=== PATIENT | male | born 1955 | race Caucasian/White ===

== ENCOUNTER 2016-02-20 16:14 | Emergency (ER) | payer MEDICAID, OTHER ==
[~2016-02-20] VITALS: Ht 175.3 cm; Wt 82.0 kg
[~2016-02-20 16:14] MED LIST: LEVE500 PO; LISI-363 PO; METO25 PO
[2016-02-20 16:22] VITALS: BP 109/65; PULSE 111; RESP 18; TEMP 98.3; O2SAT 96
--- NOTE | 2016-02-20 16:26 | PD ---
HPI . Alcohol intoxication Chief Complaint: Intoxication Time Seen by Provider: 16:20 Travel History International Travel<30 days: No Contact w/Intl Traveler<30days: No History of Present Illness HPI History is obtained from it coordinator. She obtained her history from the patient' s neighbors. She states that his home is very messy and there are empty beer cans scattered about. Neighbors report that the patient drinks a lot. Neighbors called EMS today because the patient fell into a cactus tree. The patient has no complaints. PFSH Past Medical History Anxiety: Yes Depression: Yes Cancer: No Cardiovascular Problems: Yes COPD: Yes Diminished Hearing: No Endocrine: No Headaches: Yes Hypertension: Yes (no meds) Immune Disorder: No Inguinal Hernia: Yes (left side repaired) Musculoskeletal: Yes Psychiatric: Yes Past Surgical History Abdominal Surgery: Yes (left groin-hernia repair) Other Surgery: Yes Social History Alcohol Use: Yes (OCC) Tobacco Use: No Substance Use: Yes (States "has used all of it." (Hx Psychedelics/Mushrooms)) Allergies-Medications (Allergen,Severity, Reaction): Coded Allergies: No Known Allergies (Unverified , 02/20/16) Reported Meds & Prescriptions Reported Meds & Active Scripts Active Reported Lisinopril 20 mg (Lisinopril) 20 Mg Tab 1 Tab PO DAILY Metoprolol Tartrate 25 mg (Metoprolol Tartrate) 25 Mg Tab 25 Mg PO BID Keppra (Levetriacetam) 500 Mg Tab 500 Mg PO BID Review of Systems Except as stated in HPI: all other systems reviewed are Neg Physical Exam Narrative GENERAL: This is a pleasantly intoxicated gentleman who is covered in abrasions. SKIN: Warm and dry. Multiple abrasions. HEAD: Atraumatic. Normocephalic. EYES: Pupils equal and round. ENT: No nasal bleeding or discharge. Mucous membranes pink and moist. NECK: Trachea midline. Neck supple. CARDIOVASCULAR: Regular rate and rhythm. RESPIRATORY: No accessory muscle use. GASTROINTESTINAL: Abdomen soft, non-tender, nondistended. MUSCULOSKELETAL: No obvious deformities. No edema. NEUROLOGICAL: Awake and alert. No obvious cranial nerve deficits. Motor grossly within normal limits. Normal speech. PSYCHIATRIC: Appropriate mood and affect; insight and judgment poor. Data Data Last Documented VS Vital Signs Date Time Temp Pulse Resp B/P Pulse Ox O2 Delivery O2 Flow Rate FiO2 02/20/16 16:30 110 18 96 Nasal Cannula 2 02/20/16 16:22 98.3 109/65 Orders Complete Blood Count With Diff (02/20/16 16:21) Comprehensive Metabolic Panel (02/20/16 16:21) Iv Access Insert/Monitor (02/20/16 16:21) Alcohol (Ethanol) (02/20/16 16:21) Sodium Chlor 0.9% 1000 Ml Inj (Ns 1000 M (02/20/16 16:30) Tetanus/Diphtheria Tox Adult (Tetanus/Di (02/20/16 16:30) Thiamine Inj (Thiamine Inj) (02/20/16 16:30) Multivitamin (Theragran) (02/20/16 16:30) Urinalysis - C+S If Indicated (02/20/16 17:58) Labs Laboratory Tests Test 02/20/16 02/20/16 16:52 18:05 White Blood Count 26.1 TH/MM3 Red Blood Count 4.39 MIL/MM3 Hemoglobin 13.9 GM/DL Hematocrit 41.2 % Mean Corpuscular Volume 93.8 FL Mean Corpuscular Hemoglobin 31.6 PG Mean Corpuscular Hemoglobin 33.6 % Concent Red Cell Distribution Width 15.5 % Platelet Count 146 TH/MM3 Mean Platelet Volume 9.2 FL Neutrophils (%) (Auto) 12.4 % Lymphocytes (%) (Auto) 81.9 % Monocytes (%) (Auto) 5.0 % Eosinophils (%) (Auto) 0.3 % Basophils (%) (Auto) 0.4 % Neutrophils # (Auto) 3.2 TH/MM3 Lymphocytes # (Auto) 21.4 TH/MM3 Monocytes # (Auto) 1.3 TH/MM3 Eosinophils # (Auto) 0.1 TH/MM3 Basophils # (Auto) 0.1 TH/MM3 CBC Comment AUTO DIFF Differential Total Cells 100 Counted Neutrophils % (Manual) 16 % Lymphocytes % 78 % Monocytes % 6 % Neutrophils # (Manual) 4.2 TH/MM3 Differential Comment FINAL DIFF MANUAL Smudge Cells PRESENT Platelet Estimate LOW Platelet Morphology Comment NORMAL Red Cell Morphology Comment NORMAL Sodium Level 140 MEQ/L Potassium Level 3.9 MEQ/L Chloride Level 104 MEQ/L Carbon Dioxide Level 23.2 MEQ/L Anion Gap 13 MEQ/L Blood Urea Nitrogen 7 MG/DL Creatinine 0.89 MG/DL Estimat Glomerular Filtration 87 ML/MIN Rate Random Glucose 116 MG/DL Calcium Level 7.9 MG/DL Total Bilirubin 0.3 MG/DL Aspartate Amino Transf 173 U/L (AST/SGOT) Alanine Aminotransferase 110 U/L (ALT/SGPT) Alkaline Phosphatase 56 U/L Total Protein 7.7 GM/DL Albumin 3.5 GM/DL Ethyl Alcohol Level 438 MG/DL Urine Color LIGHT-YELLOW Urine Turbidity CLEAR Urine pH 5.0 Urine Specific [place] 1.003 Urine Protein NEG mg/dL Urine Glucose (UA) NEG mg/dL Urine Ketones NEG mg/dL Urine Occult Blood NEG Urine Nitrite NEG Urine Bilirubin NEG Urine Urobilinogen LESS THAN 2.0 MG/DL Urine Leukocyte Esterase NEG Urine RBC LESS THAN 1 /hpf Urine WBC 1 /hpf Urine Mucus FEW /lpf Microscopic Urinalysis Comment CULT NOT INDICATED MDM Medical Decision Making Medical Screen Exam Complete: Yes Emergency Medical Condition: Yes Differential Diagnosis Differential diagnosis includes but is not limited to alcohol intoxication, polysubstance abuse, abrasions, lacerations Narrative Course Patient comes in to us by EMS basically for acute alcohol intoxication. He is reportedly chronically unsteady on his feet because of previous brain tumor. And he drinks daily. Today he fell into a cactus tree. 6 PM Labs reviewed. White blood count is elevated. I have added a UA. 6:30 PM UA is negative. This patient does not give me any signs or symptoms worrisome for infection. He has no fever. He has no cough or difficulty breathing. He states that he feels fine. I will discharge him to home. Diagnosis Primary Impression: Alcohol abuse Additional Impressions: Fall Qualified Code: W19.XXXA - Fall, initial encounter Multiple abrasions Disposition: 01 DISCHARGE HOME Condition: Stable Doris Finley MD Feb 20, 2016 16:26
[2016-02-20] MEDS ORDERED: TETANUS/DIPHTHERIA TOXOID ADULT 0.5 ML VIAL IM ONE (16:30)
[2016-02-20] MEDS ORDERED: SODIUM CHLOR 0.9% 1000 ML INJ 1,000 ML IV ONE (16:30)
[2016-02-20] MEDS ORDERED: THIAMINE INJ 100 MG in SODIUM CHLORIDE 0.9% INJ 100 ML IV ONE (16:30)
[2016-02-20] MEDS ORDERED: MULTIVITAMIN TAB PO ONE (16:30)
[2016-02-20 17:27] LABS: AUTOMATED NEUTROPHIL # 3.2 TH/MM3 (1.8-7.7); BASOPHIL # 0.1 TH/MM3 (0-0.2); BASOPHIL % 0.4 % (0.0-2.0); EOSINOPHIL # 0.1 TH/MM3 (0-0.4); EOSINOPHIL % 0.3 % (0.0-4.0); HEMATOCRIT 41.2 % (39.0-51.0); LYMPH % 81.9 % (9.0-44.0); LYMPHOCYTE # 21.4 TH/MM3 (1.0-4.8); MEAN CELL VOLUME 93.8 FL (80.0-100.0); MEAN CORPUSCULAR HEMOGLOBIN 31.6 PG (27.0-34.0); MEAN CORPUSCULAR HGB CONC 33.6 % (32.0-36.0); NEUT % 12.4 % (16.0-70.0); PLATELET COUNT 146 TH/MM3 (150-450); RED BLOOD COUNT 4.39 MIL/MM3 (4.50-5.90); RED CELL DISTRIBUTION WIDTH 15.5 % (11.6-17.2); WHITE BLOOD COUNT 26.1 TH/MM3 (4.0-11.0)
[2016-02-20 17:30] LABS: HEMO FLAGS AUTO DIFF
[2016-02-20 17:45] LABS: ALKALINE PHOSPHATASE 56 U/L (45-117); ALT (GPT) 110 U/L (12-78); ANION GAP 13 MEQ/L (5-15); AST (GOT) 173 U/L (15-37); BICARBONATE 23.2 MEQ/L (21.0-32.0); BLOOD UREA NITROGEN 7 MG/DL (7-18); CHLORIDE 104 MEQ/L (98-107); GLOMERULAR FILTRATION RATE 87 ML/MIN (>89); POTASSIUM 3.9 MEQ/L (3.5-5.1); SODIUM (NA) 140 MEQ/L (136-145); TOTAL BILIRUBIN ADULT 0.3 MG/DL (0.2-1.0)
[2016-02-20 17:59] LABS: NEUTROPHIL # MANUAL DIFF 4.2 TH/MM3 (1.8-7.7); POLYS (SEG NEUTROPHILS) 16 % (16-70); WBC DIFF SAMPLE 100
[2016-02-20 18:00] LABS: PLATELET ESTIMATE SMEAR LOW (NORMAL); PLATELET MORPHOLOGY NORMAL (NORMAL); SCAN/DIFF FINAL DIFF MANUAL; SMUDGE CELLS PRESENT PRESENT
[2016-02-20 18:24] LABS: BLOOD, URINE NEG (NEG); COMMENT (UR) CULT NOT INDICATED; CULTURE IF INDICATED CULT NOT INDICATED; GLUCOSE,URINE NEG (NEG); KETONE, URINE NEG (NEG); MUCUS URINE FEW /lpf (OCC); NITRITE,URINE NEG (NEG); URINE COLOR LIGHT-YELLOW (YELLW/STRAW)
== END 2016-02-20 19:28 | disposition home or self-care (01) ==
LOC: NEPE 16:14
DX: F10.129 Alcohol abuse with intoxication, unspecified (principal); T14.8 Other injury of unspecified body region; W19.XXXA Unspecified fall, initial encounter; Y90.8 Blood alcohol level of 240 mg/100 ml or more; Z23 Encounter for immunization
CPT/HCPCS: 80053; 80320; 81001; 85007; 85027; 90471; 90714; 96374; 99284; J3411; J7030

== ENCOUNTER 2016-03-04 17:16 | Emergency (ER) | payer MEDICAID, OTHER ==
[~2016-03-04] VITALS: Ht 180.3 cm; Wt 95.5 kg
[2016-03-04] MEDS ORDERED: LEVE500 PO ×2 (17:21→18:09)
[2016-03-04 17:22] VITALS: BP 117/77; PULSE 115; RESP 18; TEMP 98.3; O2SAT 93
[2016-03-04] MEDS ORDERED: SODIUM CHLOR 0.9% 1000 ML INJ 1,000 ML IV SCH (17:30)
[2016-03-04] MEDS ORDERED: levETIRAcetam 1000 MG INJ 100 ML IV ONE (17:30)
[2016-03-04] MEDS ORDERED: SODIUM CHLORIDE 0.9% FLUSH 5 ML FLUSH IVF PRN (17:30)
[2016-03-04] MEDS ORDERED: DIPHTH/TETANUS/ACEL PERTUSSIS (BOOSTER) 0.5 ML VIAL/PFS IM ONE (17:30)
--- NOTE | 2016-03-04 17:42 | PD ---
HPI Chief Complaint: Fall Time Seen by Provider: 17:23 Travel History International Travel<30 days: No Contact w/Intl Traveler<30days: No Traveled to known affect area: No History of Present Illness HPI Patient is a 61-year-old male with history of seizures as well as alcohol abuse , presents to emergency room intoxicated. Patient was brought to ER by [facility] as bystanders saw patient fall onto his face and land on the concrete road. Reports no loc at scene. Patient has no complaints at this time. Patient reports that he has not taken any of his seizure medications which includes Keppra 500 mg by mouth twice a day for the past week. Patient reports that he is an alcoholic, reports that he drank 2 cans of beer today. Patient with no complaints. Tetanus is up-to-date - he received this on his last ER visit 1 week ago. PFSH Past Medical History Anxiety: Yes Depression: Yes Cancer: No Cardiovascular Problems: Yes COPD: Yes Diminished Hearing: No Endocrine: No Headaches: Yes Hypertension: Yes (no meds) Immune Disorder: No Inguinal Hernia: Yes (left side repaired) Musculoskeletal: Yes Psychiatric: Yes Seizures: Yes Past Surgical History Abdominal Surgery: Yes (left groin-hernia repair) Other Surgery: Yes Social History Alcohol Use: Yes (DAILY ) Tobacco Use: No Substance Use: No (States "has used all of it." (Hx Psychedelics/Mushrooms)) Allergies-Medications (Allergen,Severity, Reaction): Coded Allergies: No Known Allergies (Unverified , 03/04/16) Reported Meds & Prescriptions Reported Meds & Active Scripts Active Keppra (Levetiracetam) 500 Mg Tab 500 Mg PO BID Reported Keppra (Levetiracetam) 500 Mg Tab 500 Mg PO BID Review of Systems ROS Limitations: Intoxication General / Constitutional: No: Fever Eyes: No: Visual changes HENT: No: Headaches Cardiovascular: No: Chest Pain or Discomfort Respiratory: No: Shortness of Breath Gastrointestinal: No: Abdominal Pain Genitourinary: No: Dysuria Musculoskeletal: No: Pain Skin: No Rash Neurologic: No: Weakness Psychiatric: No: Depression Endocrine: No: Polydipsia Hematologic/Lymphatic: No: Easy Bruising Physical Exam Narrative GENERAL: Patient intoxicated, alert and oriented 3 SKIN: Warm and dry. HEAD: Normocephalic. Patient with left-sided facial abrasion EYES: Pupils equal and round. No scleral icterus. No injection or drainage. ENT: No nasal bleeding or discharge. Mucous membranes pink and moist. NECK: Trachea midline. No JVD. CARDIOVASCULAR: Regular rate and rhythm. No murmur appreciated. Patient with left-sided chest contusion and contusion and bruising under the left axilla RESPIRATORY: No accessory muscle use. Clear to auscultation. Breath sounds equal bilaterally. GASTROINTESTINAL: Abdomen soft, non-tender, nondistended. Patient with left flank hematoma, contusion, bruising MUSCULOSKELETAL: No obvious deformities. No clubbing. No cyanosis. No edema. NEUROLOGICAL: Awake and alert. No obvious cranial nerve deficits. Motor grossly within normal limits. PSYCHIATRIC: Patient intoxicated Data Data Last Documented VS Vital Signs Date Time Temp Pulse Resp B/P Pulse Ox O2 Delivery O2 Flow Rate FiO2 03/04/16 19:18 100 20 119/83 95 Room Air 03/04/16 17:22 98.3 Orders Electrocardiogram (03/04/16 17:30) Complete Blood Count With Diff (03/04/16 17:30) Comprehensive Metabolic Panel (03/04/16 17:30) Prothrombin Time / Inr (Pt) (03/04/16 17:30) Act Partial Throm Time (Ptt) (03/04/16 17:30) Iv Access Insert/Monitor (03/04/16 17:30) Sodium Chloride 0.9% Flush (Ns Flush) (03/04/16 17:30) Urinalysis - C+S If Indicated (03/04/16 17:30) Drug Screen, Random Urine (03/04/16 17:30) Ct Brain W/O Iv Contrast(Rout) (03/04/16 17:30) Ct Cerv Spine W/O Contrast (03/04/16 17:30) Ct Abd/Pel W Iv Contrast(Rout) (03/04/16 17:30) Ct Thorax/ Chest W Iv Contrast (03/04/16 17:30) Ct Facial Bones W/O Iv Cont (03/04/16 17:30) Sodium Chlor 0.9% 1000 Ml Inj (Ns 1000 M (03/04/16 17:30) Levetiracetam 1000 Mg Inj (Keppra 1000 M (03/04/16 17:30) Alcohol (Ethanol) (03/04/16 17:30) Sodium Chlor 0.9% 1000 Ml Inj (Ns 1000 M (03/04/16 18:00) Sodium Chlor 0.9% 1000 Ml Inj (Ns 1000 M (03/04/16 18:15) Ecg Monitoring (03/04/16 18:12) Iohexol 350 Inj (Omnipaque 350 Inj) (03/04/16 19:21) Labs Laboratory Tests Test 03/04/16 03/04/16 17:45 17:50 Urine Collection Type CLEAN CATCH Urine Color YELLOW Urine Turbidity CLEAR Urine pH 5.5 Urine Specific [place] 1.006 Urine Protein NEG mg/dL Urine Glucose (UA) NEG mg/dL Urine Ketones NEG mg/dL Urine Occult Blood TRACE Urine Nitrite NEG Urine Bilirubin NEG Urine Leukocyte Esterase NEG Urine RBC 0-3 /hpf Urine Squamous Epithelial 0-5 /hpf Cells Urine Amorphous Sediment FEW Urine Hyaline Casts 0-2 /lpf Microscopic Urinalysis Comment CULT NOT INDICATED Urine Collection Time 1745 Urine Opiates Screen NEG Urine Barbiturates Screen NEG Urine Amphetamines Screen NEG Urine Benzodiazepines Screen NEG Urine Cocaine Screen NEG Urine Cannabinoids Screen NEG White Blood Count 35.0 TH/MM3 Red Blood Count 4.36 MIL/MM3 Hemoglobin 13.8 GM/DL Hematocrit 40.6 % Mean Corpuscular Volume 93.2 FL Mean Corpuscular Hemoglobin 31.6 PG Mean Corpuscular Hemoglobin 33.9 % Concent Red Cell Distribution Width 14.6 % Platelet Count 178 TH/MM3 Mean Platelet Volume 8.6 FL Neutrophils (%) (Auto) 11.1 % Lymphocytes (%) (Auto) 84.8 % Monocytes (%) (Auto) 2.9 % Eosinophils (%) (Auto) 0.4 % Basophils (%) (Auto) 0.8 % Neutrophils # (Auto) 3.9 TH/MM3 Lymphocytes # (Auto) 29.7 TH/MM3 Monocytes # (Auto) 1.0 TH/MM3 Eosinophils # (Auto) 0.1 TH/MM3 Basophils # (Auto) 0.3 TH/MM3 CBC Comment AUTO DIFF Differential Total Cells 100 Counted Neutrophils % (Manual) 8 % Lymphocytes % 8 % Monocytes % 4 % Eosinophils % 3 % Neutrophils # (Manual) 2.8 TH/MM3 Differential Comment FINAL DIFF MANUAL Atypical Lymphocytes 77 % Smudge Cells PRESENT Platelet Estimate NORMAL Platelet Morphology Comment NORMAL Red Cell Morphology Comment NORMAL Prothrombin Time 11.2 SEC Prothromb Time International 1.0 RATIO Ratio Activated Partial 24.1 SEC Thromboplast Time Sodium Level 143 MEQ/L Potassium Level 4.3 MEQ/L Chloride Level 109 MEQ/L Carbon Dioxide Level 21.7 MEQ/L Anion Gap 12 MEQ/L Blood Urea Nitrogen 5 MG/DL Creatinine 0.86 MG/DL Estimat Glomerular Filtration 91 ML/MIN Rate Random Glucose 106 MG/DL Calcium Level 8.3 MG/DL Total Bilirubin 0.4 MG/DL Aspartate Amino Transf 189 U/L (AST/SGOT) Alanine Aminotransferase 115 U/L (ALT/SGPT) Alkaline Phosphatase 64 U/L Total Protein 8.4 GM/DL Albumin 3.7 GM/DL Ethyl Alcohol Level 392 MG/DL [facility] Medical Decision Making Medical Screen Exam Complete: Yes Emergency Medical Condition: Yes Interpretation(s) EKG at 1757: Sinus tach at 106bpm, qt/qtc: 336/416, no acute st or t wave changes Vital Signs Date Time Temp Pulse Resp B/P Pulse Ox O2 Delivery O2 Flow Rate FiO2 03/04/16 17:22 98.3 115 18 117/77 93 Differential Diagnosis Intracranial hemorrhage, seizure, alcohol intoxication, electrolyte abnormality , pneumothorax, splenic rupture, lung contusion, C-spine fracture Narrative Course Patient is a 61-year-old male with history of seizures as well as alcohol abuse , presents to emergency room after he had a witnessed mechanical fall into the road today. Patient reports that he drank 2 beers, reports that he thinks that he fell into a cactus today, patient with no complaints at this time. Patient does admit to history of seizures, reports that he is supposed to be on Keppra for seizures but has not taken his medications and a week as he has run out of his medications. Patient is alert and oriented 3, patient with history of seizures as well as brain aneurysms, patient with multiple contusions and bruising all over body. Because patient is intoxicated, CT of the head neck chest abdomen and pelvis ordered for evaluation of possible traumatic injuries. Patiently placed on monitor and storage bin tender, will give patient IV fluids at this time. wbc: 35 hb.8 hct: 40.6 platelets: 178 neut # 3.9 Sodium 143 Chloride is 109 BUN 5 Creatinine 0.86 Glucose 106 Potassium is 4.[address] of the head: Evidence of previous significant surgery with apparent embolization. There is no evidence of significant medical hemorrhage, mass effect or acute infarction. CT of the facial bones: Left maxillary sinus disease, no evidence of acute fracture CT of the neck: Degenerative changes without fracture CT of chest: Negative for acute traumatic injury CT of abdomen and pelvis: Moderate fatty replacement to the liver, negative for acute traumatic injury Patient intoxicated at this time. Will discharge patient after he is sober. Patient does have a significant leukocytosis without a shift, I do not believe the patient has an infection at this time, patient will need to have a workup for his leukocytosis as outpatient. Patient alert and oriented x3, pt with no complaints. Patient walking in ER with normal gait. I reviewed all of his labs and studies. 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 as soon as possible Diagnosis Primary Impression: Alcohol abuse Additional Impressions: Seizure disorder Facial abrasion Qualified Code: S00.81XA - Facial abrasion, initial encounter Leukocytosis Qualified Code: D72.829 - Leukocytosis, unspecified type Patient Instructions: General Instructions Additional Instructions: Please provide patient with a copy of his lab work as well as CAT scan results at discharge Please follow-up with your primary care doctor as soon as possible Please follow-up with ironing machine operator as soon as possible Please stop drinking alcohol Please take your medications for seizure as prescribed Med/Other Pt SpecificInfo: Prescription(s) given Scripts Levetiracetam (Keppra)500 Mg [id number] Mg PO BID #60 TAB Ref 0 Prov:Claritza Fountain DO 03/04/16 Disposition: 01 DISCHARGE HOME Condition: Stable Claritza Fountain DO Mar 04, 2016 17:42
[2016-03-04 17:51] LABS: BLOOD, URINE TRACE (NEG); GLUCOSE,URINE NEG (NEG); KETONE, URINE NEG (NEG); NITRITE,URINE NEG (NEG); PH, URINE 5.5 (5.0-8.5)
[2016-03-04 17:54] LABS: METHOD OF COLLECTION CLEAN CATCH; URINE COLOR YELLOW (YELLW/STRAW)
[2016-03-04 17:56] LABS: COMMENT (UR) CULT NOT INDICATED; COMMENT2 (UR) MUCOUS PRESENT; CULTURE IF INDICATED CULT NOT INDICATED; HYALINE CAST, URINE 0-2 /lpf (RARE); RBC, URINE 0-3 /hpf (0-3); SQUAMOUS EPITHELIAL CELL URINE 0-5 /hpf (0-5)
[2016-03-04] MEDS ORDERED: SODIUM CHLOR 0.9% 1000 ML INJ 1,000 ML IV ONE ×2 (18:00→18:15)
[2016-03-04 18:01] LABS: AUTOMATED NEUTROPHIL # 3.9 TH/MM3 (1.8-7.7); BASOPHIL # 0.3 TH/MM3 (0-0.2); BASOPHIL % 0.8 % (0.0-2.0); EOSINOPHIL # 0.1 TH/MM3 (0-0.4); EOSINOPHIL % 0.4 % (0.0-4.0); HEMATOCRIT 40.6 % (39.0-51.0); LYMPH % 84.8 % (9.0-44.0); LYMPHOCYTE # 29.7 TH/MM3 (1.0-4.8); MEAN CELL VOLUME 93.2 FL (80.0-100.0); MEAN CORPUSCULAR HEMOGLOBIN 31.6 PG (27.0-34.0); MEAN CORPUSCULAR HGB CONC 33.9 % (32.0-36.0); MONO % 2.9 % (0.0-8.0); NEUT % 11.1 % (16.0-70.0); PLATELET COUNT 178 TH/MM3 (150-450); RED BLOOD COUNT 4.36 MIL/MM3 (4.50-5.90); RED CELL DISTRIBUTION WIDTH 14.6 % (11.6-17.2)
[2016-03-04 18:03] LABS: HEMO FLAGS AUTO DIFF
[2016-03-04 18:06] LABS: AMPHETAMINE, URINE NEG (NEG)
[2016-03-04 18:07] LABS: BARBITURATES, URINE NEG (NEG)
[2016-03-04 18:08] LABS: CHLORIDE 109 MEQ/L (98-107); POTASSIUM 4.3 MEQ/L (3.5-5.1); SODIUM (NA) 143 MEQ/L (136-145)
[2016-03-04 18:12] LABS: ANION GAP 12 MEQ/L (5-15); BICARBONATE 21.7 MEQ/L (21.0-32.0); BLOOD UREA NITROGEN 5 MG/DL (7-18)
[2016-03-04 18:12] LABS: COCAINE, URINE NEG (NEG)
[2016-03-04 18:14] LABS: APTT (PATIENT) 24.1 SEC (24.3-30.1); PROTHROMBIN TIME - PATIENT 11.2 SEC (9.8-11.6)
[2016-03-04 18:15] LABS: ALT (GPT) 115 U/L (12-78); AST (GOT) 189 U/L (15-37); GLOMERULAR FILTRATION RATE 91 ML/MIN (>89)
[2016-03-04 18:17] LABS: TOTAL BILIRUBIN ADULT 0.4 MG/DL (0.2-1.0)
[2016-03-04 18:18] LABS: ALKALINE PHOSPHATASE 64 U/L (45-117)
--- NOTE | 2016-03-04 19:15 | RADHPO ---
EXAM DATE/TIME: 03/04/2016 18:45 [facility] COMPARISON: CT BRAIN W/O CONTRAST, December 15, 2015, 11:13. INDICATIONS : Trauma; fall on concrete. RADIATION DOSE: 64.93 CTDIvol (mGy) MEDICAL HISTORY : Seizures. Cardiovascular disease. Hypertension. COPD, Left inguinal hernia. SURGICAL HISTORY : Inguinal hernia repair. ENCOUNTER: Initial ACUITY: 1 day PAIN SCALE: 5/10 LOCATION: Bilateral head TECHNIQUE: Multiple contiguous axial images were obtained of the head. Using automated exposure control and adjustment of the mA and/or kV according to patient size, radiation dose was kept as low as reasonably achievable to obtain optimal diagnostic quality images. FINDINGS: Patient is status post apparent embolization AVM. There are extensive embolization coils causing sig nificant artifact. I do not see any evidence for significant parenchymal hemorrhage, mass effect or acute infarction. Subtle subarachnoid hemorrhages cannot be excluded. CONCLUSION: Evidence for previous significant surgery with apparent embolization. coils. I have no prior studies for a comparison. Negative for an acute process. Ernie Hubbard MD FACR on March 04, 2016 at 19:05 Board Certified Radiologist. This report was verified electronically.
[2016-03-04 19:18] VITALS: BP 119/83; PULSE 100; RESP 20; O2SAT 95
[2016-03-04] MEDS ORDERED: IOHEXOL 350 MG/ML 10 ML VIAL (for RAD DIAG) IV ONE (19:21)
--- NOTE | 2016-03-04 19:24 | RADHPO ---
EXAM DATE/TIME: 03/04/2016 18:45 [facility] COMPARISON: No previous studies available for comparison. INDICATIONS : Trauma; fall on concrete. RADIATION DOSE: 26.70 CTDIvol (mGy) MEDICAL HISTORY : Seizures. Hypertension. Cardiovascular disease SURGICAL HISTORY : Inguinal hernia repair. ENCOUNTER: Initial ACUITY: 1 day PAIN SCALE: 1/10 LOCATION: Neck TECHNIQUE: Volumetric scanning of the cervical spine was performed. Multiplanar reconstructions in the sagittal, coronal and oblique axial planes were performed. Using automated exposure control and adjustment o f the mA and/or kV according to patient size, radiation dose was kept as low as reasonably achievable to obtain optimal diagnostic quality images. FINDINGS: Alignment is anatomic. There are degenerative changes at C1 and C2. C2-C3: The bony spinal canal is normal in size. No evidence of disc bulge or herniation. The neural forami na are bilaterally patent. C3-C4: Moderate facet disease is present with minimal bilateral neural foraminal encroachment. C4-C5: Moderate facet disease is evident with bilateral neural foraminal encroachment. C5-C6: Moderate uncinate ridging and facet disease is present causing a mild degree of spinal stenosis and m oderate bilateral neural foraminal encroachment. C6-C7: The bony spinal canal is normal in size. No evidence of disc bulge or herniation. The neural forami na are bilaterally patent. C7-T1: The bony spinal canal is normal in size. No evidence of disc bulge or herniation. The neural forami na are bilaterally patent. CONCLUSION: Degenerative changes as described above without fracture. Ernie Hubbard MD FACR on March 04, 2016 at 19:17 Board Certified Radiologist. This report was verified electronically.
--- NOTE | 2016-03-04 19:26 | RADHPO ---
EXAM DATE/TIME: 03/04/2016 18:45 [facility] COMPARISON: No previous studies available for comparison. INDICATIONS : Trauma; fall on concrete. RADIATION DOSE: 25.60 CTDIvol (mGy) MEDICAL HISTORY : Seizures. Cardiovascular disease Hypertension. SURGICAL HISTORY : Inguinal hernia repair. ENCOUNTER: Initial ACUITY: 1 day PAIN SCORE: 5/10 LOCATION: Bilateral face TECHNIQUE: Volumetric scanning of the facial bones was performed. Using automated exposure contr ol and adjustment of the mA and/or kV according to patient size, radiation dose was kept as low as re asonably achievable to obtain optimal diagnostic quality images. FINDINGS: Patient has apparently had a significant history of aneurysm coiling and AV malformation embolization . Superior and inferior nasal spines are intact. There is opacification of the left maxillary sinus. A fracture is not appreciated. Mandible and maxilla are intact. CONCLUSION: 1. Left maxillary sinus disease apparently nontraumatic. 2. I do not see evidence for a fracture. Ernie Hubbard MD FACR on March 04, 2016 at 19:22 Board Certified Radiologist. This report was verified electronically.
--- NOTE | 2016-03-04 19:28 | RADHPO ---
EXAM DATE/TIME: 03/04/2016 18:58 [facility] COMPARISON: No previous studies available for comparison. INDICATIONS : Trauma; fall on concrete. IV CONTRAST: 85 cc Omnipaque 350 (iohexol) IV ; Cumulative dose for multiple exams. RADIATION DOSE: 17.02 CTDIvol (mGy) ; Combined studies - Thorax/Abdomen/Pelvis MEDICAL HISTORY : Hypertension. Cardiovascular disease. Chronic obstructive pulmonary disease. SURGICAL HISTORY : Inguinal hernia repair. ENCOUNTER: Initial ACUITY: 1 day PAIN SCALE: 3/10 LOCATION: Chest TECHNIQUE: Volumetric scanning of the chest was performed. Using automated exposure control and adjustment of t he mA and/or kV according to patient size, radiation dose was kept as low as reasonably achievable to obtain optimal diagnostic quality images. FINDINGS: There is no pneumothorax. There is minimal nonspecific mediastinal axillary adenopathy. There is no mediastinal adenopathy. Minimal coronary artery calcifications are noted. There is no pericardial effusion. There is moderate fatty replacement to the liver. Review of bone windows reveals degenerative changes about both shoulders. I don't see a fracture. CONCLUSION: Negative for acute traumatic injury. Ernie Hubbard MD FACR on March 04, 2016 at 19:23 Board Certified Radiologist. This report was verified electronically.
--- NOTE | 2016-03-04 19:33 | RADHPO ---
EXAM DATE/TIME: 03/04/2016 18:58 [facility] COMPARISON: No previous studies available for comparison. INDICATIONS : Trauma; fall on concrete. IV CONTRAST: 85 cc Omnipaque 350 (iohexol) IV ; Cumulative dose for multiple exams. ORAL CONTRAST: No oral contrast ingested. RADIATION DOSE: 17.02 CTDIvol (mGy) ; Combined studies - Thorax/Abdomen/Pelvis MEDICAL HISTORY : Cardiovascular disease. Hypertension. Chronic obstructive pulmonary disease. SURGICAL HISTORY : Inguinal hernia repair. ENCOUNTER: Initial ACUITY: 1 day PAIN SCALE: 5/10 LOCATION: Bilateral abdomen TECHNIQUE: Volumetric scanning of the abdomen and pelvis was performed. Using automated exposure control and ad justment of the mA and/or kV according to patient size, radiation dose was kept as low as reasonably achievable to obtain optimal diagnostic quality images. FINDINGS: Lung bases are clear. Moderate fatty replacement to the liver is identified. Spleen is unremarkable . Pancreas and adrenal glands appear normal. Prostatic calcifications are evident. Review of bone windows reveals degenerative changes in the thoracolumbar spine. Mild degenerative changes are seen about the SI joints. A fracture is not appreciated. CONCLUSION: 1. Moderate fatty replacement to the liver. 2. Negative for acute traumatic injury. Ernie Hubbard MD FACR on March 04, 2016 at 19:25 Board Certified Radiologist. This report was verified electronically.
[2016-03-04 19:38] LABS: ATYPICAL LYMPHOCYTES 77 % (0-0); EOSINOPHILS 3 % (0-4); NEUTROPHIL # MANUAL DIFF 2.8 TH/MM3 (1.8-7.7); PLATELET ESTIMATE SMEAR NORMAL (NORMAL); PLATELET MORPHOLOGY NORMAL (NORMAL); SCAN/DIFF FINAL DIFF MANUAL; WBC DIFF SAMPLE 100
[2016-03-04 19:39] LABS: POLYS (SEG NEUTROPHILS) 8 % (16-70)
[2016-03-04 19:41] LABS: SMUDGE CELLS PRESENT PRESENT
--- NOTE | 2016-03-05 13:38 | EKG ---
Date Performed: 03/04/2016 Time Performed: 17:57:38 PTAGE: 61 years EKG: Sinus tachycardia Normal ECG except for rate Compared to prior tracing no significant chadwick e PREVIOUS TRACING : 12/15/2015 10.14 DOCTOR: Carlos Llamas Interpretating Date/Time 03/05/2016 13:36:28
== END 2016-03-04 20:21 | disposition home or self-care (01) ==
LOC: PHEFT 17:16
DX: F10.220 Alcohol dependence with intoxication, uncomplicated (principal); S00.91XA Abrasion of unspecified part of head, initial encounter; D72.829 Elevated white blood cell count, unspecified; F41.9 Anxiety disorder, unspecified; F32.9 Major depressive disorder, single episode, unspecified; J44.9 Chronic obstructive pulmonary disease, unspecified; I10 Essential (primary) hypertension; Y90.8 Blood alcohol level of 240 mg/100 ml or more; W01.198A Fall on same level from slipping, tripping and stumbling with subsequent striking against other object, initial encounter; Y93.9 Activity, unspecified; Y92.9 Unspecified place or not applicable; Y99.9 Unspecified external cause status
CPT/HCPCS: 70450; 70486; 71260; 72125; 74177; 80053; 80307; 80320; 81001; 85007; 85027; 85610; 85730; 93005; 96361; 96365; 99284; J1953; J7030; Q9967

== ENCOUNTER 2016-04-04 08:40 | Inpatient (IN) | payer MEDICAID, OTHER ==
[~2016-04-04] VITALS: Ht 182.9 cm; Wt 91.1 kg
[2016-04-04] VITALS (26 sets, daily range): BP systolic 108–168; BP diastolic 68–99; PULSE 74–118; RESP 16–39; TEMP 98.3–99.1; O2SAT 88–96
[~2016-04-04 08:40] MED LIST changes: -LISI-363 PO; -METO25 PO
[2016-04-04] MEDS ORDERED: levETIRAcetam INJ 1,000 MG in SODIUM CHLORIDE 0.9% INJ 100 ML IV ONE (08:45)
[2016-04-04] MEDS ORDERED: SODIUM CHLOR 0.9% 1000 ML INJ 1,000 ML IV ONE (08:45)
[2016-04-04] MEDS ORDERED: LORazepam 2 MG/ML VIAL IV PUSH ONE ×4 (08:45→10:45)
--- NOTE | 2016-04-04 08:59 | PD ---
HPI Chief Complaint: Seizure Time Seen by Provider: 08:42 Travel History International Travel<30 days: No Contact w/Intl Traveler<30days: No Traveled to known affect area: No History of Present Illness HPI Patient is a 61-year-old male brought in by EMS after a seizure this morning at the [facility]. The patient is a chronic alcoholic and normally drinks daily. He says his last drink was 4 days ago. He is currently feeling very tremulous. He has a history of seizures, and says that he normally takes Keppra for the seizures, however he has not had in 4 days. He says he also feels like the Keppra does not help. He has history of an aneurysm that was surgically repaired about a year ago. He denies any headache today. He says he feels nauseous. He denies any blurred vision. He denies any chest pain or shortness of breath. He denies any fever or chills. PFSH Past Medical History Anxiety: Yes Depression: Yes Cancer: No Cardiovascular Problems: Yes COPD: Yes Diminished Hearing: No Endocrine: No Headaches: Yes Hypertension: Yes (no meds) Immune Disorder: No Inguinal Hernia: Yes (left side repaired) Musculoskeletal: Yes Psychiatric: Yes Seizures: Yes Past Surgical History Abdominal Surgery: Yes (left groin-hernia repair) Other Surgery: Yes Social History Alcohol Use: Yes (DAILY, states he drinks several "strong beers") Tobacco Use: No Substance Use: No (States "has used all of it." (Hx Psychedelics/Mushrooms)) Allergies-Medications (Allergen,Severity, Reaction): Coded Allergies: No Known Allergies (Unverified , 03/04/16) Reported Meds & Prescriptions Reported Meds & Active Scripts Active Keppra (Levetiracetam) 500 Mg Tab 500 Mg PO BID Reported Keppra (Levetiracetam) 500 Mg Tab 500 Mg PO BID Review of Systems Except as stated in HPI: all other systems reviewed are Neg General / Constitutional: No: Fever, Chills Eyes: No: Blurred Vision HENT: No: Headaches Cardiovascular: No: Chest Pain or Discomfort Respiratory: No: Shortness of Breath Gastrointestinal: Positive: Nausea, Vomiting, No: Abdominal Pain Musculoskeletal: No: Myalgias, Pain Skin: No Rash, No Change in Pigmentation Neurologic: Positive: Tremor, Seizures Physical Exam Narrative GENERAL: Awake and alert, in no acute distress. SKIN: Warm and dry. HEAD: Atraumatic. Normocephalic. EYES: Pupils equal and round. No scleral icterus. Extraocular movements intact. ENT: Mucous membranes pink and moist. Tongue fasciculations seen. NECK: Trachea midline. No JVD. CARDIOVASCULAR: Tachycardia. No murmur appreciated. RESPIRATORY: No accessory muscle use. Clear to auscultation. Breath sounds equal bilaterally. GASTROINTESTINAL: Abdomen soft, non-tender, nondistended. MUSCULOSKELETAL: No obvious deformities. No clubbing. No cyanosis. No edema. NEUROLOGICAL: Awake and alert. No obvious cranial nerve deficits. Motor grossly within normal limits. Normal speech. Tremulous. PSYCHIATRIC: Appropriate mood and affect; insight and judgment normal. Data Data Last Documented VS Vital Signs Date Time Temp Pulse Resp B/P Pulse Ox O2 Delivery O2 Flow Rate FiO2 04/04/16 10:59 76 18 144/81 92 Room Air 04/04/16 09:41 2 04/04/16 08:43 98.4 Orders Complete Blood Count With Diff (04/04/16 08:43) Comprehensive Metabolic Panel (04/04/16 08:43) Act Partial Throm Time (Ptt) (04/04/16 08:43) Prothrombin Time / Inr (Pt) (04/04/16 08:43) Sodium Chlor 0.9% 1000 Ml Inj (Ns 1000 M (04/04/16 08:45) Lorazepam Inj (Ativan Inj) (04/04/16 08:45) Levetiracetam Inj (Keppra Inj) (04/04/16 08:45) Documentation Manager / Telemetry [email or web address] (04/04/16 08:43) Iv Access Insert/Monitor (04/04/16 08:43) Electrocardiogram (04/04/16 ) Alcohol (Ethanol) (04/04/16 08:43) Lorazepam Inj (Ativan Inj) (04/04/16 09:45) Lorazepam Inj (Ativan Inj) (04/04/16 10:00) Ct Brain W/O Iv Contrast(Rout) (04/04/16 ) Chest, Single Ap (04/04/16 ) Lorazepam Inj (Ativan Inj) (04/04/16 10:45) Labs Laboratory Tests Test 04/04/16 04/04/16 09:08 10:10 White Blood Count 12.6 TH/MM3 Red Blood Count 4.29 MIL/MM3 Hemoglobin 13.3 GM/DL Hematocrit 40.0 % Mean Corpuscular Volume 93.2 FL Mean Corpuscular Hemoglobin 30.9 PG Mean Corpuscular Hemoglobin 33.2 % Concent Red Cell Distribution Width 14.5 % Platelet Count 133 TH/MM3 Mean Platelet Volume 8.8 FL Neutrophils (%) (Auto) 53.3 % Lymphocytes (%) (Auto) 42.1 % Monocytes (%) (Auto) 2.9 % Eosinophils (%) (Auto) 0.0 % Basophils (%) (Auto) 1.7 % Neutrophils # (Auto) 6.7 TH/MM3 Lymphocytes # (Auto) 5.3 TH/MM3 Monocytes # (Auto) 0.4 TH/MM3 Eosinophils # (Auto) 0.0 TH/MM3 Basophils # (Auto) 0.2 TH/MM3 CBC Comment AUTO DIFF Differential Total Cells 100 Counted Neutrophils % (Manual) 45 % Band Neutrophils % 12 % Lymphocytes % 40 % Monocytes % 3 % Neutrophils # (Manual) 7.2 TH/MM3 Differential Comment FINAL DIFF MANUAL Platelet Estimate LOW Platelet Morphology Comment NORMAL Red Cell Morphology Comment NORMAL Prothrombin Time 12.1 SEC Prothromb Time International 1.1 RATIO Ratio Activated Partial 24.5 SEC Thromboplast Time Sodium Level 139 MEQ/L Potassium Level 3.8 MEQ/L Chloride Level 103 MEQ/L Carbon Dioxide Level 26.6 MEQ/L Anion Gap 9 MEQ/L Blood Urea Nitrogen 8 MG/DL Creatinine 0.83 MG/DL Estimat Glomerular Filtration 95 ML/MIN Rate Random Glucose 126 MG/DL Calcium Level 8.5 MG/DL Total Bilirubin 1.5 MG/DL Aspartate Amino Transf 223 U/L (AST/SGOT) Alanine Aminotransferase 84 U/L (ALT/SGPT) Alkaline Phosphatase 67 U/L Total Protein 8.0 GM/DL Albumin 3.4 GM/DL Ethyl Alcohol Level LESS THAN 3 MG/DL MDM Medical Decision Making Medical Screen Exam Complete: Yes Emergency Medical Condition: Yes Medical Record Reviewed: Yes Interpretation(s) ECG shows sinus tachycardia at 101, no ST elevation or depression, normal intervals. Differential Diagnosis Alcohol withdrawal versus breakthrough seizure versus electrolyte abnormality versus infection Narrative Course Patient is a 61-year-old male who comes in tremulous, withdrawing from alcohol. He did have a seizure this morning at the [facility]. IV established, patient connected to a vehicle monitor technician. He seemed to be tachycardic. Patient given 2 mg of Ativan IV, IV fluids. Labs sent show an elevation in AST as well as his total bili. This is likely due to his chronic alcoholism. Patient is not having any abdominal pain at this time. Patient continued to have symptoms of tremulousness. Given a second dose of [address] of the head performed shows no acute abnormalities. Patient required a total of 8 mg of IV Ativan. He occasionally hallucinates, thinking that someone is in the room that is not. He was seen talking to issues. However the tremulousness has decreased. His tachycardia has decreased. His blood pressure has improved. Overall he says that his symptoms are better. He is awake, alert, oriented to person, place, time. Patient admitted to the ICU for further management. Diagnosis Primary Impression: Alcohol withdrawal Qualified Code: F10.231 - Alcohol withdrawal, with delirium Rosemarie Hairston MD Apr 04, 2016 08:59
[2016-04-04 09:14] LABS: AUTOMATED NEUTROPHIL # 6.7 TH/MM3 (1.8-7.7); BASOPHIL # 0.2 TH/MM3 (0-0.2); BASOPHIL % 1.7 % (0.0-2.0); LYMPH % 42.1 % (9.0-44.0); LYMPHOCYTE # 5.3 TH/MM3 (1.0-4.8); MEAN CELL VOLUME 93.2 FL (80.0-100.0); MEAN CORPUSCULAR HEMOGLOBIN 30.9 PG (27.0-34.0); MEAN CORPUSCULAR HGB CONC 33.2 % (32.0-36.0); MONO % 2.9 % (0.0-8.0); NEUT % 53.3 % (16.0-70.0); PLATELET COUNT 133 TH/MM3 (150-450); RED BLOOD COUNT 4.29 MIL/MM3 (4.50-5.90); RED CELL DISTRIBUTION WIDTH 14.5 % (11.6-17.2); WHITE BLOOD COUNT 12.6 TH/MM3 (4.0-11.0)
[2016-04-04 09:15] LABS: HEMO FLAGS AUTO DIFF
[2016-04-04 09:29] LABS: APTT (PATIENT) 24.5 SEC (24.3-30.1); INTERNATIONAL NORMALIZED RATIO 1.1 RATIO; PROTHROMBIN TIME - PATIENT 12.1 SEC (9.8-11.6)
[2016-04-04 09:46] LABS: BANDS 12 % (0-6); NEUTROPHIL # MANUAL DIFF 7.2 TH/MM3 (1.8-7.7); POLYS (SEG NEUTROPHILS) 45 % (16-70); WBC DIFF SAMPLE 100
[2016-04-04 09:48] LABS: PLATELET ESTIMATE SMEAR LOW (NORMAL); PLATELET MORPHOLOGY NORMAL (NORMAL); SCAN/DIFF FINAL DIFF MANUAL
[2016-04-04 09:59] LABS: GLOMERULAR FILTRATION RATE 95 ML/MIN (>89)
[2016-04-04 10:00] LABS: TOTAL BILIRUBIN ADULT 1.5 MG/DL (0.2-1.0)
[2016-04-04 10:02] LABS: ALKALINE PHOSPHATASE 67 U/L (45-117)
[2016-04-04 10:03] LABS: AST (GOT) 223 U/L (15-37)
--- NOTE | 2016-04-04 10:07 | RADHPO ---
EXAM DATE/TIME: 04/04/2016 09:54 [facility] COMPARISON: CHEST PA & LAT, December 15, 2015, 12:24. INDICATIONS : Seizures. Tremors. MEDICAL HISTORY : Hypertension. Cardiovascular disease. Chronic obstructive pulmonary disease. SURGICAL HISTORY : Inguinal hernia repair. ENCOUNTER: Initial ACUITY: 1 day PAIN SCORE: 0/10 LOCATION: chest FINDINGS: A single view of the chest demonstrates the lungs to be symmetrically aerated without evidence of mas s, infiltrate or effusion. The cardiomediastinal contours are unremarkable. Osseous structures are intact. There are multiple overlying electrocardiogram leads. CONCLUSION: No acute disease. Conrad Kellogg MD on April 04, 2016 at 10:05 Board Certified Radiologist. This report was verified electronically.
[2016-04-04 10:24] LABS: CHLORIDE 103 MEQ/L (98-107); SODIUM (NA) 139 MEQ/L (136-145)
[2016-04-04 10:26] LABS: POTASSIUM 3.8 MEQ/L (3.5-5.1)
[2016-04-04 10:28] LABS: ANION GAP 9 MEQ/L (5-15); BICARBONATE 26.6 MEQ/L (21.0-32.0); BLOOD UREA NITROGEN 8 MG/DL (7-18)
[2016-04-04 10:31] LABS: ALT (GPT) 84 U/L (12-78)
--- NOTE | 2016-04-04 11:03 | RADHPO ---
EXAM DATE/TIME: 04/04/2016 10:38 [facility] COMPARISON: CT BRAIN W/O CONTRAST, December 15, 2015, 11:13. CT BRAIN W/O CONTRAST, March 04, 2016, 18:45. INDICATIONS : Seizure. Altered mental status. RADIATION DOSE: 58.41 CTDIvol (mGy) MEDICAL HISTORY : Seizures. Cardiovascular disease Chronic obstructive pulmonary disease.Hypertension. SURGICAL HISTORY : Brain embolization coil. ENCOUNTER: Initial ACUITY: 1 day PAIN SCALE: Non-responsive LOCATION: cranial TECHNIQUE: Multiple contiguous axial images were obtained of the head. Using automated exposure control and adj ustment of the mA and/or kV according to patient size, radiation dose was kept as low as reasonably a chievable to obtain optimal diagnostic quality images. FINDINGS: The patient is again noted to be status post remote right frontal craniotomy with extensive embo lization coils again noted with significant streak artifact. Vascular clips are again noted in the fr ontal interhemispheric fissure region. There is no acute hemorrhage or mass effect. There is mild atr ophic change. The posterior fossa and brainstem appear unremarkable. The left maxillary sinus is opac ified with high density material. There is mucosal thickening in the left ethmoidal air cells. CONCLUSION: 1. Postsurgical changes and endovascular treatment but extensive streak artifact again noted limiting the sensitivity the exam. 2. No definite acute hemorrhage or mass effect. 3. Opacification of the left maxillary sinus consistent with chronic sinusitis. Conrad Kellogg MD on April 04, 2016 at 10:59 Board Certified Radiologist. This report was verified electronically.
[2016-04-04] MEDS: SODIUM CHLOR 0.9% 1000 ML INJ 1,000 ML IV SCH ×2 (11:13→22:17)
[2016-04-04] MEDS ORDERED: SODIUM CHLORIDE 0.9% FLUSH 5 ML FLUSH FLUSH PRN (11:15)
[2016-04-04] MEDS ORDERED: FLUMAZENIL 0.5 MG/5 ML VIAL IV PUSH PRN (11:15)
[2016-04-04] MEDS ORDERED: ONDANSETRON HCL 4 MG/2 ML VIAL IVP PRN (11:15)
[2016-04-04] MEDS ORDERED: LORazepam 2 MG/ML VIAL IV PUSH PRN ×5 (11:15)
[2016-04-04] MEDS ORDERED: ACETAMINOPHEN 325 MG TAB PO PRN (11:15)
[2016-04-04] MEDS ORDERED: NALOXONE HCL 0.4 MG/ML AMP IV PRN (11:15)
[2016-04-04] MEDS ORDERED: LORazepam 2 MG TAB PO PRN (11:15)
[2016-04-04] MEDS ORDERED: MAGNESIUM HYDROXIDE SUSP 30 ML CUP PO PRN (11:15)
[2016-04-04] MEDS ORDERED: LORazepam 1 MG TAB PO PRN (11:15)
--- NOTE | 2016-04-04 15:58 | HHI.HP ---
[facility] Primary [facility] Physician No Primary Care Physician Admission Diagnosis Alcohol withdrawal Diagnoses: (1) Alcohol withdrawal Diagnosis: Principal (2) Seizure disorder Diagnosis: Principal Chief Complaint: Seizure Travel History International Travel<30 Days: No Contact w/Intl Traveler <30 Da: No Traveled to Known Affected Are: No History of Present Illness 61 year-old male known history of alcohol tendency, history of seizures, history of endovascular intracerebral aneurysm coiling and frontal craniectomy for intracerebral aneurysms this past year who was brought to the hospital by EMS after having a seizure this morning at the [facility]. The patient himself does not know why he is in fdc, why he is at the hospital. He states that he requested he come to [facility] because he lives here in [place]. It is very difficult trying to ascertain any information from the patient. The patient tells me that he was first brought to the hospital who then put him in a Marchman act and then took him to the fdc. However patient was brought from fdc after not using alcohol for 4 days. Supposedly having seizure at the fdc. Patient does appear to be confused. ER documentation indicates patient was severely tremulous, confused. Given total of 8 mg of Ativan. Requested patient be admitted to hospital. Patient was admitted to ICU for closer management. The patient does endorse that he has not been taking his seizure medication for the past 2 weeks and has been drinking heavily. Review of Systems ROS Limitations: Clinical Condition, Poor Historian Past Family Social History Past Medical History Dependency History of seizures Intracerebral aneurysm coiling Past Surgical History Left inguinal hernia repair Craniectomy for intracerebral aneurysm repair, patient denies history of intracerebral hemorrhage Reported Medications Reported Meds & Active Scripts Active Keppra (Levetiracetam) 500 Mg Tab 500 Mg PO BID Reported Keppra (Levetiracetam) 500 Mg Tab 500 Mg PO BID Allergies: Coded Allergies: No Known Allergies (Unverified , 03/04/16) Family History Reviewed and significant for father from alcoholism and cirrhosis Social History As per history of present illness Physical Exam Vital Signs Vital Signs Date Time Temp Pulse Resp B/P Pulse Ox O2 Delivery O2 Flow Rate FiO2 04/04/16 14:50 74 25 136/82 92 04/04/16 13:50 80 16 130/74 95 Room Air 04/04/16 10:59 76 18 144/81 92 Room Air 04/04/16 09:41 106 18 152/99 94 Nasal Cannula 2 04/04/16 08:43 98.4 118 18 168/88 93 Physical Exam GENERAL: Well-developed, well-nourished, in no acute distress. alert and orientated to person, city, state HEENT: Head is normocephalic without any lesions or masses noted. Facial features are symmetric. Eyes: Pupils equal round reactive to light. Extraocular muscles are intact. Conjunctivae were clear. Oropharyngeal: Pharynx without any erythema edema. Tongue is midline without deviation. Buccal mucosa is moist without any masses or lesions NECK: Supple without any masses. Trachea midline no deviation. No JVD, no bruits are appreciated CARDIAC: Regular rhythm, regular rate. S1/S2 are heard. No murmurs gallops or rubs. LUNGS: Clear to auscultation bilaterally. No wheeze, rhonchi or rales. No use of accessory muscles on inspiration or expiration. ABDOMEN: Soft, nontender. Nondistended. Bowel sounds heard in all 4 quadrants. No organomegaly or masses. Negative rebound, negative guarding EXTREMITIES: No edema, pulses are equal bilaterally. No cyanosis or clubbing NEUROLOGY: Mood and affect appear appropriate. Somewhat confused and tremulous. Cranial nerves II through XII grossly intact. Muscle strength 5/5 in upper and lower extremities bilaterally. Deep tendon reflexes are 2+ in upper and lower extremities bilaterally. Laboratory Laboratory Tests Test 04/04/16 04/04/16 09:08 10:10 White Blood Count 12.6 Red Blood Count 4.29 Hemoglobin 13.3 Hematocrit 40.0 Mean Corpuscular Volume 93.2 Mean Corpuscular Hemoglobin 30.9 Mean Corpuscular Hemoglobin 33.2 Concent Red Cell Distribution Width 14.5 Platelet Count 133 Mean Platelet Volume 8.8 Neutrophils (%) (Auto) 53.3 Lymphocytes (%) (Auto) 42.1 Monocytes (%) (Auto) 2.9 Eosinophils (%) (Auto) 0.0 Basophils (%) (Auto) 1.7 Neutrophils # (Auto) 6.7 Lymphocytes # (Auto) 5.3 Monocytes # (Auto) 0.4 Eosinophils # (Auto) 0.0 Basophils # (Auto) 0.2 CBC Comment AUTO DIFF Differential Total Cells 100 Counted Neutrophils % (Manual) 45 Band Neutrophils % 12 Lymphocytes % 40 Monocytes % 3 Neutrophils # (Manual) 7.2 Differential Comment FINAL DIFF MANUAL Platelet Estimate LOW Platelet Morphology Comment NORMAL Red Cell Morphology Comment NORMAL Prothrombin Time 12.1 Prothromb Time International 1.1 Ratio Activated Partial 24.5 Thromboplast Time Sodium Level 139 Potassium Level 3.8 Chloride Level 103 Carbon Dioxide Level 26.6 Anion Gap 9 Blood Urea Nitrogen 8 Creatinine 0.83 Estimat Glomerular Filtration 95 Rate Random Glucose 126 Calcium Level 8.5 Total Bilirubin 1.5 Aspartate Amino Transf 223 (AST/SGOT) Alanine Aminotransferase 84 (ALT/SGPT) Alkaline Phosphatase 67 Total Protein 8.0 Albumin 3.4 Ethyl Alcohol Level LESS THAN 3 Result Diagram: 04/04/16 0908 04/04/16 1010 Imaging Last Impressions Head CT 04/04/16 0000 Signed Impressions: Service Date/Time: Monday, April 04, 2016 10:38 - CONCLUSION: 1. Postsurgical changes and endovascular treatment but extensive streak artifact again noted limiting the sensitivity the exam. 2. No definite acute hemorrhage or mass effect. 3. Opacification of the left maxillary sinus consistent with chronic sinusitis. Conrad Kellogg MD Chest X-Ray 04/04/16 0000 Signed Impressions: Service Date/Time: Monday, April 04, 2016 09:54 - CONCLUSION: No acute disease. Conrad Kellogg MD Assessment and Plan Assessment and Plan Seizure disorder with breakthrough seizure possibly from alcohol withdrawal versus noncompliance with his seizure medication Start Keppra 1000 mg every 12 hours -Consider neurology consultation if he gets another seizure Alcohol withdrawal CIWA protocol Start thiamine and folic acid Monitor for withdrawals Previous frontal craniectomy for endovascular coiling of interest or aneurysms, status post coiling of multiple intracerebral aneurysms in the past year -Continue Keppra Elevated liver enzymes, chronic Reviewed with previous are stable Monitor liver enzymes DVT prevention Sequential compression devices Written by Rogelio Tran PA-C, acting as scribe for Dr. Nguyen on 04/04/16 at 1635. The documentation accurately reflects the work and decisions performed face-to- face by Dr. Nguyen on 04/04/16 at 1635. Physician Certification 2 Midnight Certification Type: Admission for Inpatient Services Order for Inpatient Services The services are ordered in accordance with Medicare regulations or non- Medicare payer requirements, as applicable. In the case of services not specified as inpatient-only, they are appropriately provided as inpatient services in accordance with the 2-midnight benchmark. Estimated LOS (days): 3 days is the estimated time the patient will need to remain in the hospital, assuming treatment plan goals are met and no additional complications. Post-Hospital Plan: Not yet determined Problem Qualifiers (1) Alcohol withdrawal: Qualified Code: F10.231 - Alcohol withdrawal, with delirium Rogelio Tran Apr 04, 2016 15:58 Lizbeth Nguyen MD Apr 04, 2016 16:52
[2016-04-04] MEDS: SODIUM CHLORIDE 0.9% FLUSH 5 ML FLUSH FLUSH SCH (22:14)
[2016-04-04] MEDS: levETIRAcetam 500 MG TAB PO SCH (22:14)
[2016-04-05] VITALS (21 sets, daily range): BP systolic 123–147; BP diastolic 76–89; PULSE 60–106; RESP 16–39; TEMP 97.2–100.1; O2SAT 90–98
[2016-04-05] MEDS: SODIUM CHLOR 0.9% 1000 ML INJ 1,000 ML IV SCH (03:30)
[2016-04-05 06:34] LABS: POTASSIUM 3.3 MEQ/L (3.5-5.1)
[2016-04-05 06:39] LABS: BICARBONATE 27.5 MEQ/L (21.0-32.0)
[2016-04-05] MEDS: FOLIC ACID 1 MG TAB PO SCH (08:58)
[2016-04-05] MEDS: levETIRAcetam 500 MG TAB PO SCH ×2 (08:58→20:45)
[2016-04-05] MEDS: SODIUM CHLORIDE 0.9% FLUSH 5 ML FLUSH FLUSH SCH ×2 (08:58→20:45)
[2016-04-05] MEDS: MULTIVITAMINS/MINERALS THERAPEUTIC TAB PO SCH (08:58)
[2016-04-05] MEDS: THIAMINE HCL 100 MG TAB PO SCH (08:58)
--- NOTE | 2016-04-05 09:25 | HHI.PR ---
Subjective Remarks Patient seen and examined today with Dr. Nguyen. Patient does have significantly improved mentation. He is alert and orientated. Nursing staff does not indicate any recurrent seizures. Objective Vitals Vital Signs Date Time Temp Pulse Resp B/P Pulse Ox O2 Delivery O2 Flow Rate FiO2 04/05/16 06:01 84 39 137/89 98 04/05/16 06:00 82 04/05/16 05:52 98.9 78 31 140/80 98 04/05/16 05:00 72 21 98 04/05/16 05:00 72 21 98 04/05/16 04:00 60 17 95 04/05/16 04:00 60 04/05/16 03:00 78 19 04/05/16 02:03 106 29 129/83 92 04/05/16 02:00 92 04/05/16 01:02 84 22 132/78 95 04/05/16 00:36 90 18 123/84 95 04/05/16 00:00 84 04/05/16 00:00 99.3 92 35 142/79 94 04/04/16 23:31 84 28 128/68 93 04/04/16 23:01 88 18 121/82 95 04/04/16 22:31 84 19 139/83 96 04/04/16 22:01 102 21 122/76 92 04/04/16 22:00 102 04/04/16 21:45 Nasal Cannula 2.00 04/04/16 21:45 90 Nasal Cannula 2.00 04/04/16 21:31 96 21 118/79 88 04/04/16 21:01 100 31 123/72 04/04/16 20:31 100 21 133/78 93 04/04/16 20:14 99.1 110 22 122/78 91 04/04/16 20:00 106 04/04/16 18:31 84 04/04/16 18:31 84 21 125/86 04/04/16 18:01 108 04/04/16 18:01 98.3 108 21 128/82 04/04/16 17:31 106 39 145/99 04/04/16 17:31 106 04/04/16 17:01 104 04/04/16 17:01 104 22 126/82 04/04/16 16:45 94 04/04/16 16:31 94 04/04/16 16:31 94 29 120/83 93 04/04/16 16:01 80 22 108/88 92 04/04/16 16:01 80 04/04/16 15:45 86 04/04/16 15:31 76 23 134/86 92 04/04/16 15:15 88 25 138/83 96 04/04/16 15:00 82 04/04/16 14:50 74 25 136/82 92 04/04/16 13:50 80 16 130/74 95 Room Air 04/04/16 10:59 76 18 144/81 92 Room Air 04/04/16 09:41 106 18 152/99 94 Nasal Cannula 2 I/O 04/04/16 04/04/16 04/04/16 04/05/16 04/05/16 04/05/16 07:00 15:00 23:00 07:00 15:00 23:00 Intake Total 1438 ml 1249 ml Output Total 500 ml 700 ml Balance 938 ml 549 ml Intake Oral 600 ml 480 ml IV Total 838 ml 769 ml Output Urine Total 500 ml 700 ml # Voids 1 Result Diagram: 04/04/16 0908 04/05/16 0520 Objective Remarks GENERAL: Well-developed, well-nourished, in no acute distress. alert and orientated HEENT: Head is normocephalic without any lesions or masses noted. Facial features are symmetric. Eyes: Extraocular muscles are intact. Conjunctivae were clear. NECK: Supple without any masses. Trachea midline no deviation. No JVD, CARDIAC: Regular rhythm, regular rate. S1/S2 are heard. No murmurs gallops or rubs. LUNGS: Clear to auscultation bilaterally. No wheeze, rhonchi or rales. No use of accessory muscles on inspiration or expiration. ABDOMEN: Soft, nontender. Nondistended. Bowel sounds heard in all 4 quadrants. No organomegaly or masses. Negative rebound, negative guarding EXTREMITIES: No edema, pulses are equal bilaterally. No cyanosis or clubbing NEUROLOGY: Mood and affect appear appropriate. Cranial nerves II through XII grossly intact. Moving all extremities, speech is clear Urinary Catheter: No Vascular Central Line Catheter: No A/P Assessment and Plan Seizure disorder with breakthrough seizure possibly from alcohol withdrawal versus noncompliance with his seizure medication Continue Keppra 1000 mg every 12 hours -Consider neurology consultation if he gets another seizure Alcohol withdrawal Modify CIWA protocol Start Librium Continue thiamine and folic acid Monitor for withdrawals -ED admissions nurse noted that the patient was under a Marchman act, however this was not reported by the ER physician and there is no Aprilman act and placed on the chart. Patient himself cannot accurately remember the events leading to him being arrested but is alert and oriented now. -Alcohol cessation counseling was provided to the patient in detail especially in regards to seizure control. Hypokalemia Replete and continue to monitor Previous frontal craniectomy for endovascular coiling of interest or aneurysms, status post coiling of multiple intracerebral aneurysms in the past year at [facility]. -Continue Keppra Elevated liver enzymes, chronic Reviewed with previous are stable Monitor liver enzymes DVT prevention Sequential compression devices Written by Rogelio Tran PA-C, acting as scribe for Dr. Nguyen on 04/05/16 at 16:30. The documentation accurately reflects the work and decisions performed face-to- face by Dr. Nguyen on 04/05/16 at 16:30. Rogelio Tran Apr 05, 2016 09:25 Lizbeth Nguyen MD Apr 05, 2016 18:54
[2016-04-05] MEDS ORDERED: POTASSIUM CHLORIDE 20 MEQ CONTROLLED RELEASE TAB PO ONE (09:30)
[2016-04-05] MEDS ORDERED: INFLUENZA VIRUS VACCINE (QUADRIVALENT) 0.5 ML SYR IM ONE (10:00)
[2016-04-05] MEDS ORDERED: PNEUMOCOCCAL POLYVALENT INJ 25 MCG/0.5 ML SYR IM ONE (10:00)
--- NOTE | 2016-04-05 23:14 | EKG ---
Date Performed: 04/04/2016 Time Performed: 09:11:18 PTAGE: 61 years EKG: Sinus tachycardia Normal ECG except for rate PREVIOUS TRACING : 03/04/2016 17.57 DOCTOR: Wang Mccarthy Interpretating Date/Time 04/05/2016 23:10:46
[2016-04-06] VITALS (7 sets, daily range): BP systolic 107–148; BP diastolic 55–95; PULSE 60–120; RESP 16–20; TEMP 96.7–99.7; O2SAT 95–100
[2016-04-06 06:27] LABS: AUTOMATED NEUTROPHIL # 4.4 TH/MM3 (1.8-7.7); BASOPHIL # 0.2 TH/MM3 (0-0.2); BASOPHIL % 1.8 % (0.0-2.0); EOSINOPHIL % 0.2 % (0.0-4.0); LYMPH % 61.2 % (9.0-44.0); LYMPHOCYTE # 8.6 TH/MM3 (1.0-4.8); MEAN CELL VOLUME 93.4 FL (80.0-100.0); MEAN CORPUSCULAR HEMOGLOBIN 31.9 PG (27.0-34.0); MEAN CORPUSCULAR HGB CONC 34.1 % (32.0-36.0); MONO % 4.7 % (0.0-8.0); NEUT % 32.1 % (16.0-70.0); PLATELET COUNT 88 TH/MM3 (150-450); RED BLOOD COUNT 4.07 MIL/MM3 (4.50-5.90); RED CELL DISTRIBUTION WIDTH 13.7 % (11.6-17.2); WHITE BLOOD COUNT 13.8 TH/MM3 (4.0-11.0)
[2016-04-06 06:30] LABS: HEMO FLAGS AUTO DIFF
[2016-04-06 06:34] LABS: POTASSIUM 3.4 MEQ/L (3.5-5.1)
[2016-04-06 06:38] LABS: BICARBONATE 24.7 MEQ/L (21.0-32.0); MAGNESIUM 1.8 MG/DL (1.5-2.5)
[2016-04-06 07:17] LABS: NEUTROPHIL # MANUAL DIFF 3.9 TH/MM3 (1.8-7.7); PLATELET ESTIMATE SMEAR LOW (NORMAL); PLATELET MORPHOLOGY NORMAL (NORMAL); POLYS (SEG NEUTROPHILS) 28 % (16-70); SCAN/DIFF FINAL DIFF MANUAL; WBC DIFF SAMPLE 100
[2016-04-06] MEDS: THIAMINE HCL 100 MG TAB PO SCH (08:11)
[2016-04-06] MEDS: levETIRAcetam 500 MG TAB PO SCH ×2 (08:11→21:33)
[2016-04-06] MEDS: MULTIVITAMINS/MINERALS THERAPEUTIC TAB PO SCH (08:11)
[2016-04-06] MEDS: FOLIC ACID 1 MG TAB PO SCH (08:12)
[2016-04-06] MEDS: SODIUM CHLORIDE 0.9% FLUSH 5 ML FLUSH FLUSH SCH ×2 (08:12→21:35)
--- NOTE | 2016-04-06 11:52 | HHI.PR ---
Subjective Remarks Patient today states that his symptoms are much improved. He is less tremulous. The patient would like to go home. He thinks that he will be able to not drink again when he goes home. The high risk case manager did call the [facility] halfway to find out the story of what happened. Apparently the patient was Isidro acted by the [facility] police however stool Isidro was full so he was brought to the halfway for holding where he had a seizure. Unfortunately the act was lost from his chart. Objective Vitals Vital Signs Date Time Temp Pulse Resp B/P Pulse Ox O2 Delivery O2 Flow Rate FiO2 04/06/16 09:00 Room Air 04/06/16 08:00 99.7 61 18 148/95 97 04/06/16 04:00 99.6 120 20 129/90 95 04/06/16 00:00 96.7 62 20 108/55 97 04/05/16 20:00 97.6 104 21 139/86 95 04/05/16 19:35 95 21 04/05/16 19:00 Room Air 95 04/05/16 16:21 100.1 106 16 142/87 96 04/05/16 12:40 98.1 94 20 128/76 95 04/05/16 12:00 96 I/O 04/05/16 04/05/16 04/05/16 04/06/16 04/06/16 04/06/16 07:00 15:00 23:00 07:00 15:00 23:00 Intake Total 1249 ml 1120 ml 440 ml 240 ml Output Total 700 ml 800 ml 1050 ml 850 ml Balance 549 ml 320 ml -610 ml -610 ml Intake Oral 480 ml 600 ml 440 ml 240 ml IV Total 769 ml 520 ml Output Urine Total 700 ml 800 ml 1050 ml 850 ml # Voids 2 # Bowel Movements 0 0 3 Result Diagram: 04/06/16 0535 04/06/1635 Objective Remarks GENERAL: Well-nourished, well-developed patient. SKIN: Warm and dry. HEAD: Normocephalic. EYES: No scleral icterus. No injection or drainage. NECK: Supple, trachea midline. No JVD or lymphadenopathy. CARDIOVASCULAR: Regular rate and rhythm without murmurs, gallops, or rubs. RESPIRATORY: Breath sounds equal bilaterally. No accessory muscle use. GASTROINTESTINAL: Abdomen soft, non-tender, nondistended. EXTREMITIES: No cyanosis, or edema. NEUROLOGICAL: Awake, alert, and oriented x 3. Non-focal. Very fine tremors of the hands. A/P Problem List: (1) Alcohol withdrawal ICD Code: F10.239 Status: Acute (2) Seizure disorder ICD Code: G40.909 Status: Chronic (3) Alcohol dependence ICD Code: F10.20 Status: Acute (4) Hypokalemia ICD Code: E87.6 Status: Acute (5) Alcohol abuse ICD Code: F10.10 Status: Acute (6) Seizure ICD Code: R56.9 Status: Acute (7) Leukocytosis ICD Code: D72.829 Status: Acute Assessment and Plan Seizure disorder with breakthrough seizure possibly from alcohol withdrawal versus noncompliance with his seizure medication - no further seizures since admission. Continue Keppra 1000 mg every 12 hours -Consider neurology consultation if he gets another seizure Alcohol withdrawal - improved. Continue Librium taper. Continue thiamine and folic acid -Apparently the patient was placed under a Marchman act by the police, however this was not reported by the ER physician and there is no Marchman act and placed on the chart. I called the legal executive assistant who recommended psychiatric evaluation. Patient himself cannot accurately remember the events leading to him being arrested but is alert and oriented now. He states that he will not go back to drinking. He does show poor insight into the relation between his alcoholism and seizure, stating that alcohol is better for him to control his seizures on the Keppra. -Alcohol cessation counseling was provided to the patient in detail especially in regards to seizure control. Hypokalemia Replete and continue to monitor Previous frontal craniectomy for endovascular coiling of interest or aneurysms, status post coiling of multiple intracerebral aneurysms in the past year at [facility], [place]. -Continue Keppra. Educated patient that the history craniectomy also puts him at increased risk for seizures. Elevated liver enzymes, chronic Reviewed with previous are stable Monitor liver enzymes -Chronic thrombocytopenia. Likely related to his drinking. We will get PT evaluation today. DVT prevention Sequential compression devices Discharge Planning Pending evaluation by psychiatry. I have asked case management to look into getting him a blue card so he can be seen at the [facility] as he currently does not have insurance and had run out of his Keppra prior to admission. Problem Qualifiers (1) Alcohol withdrawal: Qualified Code: F10.231 - Alcohol withdrawal, with delirium Lizbeth Nguyen MD Apr 06, 2016 11:52
[2016-04-06] MEDS ORDERED: LOPERAMIDE HCL 2 MG CAP PO PRN (13:45)
[2016-04-06 14:57] LABS: AUTOMATED NEUTROPHIL # 4.8 TH/MM3 (1.8-7.7); BASOPHIL # 0.1 TH/MM3 (0-0.2); BASOPHIL % 0.4 % (0.0-2.0); EOSINOPHIL # 0.1 TH/MM3 (0-0.4); EOSINOPHIL % 0.5 % (0.0-4.0); HEMATOCRIT 37.7 % (39.0-51.0); LYMPH % 59.6 % (9.0-44.0); LYMPHOCYTE # 8.4 TH/MM3 (1.0-4.8); MEAN CELL VOLUME 94.6 FL (80.0-100.0); MEAN CORPUSCULAR HEMOGLOBIN 31.9 PG (27.0-34.0); MEAN CORPUSCULAR HGB CONC 33.7 % (32.0-36.0); MONO % 5.7 % (0.0-8.0); NEUT % 33.8 % (16.0-70.0); PLATELET COUNT 90 TH/MM3 (150-450); RED BLOOD COUNT 3.99 MIL/MM3 (4.50-5.90); RED CELL DISTRIBUTION WIDTH 14.4 % (11.6-17.2); WHITE BLOOD COUNT 14.2 TH/MM3 (4.0-11.0)
[2016-04-06 14:58] LABS: HEMO FLAGS AUTO DIFF
[2016-04-06 15:16] LABS: INDIRECT BILIRUBIN 0.6 MG/DL (0.0-0.8); TOTAL BILIRUBIN ADULT 1.1 MG/DL (0.2-1.0)
[2016-04-06 16:08] LABS: PLATELET ESTIMATE SMEAR LOW (NORMAL); PLATELET MORPHOLOGY NORMAL (NORMAL); SCAN/DIFF AUTO DIFF CONFIRMED
--- NOTE | 2016-04-06 18:00 | PD.CONS ---
Provisional Diagnosis Admission Date Apr 04, 2016 at 11:14 [place]. Alcohol use disorder, History of Present Illness Service Psychiatry Consult Requested By Primary Care Physician Ernie Newman, HPI The patient is a 61 year-old man, domiciled alone in [place], , unemployed, psychiatric history of alcohol use disorder, seen by psychiatric in the ER under lackey act due to alcohol related problems, no previous SAs, medical history of seizures, endovascular intracerebral aneurysm coiling and frontal craniectomy for intracerebral aneurysms this past year who was brought to the hospital by EMS after having a seizure this morning at the [facility]. The patient himself does not know why he is in halfway, why he is at the hospital. He states that he requested he come to [facility] because he lives here in [place]. It is very difficult trying to ascertain any information from the patient. The patient tells me that he was first brought to the hospital who then put him in a Marchman act and then took him to the halfway. However patient was brought from halfway after not using alcohol for 4 days. Supposedly having seizure at the halfway.The Marchman Act got lost and is not in chart. On psychiatric evaluation patient was calm and cooperative, he says he has been doing better, he does not remember the circumstances the brought him to the hospital, he states his mood is fine,does not present any visible depressive symptoms, anxiety, roly or psychosis. He denies SI/HI/VH/ AH. No paranoia, delusions, agitation, disorganized behavior observed. Patient seems to be on denial of his alcoholism,minimizing its use and negative effects , he denies the use of illicit drugs. Today he is orietnedX3. no withdrawal symptoms observed. Review of Systems Constitutional: DENIES: Diaphoretic episodes, Fatigue, Fever, Weight gain, Weight loss, Chills, Dizziness, Change in appetite, Night Sweats Endocrine: DENIES: Heat/cold intolerance, Polydipsia, Polyuria, Polyphagia Eyes: DENIES: Blurred vision, Diplopia, Eye inflammation, Eye pain, Vision loss , Photosensitivity, Double Vision Ears, nose, mouth, throat: DENIES: Tinnitus, Hearing loss, Vertigo, Nasal discharge, Oral lesions, Throat pain, Hoarseness, Ear Pain, Running Nose, Epistaxis, Sinus Pain, Toothache, Odynophagia Respiratory: DENIES: Apneas, Cough, Snoring, Wheezing, Hemoptysis, Sputum production, Shortness of breath Cardiovascular: DENIES: Chest pain, Palpitations, Syncope, Dyspnea on Exertion , PND, Lower Extremity Edema, Orthopnea, Claudication Gastrointestinal: DENIES: Abdominal pain, Black stools, Bloody stools, Constipation, Diarrhea, Nausea, Vomiting, Difficulty Swallowing, Anorexia Genitourinary: DENIES: Sexual dysfunction, Urinary frequency, Urinary incontinence, Urgency, Hematuria, Dysuria, Nocturia, Penile Discharge, Testicular Pain, Testicular Swelling Musculoskeletal: DENIES: Joint pain, Muscle aches, Stiffness, Joint Swelling, Back pain, Neck pain Integumentary: DENIES: Abnormal pigmentation, Nail changes, Pruritus, Rash Hematologic/lymphatic: DENIES: Bruising, Lymphadenopathy Immunologic/allergic: DENIES: Eczema, Urticaria Neurologic: DENIES: Abnormal gait, Headache, Localized weakness, Paresthesias, Seizures, Speech Problems, Tremor, Poor Balance Psychiatric: DENIES: Anxiety, Confusion, Mood changes, Depression, Hallucinations, Agitation, Suicidal Ideation, Homicidal Ideation, Delusions Past Family Social History Coded Allergies: No Known Allergies (Unverified , 03/04/16) Active Scripts Levetiracetam (Keppra)500 Mg [id number] Mg PO BID #60 TAB Ref 0 Prov:Claritza Fountain DO 03/04/16 Reported Medications Levetiracetam (Keppra)500 Mg [id number] Mg PO BID #60 TAB Ref 0 03/04/16 Current Medications Medications (Trade) Dose Ordered Sig/Yao Route Start Time Stop Time Status Last Admin (NS Flush) 2 ml UNSCH PRN FLUSH 04/04/16 11:15 (NS Flush) 2 ml BID FLUSH 04/04/16 21:00 04/06/16 08:12 (Tylenol) 650 mg Q4H PRN PO 04/04/16 11:15 (Zofran Inj) 4 mg Q6H PRN IVP 04/04/16 11:15 (Milk Of Magnesia Liq) 30 ml Q12H PRN PO 04/04/16 11:15 (Narcan Inj) 0.4 mg UNSCH PRN IV 04/04/16 11:15 (Keppra) 1,000 mg Q12HR PO 04/04/16 21:00 04/06/16 08:11 (Ativan Inj) 2 mg Q15M PRN IV PUSH 04/04/16 11:15 (Folate) 1 mg DAILY PO 04/05/16 09:00 04/10/16 08:59 04/06/16 08:12 (Vitamin B1) 100 mg DAILY PO 04/05/16 09:00 04/06/16 08:11 (Theragran M Tab) 1 tab DAILY PO 04/05/16 09:00 04/10/16 08:59 04/06/16 08:11 (Librium) 20 mg TID PO 04/05/16 13:00 04/06/16 17:18 (Imodium) 2 mg Q6H PRN PO 04/06/16 13:45 04/06/16 15:16 Family History He denies Social History He was born and raised in [place], he has been living in [place] for 12 years, he lives alone in [place], he is , unemployed, medically disable, his highest level of education is a college degree. Physical Exam Vital Signs Vital Signs Date Time Temp Pulse Resp B/P Pulse Ox O2 Delivery O2 Flow Rate FiO2 04/06/16 16:00 99.5 100 18 140/89 100 04/06/16 10:00 21 04/06/16 09:00 Room Air 04/05/16 08:00 2.00 I/O 04/05/16 04/05/16 04/06/16 08:00 16:00 00:00 Intake Total 1249 ml 1120 ml 440 ml Output Total 700 ml 800 ml 1050 ml Balance 549 ml 320 ml -610 ml Mental Status Examination Appearance man, age appearing, malodorous, poor hygiene, calm and cooperative. Speech: Unremarkable Orientation: x3 Memory: Unremarkable Thought Process: Logical Thought Content: Unremarkable Hallucination Type: None Suicidal Ideation: No Previous Suicide Attempts: No Homicidal Ideation: No Previous Homicide Attempts: No Insight: Good Affect: Good Mood: Appropriate Motor Activity: Normal gait Assessment & Plan Problem List: (1) Alcohol dependence Assessment & Plan: The patient is a 61 year-old man, domiciled alone in [place], , unemployed, psychiatric history of alcohol use disorder, seen by psychiatric in the ER under lackey act due to alcohol related problems, no previous SAs, medical history of seizures, endovascular intracerebral aneurysm coiling and frontal craniectomy for intracerebral aneurysms this past year who was brought to the hospital by EMS [facility]. On psychiatric evaluation patient does not present any depressive symptoms, anxiety, roly or psychosis. He denies SI/ HI/VH/AH. No paranoia, delusions, agitation, disorganized behavior observed. Patient seems to be on denial of his alcoholism,minimizing its use and negative effects. He does not meet criteria for psychiatric admission at this time. No immediate psychiatric intervention is needed. Psychoeducation, support and motivation provided. He does not meet criteria at this time to be Re-Marchman Acted. I would recommend the to call and notified Jovani Marchman Act once patient is medically clear and ready to be DC. ICD Code: F10.20 Assessment & Plan Estimated LOS: days Problem Qualifiers (1) Alcohol dependence: Olman Mallory MD Apr 06, 2016 18:00
[2016-04-07] VITALS: BP 139/97; PULSE 97; RESP 20; TEMP 99.1; O2SAT 96
[2016-04-07 08:00] VITALS: BP 115/80; PULSE 104; RESP 22; TEMP 98.9; O2SAT 94
[2016-04-07] MEDS: MULTIVITAMINS/MINERALS THERAPEUTIC TAB PO SCH (08:00)
[2016-04-07] MEDS: levETIRAcetam 500 MG TAB PO SCH (08:00)
[2016-04-07] MEDS: THIAMINE HCL 100 MG TAB PO SCH (08:00)
[2016-04-07] MEDS: SODIUM CHLORIDE 0.9% FLUSH 5 ML FLUSH FLUSH SCH (08:01)
[2016-04-07] MEDS: FOLIC ACID 1 MG TAB PO SCH (08:01)
[2016-04-07] MEDS ORDERED: LEVE500 PO (09:10)
[2016-04-07] MEDS ORDERED: CHLO10CA2 PO (09:10)
--- NOTE | 2016-04-07 09:15 | HHI.DS ---
Discharge Summary Admission Date Apr 04, 2016 at 11:14 Discharge Date: Apr 07, 2016 Admitting Diagnosis Alcohol withdrawal (1) Alcohol withdrawal ICD Code: F10.239 (2) Seizure disorder ICD Code: G40.909 (3) Alcohol dependence ICD Code: F10.20 (4) Hypokalemia ICD Code: E87.6 (5) Alcohol abuse ICD Code: F10.10 (6) Seizure ICD Code: R56.9 (7) Leukocytosis ICD Code: D72.829 Procedures none Brief History - From Admission 61 year-old male known history of alcohol tendency, history of seizures, history of endovascular intracerebral aneurysm coiling and frontal craniectomy for intracerebral aneurysms this past year who was brought to the hospital by EMS after having a seizure this morning at the [facility]. The patient himself does not know why he is in prison, why he is at the hospital. He states that he requested he come to [facility] because he lives here in [place]. It is very difficult trying to ascertain any information from the patient. The patient tells me that he was first brought to the hospital who then put him in a Marchman act and then took him to the prison. However patient was brought from prison after not using alcohol for 4 days. Supposedly having seizure at the prison. Patient does appear to be confused. ER documentation indicates patient was severely tremulous, confused. Given total of 8 mg of Ativan. Requested patient be admitted to hospital. Patient was admitted to ICU for closer management. The patient does endorse that he has not been taking his seizure medication for the past 2 weeks and has been drinking heavily. CBC/BMP: 04/06/16 1447 04/06/16 0535 Significant Findings Laboratory Tests Test 04/04/16 04/05/16 04/06/16 04/06/16 10:10 05:20 05:35 14:47 Random Glucose 126 MG/DL 108 MG/DL (74-106) (74-106) Total Bilirubin 1.5 MG/DL 1.1 MG/DL (0.2-1.0) (0.2-1.0) Aspartate Amino Transf 223 U/L (15-37) 159 U/L (15-37) (AST/SGOT) Alanine Aminotransferase 84 U/L (12-78) 81 U/L (12-78) (ALT/SGPT) Potassium Level 3.3 MEQ/L 3.4 MEQ/L (3.5-5.1) (3.5-5.1) Blood Urea Nitrogen 5 MG/DL (7-18) 4 MG/DL (7-18) Calcium Level 8.4 MG/DL (8.5-10.1) White Blood Count 13.8 TH/MM3 14.2 TH/MM3 (4.0-11.0) (4.0-11.0) Red Blood Count 4.07 MIL/MM3 3.99 MIL/MM3 (4.50-5.90) (4.50-5.90) Hematocrit 38.0 % 37.7 % (39.0-51.0) (39.0-51.0) Platelet Count 88 TH/MM3 90 TH/MM3 (150-450) (150-450) Lymphocytes (%) (Auto) 61.2 % 59.6 % (9.0-44.0) (9.0-44.0) Lymphocytes # (Auto) 8.6 TH/MM3 8.4 TH/MM3 (1.0-4.8) (1.0-4.8) Lymphocytes % 68 % (9-44) Platelet Estimate LOW (NORMAL) LOW (NORMAL) Hemoglobin 12.7 GM/DL (13.0-17.0) Direct Bilirubin 0.5 MG/DL (0.0-0.2) Albumin 3.0 GM/DL (3.4-5.0) Imaging Last Impressions Head CT 04/04/16 0000 Signed Impressions: Service Date/Time: Monday, April 04, 2016 10:38 - CONCLUSION: 1. Postsurgical changes and endovascular treatment but extensive streak artifact again noted limiting the sensitivity the exam. 2. No definite acute hemorrhage or mass effect. 3. Opacification of the left maxillary sinus consistent with chronic sinusitis. Conrad Kellogg MD Chest X-Ray 04/04/16 0000 Signed Impressions: Service Date/Time: Monday, April 04, 2016 09:54 - CONCLUSION: No acute disease. Conrad Kellogg MD PE at Discharge GENERAL: Well-nourished, well-developed patient. SKIN: Warm and dry. HEAD: Normocephalic. EYES: No scleral icterus. No injection or drainage. NECK: Supple, trachea midline. No JVD or lymphadenopathy. CARDIOVASCULAR: Regular rate and rhythm without murmurs, gallops, or rubs. RESPIRATORY: Breath sounds equal bilaterally. No accessory muscle use. GASTROINTESTINAL: Abdomen soft, non-tender, nondistended. EXTREMITIES: No cyanosis, or edema. NEUROLOGICAL: Awake, alert, and oriented x 3. Non-focal. Very fine tremors of the hands. Hospital Course The patient was admitted to the ICU initially. He had no further seizures. He was treated for alcohol withdrawal. His Keppra was increased to 1 g by mouth twice a day. While hospitalized it was determined that the patient allegedly had been Marchman acted by the police however there was no Marchman act on the patient's chart. I spoke with the legal arbitrator in a psychiatric department who recommended psychiatric consultation. The patient currently does not meet Marchman act criteria as per psychiatry. The patient's alcohol withdrawal symptoms have resolved. He will be discharged home today with a Librium taper. He was counseled strongly to avoid alcohol and was cautioned that if he does return to drinking alcohol he should not take the Librium as this can lead to respiratory depression and . The patient voiced understanding. Pt Condition on Discharge: Stable Discharge Disposition: Discharge Home Discharge Time: > 30 minutes Discharge Instructions DIET: Follow Instructions for: As Tolerated, No Restrictions Additional Diet Instructions: Do not drink alcohol. Activities you can perform: Regular-No Restrictions, See Additionl Instruction Other Activity Instructions: No driving New Medications: Chlordiazepoxide (Chlordiazepoxide) 10 Mg Cap 10 MG PO DIRECTED Take THREE Times daily for 3 Days, then TWICE daily for 3 days, then ONCE a day for 3 Days. PRN alcohol withdrawal #18 Ref 0 CAP Levetiracetam (Keppra) 500 Mg Tab 1000 MG PO Q12HR seizures #60 TAB Discontinued Medications: Levetiracetam (Keppra) 500 Mg Tab 500 MG PO BID Control Seizures #60 Ref 0 TAB Levetiracetam (Keppra) 500 Mg Tab 500 MG PO BID Control Seizures #60 Ref 0 TAB Lizbeth Nguyen MD Apr 07, 2016 09:15
[2016-04-07 12:00] VITALS: BP 123/90; PULSE 96; RESP 21; TEMP 98.7; O2SAT 96
== END 2016-04-07 13:05 | disposition home or self-care (01) | DRG 897 ==
LOC: PHED 08:40 → PHEDA 11:14 → PHICU 14:42 → PH3B 04-05 23:07
PROVIDERS: ADMIT Family Medicine; ATTEND Family Medicine
DX: F10.239 Alcohol dependence with withdrawal, unspecified (principal); G40.89 Other seizures; Y90.0 Blood alcohol level of less than 20 mg/100 ml; E87.6 Hypokalemia; D72.829 Elevated white blood cell count, unspecified; R74.8 Abnormal levels of other serum enzymes
CPT/HCPCS: 70450; 71010; 80048; 80053; 80076; 80320; 83735; 85007; 85025; 85027; 85610; 85730; 90471; 90686; 90732; 93005; 96365; 96375; 96376; G0008; G0009; J1953; J2060; J7030; Q2038

== ENCOUNTER 2016-07-13 07:05 | Emergency (ER) | payer MEDICAID, OTHER ==
[~2016-07-13] VITALS: Ht 180.3 cm; Wt 86.0 kg
[~2016-07-13 07:05] MED LIST changes: +CHLO10CA2 PO
[2016-07-13] MEDS ORDERED: LEVE250 PO (07:14)
[2016-07-13 07:16] VITALS: BP 142/81; PULSE 92; RESP 16; TEMP 98.3; O2SAT 96
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
== END 2016-07-13 07:41 | disposition home or self-care (01) ==
LOC: PHED 07:05
DX: Z04.1 Encounter for examination and observation following transport accident (principal); F41.9 Anxiety disorder, unspecified; F32.9 Major depressive disorder, single episode, unspecified; J44.9 Chronic obstructive pulmonary disease, unspecified; I10 Essential (primary) hypertension; Z79.899 Other long term (current) drug therapy
CPT/HCPCS: 99283

== ENCOUNTER 2016-09-18 18:06 | Emergency (ER) | payer MEDICAID ==
[~2016-09-18] VITALS: Ht 175.3 cm; Wt 75.0 kg
[~2016-09-18 18:06] MED LIST changes: -CHLO10CA2 PO; +LEVE250 PO; -LEVE500 PO
[2016-09-18 18:19] VITALS: BP 115/70; PULSE 90; RESP 16; TEMP 98.1; O2SAT 93
[2016-09-18 19:30] VITALS: BP_SYST 104; BP_SYST 109; BP_SYST 119; BP_DIAS 67; BP_DIAS 68; BP_DIAS 71; RESP 16; RESP 18
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
[2016-09-18 20:15] VITALS: BP 118/81; PULSE 89; RESP 18; O2SAT 94
--- NOTE | 2016-09-18 20:32 | RADRPT ---
EXAM DATE/TIME: 09/18/2016 19:46 [facility] COMPARISON: CT BRAIN W/O CONTRAST, April 04, 2016, 10:38. INDICATIONS : Intoxicated patient, complains of dizziness. RADIATION DOSE: 57.47 CTDIvol (mGy) MEDICAL HISTORY : Cerebrovascular disease. Hypertension. Seizures. SURGICAL HISTORY : Craniotomy. aneurysm repair x7 ENCOUNTER: Initial ACUITY: 1 day PAIN SCALE: 0/10 LOCATION: cranial TECHNIQUE: Multiple contiguous axial images were obtained of the head. Using automated exposure control and adj ustment of the mA and/or kV according to patient size, radiation dose was kept as low as reasonably a chievable to obtain optimal diagnostic quality images. DICOM format image data is available electro nically for review and comparison. FINDINGS: Significant streak artifact related to embolization coils in the central mid convexity region and ane urysm clips in the right frontal region. No gross abnormalities seen. No evidence of midline shift. The ventricles are prominent, similar to prior. No extra-axial fluid collections seen. Wide windo ws for bony detail demonstrate the craniotomy flap to be in good approximation. Opacified left maxil fredrick sinus. Overall, the appearance of the brain is very similar to March 2016. CONCLUSION: No acute findings in the brain. Artifacts from embolization coils and vascular clips. Vasquez Chandler MD on September 18, 2016 at 20:27 Board Certified Radiologist. This report was verified electronically.
== END 2016-09-18 20:24 | disposition home or self-care (01) ==
LOC: PHED 18:06
DX: Z02.9 Encounter for administrative examinations, unspecified (principal); I10 Essential (primary) hypertension; Z86.59 Personal history of other mental and behavioral disorders; Z86.79 Personal history of other diseases of the circulatory system; Z87.09 Personal history of other diseases of the respiratory system; Z87.39 Personal history of other diseases of the musculoskeletal system and connective tissue; Z86.69 Personal history of other diseases of the nervous system and sense organs; W01.0XXA Fall on same level from slipping, tripping and stumbling without subsequent striking against object, initial encounter
CPT/HCPCS: 70450; 99284

== ENCOUNTER 2017-01-06 20:21 | Emergency (ER) | payer MEDICAID, OTHER ==
[2017-01-06 20:40] VITALS: BP 138/74; PULSE 74; RESP 16; TEMP 98; O2SAT 100
--- NOTE | 2017-01-06 21:05 | PD ---
HPI Chief Complaint: Alcohol/Drug Intoxication Time Seen by Provider: 20:40 Travel History International Travel<30 days: No Contact w/Intl Traveler<30days: No History of Present Illness HPI 61-year-old male presents to the emergency department as a Kamaljit's act. Patient was picked up in [place] [employer] and he was apparently passed out in the bushes just off to the side of the road. Patient apparently has chronic alcoholism. Patient states that he was in the bushes for about 3 hours before the police found him. Patient states he falls frequently and his last fall was 3 days ago however, he has no complaints at this time. Patient denies pain anywhere. Patient normally takes Keppra for seizures but he has not had his medication in 3 weeks. Patient denies any recent seizures. Patient wishes to go home soon. PFSH Past Medical History Anxiety: Yes Depression: Yes Cancer: No Cardiovascular Problems: Yes COPD: Yes Diminished Hearing: No Endocrine: No Headaches: Yes Hypertension: Yes (no meds) Immune Disorder: No Inguinal Hernia: Yes (left side repaired) Musculoskeletal: Yes Psychiatric: Yes Seizures: Yes Past Surgical History Abdominal Surgery: Yes (left groin-hernia repair) Other Surgery: Yes Social History Alcohol Use: Yes (DAILY, states he drinks several "strong beers") Tobacco Use: No Substance Use: No (States "has used all of it." (Hx Psychedelics/Mushrooms)) Allergies-Medications (Allergen,Severity, Reaction): Coded Allergies: No Known Allergies (Unverified Adverse Reaction, Unknown, 01/06/17) Reported Meds & Prescriptions Reported Meds & Active Scripts Active Reported Keppra (Levetiracetam) 250 Mg Tab 1,000 Mg PO BID Review of Systems Except as stated in HPI: all other systems reviewed are Neg Physical Exam Narrative GENERAL: Well-nourished, well-developed patient. SKIN: Focused skin assessment warm/dry. HEAD: Normocephalic. EYES: No scleral icterus. No injection or drainage. NECK: Supple, trachea midline. No JVD or lymphadenopathy. CARDIOVASCULAR: Regular rate and rhythm without murmurs, gallops, or rubs. RESPIRATORY: Breath sounds equal bilaterally. No accessory muscle use. GASTROINTESTINAL: Abdomen soft, non-tender, nondistended. MUSCULOSKELETAL: No cyanosis, or edema. BACK: Nontender without obvious deformity. No CVA tenderness. Data Data Last Documented VS Vital Signs Date Time Temp Pulse Resp B/P (MAP) Pulse Ox O2 Delivery O2 Flow Rate FiO2 01/06/17 20:54 100 Room Air 01/06/17 20:40 98.0 74 16 138/74 (95) Orders Orders Ed Discharge Order (01/06/17 21:55) MDM Medical Decision Making Medical Screen Exam Complete: Yes Emergency Medical Condition: Yes Differential Diagnosis Alcohol intoxication versus alcohol withdrawal versus alcoholism versus alcohol use as a seizure disorder Narrative Course 61-year-old male presents to the emergency department as a Kamaljit's act. Patient was picked up [place] [employer] and he was apparently passed out in the bushes just off to the side of the road. Patient apparently has chronic alcoholism. Patient states that he was in the bushes for about 3 hours before the police found him. Patient states he falls frequently and his last fall was 3 days ago however, he has no complaints at this time. Patient denies pain anywhere. Patient normally takes Keppra for seizures but he has not had his medication in 3 weeks. Patient denies any recent seizures. Patient wishes to go home soon. Vital signs stable Patient will be observed until he is clinically cleared. Pt understands why he is in the hospital. He was ambulatory in the ED. He appears to answer questions appropriately and has rational decision making processes. Pt rather pleasant during visit. Pt signed over to Dr. Skinner for final dispo and Discharge. Diagnosis Primary Impression: Alcohol abuse Referrals: [facility] Additional Instructions: Avoid public intoxication Follow-up with her primary care physician Recommend taking her medication as prescribed by your other physicians. Disposition: 01 DISCHARGE HOME Condition: Stable Kayla Thompson Jan 06, 2017 21:05
--- NOTE | 2017-01-06 21:55 | PD ---
Data Data Last Documented VS Vital Signs Date Time Temp Pulse Resp B/P (MAP) Pulse Ox O2 Delivery O2 Flow Rate FiO2 01/06/17 20:54 100 Room Air 01/06/17 20:40 98.0 74 16 138/74 (95) [facility] Supervised Visit with ION: Yes Narrative Course The history, exam, and medical decision-making in the associated midlevel provider note were completed with my assistance. I reviewed and agree with the findings presented. I attest that I had a [id number] encounter with the patient on the same day, and personally performed and documented my assessment and findings in the medical record. *My assessment and Findings: This is a 61-year-old male who presents to the emergency department brought in under Cullen's act for public intoxication. Currently he is awake, alert, ambulating independently and without difficulty, speaking clearly, and is able to understand my questions and articulate appropriate answers and articulate his reasoning. I think he has decision- making capacity. I don't think I can keep him against his will or withhold his civil liberties. The patient wants to leave the emergency department. He will be discharged. Diagnosis Primary Impression: Alcohol abuse Referrals: [facility] Additional Instruction: Avoid public intoxication Follow-up with her primary care physician Recommend taking her medication as prescribed by your other physicians. Disposition: 01 DISCHARGE HOME Condition: Stable Aleyda Skinner MD Jan 06, 2017 21:55
== END 2017-01-07 00:43 | disposition home or self-care (01) ==
LOC: NEPD 20:21
DX: F10.10 Alcohol abuse, uncomplicated (principal); I10 Essential (primary) hypertension; Z86.59 Personal history of other mental and behavioral disorders; Z86.79 Personal history of other diseases of the circulatory system; Z87.09 Personal history of other diseases of the respiratory system; Z87.39 Personal history of other diseases of the musculoskeletal system and connective tissue; Z86.69 Personal history of other diseases of the nervous system and sense organs
CPT/HCPCS: 99282

== ENCOUNTER 2017-03-12 16:05 | Emergency (ER) | payer MEDICAID, OTHER ==
[2017-03-12 16:09] VITALS: BP 128/75; PULSE 98; RESP 20; TEMP 98.1; O2SAT 94
--- NOTE | 2017-03-12 16:45 | PD ---
HPI Chief Complaint: Alcohol/Drug Intoxication Time Seen by Provider: 16:26 Travel History International Travel<30 days: No Contact w/Intl Traveler<30days: No Traveled to known affect area: No History of Present Illness HPI This patient is a heavy alcohol drinker. He was drinking today. He was stumbling around in public and a bystander saw him walking unsteadily and called 911. The patient has no injury or complaint. He feels well. He admits to drinking. No drug use or intentional overdose. He voices no complaint. Symptoms severity is mild. Duration one day. No alleviating factors. No exacerbating factors PFSH Past Medical History Anxiety: Yes Depression: Yes Cancer: No Cardiovascular Problems: Yes COPD: Yes Diminished Hearing: No Endocrine: No Headaches: Yes Hypertension: Yes (no meds) Immune Disorder: No Inguinal Hernia: Yes (left side repaired) Musculoskeletal: Yes Psychiatric: Yes Seizures: Yes Past Surgical History Abdominal Surgery: Yes (left groin-hernia repair) Neurologic Surgery: Yes (MULTIPLE BRAIN ANYEURISM SX) Other Surgery: Yes Social History Alcohol Use: Yes (DAILY) Tobacco Use: No Substance Use: No (States "has used all of it." (Hx Psychedelics/Mushrooms)) Allergies-Medications (Allergen,Severity, Reaction): Coded Allergies: No Known Allergies (Unverified Adverse Reaction, Unknown, 03/12/17) Reported Meds & Prescriptions Reported Meds & Active Scripts Active Reported Keppra (Levetiracetam) 250 Mg Tab 1,000 Mg PO BID Review of Systems General / Constitutional: No: Fever Eyes: No: Visual changes HENT: No: Headaches Cardiovascular: No: Chest Pain or Discomfort Respiratory: No: Shortness of Breath Gastrointestinal: No: Abdominal Pain Genitourinary: No: Dysuria Musculoskeletal: No: Pain Skin: No Rash Neurologic: No: Weakness Psychiatric: Positive: Substance Abuse, No: Depression Endocrine: No: Polydipsia Hematologic/Lymphatic: No: Easy Bruising Physical Exam Narrative GENERAL: Disheveled well-developed patient in no apparent distress. SKIN: Focused skin assessment reveals no rash and nodules. Skin is Warm and dry. HEAD: Atraumatic. Normocephalic. EYES: Pupils equal and round. No scleral icterus. No injection or drainage. ENT: No nasal bleeding or discharge. Mucous membranes pink and moist. NECK: Trachea midline. No JVD. CARDIOVASCULAR: Regular rate and rhythm. No murmur appreciated. RESPIRATORY: No accessory muscle use. Clear to auscultation. Breath sounds equal bilaterally. GASTROINTESTINAL: Abdomen soft, non-tender, nondistended. Hepatic and splenic margins not palpable. MUSCULOSKELETAL: No obvious deformities. No clubbing. No cyanosis. No edema. NEUROLOGICAL: Awake and alert. No obvious cranial nerve deficits. Motor grossly within normal limits. Normal speech. PSYCHIATRIC: Appropriate mood and affect; insight and judgment reduced. Data Data Last Documented VS Vital Signs Date Time Temp Pulse Resp B/P (MAP) Pulse Ox O2 Delivery O2 Flow Rate FiO2 03/12/17 18:35 100 18 122/72 (89) 97 Room Air 03/12/17 16:09 98.1 Orders Orders Iv Access Insert/Monitor (03/12/17 16:32) Complete Blood Count With Diff (03/12/17 16:32) Basic Metabolic Panel (Bmp) (03/12/17 16:32) Alcohol (Ethanol) (03/12/17 16:32) Chest, Single Ap (03/12/17 ) Urinalysis - C+S If Indicated (03/12/17 17:43) Labs Laboratory Tests Test 03/12/17 16:45 03/12/17 17:57 White Blood Count 24.9 TH/MM3 Red Blood Count 4.23 MIL/MM3 Hemoglobin 12.7 GM/DL Hematocrit 38.8 % Mean Corpuscular Volume 91.7 FL Mean Corpuscular Hemoglobin 30.0 PG Mean Corpuscular Hemoglobin Concent 32.7 % Red Cell Distribution Width 14.4 % Platelet Count 186 TH/MM3 Mean Platelet Volume 7.5 FL Neutrophils (%) (Auto) 18.1 % Lymphocytes (%) (Auto) 75.6 % Monocytes (%) (Auto) 4.0 % Eosinophils (%) (Auto) 0.3 % Basophils (%) (Auto) 2.0 % Neutrophils # (Auto) 4.5 TH/MM3 Lymphocytes # (Auto) 18.8 TH/MM3 Monocytes # (Auto) 1.0 TH/MM3 Eosinophils # (Auto) 0.1 TH/MM3 Basophils # (Auto) 0.5 TH/MM3 CBC Comment AUTO DIFF Differential Total Cells Counted 100 Neutrophils % (Manual) 18 % Band Neutrophils % 1 % Lymphocytes % 79 % Monocytes % 2 % Neutrophils # (Manual) 4.7 TH/MM3 Differential Comment FINAL DIFF MANUAL Platelet Estimate NORMAL Platelet Morphology Comment NORMAL Blood Urea Nitrogen 7 MG/DL Creatinine 0.81 MG/DL Random Glucose 108 MG/DL Calcium Level 8.3 MG/DL Sodium Level 139 MEQ/L Potassium Level 3.5 MEQ/L Chloride Level 103 MEQ/L Carbon Dioxide Level 26.0 MEQ/L Anion Gap 10 MEQ/L Estimat Glomerular Filtration Rate 97 ML/MIN Ethyl Alcohol Level 409 MG/DL Urine Color YELLOW Urine Turbidity CLEAR Urine pH 5.5 Urine Specific [place] 1.006 Urine Protein NEG mg/dL Urine Glucose (UA) NEG mg/dL Urine Ketones NEG mg/dL Urine Occult Blood NEG Urine Nitrite NEG Urine Bilirubin NEG Urine Leukocyte Esterase NEG Urine Squamous Epithelial Cells 0-5 /hpf Microscopic Urinalysis Comment CULT NOT INDICATED MDM Medical Decision Making Medical Screen Exam Complete: Yes Emergency Medical Condition: Yes Medical Record Reviewed: Yes Differential Diagnosis Alcohol intoxication, electrolyte abnormality, malingering Narrative Course I have reviewed the patient's electronic medical record. Lab review reveals that he always has leukocytosis and it has been as high as 35,000 recently. No infections have been found with these IV placed Alcohol level is 409 CBC shows leukocytosis of 25,000 Metabolic profile reasonably normal Patient doesn't look septic or toxic. He is afebrile without tachycardia or hypotension However given his prominent leukocytosis I have added a chest x-ray and urinalysis which otherwise I would not have done. He has no meningeal signs. He is an alert or without complaint I'm guessing he is used to having quite high alcohol levels Urinalysis is clean Chest x-ray is normal Shows leukocytosis is fairly chronic it seems, certainly not a new finding I don't see any sign of infection Stable for outpatient follow-up Were calling a cab to get him home Diagnosis Primary Impression: Alcohol intoxication Qualified Codes: F10.920 - Alcohol use, unspecified with intoxication, uncomplicated Additional Impression: Leukocytosis Qualified Codes: D72.829 - Elevated white blood cell count, unspecified Additional Instructions: The patient was advised to follow up with their physician and return if they worsen. Med/Other Pt SpecificInfo: Other Disposition: 01 DISCHARGE HOME Condition: Stable Rogelio Galdamez MD Mar 12, 2017 16:45
[2017-03-12 16:48] LABS: AUTOMATED NEUTROPHIL # 4.5 TH/MM3 (1.8-7.7); BASOPHIL # 0.5 TH/MM3 (0-0.2); EOSINOPHIL # 0.1 TH/MM3 (0-0.4); EOSINOPHIL % 0.3 % (0.0-4.0); HEMATOCRIT 38.8 % (39.0-51.0); HEMOGLOBIN 12.7 GM/DL (13.0-17.0); LYMPH % 75.6 % (9.0-44.0); LYMPHOCYTE # 18.8 TH/MM3 (1.0-4.8); MEAN CELL VOLUME 91.7 FL (80.0-100.0); MEAN CORPUSCULAR HGB CONC 32.7 % (32.0-36.0); MEAN PLATELET VOLUME 7.5 FL (7.0-11.0); NEUT % 18.1 % (16.0-70.0); PLATELET COUNT 186 TH/MM3 (150-450); RED BLOOD COUNT 4.23 MIL/MM3 (4.50-5.90); RED CELL DISTRIBUTION WIDTH 14.4 % (11.6-17.2); WHITE BLOOD COUNT 24.9 TH/MM3 (4.0-11.0)
[2017-03-12 17:00] LABS: CALCIUM 8.3 MG/DL (8.5-10.1)
[2017-03-12 17:04] LABS: CREATININE 0.81 MG/DL (0.60-1.30)
[2017-03-12 17:15] VITALS: BP 128/75; PULSE 92; RESP 16; O2SAT 99
[2017-03-12 17:28] LABS: BANDS 1 % (0-6); LYMPHOCYTES 79 % (9-44); MONOCYTES 2 % (0-8); NEUTROPHIL # MANUAL DIFF 4.7 TH/MM3 (1.8-7.7); POLYS (SEG NEUTROPHILS) 18 % (16-70)
--- NOTE | 2017-03-12 17:58 | RADRPT ---
EXAM DATE/TIME: 03/12/2017 17:44 [facility] COMPARISON: CHEST SINGLE AP, April 04, 2016, 9:54. INDICATIONS : Shortness of breath. MEDICAL HISTORY : Hypertension. Chronic obstructive pulmonary disease. SURGICAL HISTORY : None. ENCOUNTER: Initial ACUITY: 1 day PAIN SCORE: 0/10 LOCATION: Bilateral chest FINDINGS: A single view of the chest demonstrates the lungs to be symmetrically aerated without evidence of mas s, infiltrate or effusion. The cardiomediastinal contours are unremarkable. Osseous structures are intact. CONCLUSION: No acute disease. Ernie Hubbard MD FACR on March 12, 2017 at 17:56 Board Certified Radiologist. This report was verified electronically.
[2017-03-12 18:02] LABS: BILIRUBIN, URINE NEG (NEG); BLOOD, URINE NEG (NEG); GLUCOSE,URINE NEG (NEG); KETONE, URINE NEG (NEG); NITRITE,URINE NEG (NEG); PH, URINE 5.5 (5.0-8.5); URINE LEUKOCYTE ESTERASE NEG (NEG)
[2017-03-12 18:12] LABS: URINE COLOR YELLOW (YELLW/STRAW)
[2017-03-12 18:13] LABS: SQUAMOUS EPITHELIAL CELL URINE 0-5 /hpf (0-5)
[2017-03-12 18:35] VITALS: BP 122/72; PULSE 100; RESP 18; O2SAT 97
== END 2017-03-12 19:08 | disposition home or self-care (01) ==
LOC: PHED 16:05
DX: F10.129 Alcohol abuse with intoxication, unspecified (principal); D72.829 Elevated white blood cell count, unspecified; I10 Essential (primary) hypertension; J44.9 Chronic obstructive pulmonary disease, unspecified; F41.9 Anxiety disorder, unspecified; F32.9 Major depressive disorder, single episode, unspecified; Y90.8 Blood alcohol level of 240 mg/100 ml or more; Z79.899 Other long term (current) drug therapy
CPT/HCPCS: 71045; 80048; 80307; 81001; 85007; 85027; 99284

== ENCOUNTER 2017-06-07 17:36 | Emergency (ER) | payer MEDICAID ==
[~2017-06-07] VITALS: Ht 175.3 cm; Wt 80.0 kg
[2017-06-07 17:54] VITALS: BP 107/58; PULSE 103; RESP 16; TEMP 98.6; O2SAT 94
[2017-06-07 19:55] VITALS: BP 145/71; PULSE 94; RESP 20; TEMP 98.2; O2SAT 96
--- NOTE | 2017-06-07 20:14 | PD ---
HPI Chief Complaint: Alcohol/Drug Intoxication Time Seen by Provider: 20:00 Travel History International Travel<30 days: No Contact w/Intl Traveler<30days: No Traveled to known affect area: No History of Present Illness HPI 62-year-old white male presents emergency department requesting alcohol detox. Patient states that he has an alcohol problem. He drinks 8-10 large beers a day. He states that his last alcoholic beverage was last evening. Patient wants to get sober. He denies any suicidal or homicidal ideation. No toxic ingestions. He does feel shaky but denies any other complaints. Symptoms are moderate. Alleviated by alcohol. Exacerbated by alcohol PFSH Past Medical History Anxiety: Yes Depression: Yes Cancer: No Cardiovascular Problems: Yes COPD: Yes Diminished Hearing: No Endocrine: No Headaches: Yes Hypertension: Yes (no meds) Immune Disorder: No Inguinal Hernia: Yes (left side repaired) Musculoskeletal: Yes Psychiatric: Yes Immunizations Current: Yes Seizures: Yes Tetanus Vaccination: < 5 Years Influenza Vaccination: Yes Past Surgical History Abdominal Surgery: Yes (left groin-hernia repair) Neurologic Surgery: Yes (MULTIPLE BRAIN ANYEURISM SX) Other Surgery: Yes Social History Alcohol Use: Yes (DAILY) Tobacco Use: No Substance Use: No (States "has used all of it." (Hx Psychedelics/Mushrooms)) Allergies-Medications (Allergen,Severity, Reaction): Coded Allergies: No Known Allergies (Unverified Adverse Reaction, Unknown, 06/07/17) Reported Meds & Prescriptions Reported Meds & Active Scripts Active Reported Keppra (Levetiracetam) 250 Mg Tab 1,000 Mg PO BID Review of Systems General / Constitutional: No: Fever Eyes: No: Visual changes HENT: No: Headaches Cardiovascular: No: Chest Pain or Discomfort Respiratory: No: Shortness of Breath Gastrointestinal: No: Abdominal Pain Genitourinary: No: Dysuria Musculoskeletal: No: Pain Skin: No Rash Neurologic: Positive: Tremor, No: Weakness Psychiatric: Positive: Substance Abuse, No: Depression, Suicidal Ideations, Disorder of Thought, Mood Disorder, Homicidal Ideation Endocrine: No: Polydipsia Hematologic/Lymphatic: No: Easy Bruising Physical Exam Narrative GENERAL: Well-developed, well-nourished in no apparent distress. Nontoxic appearing. Appears somewhat tremulous. Vital signs are stable. He is not tachycardic nor is he hypertensive. HEAD: Normocephalic, atraumatic. EYES: Pupils equal round and reactive. Extraocular motions intact. No scleral icterus. No injection or drainage. ENT: Nose clear. Throat without erythema, tonsillar hypertrophy or exudate. Uvula midline. Airway patent. NECK: Trachea midline. Supple, nontender, moves head freely. No central bony tenderness or spasm. CARDIOVASCULAR: Regular rate and rhythm without murmurs, gallops, or rubs. RESPIRATORY: Clear to auscultation. Breath sounds equal bilaterally. No wheezes , rales, or rhonchi. GASTROINTESTINAL: Abdomen soft, non-tender, nondistended. No hepato-splenomegaly , or palpable masses. No guarding. EXTREMITIES: No clubbing, cyanosis, or edema. No joint tenderness. BACK: Nontender without deformity. No flank tenderness. NEUROLOGICAL: Awake, alert and oriented x 3 .Cranial nerves grossly intact. Motor and sensory grossly within normal limits. Normal speech. Data Data Last Documented VS Vital Signs Date Time Temp Pulse Resp B/P (MAP) Pulse Ox O2 Delivery O2 Flow Rate FiO2 06/07/17 19:55 98.2 94 20 145/71 (95) 96 Room Air Orders Orders Lorazepam Inj (Ativan Inj) (06/07/17 20:15) Ed Discharge Order (06/07/17 20:10) MDM Medical Decision Making Medical Screen Exam Complete: Yes Emergency Medical Condition: Yes Medical Record Reviewed: Yes Differential Diagnosis Differential diagnoses: Alcohol intoxication, substance abuse, electrolyte abnormality, malingering Narrative Course We have contacted [facility]. Unfortunately there are no male detox beds available. Patient will be given 1 mg of Ativan IV. He is encouraged to continue to drink alcohol to alleviate his shakes but not to become intoxicated. He should follow up with [facility] first thing in the morning to see if there is a bed available. Patient is given outpatient treatment information. This is alcohol dependence Diagnosis Primary Impression: Alcohol dependence Qualified Codes: F10.20 - Alcohol dependence, uncomplicated Referrals: [facility] Patient Instructions: General Instructions Additional Instructions: Rest. Increase fluids. Continue to drink alcohol but not to excess. Avoid illegal substances. Follow-up with [facility] for detox. Do not operate a car or any heavy machinery under the influence of alcohol or drugs. Follow-up with a medical doctor this week. Return to the ER for emergencies Med/Other Pt SpecificInfo: No Meds Exist/No RX given Disposition: 01 DISCHARGE HOME Condition: Stable Landry Hyde Jun 07, 2017 20:14
[2017-06-07] MEDS ORDERED: LORazepam 2 MG/ML VIAL IV PUSH ONE (20:15)
== END 2017-06-07 22:00 | disposition home or self-care (01) ==
LOC: NEPD 17:36 → NEDAMB 22:00
DX: F10.20 Alcohol dependence, uncomplicated (principal); J44.9 Chronic obstructive pulmonary disease, unspecified; I10 Essential (primary) hypertension; F19.10 Other psychoactive substance abuse, uncomplicated
CPT/HCPCS: 96374; 99284; J2060

== ENCOUNTER 2017-06-15 15:54 | Inpatient (IN) | payer MEDICAID, OTHER ==
[~2017-06-15] VITALS: Ht 180.3 cm; Wt 96.2 kg
[2017-06-15] MEDS ORDERED: SODIUM CHLOR 0.9% 1000 ML INJ 1,000 ML IV SCH (16:11)
[2017-06-15 16:14] VITALS: BP 96/51; PULSE 91; RESP 18; TEMP 99.6; O2SAT 92
--- NOTE | 2017-06-15 16:14 | PD ---
HPI Chief Complaint: Alcohol Intoxication/ Act Time Seen by Provider: 16:09 Travel History International Travel<30 days: No Contact w/Intl Traveler<30days: No History of Present Illness HPI 62-year-old male well-known to us for his chronic alcohol abuse, is brought in under the act for public intoxication. Patient has history of AVM with previous spontaneous bleeds. These required surgery in the past. Patient is supposed to be taking Keppra 1000 mg twice daily, but he states "he drinks beer which seems to work better." He denies any acute medical issues otherwise. He has no known drug allergies. PFSH Past Medical History Anxiety: Yes Depression: Yes Cancer: No Cardiovascular Problems: Yes COPD: Yes Diminished Hearing: No Endocrine: No Headaches: Yes Hypertension: Yes (no meds) Immune Disorder: No Inguinal Hernia: Yes (left side repaired) Musculoskeletal: Yes Psychiatric: Yes Immunizations Current: Yes Seizures: Yes Past Surgical History Abdominal Surgery: Yes (left groin-hernia repair) Neurologic Surgery: Yes (MULTIPLE BRAIN ANYEURISM SX) Other Surgery: Yes Social History Alcohol Use: Yes (DAILY) Tobacco Use: No Substance Use: No (States "has used all of it." (Hx Psychedelics/Mushrooms)) Allergies-Medications (Allergen,Severity, Reaction): Coded Allergies: No Known Allergies (Unverified Adverse Reaction, Unknown, 06/07/17) Reported Meds & Prescriptions Reported Meds & Active Scripts Active Reported Keppra (Levetiracetam) 250 Mg Tab 1,000 Mg PO BID Review of Systems Except as stated in HPI: all other systems reviewed are Neg General / Constitutional: No: Fever Eyes: No: Visual changes HENT: No: Headaches Cardiovascular: No: Chest Pain or Discomfort Respiratory: No: Shortness of Breath Gastrointestinal: No: Abdominal Pain Genitourinary: No: Dysuria Musculoskeletal: No: Pain Skin: No Rash Neurologic: No: Weakness Psychiatric: Positive: Substance Abuse, No: Depression, Suicidal Ideations, Homicidal Ideation Endocrine: No: Polydipsia Hematologic/Lymphatic: No: Easy Bruising Physical Exam Exam Limitations: Intoxication Narrative GENERAL: Patient is disheveled and dirty, but cooperative. SKIN: Warm and dry. Normal color. Normal turgor. No acute signs of trauma HEAD: Atraumatic. Normocephalic. EYES: Pupils equal and round. No scleral icterus. No injection or drainage. ENT: No nasal bleeding or discharge. Mucous membranes pink and moist. Pharynx is clear. Airways patent NECK: Trachea midline. Supple and nontender. CARDIOVASCULAR: Regular rate and rhythm. RESPIRATORY: No accessory muscle use. Clear to auscultation. Breath sounds equal bilaterally. GASTROINTESTINAL: Abdomen soft, non-tender, nondistended. Hepatic and splenic margins not palpable. MUSCULOSKELETAL: Extremities without clubbing, cyanosis, or edema. No obvious deformities. NEUROLOGICAL: Awake and alert. No obvious cranial nerve deficits. Motor grossly within normal limits. Five out of 5 muscle strength in the arms and legs. Normal speech. PSYCHIATRIC: Appropriate mood and affect; insight and judgment normal. Patient is intoxicated. Data Data Last Documented VS Vital Signs Date Time Temp Pulse Resp B/P (MAP) Pulse Ox O2 Delivery O2 Flow Rate FiO2 06/15/17 16:14 99.6 91 18 96/51 (66) 92 Orders Orders Complete Blood Count With Diff (06/15/17 16:11) Comprehensive Metabolic Panel (06/15/17 16:11) Thyroid Stimulating Hormone (06/15/17 16:11) Urinalysis - C+S If Indicated (06/15/17 16:11) Drug Screen, Random Urine (06/15/17 16:11) Alcohol (Ethanol) (06/15/17 16:11) Iv Access Insert/Monitor (06/15/17 16:11) Ecg Monitoring (06/15/17 16:11) Oximetry (06/15/17 16:11) Ondansetron Inj (Zofran Inj) (06/15/17 16:15) Sodium Chlor 0.9% 1000 Ml Inj (Ns 1000 M (06/15/17 16:11) Sodium Chloride 0.9% Flush (Ns Flush) (06/15/17 16:15) Famotidine Inj (Pepcid Inj) (06/15/17 16:15) Thiamine Inj (Thiamine Inj) (06/15/17 16:15) Alcohol Withdrawal Asmt-Ciwa Q4HX18 (06/15/17 16:25) Flumazenil Inj (Romazicon Inj) (06/15/17 16:30) Lorazepam (Ativan) (06/15/17 16:30) Lorazepam Inj (Ativan Inj) (06/15/17 16:30) Lorazepam (Ativan) (06/15/17 16:30) Lorazepam Inj (Ativan Inj) (06/15/17 16:30) Lorazepam Inj (Ativan Inj) (06/15/17 16:30) Lorazepam Inj (Ativan Inj) (06/15/17 16:30) Diet Regular Basic (06/15/17 Dinner) Sepsis Workup Initiated (06/15/17 ) Electrocardiogram (06/15/17 17:42) Prothrombin Time / Inr (Pt) (06/15/17 17:42) Act Partial Throm Time (Ptt) (06/15/17 17:42) Lactic Acid Sepsis Protocol (06/15/17 17:42) Ckmb (Isoenzyme) Profile (06/15/17 17:42) Troponin I (06/15/17 17:42) Blood Culture (06/15/17 17:42) Chest, Single Ap (06/15/17 17:42) Acetaminophen (Tylenol) (06/15/17 17:45) Piperacil-Tazo 4.5 Gm Premix (Zosyn 4.5 (06/15/17 17:42) Vancomycin Inj (Vancomycin Inj) (06/15/17 17:42) CKMB (06/15/17 17:53) CKMB% (06/15/17 17:53) Labs Laboratory Tests Test 06/15/17 16:28 06/15/17 17:53 White Blood Count 35.2 TH/MM3 Red Blood Count 3.30 MIL/MM3 Hemoglobin 10.7 GM/DL Hematocrit 31.7 % Mean Corpuscular Volume 96.0 FL Mean Corpuscular Hemoglobin 32.3 PG Mean Corpuscular Hemoglobin Concent 33.7 % Red Cell Distribution Width 18.2 % Platelet Count 128 TH/MM3 Mean Platelet Volume 8.4 FL Neutrophils (%) (Auto) 12.8 % Lymphocytes (%) (Auto) 83.1 % Monocytes (%) (Auto) 3.5 % Eosinophils (%) (Auto) 0.1 % Basophils (%) (Auto) 0.5 % Neutrophils # (Auto) 4.5 TH/MM3 Lymphocytes # (Auto) 29.3 TH/MM3 Monocytes # (Auto) 1.2 TH/MM3 Eosinophils # (Auto) 0.0 TH/MM3 Basophils # (Auto) 0.2 TH/MM3 CBC Comment AUTO DIFF Differential Total Cells Counted 100 Neutrophils % (Manual) 9 % Lymphocytes % 87 % Monocytes % 4 % Neutrophils # (Manual) 3.2 TH/MM3 Differential Comment FINAL DIFF MANUAL Smudge Cells PRESENT Platelet Estimate LOW Platelet Morphology Comment NORMAL Blood Urea Nitrogen 4 MG/DL Creatinine 0.84 MG/DL Random Glucose 86 MG/DL Total Protein 7.5 GM/DL Albumin 2.2 GM/DL Calcium Level 7.6 MG/DL Alkaline Phosphatase 77 U/L Aspartate Amino Transf (AST/SGOT) 216 U/L Alanine Aminotransferase (ALT/SGPT) 61 U/L Total Bilirubin 4.1 MG/DL Sodium Level 135 MEQ/L Potassium Level 4.2 MEQ/L Chloride Level 100 MEQ/L Carbon Dioxide Level 24.2 MEQ/L Anion Gap 11 MEQ/L Estimat Glomerular Filtration Rate 93 ML/MIN Thyroid Stimulating Hormone 3rd Gen 2.590 uIU/ML Ethyl Alcohol Level 294 MG/DL Prothrombin Time 14.8 SEC Prothromb Time International Ratio 1.5 RATIO Activated Partial Thromboplast Time 31.7 SEC Lactic Acid Level 3.3 mmol/L Total Creatine Kinase 147 U/L Creatine Kinase MB 0.9 NG/ML Troponin I LESS THAN 0.02 NG/ML MDM Medical Decision Making Medical Screen Exam Complete: Yes Emergency Medical Condition: Yes Medical Record Reviewed: Yes Differential Diagnosis [place] act. Intoxication. History of seizures. Alcohol dependence. Narrative Course Patient appears medically stable at time of exam. Labs ordered including CBC, CMP, urinalysis, serum alcohol level and urine drug screen. IV access is obtained and the patient is given 1000 mL of normal saline bolus as well as 100 mg thiamine IV. Patient is placed on the CIWA protocol. CBC shows significantly elevated white blood cell count of 35.2, hemoglobin is 10.7, hematocrit is 31.7. This is significantly elevated from previous labs. Platelet count is notably low at 128. Patient has predominantly high lymphocyte count in the differential. Coagulation studies show PT of 14.8, INR 1.5, APTT is 31.7 Chemistries significant for sodium 135, BUN 4, normal creatinine and GFR is 93. Lactic acid however is significantly elevated at 3.3. Calcium 7.6, total bili is 4.1, AST is 216. Troponin is normal at less than 0.02. Albumin is low at 2.2. TSH is normal. Toxicology shows a serum alcohol of 294. Chest x-ray shows no obvious pneumonia compared to previous in February. Sepsis protocol is initiated based on the patient's leukocytosis, and low-grade fever in triage. EKG shows normal sinus rhythm with a rate of 90 bpm. Patient is given 2 L normal saline bolus with improvement of his blood pressure. He is given Zosyn and vancomycin IV. Urinalysis is still pending, however call to the hospitalist is initiated for admission. Sepsis Criteria SIRS Criteria (2 or more): Heart rate over 90, WBC > 72861, < 4000 or > 10% bands Severe Sepsis (+one): Hypotension, Lactate >2 Criteria Outcome: Meets SIRS criteria, Meets sepsis criteria, Meets severe sepsis criteria Diagnosis Primary Impression: Leukocytosis Qualified Codes: D72.829 - Elevated white blood cell count, unspecified Additional Impressions: Elevated lactic acid level Sepsis Qualified Codes: A41.9 - Sepsis, unspecified organism Alcohol dependence Qualified Codes: F10.20 - Alcohol dependence, uncomplicated Seizure disorder Admitting Information Admitting Physician Requests: Admit Condition: Stable Fabricio Gonzalez Jun 15, 2017 16:14
[2017-06-15] MEDS ORDERED: THIAMINE INJ 100 MG in SODIUM CHLORIDE 0.9% INJ 100 ML IV ONE (16:15)
[2017-06-15] MEDS ORDERED: SODIUM CHLORIDE 0.9% FLUSH 10 ML FLUSH IV FLUSH PRN ×2 (16:15→21:00)
[2017-06-15] MEDS ORDERED: FAMOTIDINE 20 MG/2 ML VIAL IV PUSH ONE (16:15)
[2017-06-15] MEDS ORDERED: ONDANSETRON HCL 4 MG/2 ML VIAL IVP ONE (16:15)
[2017-06-15] MEDS ORDERED: LORazepam 2 MG TAB PO PRN (16:30)
[2017-06-15] MEDS ORDERED: LORazepam 2 MG/ML VIAL IV PUSH PRN ×2 (16:30)
[2017-06-15] MEDS ORDERED: LORazepam 1 MG TAB PO PRN (16:30)
[2017-06-15] MEDS ORDERED: FLUMAZENIL 0.5 MG/5 ML VIAL IV PUSH PRN (16:30)
[2017-06-15 16:46] LABS: AUTOMATED NEUTROPHIL # 4.5 TH/MM3 (1.8-7.7); BASOPHIL # 0.2 TH/MM3 (0-0.2); BASOPHIL % 0.5 % (0.0-2.0); EOSINOPHIL % 0.1 % (0.0-4.0); HEMATOCRIT 31.7 % (39.0-51.0); HEMOGLOBIN 10.7 GM/DL (13.0-17.0); LYMPH % 83.1 % (9.0-44.0); LYMPHOCYTE # 29.3 TH/MM3 (1.0-4.8); MEAN CORPUSCULAR HEMOGLOBIN 32.3 PG (27.0-34.0); MEAN CORPUSCULAR HGB CONC 33.7 % (32.0-36.0); MEAN PLATELET VOLUME 8.4 FL (7.0-11.0); MONO % 3.5 % (0.0-8.0); MONOCYTE # 1.2 TH/MM3 (0-0.9); NEUT % 12.8 % (16.0-70.0); PLATELET COUNT 128 TH/MM3 (150-450); RED CELL DISTRIBUTION WIDTH 18.2 % (11.6-17.2); WHITE BLOOD COUNT 35.2 TH/MM3 (4.0-11.0)
[2017-06-15 17:06] LABS: ALBUMIN 2.2 GM/DL (3.4-5.0); ALT (GPT) 61 U/L (12-78); AST (GOT) 216 U/L (15-37); BICARBONATE 24.2 MEQ/L (21.0-32.0); BLOOD UREA NITROGEN 4 MG/DL (7-18); CALCIUM 7.6 MG/DL (8.5-10.1); CHLORIDE 100 MEQ/L (98-107); CREATININE 0.84 MG/DL (0.60-1.30); GLOMERULAR FILTRATION RATE 93 ML/MIN (>89); GLUCOSE,RANDOM 86 MG/DL (74-106); SODIUM (NA) 135 MEQ/L (136-145)
[2017-06-15 17:16] LABS: ALKALINE PHOSPHATASE 77 U/L (45-117); TOTAL BILIRUBIN ADULT 4.1 MG/DL (0.2-1.0); TOTAL PROTEIN 7.5 GM/DL (6.4-8.2)
[2017-06-15] MEDS ORDERED: VANCOMYCIN INJ 1,000 MG in SODIUM CHLOR 0.9% 250 ML INJ 250 ML IV STA (17:42)
[2017-06-15] MEDS ORDERED: PIPERACIL-TAZO 4.5 GM PREMIX 100 ML IV STA (17:42)
[2017-06-15] MEDS ORDERED: ACETAMINOPHEN 325 MG TAB PO ONE (17:45)
[2017-06-15 17:48] LABS: LYMPHOCYTES 87 % (9-44); MONOCYTES 4 % (0-8); NEUTROPHIL # MANUAL DIFF 3.2 TH/MM3 (1.8-7.7); POLYS (SEG NEUTROPHILS) 9 % (16-70); SMUDGE CELLS PRESENT PRESENT
--- NOTE | 2017-06-15 18:24 | RADRPT ---
EXAM DATE/TIME: 06/15/2017 17:52 [facility] COMPARISON: CHEST SINGLE AP, March 12, 2017, 17:44. INDICATIONS : Fever starting today MEDICAL HISTORY : Hypertension. Chronic obstructive pulmonary disease. SURGICAL HISTORY : None. ENCOUNTER: Initial ACUITY: 1 day PAIN SCORE: 0/10 LOCATION: Bilateral chest FINDINGS: Mild scarring and/or atelectasis left lung base. Lungs otherwise appear clear. No pleural effusion se en. No pneumothorax. Heart size stable, within normal limits. CONCLUSION: Trace atelectasis/scarring of the left base. Similar findings were seen in February. Agapito Alvarez MD on June 15, 2017 at 18:21 Board Certified Radiologist. This report was verified electronically.
[2017-06-15 18:26] LABS: LACTIC ACID SEPSIS PROTOCOL 3.3 mmol/L (0.4-2.0)
[2017-06-15 18:28] LABS: INTERNATIONAL NORMALIZED RATIO 1.5 RATIO; PROTHROMBIN TIME - PATIENT 14.8 SEC (9.8-11.6)
[2017-06-15 18:29] LABS: TROPONIN I LESS THAN 0.02 NG/ML (0.02-0.05)
[2017-06-15 18:42] VITALS: BP 105/59; PULSE 93
--- NOTE | 2017-06-15 20:58 | HHI.HP ---
HPI Service [facility] Primary Care Physician No Primary Care Physician Admission Diagnosis SIRS, possible leukemia, possible pna. Diagnoses: (1) SIRS (systemic inflammatory response syndrome) Diagnosis: Principal (2) Alcohol abuse Diagnosis: Principal (3) CLL (chronic lymphocytic leukemia) Diagnosis: Principal (4) Coagulopathy Diagnosis: Principal Travel History International Travel<30 Days: No Contact w/Intl Traveler <30 Da: No Traveled to Known Affected Are: No History of Present Illness This is a 62-year-old male with a PMH of Anxiety, Depression, HTN, Alcohol Abuse , CLL and h/o AVM who was brought to the ER under [place] Act for intoxication. Per report, pt noted to be staggering in the street and bystander called EMS. On arrival, BP 96/51, HR 91, O2 sat 92% RA, Temp 99.6. WBC 35.2. Platelets 128, previously 90 on 03/27/2016. Chemistry essentially unremarkable. Lactic Acid 3.3. INR 1.5. UA pending. Alcohol 294. CXR with trace left base atelectasis. S/p Vanc/Zosyn, Blood Cultures in ER for SIRS. Review of Systems Except as stated in HPI: all other systems reviewed are Neg ROS: 14 point review of systems otherwise negative. Past Family Social History Past Medical History PMH: Anxiety, Depression, HTN, Alcohol Abuse, CLL and h/o AVM Past Surgical History PAST SURGICAL HISTORY: Hernia Repair, Brain Aneurysm Allergies: Coded Allergies: No Known Allergies (Unverified Adverse Reaction, Unknown, 06/07/17) Family History PAST FAMILY HISTORY: Reviewed. No h/o DM or CAD Social History PAST SOCIAL HISTORY: Drinks 8-10 beers per day. Negative for tobacco. Negative for drugs. Physical Exam Vital Signs Vital Signs Date Time Temp Pulse Resp B/P (MAP) Pulse Ox O2 Delivery O2 Flow Rate FiO2 06/15/17 18:42 93 105/59 (74) 06/15/17 16:14 99.6 91 18 96/51 (66) 92 Physical Exam PE: GENERAL: Middle-aged white male in no acute distress. Intoxicated. HEENT: PERRLA, EOMI. No scleral icterus or conjunctival pallor. No lid lag or facial droop. CARDIOVASCULAR: Regular rate and rhythm. No obvious murmurs to auscultation. No chest tenderness to palpation. RESPIRATORY: No obvious rhonchi or wheezing. Clear to auscultation. Breath sounds equal bilaterally. GASTROINTESTINAL: Abdomen soft, non-tender, nondistended. BS normal. MUSCULOSKELETAL: Extremities without clubbing, cyanosis, or edema. No obvious deformities. NEUROLOGICAL: Awake, alert and oriented x4. No focal neurologic deficits. Moving both upper and lower extremities spontaneously. Laboratory Laboratory Tests Test 06/15/17 16:28 06/15/17 17:53 06/15/17 20:30 White Blood Count 35.2 Red Blood Count 3.30 Hemoglobin 10.7 Hematocrit 31.7 Mean Corpuscular Volume 96.0 Mean Corpuscular Hemoglobin 32.3 Mean Corpuscular Hemoglobin Concent 33.7 Red Cell Distribution Width 18.2 Platelet Count 128 Mean Platelet Volume 8.4 Neutrophils (%) (Auto) 12.8 Lymphocytes (%) (Auto) 83.1 Monocytes (%) (Auto) 3.5 Eosinophils (%) (Auto) 0.1 Basophils (%) (Auto) 0.5 Neutrophils # (Auto) 4.5 Lymphocytes # (Auto) 29.3 Monocytes # (Auto) 1.2 Eosinophils # (Auto) 0.0 Basophils # (Auto) 0.2 CBC Comment AUTO DIFF Differential Total Cells Counted 100 Neutrophils % (Manual) 9 Lymphocytes % 87 Monocytes % 4 Neutrophils # (Manual) 3.2 Differential Comment FINAL DIFF MANUAL Smudge Cells PRESENT Platelet Estimate LOW Platelet Morphology Comment NORMAL Blood Urea Nitrogen 4 Creatinine 0.84 Random Glucose 86 Total Protein 7.5 Albumin 2.2 Calcium Level 7.6 Alkaline Phosphatase 77 Aspartate Amino Transf (AST/SGOT) 216 Alanine Aminotransferase (ALT/SGPT) 61 Total Bilirubin 4.1 Sodium Level 135 Potassium Level 4.2 Chloride Level 100 Carbon Dioxide Level 24.2 Anion Gap 11 Estimat Glomerular Filtration Rate 93 Thyroid Stimulating Hormone 3rd Gen 2.590 Ethyl Alcohol Level 294 Prothrombin Time 14.8 Prothromb Time International Ratio 1.5 Activated Partial Thromboplast Time 31.7 Lactic Acid Level 3.3 Total Creatine Kinase 147 Creatine Kinase MB 0.9 Troponin I LESS THAN 0.02 Date/Time Source Procedure Growth Status 06/15/17 17:50 Blood Peripheral Aerobic Blood Culture Pending Received 06/15/17 17:50 Blood Peripheral Anaerobic Blood Culture Pending Received Result Diagram: 06/15/17 1628 06/15/17 1628 Caprini VTE Risk Assessment Caprini VTE Risk Assessment: No/Low Risk (score <= 1) Caprini Risk Assessment Model Point Value = 1 Point Value = 2 Point Value = 3 Point Value = 5 Age 41-60 Minor surgery BMI > 25 kg/m2 Swollen legs Varicose veins or History of unexplained or recurrent spontaneous Oral contraceptives or hormone replacement Sepsis (< 1 month) Serious lung disease, including pneumonia (< 1 month) Abnormal pulmonary function Acute myocardial infarction Congestive heart failure (< 1 month) History of inflammatory bowel disease Medical patient at bed rest Age 61-74 Arthroscopic surgery Major open surgery (> 45 min) Laparoscopic surgery (> 45 min) Malignancy Confined to bed (> 72 hours) Immobilizing plaster cast Central venous access Age >= 75 History of VTE Family history of VTE Factor V Leiden Prothrombin [id number] Lupus anticoagulant Anticardiolipin antibodies Elevated serum homocysteine Heparin-induced thrombocytopenia Other congenital or acquired thrombophilia Stroke (< 1 month) Elective arthroplasty Hip, pelvis, or leg fracture Acute spinal cord injury (< 1 month) Prophylaxis Regimen Total Risk Factor Score Risk Level Prophylaxis Regimen 0-1 Low Early ambulation 2 Moderate Order ONE of the following: *Sequential Compression Device (SCD) *Heparin 5000 units SQ BID 3-4 Higher Order ONE of the following medications: *Heparin 5000 units SQ TID *Enoxaparin/Lovenox 40 mg SQ daily (WT < 150 kg, CrCl > 30 mL/min) *Enoxaparin/Lovenox 30 mg SQ daily (WT < 150 kg, CrCl > 10-29 mL/min) *Enoxaparin/Lovenox 30 mg SQ BID (WT < 150 kg, CrCl > 30 mL/min) AND/OR *Sequential Compression Device (SCD) 5 or more Highest Order ONE of the following medications: *Heparin 5000 units SQ TID (Preferred with Epidurals) *Enoxaparin/Lovenox 40 mg SQ daily (WT < 150 kg, CrCl > 30 mL/min) *Enoxaparin/Lovenox 30 mg SQ daily (WT < 150 kg, CrCl > 10-29 mL/min) *Enoxaparin/Lovenox 30 mg SQ BID (WT < 150 kg, CrCl > 30 mL/min) AND *Sequential Compression Device (SCD) Assessment and Plan Problem List: (1) SIRS (systemic inflammatory response syndrome) ICD Code: R65.10 - Systemic inflammatory response syndrome (SIRS) of non- infectious origin without acute organ dysfunction (2) Alcohol abuse ICD Code: F10.10 - Alcohol abuse, uncomplicated (3) CLL (chronic lymphocytic leukemia) ICD Code: C91.90 - Lymphoid leukemia, unspecified not having achieved remission (4) Coagulopathy ICD Code: D68.9 - Coagulation defect, unspecified Assessment and Plan A/P: 1. SIRS: Temp 99.6, HR 91, WBC 35.2, no obvious source, s/p Blood Cultures, Vanc/Zosyn, continue w/ IV Abx, follow up cultures. CXR w/ left base atelectasis, images reviewed by me. U/a pending, will follow up results. 2. Alcohol Abuse: w/ Acute Alcohol Intoxication, drinks 8-10 beers/day, high risk for withdrawal, Seizure Precautions, CIWA, MVT/Thiamine/Folate replacement. 3. CLL: WBC 35, reports h/o CLL, states he was seen by physicians in the past and "told nothing they can do for me". Will consult Hematology for further evaluation, pt is poor candidate for intervention/treatment in light of heavy alcohol abuse and non-compliance. 4. Coagulopathy: INR 1.5, LFTs stable, likely secondary to chronic alcohol abuse, h/o AVM w/ bleed per records, no active bleeding at this time, will monitor, check repeat INR in am. 5. DVT Prophylaxis: Pharmacologic contraindication due to coagulopathy 6. Social work for d/c planning as needed. 7. Case discussed w/ ER physician at length, labs/records/imaging reviewed by me. Physician Certification 2 Midnight Certification Type: Admission for Inpatient Services Order for Inpatient Services The services are ordered in accordance with Medicare regulations or non- Medicare payer requirements, as applicable. In the case of services not specified as inpatient-only, they are appropriately provided as inpatient services in accordance with the 2-midnight benchmark. Estimated LOS (days): 2 days is the estimated time the patient will need to remain in the hospital, assuming treatment plan goals are met and no additional complications. Post-Hospital Plan: Not yet determined Susu Parker MD Jun 15, 2017 20:58
[2017-06-15] MEDS: DOCUSATE SODIUM 50 MG/SENNA 8.6 MG TAB PO SCH (21:00)
[2017-06-15] MEDS ORDERED: MAGNESIUM HYDROXIDE SUSP 30 ML CUP PO PRN (21:00)
[2017-06-15] MEDS ORDERED: BISACODYL 10 MG SUPP RECTAL PRN (21:00)
[2017-06-15] MEDS ORDERED: Vancomycin Consult Pharmacy 1 EA OTHER SCH (21:00)
[2017-06-15] MEDS ORDERED: ACETAMINOPHEN 325 MG TAB PO PRN (21:00)
[2017-06-15] MEDS ORDERED: LACTULOSE SYRUP 20 GM/30 ML CUP PO PRN (21:00)
[2017-06-15] MEDS ORDERED: ONDANSETRON HCL 4 MG/2 ML VIAL IVP PRN (21:00)
[2017-06-15] MEDS ORDERED: SENNOSIDES 8.6 MG TAB PO PRN (21:00)
[2017-06-15 21:04] LABS: BILIRUBIN, URINE SMALL (NEG); BLOOD, URINE SMALL (NEG); GLUCOSE,URINE NEG (NEG); HYALINE CAST, URINE 13 /lpf (RARE); KETONE, URINE NEG (NEG); NITRITE,URINE NEG (NEG); SQUAMOUS EPITHELIAL CELL URINE 2 /hpf (0-5); URINE COLOR YELLOW (YELLW/STRAW); URINE LEUKOCYTE ESTERASE NEG (NEG)
[2017-06-15 21:48] VITALS: BP 121/80; PULSE 98; RESP 18; TEMP 98.1; O2SAT 95
[2017-06-15] MEDS ORDERED: VANCOMYCIN 1,000 MG/NS 250 ML IV ONE ×2 (22:00)
[2017-06-15 23:16] VITALS: PULSE 102
[2017-06-15] MEDS: SODIUM CHLORIDE 0.9% FLUSH 10 ML FLUSH IV FLUSH SCH (23:16)
[2017-06-15] MEDS: SODIUM CHLOR 0.9% 1000 ML INJ 1,000 ML IV SCH (23:18)
--- NOTE | 2017-06-15 23:28 | EKG ---
Date Performed: 06/15/2017 Time Performed: 18:05:05 PTAGE: 62 years EKG: Sinus rhythm NONSPECIFIC T-WAVE ABNORMALITY BORDERLINE ECG PREVIOUS TRACING : 04/04/2016 09.11 Compared to previous tracing, rate has decreased, non-spec ific ST/T wave changes noted DOCTOR: Tony Shane Interpretating Date/Time 06/15/2017 23:26:38
[2017-06-16] VITALS (9 sets, daily range): BP systolic 115–149; BP diastolic 62–78; PULSE 95–115; RESP 18–21; TEMP 97.8–99.1; O2SAT 92–95
[2017-06-16] MEDS: PIPERACIL-TAZO 4.5 GM PREMIX 100 ML IV SCH ×5 (03:07→23:09)
[2017-06-16 05:39] LABS: AUTOMATED NEUTROPHIL # 3.6 TH/MM3 (1.8-7.7); BASOPHIL # 0.1 TH/MM3 (0-0.2); BASOPHIL % 0.5 % (0.0-2.0); EOSINOPHIL % 0.2 % (0.0-4.0); HEMATOCRIT 27.6 % (39.0-51.0); HEMOGLOBIN 9.9 GM/DL (13.0-17.0); LYMPH % 75.9 % (9.0-44.0); LYMPHOCYTE # 15.8 TH/MM3 (1.0-4.8); MEAN CORPUSCULAR HEMOGLOBIN 34.9 PG (27.0-34.0); MEAN PLATELET VOLUME 8.7 FL (7.0-11.0); MONO % 6.3 % (0.0-8.0); MONOCYTE # 1.3 TH/MM3 (0-0.9); NEUT % 17.1 % (16.0-70.0); PLATELET COUNT 107 TH/MM3 (150-450); RED BLOOD COUNT 2.85 MIL/MM3 (4.50-5.90); RED CELL DISTRIBUTION WIDTH 18.6 % (11.6-17.2); WHITE BLOOD COUNT 20.8 TH/MM3 (4.0-11.0)
[2017-06-16 05:51] LABS: BICARBONATE 23.7 MEQ/L (21.0-32.0); CALCIUM 7.4 MG/DL (8.5-10.1); CREATININE 0.8 MG/DL (0.60-1.30)
[2017-06-16 05:58] LABS: CALCIUM-PROTEIN CORRECTED 7.6 MG/DL (8.5-10.1); TOTAL BILIRUBIN ADULT 3.3 MG/DL (0.2-1.0); TOTAL PROTEIN 6.8 GM/DL (6.4-8.2)
[2017-06-16] MEDS: SODIUM CHLOR 0.9% 1000 ML INJ 1,000 ML IV SCH (06:09)
[2017-06-16] MEDS: VANCOMYCIN INJ 1,250 MG in SODIUM CHLOR 0.9% 250 ML INJ 250 ML IV SCH ×2 (06:09→18:02)
[2017-06-16] MEDS: SODIUM CHLORIDE 0.9% FLUSH 10 ML FLUSH IV FLUSH SCH ×2 (08:23→21:00)
[2017-06-16] MEDS ORDERED: POTASSIUM CHLORIDE 10 MEQ CONTROLLED RELEASE TAB PO ONE (08:30)
[2017-06-16] MEDS ORDERED: LORazepam 2 MG/ML VIAL IV PUSH PRN (08:30)
[2017-06-16 08:32] LABS: BANDS 1 % (0-6); MONOCYTES 3 % (0-8)
[2017-06-16 08:33] LABS: NEUTROPHIL # MANUAL DIFF 3.7 TH/MM3 (1.8-7.7); POLYS (SEG NEUTROPHILS) 17 % (16-70)
[2017-06-16 08:34] LABS: LYMPHOCYTES 79 % (9-44); SMUDGE CELLS PRESENT PRESENT
[2017-06-16 08:35] LABS: OVALOCYTES 1+ (NORMAL); TARGET CELLS 1+ (NORMAL)
[2017-06-16] MEDS: DOCUSATE SODIUM 50 MG/SENNA 8.6 MG TAB PO SCH ×2 (08:36→21:00)
[2017-06-16] MEDS: NS + KCL 20 MEQ INJ 1,000 ML IV SCH ×2 (09:16→18:02)
[2017-06-16] MEDS: FOLIC ACID 1 MG TAB PO SCH (09:17)
[2017-06-16] MEDS: MULTIVITAMINS/MINERALS THERAPEUTIC TAB PO SCH (09:17)
[2017-06-16] MEDS: POTASSIUM CHLORIDE 20 MEQ CONTROLLED RELEASE TAB PO SCH ×2 (09:18→21:50)
[2017-06-16] MEDS: THIAMINE HCL 100 MG TAB PO SCH (09:18)
--- NOTE | 2017-06-16 12:40 | HHI.PR ---
Subjective Remarks F/u SIRS. Denies hallucinations but complains of chills shakiness. No fever, cough, abdominal pain, UTI symptoms and diarrhea. He has been compliant with Keppra until a week ago. States he will quit drinking discussed with nursing Objective Vitals Vital Signs Date Time Temp Pulse Resp B/P (MAP) Pulse Ox O2 Delivery O2 Flow Rate FiO2 06/16/17 08:00 98.4 112 21 123/67 (85) 92 06/16/17 04:00 97.9 111 18 128/73 (91) 95 06/16/17 03:56 95 06/16/17 00:00 101 06/16/17 00:00 97.8 100 18 115/78 (90) 93 06/15/17 23:16 102 06/15/17 21:48 98.1 98 18 121/80 (94) 95 06/15/17 21:48 06/15/17 18:42 93 105/59 (74) 06/15/17 16:14 99.6 91 18 96/51 (66) 92 I/O 06/15/17 06/15/17 06/15/17 06/16/17 06/16/17 06/16/17 07:00 15:00 23:00 07:00 15:00 23:00 Intake Total 1451 ml 1362.5 ml Balance 1451 ml 1362.5 ml Intake IV Total 1451 ml 1362.5 ml Result Diagram: 06/16/17 0456 06/16/17 0456 Imaging Last Impressions Chest X-Ray 06/15/17 0752 Signed Impressions: Service Date/Time: Thursday, June 15, 2017 17:52 - CONCLUSION: Trace atelectasis/scarring of the left base. Similar findings were seen in February. Agapito Alvarez MD Objective Remarks GENERAL: Middle-aged white male in no acute distress. 1 CARDIOVASCULAR: Regular rate and rhythm. No obvious murmurs to auscultation. No chest tenderness to palpation. RESPIRATORY: No obvious rhonchi or wheezing. Clear to auscultation. Breath sounds equal bilaterally. GASTROINTESTINAL: Abdomen soft, non-tender, nondistended. BS normal. MUSCULOSKELETAL: Extremities without clubbing, cyanosis, or edema. No obvious deformities. NEUROLOGICAL: Awake, alert and oriented x4. No focal neurologic deficits. Moving both upper and lower extremities spontaneously. Mild tremors Procedures none A/P Problem List: (1) SIRS (systemic inflammatory response syndrome) ICD Code: R65.10 - Systemic inflammatory response syndrome (SIRS) of non- infectious origin without acute organ dysfunction (2) Alcohol abuse ICD Code: F10.10 - Alcohol abuse, uncomplicated (3) CLL (chronic lymphocytic leukemia) ICD Code: C91.90 - Lymphoid leukemia, unspecified not having achieved remission (4) Coagulopathy ICD Code: D68.9 - Coagulation defect, unspecified Assessment and Plan 1. SIRS: Temp 99.6, HR 91, WBC 35.2, no obvious source, s/p Blood Cultures, Vanc/Zosyn, continue w/ IV Abx, follow up cultures NGTD. CXR w/ left base atelectasis, images reviewed by me. U/a negative. Lactic acidosis likely from alcoholism 2. Alcohol Abuse: w/ Acute Alcohol Intoxication, drinks 8-10 beers/day, high risk for withdrawal, Seizure Precautions, CIWA, MVT/Thiamine/Folate replacement. Op f/u 3. CLL: WBC 35, reports h/o CLL, states he was seen by physicians in the past and "told nothing they can do for me". Will consult Hematology for further evaluation, pt is poor candidate for intervention/treatment in light of heavy alcohol abuse and non-compliance. 4. Coagulopathy: INR 1.5, LFTs stable, likely secondary to chronic alcohol abuse, h/o AVM w/ bleed per records, no active bleeding at this time, will monitor, check repeat INR in am. 5. Sz DO. Restart Keppra. Sz precautions DVT Prophylaxis: Pharmacologic contraindication due to coagulopathy Discharge Planning dc in 1-2 days Jeffery Perez MD Jun 16, 2017 12:40
[2017-06-16] MEDS ORDERED: THIA100 PO (12:53)
--- NOTE | 2017-06-16 12:54 | HHI.DCPOC ---
Discharge Care Plan Diagnosis: (1) SIRS (systemic inflammatory response syndrome) (2) CLL (chronic lymphocytic leukemia) (3) Seizure disorder (4) Alcohol dependence Your Health Problems Are: Difficulty with ADL Exercise Tolerance Goals to Promote Your Health * To prevent worsening of your condition and complications * To maintain your health at the optimal level Directions to Meet Your Goals Take your medications as prescribed Follow your dietary instruction Follow activity as directed Keep your appointments as scheduled Take your immunizations and boosters as scheduled If your symptoms worsen call your PCP, if no PCP go to Urgent Care Center or Emergency Room Smoking is Dangerous to Your Health. Avoid second hand smoke Call the 24-hour hour crisis hotline for domestic abuse at Jeffery Perez MD Jun 16, 2017 12:54
[2017-06-16] MEDS: levETIRAcetam 500 MG TAB PO SCH ×2 (14:44→21:50)
--- NOTE | 2017-06-16 16:25 | MB ---
cc: Janine Ruth MD DATE: 06/16/2017 CHIEF COMPLAINT: 1. History of chronic lymphocytic leukemia. 2. Anemia. 3. Thrombocytopenia. 4. Alcohol abuse. HISTORY OF PRESENT ILLNESS: Mr. Taylor is a 62-year-old gentleman with a history of anxiety, depression, hypertension, alcohol abuse, AVM and CLL. He was brought to the hospital on 06/15/2017 under the [place] Act for intoxication. He was noted to be staggering in the street and a bystander called EMS. Alcohol level was found to be elevated at 294 and he was admitted to the hospital. The patient reports that he was diagnosed a couple of years ago with CLL. He reports that he has seen a oven tender bagels in the past, but is uncertain to recall who that oven tender bagels was or what they told him. On review of laboratory studies, white blood cell count is 20.8. In the past, white blood cell count has been approximately 20 with the range between 15.8-35.2. Differential with elevated absolute lymphocyte count at 15.8 with elevated absolute monocyte number at 1.3. Hemoglobin is 9.9. In the past, hemoglobin has been normal at approximately 13. MCV is elevated at 97.0. Platelet count has been approximately 100,000 with the range between 95,000 to 178,000. Chemistry studies with an elevated total bilirubin at 3.3. In the past, this has been normal. Creatinine is normal at 0.8. Coag with prolonged PT and PTT. Chest x-ray with trace atelectasis, scarring of the left lung base. Prior CT scan abdomen and pelvis from 03/2016 with moderate fatty replacement of the liver, negative for acute injury. ROS: all others negative; as above in HPI PAST MEDICAL HISTORY: 1. Anxiety. 2. Depression. 3. Hypertension. 4. Alcohol abuse. 5. Chronic lymphocytic leukemia. 6. History of arteriovenous malformation. PAST SURGICAL HISTORY: 1. Hernia repair. 2. Brain aneurysm. ALLERGIES: NO KNOWN DRUG ALLERGIES. HOME MEDICATIONS: The patient denies any home medications. FAMILY HISTORY: The patient denies a family history of CLL. SOCIAL HISTORY: The patient reports heavy alcohol use. Denies tobacco and illegal drug use. He lives in [place]. He denies having a good support system. PHYSICAL EXAMINATION: GENERAL: Middle-aged man, in no distress, disheveled. HEENT: No scleral icterus. PERRLA. EOMI. CARDIOVASCULAR: Regular rhythm. No murmurs. RESPIRATORY: Clear to auscultation bilaterally. ABDOMEN: Soft, nontender, and nondistended. Protuberant abdomen. MUSCULOSKELETAL: Full range of motion. NEUROLOGIC: Awake and alert x 4. No gross focal deficits. PSYCHIATRIC: Poor remote memory. ASSESSMENT AND PLAN: 1. Chronic lymphocytic leukemia. The patient has not required treatment in the past. He has lymphocytosis. He also has anemia and thrombocytopenia, but feel that there are certainly other factors besides the CLL that would be contributing including alcohol use. We will continue to trend. Discussed with the patient the natural history of CLL, that we monitor and if the patient develops enlarged lymph nodes, thrombocytopenia, severe anemia, would consider initiation of treatment. The patient will need to be reliable and have good followup in clinic. The patient reports that he is amenable to following up with me in clinic for further evaluation and management of CLL. We will order flow cytometry to have performed here. 2. Alcohol abuse. He is on CIWA, multivitamin replacement. 3. Anemia. We will perform an evaluation to include vitamin B12, folate, iron profile, LDH, haptoglobin. Past TSH within normal limits. 4. Thrombocytopenia. We will perform workup including above nutritional studies. We will also obtain abdominal ultrasound for further evaluation of the liver and the spleen. 5. Systemic inflammatory response syndrome. The patient is on broad spectrum antibiotics and cultures are pending. Hematology service will continue to follow. MD CASSIE Bosch/BOZENA , 03:56 PM , 04:23 PM BRUNO
[2017-06-17] VITALS (19 sets, daily range): BP systolic 82–152; BP diastolic 53–92; PULSE 81–174; RESP 19–46; TEMP 97.8–99.4; O2SAT 90–96
[2017-06-17] MEDS: PIPERACIL-TAZO 4.5 GM PREMIX 100 ML IV SCH (05:09)
[2017-06-17] MEDS ORDERED: PHARMACY ORDERED LAB ONE (05:45)
[2017-06-17] MEDS: VANCOMYCIN INJ 1,250 MG in SODIUM CHLOR 0.9% 250 ML INJ 250 ML IV SCH (05:45)
[2017-06-17] MEDS: NS + KCL 20 MEQ INJ 1,000 ML IV SCH (05:47)
[2017-06-17 06:16] LABS: AUTOMATED NEUTROPHIL # 3.9 TH/MM3 (1.8-7.7); BASOPHIL # 0.1 TH/MM3 (0-0.2); BASOPHIL % 0.8 % (0.0-2.0); EOSINOPHIL % 0.3 % (0.0-4.0); HEMATOCRIT 30.6 % (39.0-51.0); HEMOGLOBIN 10.4 GM/DL (13.0-17.0); LYMPH % 61.1 % (9.0-44.0); LYMPHOCYTE # 7.7 TH/MM3 (1.0-4.8); MEAN CELL VOLUME 97.8 FL (80.0-100.0); MEAN CORPUSCULAR HEMOGLOBIN 33.1 PG (27.0-34.0); MEAN CORPUSCULAR HGB CONC 33.8 % (32.0-36.0); MEAN PLATELET VOLUME 9.6 FL (7.0-11.0); MONO % 7.2 % (0.0-8.0); MONOCYTE # 0.9 TH/MM3 (0-0.9); NEUT % 30.6 % (16.0-70.0); PLATELET COUNT 88 TH/MM3 (150-450); RED BLOOD COUNT 3.13 MIL/MM3 (4.50-5.90); RED CELL DISTRIBUTION WIDTH 18.7 % (11.6-17.2); WHITE BLOOD COUNT 12.6 TH/MM3 (4.0-11.0)
[2017-06-17 07:10] LABS: % SATURATION IRON PROFILE 90.4 % (20-50); ALBUMIN 1.9 GM/DL (3.4-5.0); ALKALINE PHOSPHATASE 70 U/L (45-117); ALT (GPT) 52 U/L (12-78); AST (GOT) 163 U/L (15-37); BICARBONATE 23.2 MEQ/L (21.0-32.0); BLOOD UREA NITROGEN 3 MG/DL (7-18); CALCIUM 7.9 MG/DL (8.5-10.1); CHLORIDE 104 MEQ/L (98-107); FERRITIN 192 NG/ML (26-388); GLOMERULAR FILTRATION RATE 98 ML/MIN (>89); GLUCOSE,RANDOM 98 MG/DL (74-106); IRON (FE) 148 MCG/DL (65-175); MAGNESIUM 1.6 MG/DL (1.5-2.5); SODIUM (NA) 136 MEQ/L (136-145); TOTAL BILIRUBIN ADULT 5.1 MG/DL (0.2-1.0); TOTAL IRON BINDING CAPACITY 164 MCG/DL (250-450); TOTAL PROTEIN 6.7 GM/DL (6.4-8.2); VANCOMYCIN TROUGH 13.2 MCG/ML (5.0-10.0)
[2017-06-17 08:27] LABS: BANDS 1 % (0-6); LYMPHOCYTES 66 % (9-44); NEUTROPHIL # MANUAL DIFF 4.3 TH/MM3 (1.8-7.7); POLYS (SEG NEUTROPHILS) 33 % (16-70)
[2017-06-17] MEDS: SODIUM CHLORIDE 0.9% FLUSH 10 ML FLUSH IV FLUSH SCH ×2 (08:44→19:33)
[2017-06-17] MEDS: THIAMINE HCL 100 MG TAB PO SCH (08:45)
[2017-06-17] MEDS: FOLIC ACID 1 MG TAB PO SCH (08:45)
[2017-06-17] MEDS: levETIRAcetam 500 MG TAB PO SCH ×2 (08:45→19:32)
[2017-06-17] MEDS: POTASSIUM CHLORIDE 20 MEQ CONTROLLED RELEASE TAB PO SCH ×2 (08:46→19:32)
[2017-06-17] MEDS: DOCUSATE SODIUM 50 MG/SENNA 8.6 MG TAB PO SCH ×2 (08:46→19:32)
[2017-06-17] MEDS: MULTIVITAMINS/MINERALS THERAPEUTIC TAB PO SCH (08:46)
--- NOTE | 2017-06-17 09:06 | HHI.PR ---
Subjective Remarks Follow-up SIRS. Patient has no complaints denies fever, chills, cough, UTI symptoms and diarrhea. No hallucinations discussed with nursing Objective Vitals Vital Signs Date Time Temp Pulse Resp B/P (MAP) Pulse Ox O2 Delivery O2 Flow Rate FiO2 06/17/17 04:00 99.0 102 19 142/59 (86) 94 06/17/17 03:56 110 06/17/17 00:10 106 06/17/17 00:00 99.4 110 20 152/92 (112) 95 06/16/17 20:04 103 06/16/17 20:00 99.1 114 19 149/78 (101) 93 06/16/17 16:00 98.6 98 21 139/67 (91) 93 06/16/17 15:00 97 06/16/17 12:00 99.0 103 21 126/62 (83) 93 I/O 06/16/17 06/16/17 06/16/17 06/17/17 06/17/17 06/17/17 07:00 15:00 23:00 07:00 15:00 23:00 Intake Total 1462.5 ml 1365 ml 1200 ml Output Total 900 ml 600 ml Balance 1462.5 ml 465 ml 600 ml Intake Oral 0 ml IV Total 1462.5 ml 1365 ml 1200 ml Output Urine Total 900 ml 600 ml # Voids 2 6 # Bowel Movements 5 Result Diagram: 06/17/17 0532 06/17/17 0532 Imaging Last Impressions Chest X-Ray 06/15/17 1742 Signed Impressions: Service Date/Time: Thursday, June 15, 2017 17:52 - CONCLUSION: Trace atelectasis/scarring of the left base. Similar findings were seen in February. Agapito Alvarez MD Objective Remarks GENERAL: Middle-aged white male in no acute distress. CARDIOVASCULAR: Regular rate and rhythm. No obvious murmurs to auscultation. No chest tenderness to palpation. RESPIRATORY: No obvious rhonchi or wheezing. Clear to auscultation. Breath sounds equal bilaterally. GASTROINTESTINAL: Abdomen soft, non-tender, nondistended. BS normal. MUSCULOSKELETAL: Extremities without clubbing, cyanosis, or edema. No obvious deformities. NEUROLOGICAL: Awake, alert and oriented x4. No focal neurologic deficits. Moving both upper and lower extremities spontaneously. Mild tremors which is improving Procedures none A/P Problem List: (1) SIRS (systemic inflammatory response syndrome) ICD Code: R65.10 - Systemic inflammatory response syndrome (SIRS) of non- infectious origin without acute organ dysfunction (2) Alcohol abuse ICD Code: F10.10 - Alcohol abuse, uncomplicated (3) CLL (chronic lymphocytic leukemia) ICD Code: C91.90 - Lymphoid leukemia, unspecified not having achieved remission (4) Coagulopathy ICD Code: D68.9 - Coagulation defect, unspecified Assessment and Plan 1. SIRS: Temp 99.6, HR 91, WBC 35.2, no obvious source, s/p Blood Cultures, Vanc/Zosy follow up cultures NGTD. Discontinue antibiotics. CXR w/ left base atelectasis, images reviewed by me. U/a negative. Lactic acidosis likely from alcoholism 2. Alcohol Abuse: w/ Acute Alcohol Intoxication, drinks 8-10 beers/day, high risk for withdrawal, Seizure Precautions, CIWA, MVT/Thiamine/Folate replacement. Op f/u 3. CLL: WBC 35, reports h/o CLL, states he was seen by physicians in the past and "told nothing they can do for me". Will consult Hematology for further evaluation, pt is poor candidate for intervention/treatment in light of heavy alcohol abuse and non-compliance. Follow-up flow cytometry 4. Anemia possible hemolysis with low haptoglobin. 5. Thrombocytopenia. Follow-up abdominal ultrasound 6. Sz DO. Restart Keppra. Sz precautions DVT Prophylaxis: SCD. Discharge Planning dc in 1-2 days Jeffery Perez MD Jun 17, 2017 09:06
--- NOTE | 2017-06-17 09:13 | RADRPT ---
EXAM DATE/TIME: 06/17/2017 07:40 [facility] COMPARISON: CT ABDOMEN & PELVIS W CONTRAST, March 04, 2016, 18:58. INDICATIONS : Abnormal lab values. MEDICAL HISTORY : Hypertension. CLL. Alcohol abuse. SURGICAL HISTORY : Hernia repair. Brain Aneurysm. ENCOUNTER: Initial ACUITY: 1 day PAIN SCORE: 0/10 LOCATION: Abdomen. MEASUREMENTS: LIVER: 15.9 cm length COMMON DUCT: 5 mm RIGHT KIDNEY: 12.0 x 6.0 x 5.5 cm LEFT KIDNEY: 13.6 x 6.2 x 5.3 cm SPLEEN: 14.1 cm length AORTA: 1.7cm maximal FINDINGS: LIVER: Increased echotexture without focal lesion or ductal dilatation. Heterogeneous echotexture. A recann ulized umbilical vein suspected, and there is hepatofugal flow in the main portal vein. COMMON DUCT: No intraluminal mass or stone visualized. GALLBLADDER: Small amount of sludge in the gallbladder. There is mild wall thickening up to 4.4 mm. PANCREAS: The visualized portions are within normal limits. RIGHT KIDNEY: No hydronephrosis, stone or mass. LEFT KIDNEY: No hydronephrosis, stone or mass. SPLEEN: Enlarged without focal lesion. AORTA: Non aneurysmal. IVC: Within normal limits. CONCLUSION: The liver is upper limits normal in size, predominantly increased echotexture is noted and heterogene ous overall appearance without focal mass. There is a history of hepatic steatosis. Suggestion of sli ghtly nodular contour may represent underlying cirrhosis. Splenomegaly and moderate ascites also note d. Gallbladder sludge. Sj Lui MD on June 17, 2017 at 9:08 Board Certified Radiologist. This report was verified electronically.
[2017-06-17] MEDS: LORazepam 2 MG/ML VIAL IV PUSH PRN ×2 (13:39→20:51)
[2017-06-17] MEDS ORDERED: MAGNESIUM SULFATE 1 GM PREMIX 100 ML IV ONE (14:00)
[2017-06-17] MEDS: SODIUM CHLOR 0.9% 1000 ML INJ 1,000 ML IV SCH (15:11)
[2017-06-17] MEDS: ESMOLOL DRIP INJ PREMIX 250 ML IV PRN ×2 (15:12→21:40)
[2017-06-17] MEDS: ENOXAPARIN SODIUM 100 MG/ML SYRINGE SQ SCH (15:32)
--- NOTE | 2017-06-17 15:51 | PD.ONC.PN ---
Subjective Subjective Remarks Patient transferred to [facility] for atrial fibrillation with RVR. He is asymptomatic. Objective Data Date Time Temp Pulse Resp B/P (MAP) Pulse Ox O2 Delivery O2 Flow Rate FiO2 06/17/17 15:32 166 100/58 06/17/17 15:12 177 105/54 06/17/17 14:01 160 20 106/55 (72) 92 06/17/17 12:05 98.0 86 19 130/66 (87) 96 06/17/17 08:05 98.4 88 19 132/68 (89) 94 06/17/17 04:00 99.0 102 19 142/59 (86) 94 06/17/17 03:56 110 06/17/17 00:10 106 06/17/17 00:00 99.4 110 20 152/92 (112) 95 06/16/17 20:04 103 06/16/17 20:00 99.1 114 19 149/78 (101) 93 06/16/17 16:00 98.6 98 21 139/67 (91) 93 06/17/17 06/17/17 06/17/17 07:00 15:00 23:00 Intake Total 1200 ml 480 ml 362.5 ml Output Total 600 ml 500 ml Balance 600 ml -20 ml 362.5 ml Result Diagram: 06/17/17 0532 06/17/17 0532 Laboratory Results Laboratory Tests Test 06/16/17 20:31 06/17/17 05:32 Hepatitis A IgM Antibody NONREACTIVE Hepatitis B Surface Antigen NONREACTIVE Hepatitis B Core IgM Antibody INDETERMINATE Hepatitis C IgG Antibody NONREACTIVE HIV (1&2) Ab and P24 Ag, 4th Gener NONREACTIVE White Blood Count 12.6 TH/MM3 Red Blood Count 3.13 MIL/MM3 Hemoglobin 10.4 GM/DL Hematocrit 30.6 % Mean Corpuscular Volume 97.8 FL Mean Corpuscular Hemoglobin 33.1 PG Mean Corpuscular Hemoglobin Concent 33.8 % Red Cell Distribution Width 18.7 % Platelet Count 88 TH/MM3 Mean Platelet Volume 9.6 FL Neutrophils (%) (Auto) 30.6 % Lymphocytes (%) (Auto) 61.1 % Monocytes (%) (Auto) 7.2 % Eosinophils (%) (Auto) 0.3 % Basophils (%) (Auto) 0.8 % Neutrophils # (Auto) 3.9 TH/MM3 Lymphocytes # (Auto) 7.7 TH/MM3 Monocytes # (Auto) 0.9 TH/MM3 Eosinophils # (Auto) 0.0 TH/MM3 Basophils # (Auto) 0.1 TH/MM3 CBC Comment AUTO DIFF Differential Total Cells Counted 100 Neutrophils % (Manual) 33 % Band Neutrophils % 1 % Lymphocytes % 66 % Neutrophils # (Manual) 4.3 TH/MM3 Differential Comment FINAL DIFF MANUAL Platelet Estimate LOW Platelet Morphology Comment NORMAL Haptoglobin 26 MG/DL Blood Urea Nitrogen 3 MG/DL Creatinine 0.80 MG/DL Random Glucose 98 MG/DL Total Protein 6.7 GM/DL Albumin 1.9 GM/DL Calcium Level 7.9 MG/DL Magnesium Level 1.6 MG/DL Alkaline Phosphatase 70 U/L Aspartate Amino Transf (AST/SGOT) 163 U/L Alanine Aminotransferase (ALT/SGPT) 52 U/L Lactate Dehydrogenase 227 U/L Total Bilirubin 5.1 MG/DL Direct Bilirubin 3.0 MG/DL Sodium Level 136 MEQ/L Potassium Level 4.1 MEQ/L Chloride Level 104 MEQ/L Carbon Dioxide Level 23.2 MEQ/L Anion Gap 9 MEQ/L Estimat Glomerular Filtration Rate 98 ML/MIN Iron Level 148 MCG/DL Total Iron Binding Capacity 164 MCG/DL Percent Iron Saturation 90.4 % Ferritin 192 NG/ML Vitamin B12 Level 1251 PG/ML Folate 5.0 NG/ML Vancomycin Level Trough 13.2 MCG/ML Culture Results Microbiology Date/Time Source Procedure Growth Status 06/15/17 17:50 Blood Peripheral Aerobic Blood Culture - Preliminary NO GROWTH IN 2 DAYS Resulted 06/15/17 17:50 Blood Peripheral Anaerobic Blood Culture - Preliminary NO GROWTH IN 2 DAYS Resulted 06/15/17 17:50 Blood Peripheral Aerobic Blood Culture - Preliminary NO GROWTH IN 2 DAYS Resulted 06/15/17 17:50 Blood Peripheral Anaerobic Blood Culture - Preliminary NO GROWTH IN 2 DAYS Resulted Imaging Studies Last 24 hours Impressions Abdomen Ultrasound 06/17/17 0000 Signed Impressions: Service Date/Time: Saturday, June 17, 2017 07:40 - CONCLUSION: The liver is upper limits normal in size, predominantly increased echotexture is noted and heterogeneous overall appearance without focal mass. There is a history of hepatic steatosis. Suggestion of slightly nodular contour may represent underlying cirrhosis. Splenomegaly and moderate ascites also noted. Gallbladder sludge. Sj Lui MD Administered Medications Medications (Trade) Dose Ordered Sig/Yao Route PRN Reason Start Time Stop Time Status Last Admin Dose Admin Lorazepam (Ativan) 1 mg Q4H PRN PO CIWA 8 - 10 06/15/17 16:30 06/15/17 17:05 Lorazepam (Ativan Inj) 1 mg Q4H PRN IV PUSH CIWA 8 - 10 06/15/17 16:30 06/17/17 13:39 Folic Acid (Folate) 1 mg DAILY PO 06/16/17 09:00 06/21/17 08:59 06/17/17 08:45 Thiamine HCl (Vitamin B1) 100 mg DAILY PO 06/16/17 09:00 06/17/17 08:45 Multivitamins/ Minerals Therapeutic (Theragran M Tab) 1 tab DAILY PO 06/16/17 09:00 06/21/17 08:59 06/17/17 08:46 Sodium Chloride (NS Flush) 2 ml BID IV FLUSH 06/15/17 21:00 06/17/17 08:44 Potassium Chloride (KCl) 20 meq Q12HR PO 06/16/17 09:00 06/16/17 21:50 Levetriacetam (Keppra) 1,000 mg BID PO 06/16/17 14:00 06/17/17 08:45 Esmolol HCl/ Sodium Chloride 250 ml @ 27.42 mls/ hr TITRATE PRN IV Blood Pressure Management 06/17/17 14:15 06/17/17 15:12 Sodium Chloride 1,000 ml @ 84 mls/hr [id number] IV 06/17/17 14:15 06/17/17 15:11 Enoxaparin Sodium (Lovenox Inj) 90 mg Q12H SQ 06/17/17 15:00 06/17/17 15:32 Objective Remarks GENERAL: Well-nourished, well-developed patient. SKIN: Warm and dry. HEAD: Normocephalic. EYES: No scleral icterus. No injection or drainage. NECK: Supple, trachea midline. No JVD or lymphadenopathy. LYMPHATIC: No adenopathy. CARDIOVASCULAR: irregularly, irregular, tachycardic RESPIRATORY: Breath sounds equal bilaterally. No accessory muscle use. GASTROINTESTINAL: Abdomen soft, non-tender, protuberant EXTREMITIES: No cyanosis, or edema. MUSCULOSKELETAL: Adequate muscle tone. NEUROLOGICAL: No obvious focal deficit. Awake, alert, and oriented x3. PSYCHIATRIC: Appropriate mood and affect; insight and judgment normal. Assessment/Plan Assessment 1. CLL: elevated ANC. Per patient report diagnosed in 2016. Flow cytometry pending. 2. Atrial fibrillation with RVR: transferred to [facility]. Cleared for full intensity anticoagulation provided platelet count remains greater than 50K. 3. History of alcohol abuse: evidence of nodular contour on ultrasound, ascites, abnormal LFTs. Will consult hepatology team to eval for cirrhosis. 4. TCP: multiple factors contributing including CLL, splenomegaly, toxic effect of etoh on bone marrow. B12, folate replete (after MVI replacement at hospital). LDH normal, haptoglobin low. Do not supect TMA, ITP. Haptoglobin can be low in liver disease. Inpatient oncology team will continue to follow. Janine Ruth MD Jun 17, 2017 15:51
[2017-06-17] MEDS ORDERED: SODIUM CHLORID 0.9% 500 ML INJ 500 ML IV ONE (16:15)
[2017-06-17] MEDS ORDERED: VANCOMYCIN INJ 1,500 MG in SODIUM CHLORID 0.9% 500 ML INJ 500 ML IV SCH (18:00)
[2017-06-17] MEDS: DILTIAZEM HCL 30 MG TAB PO SCH ×2 (18:00→19:33)
[2017-06-18] VITALS (11 sets, daily range): BP systolic 100–116; BP diastolic 62–72; PULSE 88–107; RESP 20–33; TEMP 97.8–98.8; O2SAT 72–95
[2017-06-18] MEDS: ENOXAPARIN SODIUM 100 MG/ML SYRINGE SQ SCH ×2 (03:00→15:31)
[2017-06-18] MEDS: LORazepam 2 MG/ML VIAL IV PUSH PRN ×2 (06:32→09:51)
[2017-06-18] MEDS: ESMOLOL DRIP INJ PREMIX 250 ML IV PRN (06:32)
[2017-06-18 08:08] LABS: ALKALINE PHOSPHATASE 67 U/L (45-117); ALT (GPT) 52 U/L (12-78); AST (GOT) 160 U/L (15-37); BICARBONATE 23.5 MEQ/L (21.0-32.0); BLOOD UREA NITROGEN 3 MG/DL (7-18); CALCIUM 7.9 MG/DL (8.5-10.1); CHLORIDE 102 MEQ/L (98-107); CREATININE 0.71 MG/DL (0.60-1.30); GLOMERULAR FILTRATION RATE 113 ML/MIN (>89); GLUCOSE,RANDOM 82 MG/DL (74-106); MAGNESIUM 1.9 MG/DL (1.5-2.5); SODIUM (NA) 134 MEQ/L (136-145); TOTAL BILIRUBIN ADULT 5.5 MG/DL (0.2-1.0); TOTAL PROTEIN 7.1 GM/DL (6.4-8.2)
[2017-06-18] MEDS: MULTIVITAMINS/MINERALS THERAPEUTIC TAB PO SCH (08:10)
[2017-06-18] MEDS: DILTIAZEM HCL 30 MG TAB PO SCH ×4 (08:10→20:25)
[2017-06-18] MEDS: FOLIC ACID 1 MG TAB PO SCH (08:10)
[2017-06-18] MEDS: THIAMINE HCL 100 MG TAB PO SCH (08:10)
[2017-06-18] MEDS: POTASSIUM CHLORIDE 20 MEQ CONTROLLED RELEASE TAB PO SCH ×2 (08:11→20:24)
[2017-06-18] MEDS: SODIUM CHLORIDE 0.9% FLUSH 10 ML FLUSH IV FLUSH SCH ×2 (08:11→20:25)
[2017-06-18] MEDS: levETIRAcetam 500 MG TAB PO SCH ×2 (08:11→20:25)
[2017-06-18 08:24] LABS: AUTOMATED NEUTROPHIL # 4.8 TH/MM3 (1.8-7.7); BASOPHIL # 0.1 TH/MM3 (0-0.2); BASOPHIL % 0.7 % (0.0-2.0); EOSINOPHIL # 0.1 TH/MM3 (0-0.4); EOSINOPHIL % 0.4 % (0.0-4.0); HEMATOCRIT 33.2 % (39.0-51.0); HEMOGLOBIN 11.2 GM/DL (13.0-17.0); LYMPH % 65.9 % (9.0-44.0); MEAN CORPUSCULAR HEMOGLOBIN 33.1 PG (27.0-34.0); MEAN CORPUSCULAR HGB CONC 33.8 % (32.0-36.0); MEAN PLATELET VOLUME 9.9 FL (7.0-11.0); MONO % 6.5 % (0.0-8.0); MONOCYTE # 1.2 TH/MM3 (0-0.9); NEUT % 26.5 % (16.0-70.0); PLATELET COUNT 114 TH/MM3 (150-450); RED BLOOD COUNT 3.39 MIL/MM3 (4.50-5.90); RED CELL DISTRIBUTION WIDTH 19.4 % (11.6-17.2); WHITE BLOOD COUNT 18.2 TH/MM3 (4.0-11.0)
[2017-06-18] MEDS: DOCUSATE SODIUM 50 MG/SENNA 8.6 MG TAB PO SCH ×2 (08:34→20:25)
[2017-06-18 09:56] LABS: LYMPHOCYTES 71 % (9-44); MONOCYTES 1 % (0-8); NEUTROPHIL # MANUAL DIFF 4.9 TH/MM3 (1.8-7.7); POLYS (SEG NEUTROPHILS) 27 % (16-70)
[2017-06-18 09:58] LABS: SMUDGE CELLS PRESENT PRESENT
[2017-06-18 10:00] LABS: OVALOCYTES 1+ (NORMAL)
[2017-06-18] MEDS: SODIUM CHLOR 0.9% 1000 ML INJ 1,000 ML IV SCH (10:32)
--- NOTE | 2017-06-18 10:38 | PD.ONC.PN ---
Subjective Subjective Remarks Afebrile overnight. Patient resting in bed. remains confused. Objective Data Date Time Temp Pulse Resp B/P (MAP) Pulse Ox O2 Delivery O2 Flow Rate FiO2 06/18/17 10:00 105 06/18/17 08:00 98.1 95 24 109/72 (84) 95 06/18/17 08:00 90 06/18/17 06:32 87 115/60 06/18/17 06:00 93 06/18/17 04:00 89 06/18/17 04:00 97.8 89 24 116/70 (85) 72 06/18/17 02:00 92 06/18/17 00:00 98.2 97 33 116/67 (83) 91 06/18/17 00:00 97 06/17/17 22:00 91 06/17/17 21:40 93 114/56 06/17/17 20:00 98.0 98 46 98/53 (68) 94 06/17/17 20:00 98 06/17/17 18:00 92 06/17/17 18:00 92 20 113/62 (79) 93 06/17/17 17:30 85 99/55 06/17/17 17:24 81 06/17/17 17:00 156 29 103/57 (72) 90 06/17/17 16:45 153 29 99/55 (70) 92 06/17/17 16:30 139 19 82/62 (69) 91 06/17/17 16:15 131 21 97/59 (72) 92 06/17/17 16:15 131 97/59 06/17/17 16:00 97.8 140 23 95/59 (71) 93 06/17/17 16:00 140 06/17/17 16:00 140 95/59 06/17/17 15:45 148 21 86/57 (67) 92 06/17/17 15:32 166 100/58 06/17/17 15:30 134 21 100/58 (72) 93 06/17/17 15:15 174 21 100/60 (73) 91 06/17/17 15:12 177 105/54 06/17/17 14:01 160 20 106/55 (72) 92 06/17/17 12:05 98.0 86 19 130/66 (87) 96 06/18/17 06/18/1718 07:00 15:00 23:00 Intake Total 150 ml Balance 150 ml Result Diagram: 06/18/17 0450 06/18/17 0450 Laboratory Results Laboratory Tests Test 06/17/17 15:15 06/18/17 04:50 Nasal Screen MRSA (PCR) MRSA NOT DETECTED White Blood Count 18.2 TH/MM3 Red Blood Count 3.39 MIL/MM3 Hemoglobin 11.2 GM/DL Hematocrit 33.2 % Mean Corpuscular Volume 98.0 FL Mean Corpuscular Hemoglobin 33.1 PG Mean Corpuscular Hemoglobin Concent 33.8 % Red Cell Distribution Width 19.4 % Platelet Count 114 TH/MM3 Mean Platelet Volume 9.9 FL Neutrophils (%) (Auto) 26.5 % Lymphocytes (%) (Auto) 65.9 % Monocytes (%) (Auto) 6.5 % Eosinophils (%) (Auto) 0.4 % Basophils (%) (Auto) 0.7 % Neutrophils # (Auto) 4.8 TH/MM3 Lymphocytes # (Auto) 12.0 TH/MM3 Monocytes # (Auto) 1.2 TH/MM3 Eosinophils # (Auto) 0.1 TH/MM3 Basophils # (Auto) 0.1 TH/MM3 CBC Comment AUTO DIFF Differential Total Cells Counted 100 Neutrophils % (Manual) 27 % Lymphocytes % 71 % Monocytes % 1 % Eosinophils % 1 % Neutrophils # (Manual) 4.9 TH/MM3 Differential Comment FINAL DIFF MANUAL Smudge Cells PRESENT Platelet Estimate LOW Platelet Morphology Comment NORMAL Ovalocytes 1+ Blood Urea Nitrogen 3 MG/DL Creatinine 0.71 MG/DL Random Glucose 82 MG/DL Total Protein 7.1 GM/DL Albumin 2.0 GM/DL Calcium Level 7.9 MG/DL Magnesium Level 1.9 MG/DL Alkaline Phosphatase 67 U/L Aspartate Amino Transf (AST/SGOT) 160 U/L Alanine Aminotransferase (ALT/SGPT) 52 U/L Total Bilirubin 5.5 MG/DL Sodium Level 134 MEQ/L Potassium Level 5.1 MEQ/L Chloride Level 102 MEQ/L Carbon Dioxide Level 23.5 MEQ/L Anion Gap 9 MEQ/L Estimat Glomerular Filtration Rate 113 ML/MIN Culture Results Microbiology Date/Time Source Procedure Growth Status 06/15/17 17:50 Blood Peripheral Aerobic Blood Culture - Preliminary NO GROWTH IN 2 DAYS Resulted 06/15/17 17:50 Blood Peripheral Anaerobic Blood Culture - Preliminary NO GROWTH IN 2 DAYS Resulted 06/15/17 17:50 Blood Peripheral Aerobic Blood Culture - Preliminary NO GROWTH IN 2 DAYS Resulted 06/15/17 17:50 Blood Peripheral Anaerobic Blood Culture - Preliminary NO GROWTH IN 2 DAYS Resulted Administered Medications Medications (Trade) Dose Ordered Sig/Yao Route PRN Reason Start Time Stop Time Status Last Admin Dose Admin Lorazepam (Ativan) 1 mg Q4H PRN PO CIWA 8 - 10 06/15/17 16:30 06/15/17 17:05 Lorazepam (Ativan Inj) 1 mg Q4H PRN IV PUSH CIWA 8 - 10 06/15/17 16:30 06/18/17 09:51 Lorazepam (Ativan Inj) 2 mg Q2H PRN IV PUSH CIWA 11-14 06/15/17 16:30 06/18/17 06:32 Folic Acid (Folate) 1 mg DAILY PO 06/16/17 09:00 06/21/17 08:59 06/18/17 08:10 Thiamine HCl (Vitamin B1) 100 mg DAILY PO 06/16/17 09:00 06/18/17 08:10 Multivitamins/ Minerals Therapeutic (Theragran M Tab) 1 tab DAILY PO 06/16/17 09:00 06/21/17 08:59 06/18/17 08:10 Sodium Chloride (NS Flush) 2 ml BID IV FLUSH 06/15/17 21:00 06/18/17 08:11 Senna/Docusate Sodium (Anamaria-Colace) 1 tab BID PO 06/15/17 21:00 06/17/17 19:32 Potassium Chloride (KCl) 20 meq Q12HR PO 06/16/17 09:00 06/18/17 08:11 Levetriacetam (Keppra) 1,000 mg BID PO 06/16/17 14:00 06/18/17 08:11 Esmolol HCl/ Sodium Chloride 250 ml @ 27.42 mls/ hr TITRATE PRN IV Blood Pressure Management 06/17/17 14:15 06/18/17 06:32 Sodium Chloride 1,000 ml @ 100 mls/hr Q10H IV 06/17/17 14:15 06/17/17 15:11 Diltiazem HCl (Cardizem) 30 mg QID PO 06/17/17 18:00 06/18/17 08:10 Enoxaparin Sodium (Lovenox Inj) 90 mg Q12H SQ 06/17/17 15:00 06/18/17 03:00 Objective Remarks GENERAL: Confused but pleasant middle aged male, sitting in bed. SKIN: Warm and dry. HEAD: Normocephalic. EYES: No injection or drainage. NECK: Supple, trachea midline. CARDIOVASCULAR: +S1/S2 RESPIRATORY: anterior yuen clear. GASTROINTESTINAL: Abdomen soft, non-tender, nondistended. EXTREMITIES: No cyanosis NEUROLOGICAL: awake, normal speech. moving extremities. Assessment/Plan Problem List: (1) CLL (chronic lymphocytic leukemia) ICD Codes: C91.90 - Lymphoid leukemia, unspecified not having achieved remission Plan: --diagnosed in 2016, has not required treatment in the past. --flow cytometry pending (2) Normocytic anemia ICD Codes: D64.9 - Anemia, unspecified Plan: --haptoglobin low (?d/t poor synthetic liver function?), LDH WNL --B12 WNL --no evidence of iron deficiency (3) Thrombocytopenia ICD Codes: D69.6 - Thrombocytopenia, unspecified Plan: --U/S Abdomen shows enlarged liver and spleen. (4) Atrial fibrillation ICD Codes: I48.91 - Unspecified atrial fibrillation Plan: --Cleared for full intensity anticoagulation provided platelet count remains greater than 50K. -on Lovenox Assessment 62y/o male admitted under [facility] act for intoxication History of chronic lymphocytic leukemia. Anemia. Thrombocytopenia. Alcohol abuse. History of arteriovenous malformation. Plan 1. monitor CBC 2. await flow cytometry Attending Statement The exam, history, and the medical decision-making described in the above note were completed with the assistance of the mid-level provider. I reviewed and agree with the findings presented. I attest that I had a [id number] encounter with the patient on the same day, and personally performed and documented my assessment and findings in the medical record. 62 yoM with etoh abuse, etoh hepatitis/cirrhosis, afib, CLL admitted to the hospital with public intoxication. Currently awaiting results of flow cytometry. Counseled patient extensively on sobriety and alcohol cessation. Risks vs benefits of anticoagulation in the setting of afib, TCP and liver disease. Pam Sims Jun 18, 2017 10:38 Janine Ruth MD June 19, 2017 09:08
--- NOTE | 2017-06-18 12:02 | HHI.PR ---
Subjective Remarks Follow-up atrial fibrillation with RVR/SIRS/CLL June 18, 2017-patient seen and examined, artery rate controlled and patient denies any chest pain, shortness of breath or dizziness. Objective Vitals Vital Signs Date Time Temp Pulse Resp B/P (MAP) Pulse Ox O2 Delivery O2 Flow Rate FiO2 06/18/17 10:00 105 06/18/17 08:00 98.1 95 24 109/72 (84) 95 06/18/17 08:00 90 06/18/17 06:32 87 115/60 06/18/17 06:00 93 06/18/17 04:00 89 06/18/17 04:00 97.8 89 24 116/70 (85) 72 06/18/17 02:00 92 06/18/17 00:00 98.2 97 33 116/67 (83) 91 06/18/17 00:00 97 06/17/17 22:00 91 06/17/17 21:40 93 114/56 06/17/17 20:00 98.0 98 46 98/53 (68) 94 06/17/17 20:00 98 06/17/17 18:00 92 06/17/17 18:00 92 20 113/62 (79) 93 06/17/17 17:30 85 99/55 06/17/17 17:24 81 06/17/17 17:00 156 29 103/57 (72) 90 06/17/17 16:45 153 29 99/55 (70) 92 06/17/17 16:30 139 19 82/62 (69) 91 06/17/17 16:15 131 21 97/59 (72) 92 06/17/17 16:15 131 97/59 06/17/17 16:00 97.8 140 23 95/59 (71) 93 06/17/17 16:00 140 06/17/17 16:00 140 95/59 06/17/17 15:45 148 21 86/57 (67) 92 06/17/17 15:32 166 100/58 06/17/17 15:30 134 21 100/58 (72) 93 06/17/17 15:15 174 21 100/60 (73) 91 06/17/17 15:12 177 105/54 06/17/17 14:01 160 20 106/55 (72) 92 06/17/17 12:05 98.0 86 19 130/66 (87) 96 I/O 06/17/17 06/17/17 06/17/17 06/18/17 06/18/17 06/18/17 07:00 15:00 23:00 07:00 15:00 23:00 Intake Total 1200 ml 480 ml 2671.5 ml 150 ml Output Total 600 ml 500 ml 250 ml Balance 600 ml -20 ml 2421.5 ml 150 ml Intake Oral 0 ml 480 ml 250 ml 150 ml IV Total 1200 ml 2421.5 ml Output Urine Total 600 ml 500 ml 250 ml # Voids 6 1 4 # Bowel Movements 5 1 2 1 Result Diagram: 06/18/17 0450 06/18/17 0450 Imaging Last Impressions Abdomen Ultrasound 06/17/17 0000 Signed Impressions: Service Date/Time: Saturday, June 17, 2017 07:40 - CONCLUSION: The liver is upper limits normal in size, predominantly increased echotexture is noted and heterogeneous overall appearance without focal mass. There is a history of hepatic steatosis. Suggestion of slightly nodular contour may represent underlying cirrhosis. Splenomegaly and moderate ascites also noted. Gallbladder sludge. Sj Lui MD Chest X-Ray 06/15/17 1662 Signed Impressions: Service Date/Time: Thursday, June 15, 2017 17:52 - CONCLUSION: Trace atelectasis/scarring of the left base. Similar findings were seen in February. Agapito Alvarez MD Objective Remarks GENERAL: NAD SKIN: Warm and dry. HEAD: Normocephalic. EYES: No scleral icterus. No injection or drainage. NECK: Supple, trachea midline. No JVD or lymphadenopathy. CARDIOVASCULAR: Irregular regular rate and rhythm without murmurs, gallops, or rubs. RESPIRATORY: Breath sounds equal bilaterally. No accessory muscle use. GASTROINTESTINAL: Abdomen soft, non-tender, nondistended. MUSCULOSKELETAL: No cyanosis, or edema. BACK: Nontender without obvious deformity. No CVA tenderness. Procedures none A/P Problem List: (1) SIRS (systemic inflammatory response syndrome) ICD Code: R65.10 - Systemic inflammatory response syndrome (SIRS) of non- infectious origin without acute organ dysfunction (2) Alcohol abuse ICD Code: F10.10 - Alcohol abuse, uncomplicated (3) CLL (chronic lymphocytic leukemia) ICD Code: C91.90 - Lymphoid leukemia, unspecified not having achieved remission (4) Coagulopathy ICD Code: D68.9 - Coagulation defect, unspecified Assessment and Plan 62-year-old man with 1. Atrial fibrillation with RVR Currently rate controlled D/c Esmolol drip and continue Cardizem 30 mg 4 times daily On Lovenox subcuQ, however secondary to patient's known history of alcohol abuse oral anticoagulation may be contraindicated, nevertheless we will start Eliquis 2. SIRS Resolved 3. Alcohol Abuse high risk for withdrawal, Seizure Precautions, CIWA, MVT/Thiamine/Folate replacement. Op f/u 4. CLL Appreciate input from hematology, pt is poor candidate for intervention/ treatment in light of heavy alcohol abuse and non-compliance. Follow-up flow cytometry 5. Anemia Monitor H&H 6. Thrombocytopenia Monitor CBC 7. Nu DO. Continue Dennis. Nu precautions Harinder Curtis MD Jun 18, 2017 12:01
--- NOTE | 2017-06-18 12:34 | PD.CONS ---
HPI History of Present Illness This is a 62 year old male with hx etoh abuse and CLL who was brought by EMS after being seen staggering and confused. GI consulted for poss cirrhosis. He admits drinking 6-8 beers daily althoughtold another provider he drinks 8-10 beers daily. He denies any prior liver problems or knowledge of having hepatitis. he had a colonoscopy 5-6 y ago and 3 colon polyps were found, can recall no further details. He denies any GI sx. No blood in stool or melanotic stool per nursing staff. blood etoh was 294 on admission. US showed liver upper limits normal with heterogenous appearance, moderate ascites, GB sludge, suggestive cirrhosis. He had a CT abd in 2017 that showed fatty liver. He seems mildly confused although he did know his name, where he was, current president and month & year. (Estrellita Weeks) PFSH Past Medical History PMH: Anxiety, Depression, HTN, Alcohol Abuse, CLL and h/o AVM Past Surgical History PAST SURGICAL HISTORY: Hernia Repair, Brain Aneurysm (Estrellita Weeks) Coded Allergies: No Known Allergies (Unverified Adverse Reaction, Unknown, 06/07/17) Family History PAST FAMILY HISTORY: Reviewed. No h/o DM or CAD Social History PAST SOCIAL HISTORY: Drinks 8-10 beers per day. Negative for tobacco. Negative for drugs. (Estrellita Weeks) Review of Systems Gastrointestinal: DENIES: Abdominal pain, Black stools, Bloody stools, Nausea, Vomiting otherwise noncontributory (Estrellita Weeks) GI Exam Vitals I&O Vital Signs Date Time Temp Pulse Resp B/P (MAP) Pulse Ox O2 Delivery O2 Flow Rate FiO2 06/18/17 10:00 105 06/18/17 08:00 98.1 95 24 109/72 (84) 95 06/18/17 08:00 90 06/18/17 06:32 87 115/60 06/18/17 06:00 93 06/18/17 04:00 89 06/18/17 04:00 97.8 89 24 116/70 (85) 72 06/18/17 02:00 92 06/18/17 00:00 98.2 97 33 116/67 (83) 91 06/18/17 00:00 97 06/17/17 22:00 91 06/17/17 21:40 93 114/56 06/17/17 20:00 98.0 98 46 98/53 (68) 94 06/17/17 20:00 98 06/17/17 18:00 92 06/17/17 18:00 92 20 113/62 (79) 93 06/17/17 17:30 85 99/55 06/17/17 17:24 81 06/17/17 17:00 156 29 103/57 (72) 90 06/17/17 16:45 153 29 99/55 (70) 92 06/17/17 16:30 139 19 82/62 (69) 91 06/17/17 16:15 131 21 97/59 (72) 92 06/17/17 16:15 131 97/59 06/17/17 16:00 97.8 140 23 95/59 (71) 93 06/17/17 16:00 140 06/17/17 16:00 140 95/59 06/17/17 15:45 148 21 86/57 (67) 92 06/17/17 15:32 166 100/58 06/17/17 15:30 134 21 100/58 (72) 93 06/17/17 15:15 174 21 100/60 (73) 91 06/17/17 15:12 177 105/54 06/17/17 14:01 160 20 106/55 (72) 92 I/O 06/17/17 06/17/17 06/17/17 06/18/17 06/18/17 06/18/17 06:59 14:59 22:59 06:59 14:59 22:59 Intake Total 1200 ml 480 ml 2671.5 ml 150 ml Output Total 600 ml 500 ml 250 ml Balance 600 ml -20 ml 2421.5 ml 150 ml Intake Oral 0 ml 480 ml 250 ml 150 ml IV Total 1200 ml 2421.5 ml Output Urine Total 600 ml 500 ml 250 ml # Voids 6 1 4 # Bowel Movements 5 1 2 1 Imaging Last Impressions Abdomen Ultrasound 06/17/17 0000 Signed Impressions: Service Date/Time: Saturday, June 17, 2017 07:40 - CONCLUSION: The liver is upper limits normal in size, predominantly increased echotexture is noted and heterogeneous overall appearance without focal mass. There is a history of hepatic steatosis. Suggestion of slightly nodular contour may represent underlying cirrhosis. Splenomegaly and moderate ascites also noted. Gallbladder sludge. Sj Lui MD Chest X-Ray 06/15/17 8002 Signed Impressions: Service Date/Time: Thursday, June 15, 2017 17:52 - CONCLUSION: Trace atelectasis/scarring of the left base. Similar findings were seen in February. Agapito Alvarez MD Laboratory Test 06/17/17 15:15 06/18/17 04:50 Nasal Screen MRSA (PCR) MRSA NOT DETECTED White Blood Count 18.2 TH/MM3 Red Blood Count 3.39 MIL/MM3 Hemoglobin 11.2 GM/DL Hematocrit 33.2 % Mean Corpuscular Volume 98.0 FL Mean Corpuscular Hemoglobin 33.1 PG Mean Corpuscular Hemoglobin Concent 33.8 % Red Cell Distribution Width 19.4 % Platelet Count 114 TH/MM3 Mean Platelet Volume 9.9 FL Neutrophils (%) (Auto) 26.5 % Lymphocytes (%) (Auto) 65.9 % Monocytes (%) (Auto) 6.5 % Eosinophils (%) (Auto) 0.4 % Basophils (%) (Auto) 0.7 % Neutrophils # (Auto) 4.8 TH/MM3 Lymphocytes # (Auto) 12.0 TH/MM3 Monocytes # (Auto) 1.2 TH/MM3 Eosinophils # (Auto) 0.1 TH/MM3 Basophils # (Auto) 0.1 TH/MM3 CBC Comment AUTO DIFF Differential Total Cells Counted 100 Neutrophils % (Manual) 27 % Lymphocytes % 71 % Monocytes % 1 % Eosinophils % 1 % Neutrophils # (Manual) 4.9 TH/MM3 Differential Comment FINAL DIFF MANUAL Smudge Cells PRESENT Platelet Estimate LOW Platelet Morphology Comment NORMAL Ovalocytes 1+ Blood Urea Nitrogen 3 MG/DL Creatinine 0.71 MG/DL Random Glucose 82 MG/DL Total Protein 7.1 GM/DL Albumin 2.0 GM/DL Calcium Level 7.9 MG/DL Magnesium Level 1.9 MG/DL Alkaline Phosphatase 67 U/L Aspartate Amino Transf (AST/SGOT) 160 U/L Alanine Aminotransferase (ALT/SGPT) 52 U/L Total Bilirubin 5.5 MG/DL Sodium Level 134 MEQ/L Potassium Level 5.1 MEQ/L Chloride Level 102 MEQ/L Carbon Dioxide Level 23.5 MEQ/L Anion Gap 9 MEQ/L Estimat Glomerular Filtration Rate 113 ML/MIN Date/Time Source Procedure Growth Status 06/15/17 17:50 Blood Peripheral Aerobic Blood Culture - Preliminary NO GROWTH IN 3 DAYS Resulted 06/15/17 17:50 Blood Peripheral Anaerobic Blood Culture - Preliminary NO GROWTH IN 3 DAYS Resulted Physical Examination HEENT: PERRL; normocephalic; atraumatic; mild icterus CHEST: CTA CARDIAC: RRR ABDOMEN: distended, semifirm, nontender; bowel sounds are present in all four quadrants. EXTREMITIES: No clubbing, cyanosis, or edema. SKIN: Normal; no rash; no jaundice. CALKER: oriented x 3. lethargic (Estrellita Weeks) Assessment and Plan Plan ASSESSMENT - elevated AST, bili - alcoholic liver dz vs cirrhosis US was suggestive of cirrhosis, GB sludge. his INR is elevated, albumin is low, PLT are low he is not c/o abd pain. drinks 6-10 beers daily. hep B core IGM "indeterminate H". review of labs - coagulopathy - INR 1.5 - anemia - multifactoria no sign GI bleeding colonoscopy 5-6 y ago, polyps found - thrombocytopenia - hem onc following. 2/2 liver dz? also has hx CLL PLAN - liver w/u - monitor LFTs - hep Be antigen - hep surface ab - check NH - DT precautions - low sodium diet - further recs to follow pt seen by myself and Dr Bunch and this note is on his behalf (Estrellita Weeks) Plan Patient was seen and examined, agree with above note, most likely alcohol induced hepatitis, we will watch for DT, monitor liver function tests, lab for other etiologies are pending (Jes Bunch MD) Estrellita Weeks Jun 18, 2017 12:34 Jes Bunch MD Jun 18, 2017 14:39
[2017-06-18 13:22] LABS: INTERNATIONAL NORMALIZED RATIO 1.9 RATIO; PROTHROMBIN TIME - PATIENT 18.8 SEC (9.8-11.6)
--- NOTE | 2017-06-18 18:51 | ECHRPT ---
Indication: HYPERTENSIVE HEART DIS CONCLUSIONS Normal left ventricular size. Wall thickness is normal. The left ventricular systolic function is normal (EF 60%) The left atrial size is mildly dilated. The right atrial size is mildly dilated. Trace mitral valve regurgitation. There is trace tricuspid valve regurgitation. BP: 118 / 68 HR: Rhythm: Sinus MEASUREMENTS (Male / Female) Normal Values Technical Quality:Fair 2D ECHO LV Diastolic Diameter PLAX 5.8 cm 4.2 - 5.9 / 3.9 - 5.3 cm LV Systolic Diameter PLAX 3.5 cm IVS Diastolic Thickness 1.0 cm 0.6 - 1.0 / 0.6 - 0.9 cm LVPW Diastolic Thickness 1.1 cm 0.6 - 1.0 / 0.6 - 0.9 cm LV Relative Wall Thickness 0.4 RV Internal Dim ED PLAX 2.9 cm LVOT Diameter 1.8 cm Aortic Root Diameter 3.8 cm LA Systolic Diameter LX 3.6 cm 3.0 - 4.0 / 2.7 - 3.8 cm M-MODE AV Cusp Separation MM 2.3 cm DOPPLER AV Peak Velocity 113.0 cm/s AV Peak Gradient 5.1 mmHg AV Mean Gradient 3.0 mmHg AV Velocity Time Integral 19.0 cm LVOT Peak Velocity 74.4 cm/s LVOT Peak Gradient 2.2 mmHg LVOT Velocity Time Integral 13.2 cm AV Area Cont Eq vti 1.8 cm AV Area Cont Eq pk 1.7 cm Mitral E Point Velocity 68.6 cm/s Mitral A Point Velocity 67.6 cm/s Mitral E to A Ratio 1.0 LV E' Lateral Velocity 19.2 cm/s Mitral E to LV E' Lateral Ratio 3.6 LV E' Septal Velocity 7.3 cm/s Mitral E to LV E' Septal Ratio 9.4 PV Peak Velocity 71.4 cm/s PV Peak Gradient 2.0 mmHg FINDINGS LEFT VENTRICLE Normal left ventricular size. Wall thickness is normal. The left ventricular systolic function is normal (EF 60%). RIGHT VENTRICLE Normal right ventricular size and systolic function. LEFT ATRIUM The left atrial size is mildly dilated. RIGHT ATRIUM The right atrial size is mildly dilated. ATRIAL SEPTUM The interatrial septum not well visualized. AORTA The aortic root and proximal ascending aorta are not well visualized. MITRAL VALVE Trace mitral valve regurgitation. AORTIC VALVE Trileaflet aortic valve. No aortic valve stenosis or regurgitation. TRICUSPID VALVE There is trace tricuspid valve regurgitation. PULMONARY VALVE No pulmonary valve regurgitation or stenosis. VESSELS The inferior vena cava was not well visualized. PERICARDIUM No pericardial effusion. Harish Smith MD, FACC (Electronically Signed) Final Date:18 June 2017 18:50
--- NOTE | 2017-06-18 20:37 | EKG ---
Date Performed: 06/18/2017 Time Performed: 09:44:49 PTAGE: 62 years EKG: SINUS TACHYCARDIA NONSPECIFIC T-WAVE ABNORMALITY ABNORMAL ECG PREVIOUS TRACING : 06/17/2017 15.42 Compared to previous tracing, ATRIAL FIBRILLATION IS NO LO NGER PRESENT DOCTOR: Mir Lizama Interpretating Date/Time 06/18/2017 20:36:52
--- NOTE | 2017-06-18 21:19 | EKG ---
Date Performed: 06/17/2017 Time Performed: 15:42:48 PTAGE: 62 years EKG: Atrial fibrillation with rapid ventricular response with PVC(s) Extensive ST-T changes are nonspecific Abnormal ECG NO PREVIOUS TRACING DOCTOR: Mir Lizama Interpretating Date/Time 06/18/2017 21:19:11
--- NOTE | 2017-06-18 21:24 | EKG ---
Date Performed: 06/17/2017 Time Performed: 13:46:38 PTAGE: 62 years EKG: Atrial fibrillation with uncontrolled ventricular response with PVC(s). Right bundle branch block Inferior/lateral ST-T changes may be due to myocardial ischemia Abnormal ECG PREVIOUS TRACING : 06/15/2017 18.05 Compared to previous tracing, atial fibrillation with rapi d ventricular is new DOCTOR: Mir Lizama Interpretating Date/Time 06/18/2017 21:23:40
[2017-06-19] VITALS: BP 149/73; PULSE 113; RESP 33; TEMP 98.5; O2SAT 90
[2017-06-19] MEDS: LORazepam 2 MG/ML VIAL IV PUSH PRN ×4 (00:19→17:21)
[2017-06-19] MEDS: ENOXAPARIN SODIUM 100 MG/ML SYRINGE SQ SCH ×2 (02:29→14:49)
[2017-06-19 04:00] VITALS: BP 119/63; PULSE 101; RESP 24; TEMP 99.7; O2SAT 92
[2017-06-19 05:01] LABS: AUTOMATED NEUTROPHIL # 5.5 TH/MM3 (1.8-7.7); BASOPHIL # 0.1 TH/MM3 (0-0.2); BASOPHIL % 0.4 % (0.0-2.0); EOSINOPHIL # 0.1 TH/MM3 (0-0.4); EOSINOPHIL % 0.3 % (0.0-4.0); HEMATOCRIT 29.9 % (39.0-51.0); HEMOGLOBIN 10.2 GM/DL (13.0-17.0); LYMPHOCYTE # 12.1 TH/MM3 (1.0-4.8); MEAN CELL VOLUME 96.4 FL (80.0-100.0); MEAN CORPUSCULAR HEMOGLOBIN 32.8 PG (27.0-34.0); MEAN PLATELET VOLUME 9.2 FL (7.0-11.0); MONO % 6.3 % (0.0-8.0); MONOCYTE # 1.2 TH/MM3 (0-0.9); PLATELET COUNT 123 TH/MM3 (150-450); RED BLOOD COUNT 3.11 MIL/MM3 (4.50-5.90); WHITE BLOOD COUNT 18.9 TH/MM3 (4.0-11.0)
[2017-06-19 05:22] LABS: ALBUMIN 1.9 GM/DL (3.4-5.0); ALKALINE PHOSPHATASE 68 U/L (45-117); ALT (GPT) 43 U/L (12-78); AST (GOT) 127 U/L (15-37); BLOOD UREA NITROGEN 5 MG/DL (7-18); CALCIUM 7.7 MG/DL (8.5-10.1); CHLORIDE 102 MEQ/L (98-107); CREATININE 0.68 MG/DL (0.60-1.30); GLOMERULAR FILTRATION RATE 119 ML/MIN (>89); GLUCOSE,RANDOM 96 MG/DL (74-106); SODIUM (NA) 134 MEQ/L (136-145); TOTAL BILIRUBIN ADULT 4.6 MG/DL (0.2-1.0); TOTAL PROTEIN 6.4 GM/DL (6.4-8.2)
[2017-06-19] MEDS ORDERED: PHARMACY ORDERED LAB ONE (05:45)
[2017-06-19 08:00] VITALS: BP 118/61; PULSE 90; RESP 18; TEMP 99.4; O2SAT 95
[2017-06-19 08:41] LABS: LYMPHOCYTES 71 % (9-44); MONOCYTES 6 % (0-8); NEUTROPHIL # MANUAL DIFF 4.3 TH/MM3 (1.8-7.7); POLYS (SEG NEUTROPHILS) 23 % (16-70)
[2017-06-19 08:44] LABS: SMUDGE CELLS PRESENT PRESENT; STOMATOCYTES 1+ (NORMAL)
[2017-06-19] MEDS: DILTIAZEM HCL 30 MG TAB PO SCH ×4 (08:50→20:48)
[2017-06-19] MEDS: THIAMINE HCL 100 MG TAB PO SCH (08:50)
[2017-06-19] MEDS: FOLIC ACID 1 MG TAB PO SCH (08:51)
[2017-06-19] MEDS: MULTIVITAMINS/MINERALS THERAPEUTIC TAB PO SCH (08:51)
[2017-06-19] MEDS: SODIUM CHLORIDE 0.9% FLUSH 10 ML FLUSH IV FLUSH SCH ×2 (08:51→20:48)
[2017-06-19] MEDS: DOCUSATE SODIUM 50 MG/SENNA 8.6 MG TAB PO SCH ×2 (08:51→20:48)
[2017-06-19] MEDS: levETIRAcetam 500 MG TAB PO SCH ×2 (09:04→20:51)
[2017-06-19] MEDS: POTASSIUM CHLORIDE 20 MEQ CONTROLLED RELEASE TAB PO SCH ×2 (09:05→20:49)
--- NOTE | 2017-06-19 10:11 | PD.CARD.PN ---
Subjective Subjective Remarks no CV complaints Objective Medications Current Medications Medications (Trade) Dose Ordered Sig/Yao Route Start Time Stop Time Status Last Admin (NS Flush) 2 ml UNSCH PRN IV FLUSH 06/15/17 16:15 (Romazicon Inj) 0.2 mg Q1M PRN IV PUSH 06/15/17 16:30 (Ativan) 1 mg Q4H PRN PO 06/15/17 16:30 06/15/17 17:05 (Ativan Inj) 1 mg Q4H PRN IV PUSH 06/15/17 16:30 06/19/17 00:19 (Ativan) 2 mg Q2H PRN PO 06/15/17 16:30 (Ativan Inj) 2 mg Q2H PRN IV PUSH 06/15/17 16:30 06/19/17 08:50 (Ativan Inj) 2 mg Q1H PRN IV PUSH 06/15/17 16:30 (Ativan Inj) 2 mg Q15M PRN IV PUSH 06/15/17 16:30 (Folate) 1 mg DAILY PO 06/16/17 09:00 06/21/17 08:59 06/19/17 08:51 (Vitamin B1) 100 mg DAILY PO 06/16/17 09:00 06/19/17 08:50 (Theragran M Tab) 1 tab DAILY PO 06/16/17 09:00 06/21/17 08:59 06/19/17 08:51 (NS Flush) 2 ml UNSCH PRN IV FLUSH 06/15/17 21:00 (NS Flush) 2 ml BID IV FLUSH 06/15/17 21:00 06/19/17 08:51 (Zofran Inj) 4 mg Q6H PRN IVP 06/15/17 21:00 (Tylenol) 650 mg Q6H PRN PO 06/15/17 21:00 (Anamaria-Colace) 1 tab BID PO 06/15/17 21:00 06/19/17 08:51 (Milk Of Magnesia Liq) 30 ml Q12H PRN PO 06/15/17 21:00 (Senokot) 17.2 mg Q12H PRN PO 06/15/17 21:00 (Dulcolax Supp) 10 mg DAILY PRN RECTAL 06/15/17 21:00 (Lactulose Liq) 30 ml DAILY PRN PO 06/15/17 21:00 (KCl) 20 meq Q12HR PO 06/16/17 09:00 06/19/17 09:05 (Ativan Inj) 1 mg Q6H PRN IV PUSH 06/16/17 08:30 (Keppra) 1,000 mg BID PO 06/16/17 14:00 06/19/17 09:04 (Cardizem) 30 mg QID PO 06/17/17 18:00 06/19/17 08:50 (Lovenox Inj) 90 mg Q12H SQ 06/17/17 15:00 06/19/17 02:29 Vital Signs / I&O Vital Signs Date Time Temp Pulse Resp B/P (MAP) Pulse Ox O2 Delivery O2 Flow Rate FiO2 06/19/17 04:00 99.7 101 24 119/63 (81) 92 06/19/17 04:00 101 06/19/17 00:00 98.5 113 33 149/73 (98) 90 06/19/17 00:00 113 06/18/17 20:00 96 06/18/17 20:00 98.6 96 28 100/64 (76) 94 06/18/17 18:00 93 06/18/17 16:00 88 06/18/17 16:00 97.9 88 20 111/62 (78) 94 06/18/17 14:00 102 06/18/17 12:00 107 06/18/17 12:00 98.8 107 24 112/67 (82) 92 I/O 06/18/17 06/18/17 06/18/17 06/19/17 06/19/17 06/19/17 07:00 15:00 23:00 07:00 15:00 23:00 Intake Total 150 ml 200 ml 350 ml 840 ml Output Total 300 ml Balance 150 ml 200 ml 50 ml 840 ml Intake Oral 150 ml 350 ml 840 ml IV Total 200 ml Output Urine Total 300 ml # Voids 4 3 3 # Bowel Movements 1 Physical Exam Alert, partially oriented Chest Clear CV regular rhythm. Intermittent mils sinus tach Abd soft No edema Laboratory Laboratory Tests Test 06/18/17 12:53 06/18/17 13:49 06/19/17 03:45 06/19/17 08:56 Prothrombin Time 18.8 SEC Prothromb Time International Ratio 1.9 RATIO Activated Partial Thromboplast Time 41.4 SEC Fibrinogen 145 mg/dL Ammonia 24 MCMOL/L White Blood Count 18.9 TH/MM3 Red Blood Count 3.11 MIL/MM3 Hemoglobin 10.2 GM/DL Hematocrit 29.9 % Mean Corpuscular Volume 96.4 FL Mean Corpuscular Hemoglobin 32.8 PG Mean Corpuscular Hemoglobin Concent 34.0 % Red Cell Distribution Width 19.0 % Platelet Count 123 TH/MM3 Mean Platelet Volume 9.2 FL Neutrophils (%) (Auto) 29.0 % Lymphocytes (%) (Auto) 64.0 % Monocytes (%) (Auto) 6.3 % Eosinophils (%) (Auto) 0.3 % Basophils (%) (Auto) 0.4 % Neutrophils # (Auto) 5.5 TH/MM3 Lymphocytes # (Auto) 12.1 TH/MM3 Monocytes # (Auto) 1.2 TH/MM3 Eosinophils # (Auto) 0.1 TH/MM3 Basophils # (Auto) 0.1 TH/MM3 CBC Comment AUTO DIFF Differential Total Cells Counted 100 Neutrophils % (Manual) 23 % Lymphocytes % 71 % Monocytes % 6 % Neutrophils # (Manual) 4.3 TH/MM3 Differential Comment FINAL DIFF MANUAL Smudge Cells PRESENT Platelet Estimate LOW Platelet Morphology Comment NORMAL Stomatocytes 1+ Blood Urea Nitrogen 5 MG/DL Creatinine 0.68 MG/DL Random Glucose 96 MG/DL Total Protein 6.4 GM/DL Albumin 1.9 GM/DL Calcium Level 7.7 MG/DL Alkaline Phosphatase 68 U/L Aspartate Amino Transf (AST/SGOT) 127 U/L Alanine Aminotransferase (ALT/SGPT) 43 U/L Total Bilirubin 4.6 MG/DL Sodium Level 134 MEQ/L Potassium Level 4.1 MEQ/L Chloride Level 102 MEQ/L Carbon Dioxide Level 23.0 MEQ/L Anion Gap 9 MEQ/L Estimat Glomerular Filtration Rate 119 ML/MIN Tumor Marker Alpha Fetoprotein 3.6 NG/ML Hepatitis B Surface Antibody LESS THAN 3.1 mIU/mL Assessment and Plan Problem List: (1) Paroxysmal atrial fibrillation ICD Codes: I48.0 - Paroxysmal atrial fibrillation Plan: Converted to sinus rhythm. I will F/u prn. Please call if questions. Paulino Benson MD June 19, 2017 10:11
--- NOTE | 2017-06-19 11:01 | HHI.GIFU ---
Subjective Remarks Pt resting in bed. No complaints. (Estrellita Weeks) Objective Vitals I&O Vital Signs Date Time Temp Pulse Resp B/P (MAP) Pulse Ox O2 Delivery O2 Flow Rate FiO2 06/19/17 04:00 99.7 101 24 119/63 (81) 92 06/19/17 04:00 101 06/19/17 00:00 98.5 113 33 149/73 (98) 90 06/19/17 00:00 113 06/18/17 20:00 96 06/18/17 20:00 98.6 96 28 100/64 (76) 94 06/18/17 18:00 93 06/18/17 16:00 88 06/18/17 16:00 97.9 88 20 111/62 (78) 94 06/18/17 14:00 102 06/18/17 12:00 107 06/18/17 12:00 98.8 107 24 112/67 (82) 92 I/O 06/18/17 06/18/17 06/18/17 06/19/17 06/19/17 06/19/17 07:00 15:00 23:00 07:00 15:00 23:00 Intake Total 150 ml 200 ml 350 ml 840 ml Output Total 300 ml Balance 150 ml 200 ml 50 ml 840 ml Intake Oral 150 ml 350 ml 840 ml IV Total 200 ml Output Urine Total 300 ml # Voids 4 3 3 # Bowel Movements 1 Laboratory Laboratory Tests Test 06/18/17 12:53 06/18/17 13:49 06/19/17 03:45 06/19/17 08:56 Prothrombin Time 18.8 Prothromb Time International Ratio 1.9 Activated Partial Thromboplast Time 41.4 Fibrinogen 145 Ammonia 24 White Blood Count 18.9 Red Blood Count 3.11 Hemoglobin 10.2 Hematocrit 29.9 Mean Corpuscular Volume 96.4 Mean Corpuscular Hemoglobin 32.8 Mean Corpuscular Hemoglobin Concent 34.0 Red Cell Distribution Width 19.0 Platelet Count 123 Mean Platelet Volume 9.2 Neutrophils (%) (Auto) 29.0 Lymphocytes (%) (Auto) 64.0 Monocytes (%) (Auto) 6.3 Eosinophils (%) (Auto) 0.3 Basophils (%) (Auto) 0.4 Neutrophils # (Auto) 5.5 Lymphocytes # (Auto) 12.1 Monocytes # (Auto) 1.2 Eosinophils # (Auto) 0.1 Basophils # (Auto) 0.1 CBC Comment AUTO DIFF Differential Total Cells Counted 100 Neutrophils % (Manual) 23 Lymphocytes % 71 Monocytes % 6 Neutrophils # (Manual) 4.3 Differential Comment FINAL DIFF MANUAL Smudge Cells PRESENT Platelet Estimate LOW Platelet Morphology Comment NORMAL Stomatocytes 1+ Blood Urea Nitrogen 5 Creatinine 0.68 Random Glucose 96 Total Protein 6.4 Albumin 1.9 Calcium Level 7.7 Alkaline Phosphatase 68 Aspartate Amino Transf (AST/SGOT) 127 Alanine Aminotransferase (ALT/SGPT) 43 Total Bilirubin 4.6 Sodium Level 134 Potassium Level 4.1 Chloride Level 102 Carbon Dioxide Level 23.0 Anion Gap 9 Estimat Glomerular Filtration Rate 119 Tumor Marker Alpha Fetoprotein 3.6 Hepatitis B Surface Antibody LESS THAN 3.1 Date/Time Source Procedure Growth Status 06/15/17 17:50 Blood Peripheral Aerobic Blood Culture - Preliminary NO GROWTH IN 3 DAYS Resulted 06/15/17 17:50 Blood Peripheral Anaerobic Blood Culture - Preliminary NO GROWTH IN 3 DAYS Resulted Imaging Last Impressions Abdomen Ultrasound 06/17/17 0000 Signed Impressions: Service Date/Time: Saturday, June 17, 2017 07:40 - CONCLUSION: The liver is upper limits normal in size, predominantly increased echotexture is noted and heterogeneous overall appearance without focal mass. There is a history of hepatic steatosis. Suggestion of slightly nodular contour may represent underlying cirrhosis. Splenomegaly and moderate ascites also noted. Gallbladder sludge. Sj Lui MD Chest X-Ray 06/15/17 1742 Signed Impressions: Service Date/Time: Thursday, June 15, 2017 17:52 - CONCLUSION: Trace atelectasis/scarring of the left base. Similar findings were seen in February. Agapito Alvarez MD Physical Exam HEENT: PERRL; normocephalic; atraumatic; mild icterus CHEST: CTA CARDIAC: RRR ABDOMEN: distended with ascites, semifirm, nontender; bowel sounds are present in all four quadrants. EXTREMITIES: No clubbing, cyanosis, or edema. contraction fingers SKIN: Normal; no rash; no jaundice. 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 his INR is elevated, albumin is low, PLT are low he is not c/o abd pain. drinks 6-10 beers daily. hep B core IGM "indeterminate H". review of labs - coagulopathy - INR 1.5 - anemia - multifactoria no sign GI bleeding colonoscopy 5-6 y ago, polyps found - thrombocytopenia - hem onc following. 2/2 liver dz? also has hx CLL 06/19/17 shaky today. NH not elevated. AFP 3.6. rest of liver w/u pending. LFTs decreased. PLAN - liver w/u in progress - monitor LFTs - await hep Be antigen, hep surface ab - check NH - DT precautions - low sodium diet - supportive care pt seen by myself and Dr Bunch and this note is on his behalf (Estrellita Weeks) Plan Patient was seen and examined, doing better today, more alert, most likely alcohol liver disease with alcohol hepatitis possible cirrhosis, we will continue him reviewing the labs as they become available patient okay to be transferred to the floor, diet as tolerated (Jes Bunch MD) Estrellita Weeks June 19, 2017 11:01 Jes Bunch MD June 19, 2017 19:41
[2017-06-19 12:00] VITALS: BP 101/58; PULSE 96; RESP 16; TEMP 98.8; O2SAT 97
--- NOTE | 2017-06-19 12:19 | HHI.PR ---
Subjective Remarks Follow-up atrial fibrillation with RVR/SIRS/CLL June 18, 2017-patient seen and examined, artery rate controlled and patient denies any chest pain, shortness of breath or dizziness. June 19, 2017-patient seen and examined,no chest pain or shortness of breath Objective Vitals Vital Signs Date Time Temp Pulse Resp B/P (MAP) Pulse Ox O2 Delivery O2 Flow Rate FiO2 06/19/17 04:00 99.7 101 24 119/63 (81) 92 06/19/17 04:00 101 06/19/17 00:00 98.5 113 33 149/73 (98) 90 06/19/17 00:00 113 06/18/17 20:00 96 06/18/17 20:00 98.6 96 28 100/64 (76) 94 06/18/17 18:00 93 06/18/17 16:00 88 06/18/17 16:00 97.9 88 20 111/62 (78) 94 06/18/17 14:00 102 I/O 06/18/17 06/18/17 06/18/17 06/19/17 06/19/17 06/19/17 07:00 15:00 23:00 07:00 15:00 23:00 Intake Total 150 ml 200 ml 350 ml 840 ml Output Total 300 ml Balance 150 ml 200 ml 50 ml 840 ml Intake Oral 150 ml 350 ml 840 ml IV Total 200 ml Output Urine Total 300 ml # Voids 4 3 3 # Bowel Movements 1 Result Diagram: 06/19/17 0345 06/19/17 0345 Objective Remarks GENERAL: NAD SKIN: Warm and dry. HEAD: Normocephalic. EYES: No scleral icterus. No injection or drainage. NECK: Supple, trachea midline. No JVD or lymphadenopathy. CARDIOVASCULAR: Irregular regular rate and rhythm without murmurs, gallops, or rubs. RESPIRATORY: Breath sounds equal bilaterally. No accessory muscle use. GASTROINTESTINAL: Abdomen soft, non-tender, nondistended. MUSCULOSKELETAL: No cyanosis, or edema. BACK: Nontender without obvious deformity. No CVA tenderness. Procedures none A/P Problem List: (1) SIRS (systemic inflammatory response syndrome) ICD Code: R65.10 - Systemic inflammatory response syndrome (SIRS) of non- infectious origin without acute organ dysfunction (2) Alcohol abuse ICD Code: F10.10 - Alcohol abuse, uncomplicated (3) CLL (chronic lymphocytic leukemia) ICD Code: C91.90 - Lymphoid leukemia, unspecified not having achieved remission (4) Coagulopathy ICD Code: D68.9 - Coagulation defect, unspecified Assessment and Plan 62-year-old man with 1. Atrial fibrillation with RVR Currently rate controlled s/p Esmolol drip and continue Cardizem 30 mg 4 times daily On Lovenox subcuQ, however secondary to patient's known history of alcohol abuse oral anticoagulation may be contraindicated, nevertheless we will start Eliquis 2. SIRS Resolved 3. Alcohol Abuse high risk for withdrawal, Seizure Precautions, CIWA, MVT/Thiamine/Folate replacement. Op f/u 4. CLL Appreciate input from hematology, pt is poor candidate for intervention/ treatment in light of heavy alcohol abuse and non-compliance. Follow-up flow cytometry 5. Anemia Monitor H&H 6. Thrombocytopenia Monitor CBC 7. Sz DO. Continue Dennis. Sz precautions Harinder Curtis MD June 19, 2017 12:19
[2017-06-19 16:00] VITALS: BP 105/62; PULSE 90; RESP 16; TEMP 98.5; O2SAT 96
[2017-06-19 20:00] VITALS: BP 120/58; PULSE 100; PULSE 88; RESP 20; TEMP 97.4; O2SAT 93
[2017-06-20] VITALS (10 sets, daily range): BP systolic 111–130; BP diastolic 63–72; PULSE 85–108; RESP 17–22; TEMP 97.7–98.4; O2SAT 92–94
[2017-06-20] MEDS: ENOXAPARIN SODIUM 100 MG/ML SYRINGE SQ SCH ×2 (05:16→17:05)
[2017-06-20] MEDS: MULTIVITAMINS/MINERALS THERAPEUTIC TAB PO SCH (09:33)
[2017-06-20] MEDS: DOCUSATE SODIUM 50 MG/SENNA 8.6 MG TAB PO SCH ×2 (09:33→23:01)
[2017-06-20] MEDS: levETIRAcetam 500 MG TAB PO SCH ×2 (09:33→23:01)
[2017-06-20] MEDS: THIAMINE HCL 100 MG TAB PO SCH (09:34)
[2017-06-20] MEDS: DILTIAZEM HCL 30 MG TAB PO SCH ×4 (09:34→21:00)
[2017-06-20] MEDS: POTASSIUM CHLORIDE 20 MEQ CONTROLLED RELEASE TAB PO SCH ×2 (09:34→23:01)
[2017-06-20] MEDS: SODIUM CHLORIDE 0.9% FLUSH 10 ML FLUSH IV FLUSH SCH ×2 (09:34→23:01)
[2017-06-20] MEDS: FOLIC ACID 1 MG TAB PO SCH (09:34)
[2017-06-20 13:50] LABS: SMOOTH MUSCLE TOTAL AUTOABS Negative (Negative)
--- NOTE | 2017-06-20 14:35 | HHI.GIFU ---
Subjective Remarks Pt resting in bed. In soft restraints. lethargic. Offers no complaints (Estrellita Weeks) Objective Vitals I&O Vital Signs Date Time Temp Pulse Resp B/P (MAP) Pulse Ox O2 Delivery O2 Flow Rate FiO2 06/20/17 12:08 97.7 96 18 111/67 (82) 94 06/20/17 12:00 92 06/20/17 10:28 Room Air 06/20/17 08:08 98.2 105 17 130/68 (88) 94 06/20/17 08:00 108 06/20/17 04:00 98.1 97 20 117/63 (81) 92 06/20/17 03:43 98 06/20/17 00:00 97.9 85 20 116/64 (81) 93 06/19/17 20:00 100 06/19/17 20:00 97.4 88 20 120/58 (78) 93 06/19/17 16:00 90 06/19/17 16:00 98.5 90 16 105/62 (76) 96 I/O 06/19/17 06/19/17 06/19/17 06/20/17 06/20/17 06/20/17 07:00 15:00 23:00 07:00 15:00 23:00 Intake Total 840 ml 480 ml 720 ml Output Total 300 ml Balance 840 ml 480 ml 420 ml Intake Oral 840 ml 480 ml 720 ml Output Urine Total 300 ml # Voids 3 6 # Bowel Movements 1 Laboratory Date/Time Source Procedure Growth Status 06/15/17 17:50 Blood Peripheral Aerobic Blood Culture - Final NO GROWTH IN 5 DAYS Complete 06/15/17 17:50 Blood Peripheral Anaerobic Blood Culture - Final NO GROWTH IN 5 DAYS Complete Imaging Last Impressions Abdomen Ultrasound 06/17/17 0000 Signed Impressions: Service Date/Time: Saturday, June 17, 2017 07:40 - CONCLUSION: The liver is upper limits normal in size, predominantly increased echotexture is noted and heterogeneous overall appearance without focal mass. There is a history of hepatic steatosis. Suggestion of slightly nodular contour may represent underlying cirrhosis. Splenomegaly and moderate ascites also noted. Gallbladder sludge. Sj Lui MD Chest X-Ray 06/15/17 8652 Signed Impressions: Service Date/Time: Thursday, June 15, 2017 17:52 - CONCLUSION: Trace atelectasis/scarring of the left base. Similar findings were seen in February. Agapito Alvarez MD Physical Exam HEENT: PERRL; normocephalic; atraumatic; mild icterus CHEST: CTA CARDIAC: RRR ABDOMEN: distended with ascites, semifirm, nontender; bowel sounds are present in all four quadrants. EXTREMITIES: No clubbing, cyanosis, or edema. contraction fingers SKIN: Normal; no rash; no jaundice. 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 his INR is elevated, albumin is low, PLT are low he is not c/o abd pain. drinks 6-10 beers daily. hep B core IGM "indeterminate H". review of labs - coagulopathy - INR 1.5 - anemia - multifactoria no sign GI bleeding colonoscopy 5-6 y ago, polyps found - thrombocytopenia - hem onc following. 03/23 liver dz? also has hx CLL 06/19/17 shaky today. NH not elevated. AFP 3.6. rest of liver w/u pending. LFTs decreased. 06/20/17 lethargic today, in restraints. no complaints. liver w/u still pending. LFTs trending down PLAN - await liver w/u - monitor labs - DT precautions - low sodium diet - supportive care pt seen by myself and Dr Bunch and this note is on his behalf (Estrellita Weeks) Plan Patient was seen and examined, more awake this evening, watch for DT, await for lab results for the liver workup (Jes Bunch MD) Estrellita Weeks June 20, 2017 14:35 Jes Bunch MD June 20, 2017 21:56
--- NOTE | 2017-06-20 15:28 | PD.ONC.PN ---
Subjective Subjective Remarks Afebrile Pt restrained, asking to be untied He appears to be A&Ox3. Per RN, he has been intermittently confused, climbing OOB and is unsteady on his feet. Objective Data Date Time Temp Pulse Resp B/P (MAP) Pulse Ox O2 Delivery O2 Flow Rate FiO2 06/20/17 12:08 97.7 96 18 111/67 (82) 94 06/20/17 12:00 92 06/20/17 10:28 Room Air 06/20/17 08:08 98.2 105 17 130/68 (88) 94 06/20/17 08:00 108 06/20/17 04:00 98.1 97 20 117/63 (81) 92 06/20/17 03:43 98 06/20/17 00:00 97.9 85 20 116/64 (81) 93 06/19/17 20:00 100 06/19/17 20:00 97.4 88 20 120/58 (78) 93 06/19/17 16:00 90 06/19/17 16:00 98.5 90 16 105/62 (76) 96 06/20/17 06/20/17 06/20/17 07:00 15:00 23:00 Intake Total 720 ml Output Total 300 ml Balance 420 ml Result Diagram: 06/19/17 0345 06/19/17 0345 Administered Medications Medications (Trade) Dose Ordered Sig/Yao Route PRN Reason Start Time Stop Time Status Last Admin Dose Admin Sodium Chloride (NS Flush) 2 ml UNSCH PRN IV FLUSH FLUSH AFTER USING IV ACCESS 06/15/17 16:15 06/19/17 17:21 Lorazepam (Ativan) 1 mg Q4H PRN PO CIWA 8 - 10 06/15/17 16:30 06/15/17 17:05 Lorazepam (Ativan Inj) 1 mg Q4H PRN IV PUSH CIWA 8 - 10 06/15/17 16:30 06/19/17 17:21 Lorazepam (Ativan Inj) 2 mg Q2H PRN IV PUSH CIWA 11-14 06/15/17 16:30 06/19/17 14:49 Folic Acid (Folate) 1 mg DAILY PO 06/16/17 09:00 06/21/17 08:59 06/20/17 09:34 Thiamine HCl (Vitamin B1) 100 mg DAILY PO 06/16/17 09:00 06/20/17 09:34 Multivitamins/ Minerals Therapeutic (Theragran M Tab) 1 tab DAILY PO 06/16/17 09:00 06/21/17 08:59 06/20/17 09:33 Sodium Chloride (NS Flush) 2 ml BID IV FLUSH 06/15/17 21:00 06/20/17 09:34 Senna/Docusate Sodium (Anamaria-Colace) 1 tab BID PO 06/15/17 21:00 06/20/17 09:33 Potassium Chloride (KCl) 20 meq Q12HR PO 06/16/17 09:00 06/20/17 09:34 Levetriacetam (Keppra) 1,000 mg BID PO 06/16/17 14:00 06/20/17 09:33 Diltiazem HCl (Cardizem) 30 mg QID PO 06/17/17 18:00 06/20/17 12:24 Enoxaparin Sodium (Lovenox Inj) 90 mg Q12H SQ 06/17/17 15:00 06/20/17 05:16 Objective Remarks GENERAL: Disheveled appearing middle aged male, sitting up in bed restrained. SKIN: Warm and dry. HEAD: Normocephalic. EYES: No injection or drainage. NECK: Supple, trachea midline. CARDIOVASCULAR: +S1/S2 RESPIRATORY: Anterior yuen clear. GASTROINTESTINAL: Abdomen soft, non-tender, nondistended. EXTREMITIES: No cyanosis. No edema. NEUROLOGICAL: A&Ox3 at the time of exam. Moving extremities. Normal speech. Assessment/Plan Problem List: (1) CLL (chronic lymphocytic leukemia) ICD Codes: C91.90 - Lymphoid leukemia, unspecified not having achieved remission Plan: --diagnosed in 2016, has not required treatment in the past. --flow cytometry shows good prognostic factors (2) Normocytic anemia ICD Codes: D64.9 - Anemia, unspecified Plan: --haptoglobin low (?d/t poor synthetic liver function?), LDH WNL --B12 WNL --no evidence of iron deficiency (3) Thrombocytopenia ICD Codes: D69.6 - Thrombocytopenia, unspecified Plan: --U/S Abdomen shows enlarged liver and spleen. (4) Atrial fibrillation ICD Codes: I48.91 - Unspecified atrial fibrillation Plan: --Cleared for full intensity anticoagulation provided platelet count remains greater than 50K. -on Lovenox Assessment 62y/o male admitted under [place] act for intoxication History of chronic lymphocytic leukemia. Anemia. Thrombocytopenia. Alcohol abuse. History of arteriovenous malformation. Plan 1. Monitor for fevers 2. CLL appears to be stable. 3. Monitor CBC Attending Statement The exam, history, and the medical decision-making described in the above note were completed with the assistance of the mid-level provider. I reviewed and agree with the findings presented. I attest that I had a [id number] encounter with the patient on the same day, and personally performed and documented my assessment and findings in the medical record. 62 yoM with CLL. He has long standing etoh abuse, etoh hepatitis/cirrhosis with liver work up pending. Atrial fibrillation currently being followed by cardiology team. Leonarda Esquivel June 20, 2017 15:27 Janine Ruth MD June 21, 2017 06:10
--- NOTE | 2017-06-20 18:32 | HHI.PR ---
Subjective Remarks Follow-up for suicidal ideations and atrial fibrillation No overnight events, patient still has hallucinations and suicidal ideations. Objective Vitals Vital Signs Date Time Temp Pulse Resp B/P (MAP) Pulse Ox O2 Delivery O2 Flow Rate FiO2 06/20/17 16:08 98.1 98 18 120/70 (87) 93 06/20/17 13:00 Room Air 06/20/17 12:08 97.7 96 18 111/67 (82) 94 06/20/17 12:00 92 06/20/17 10:28 Room Air 06/20/17 08:08 98.2 105 17 130/68 (88) 94 06/20/17 08:00 108 06/20/17 04:00 98.1 97 20 117/63 (81) 92 06/20/17 03:43 98 06/20/17 00:00 97.9 85 20 116/64 (81) 93 06/19/17 20:00 100 06/19/17 20:00 97.4 88 20 120/58 (78) 93 I/O 06/19/17 06/19/17 06/19/17 06/20/17 06/20/17 06/20/17 07:00 15:00 23:00 07:00 15:00 23:00 Intake Total 840 ml 480 ml 720 ml Output Total 300 ml Balance 840 ml 480 ml 420 ml Intake Oral 840 ml 480 ml 720 ml Output Urine Total 300 ml # Voids 3 6 # Bowel Movements 1 Result Diagram: 06/19/17 0345 06/19/17 0345 Objective Remarks GENERAL: NAD CARDIOVASCULAR: Irregular regular rate and rhythm without murmurs, gallops, or rubs. RESPIRATORY: Breath sounds equal bilaterally. No accessory muscle use. GASTROINTESTINAL: Abdomen soft, non-tender, nondistended. Positive for suicidal ideations Procedures none A/P Problem List: (1) SIRS (systemic inflammatory response syndrome) ICD Code: R65.10 - Systemic inflammatory response syndrome (SIRS) of non- infectious origin without acute organ dysfunction (2) Alcohol abuse ICD Code: F10.10 - Alcohol abuse, uncomplicated (3) CLL (chronic lymphocytic leukemia) ICD Code: C91.90 - Lymphoid leukemia, unspecified not having achieved remission (4) Coagulopathy ICD Code: D68.9 - Coagulation defect, unspecified Assessment and Plan 62-year-old man with 1. Atrial fibrillation with RVR Currently rate controlled s/p Esmolol drip and continue Cardizem 30 mg 4 times daily On Lovenox subcuQ, however secondary to patient's known history of alcohol abuse oral anticoagulation may be contraindicated, switch Lovenox to Eliquis 2. SIRS Resolved 3. Alcohol Abuse high risk for withdrawal, Seizure Precautions, CIWA, MVT/Thiamine/Folate replacement. Op f/u 4. CLL Appreciate input from hematology, pt is poor candidate for intervention/ treatment in light of heavy alcohol abuse and non-compliance. Follow-up flow cytometry 5. Anemia Monitor H&H 6. Thrombocytopenia Monitor CBC 7. Sz DO. Continue Keppra. Sz precautions 8. Suicidal ideations-on restraints, sitter as needed, consult psychiatry. Discharge Planning Pending improvement. Mandy Lynn MD June 20, 2017 18:32
[2017-06-20 21:56] LABS: ALPHA-1-ANTITRYPSIN 158 mg/dL (100 - 190)
[2017-06-21] VITALS (9 sets, daily range): BP systolic 111–125; BP diastolic 65–78; PULSE 94–101; RESP 17–22; TEMP 97.9–98.9; O2SAT 91–94
[2017-06-21] MEDS: DOCUSATE SODIUM 50 MG/SENNA 8.6 MG TAB PO SCH ×2 (09:00→21:00)
[2017-06-21] MEDS: SODIUM CHLORIDE 0.9% FLUSH 10 ML FLUSH IV FLUSH SCH ×2 (09:42→21:20)
[2017-06-21] MEDS: levETIRAcetam 500 MG TAB PO SCH ×2 (09:42→21:18)
[2017-06-21] MEDS: THIAMINE HCL 100 MG TAB PO SCH (09:42)
[2017-06-21] MEDS: DILTIAZEM HCL 30 MG TAB PO SCH ×4 (09:42→21:19)
[2017-06-21] MEDS: POTASSIUM CHLORIDE 20 MEQ CONTROLLED RELEASE TAB PO SCH ×2 (09:48→21:19)
--- NOTE | 2017-06-21 11:49 | PD.PSY.CON ---
Provisional Diagnosis Admission Date Jun 15, 2017 at 20:55 [facility] I. Adjustment disorder with depressed mood, alcohol use disorder, alcohol-induced mood disorder, history of depression [facility] II. Deferred History of Present Illness Service Psychiatry Consult Requested By Medicine Reason for Consult Suicidal ideation Primary Care Physician No Primary Care Physician HPI The patient is a 62-year-old man, domiciled in [facility], single, unemployed, supported by [facility], he has psychiatric history of depression, no previous psychiatric hospitalizations, suicide attempts, he is noted treatment, alcohol use disorder, ER visits due to alcohol related disorders, with a PMH of HTN, seizures, CLL and h/o AVM who was brought to the ER under [place] Act for intoxication. Per report, pt noted to be staggering in the street and bystander called EMS. On arrival, BP 96/51, HR 91, O2 sat 92% RA, Temp 99.6. WBC 35.2. Platelets 128, previously 90 on 03/27/2016. Chemistry essentially unremarkable. Lactic Acid 3.3. INR 1.5. UA pending. Alcohol 294. CXR with trace left base atelectasis. S/p Vanc/Zosyn, Blood Cultures in ER for SIRS. He was admitted due to atrial fibrillation with RVR. Currently rate controlled. Consulted to psychiatry due to suicidal ideation and visual hallucination. On psychiatric evaluation today I find a patient that is calm, cooperative and pleasant. The patient reports that he has been doing okay, but having some visual hallucinations at times. He described his visual hallucinations as seeing faces and colors, but usually he is insightful and the visual hallucinations are not anxiety provoking. Patient reports that he has been having this perceptual disturbances since he had surgery in his brain. The patient is very talkative and circumstantial, but easily redirectable. He reports being in a good mood at the moment. Patient says that he is motivated to quit taking alcohol "I know that this is not good for me and I my health". Patient denies anhedonia, denies hopelessness, denies helplessness, denies worthlessness, he denies suicidal enemas ideation, he denies visual and auditory /hallucinations at this right moment. He is noted to be confused at time, he is oriented in person, oriented in place, but partially oriented in time. Of 3 words the patient is just able to remember 1 and 5 minutes. He denies the use of illegal drugs. Review of Systems Constitutional: DENIES: Diaphoretic episodes, Fatigue, Fever, Weight gain, Weight loss, Chills, Dizziness, Change in appetite, Night Sweats Endocrine: DENIES: Heat/cold intolerance, Polydipsia, Polyuria, Polyphagia Eyes: DENIES: Blurred vision, Diplopia, Eye inflammation, Eye pain, Vision loss , Photosensitivity, Double Vision Ears, nose, mouth, throat: DENIES: Tinnitus, Hearing loss, Vertigo, Nasal discharge, Oral lesions, Throat pain, Hoarseness, Ear Pain, Running Nose, Epistaxis, Sinus Pain, Toothache, Odynophagia Respiratory: DENIES: Apneas, Cough, Snoring, Wheezing, Hemoptysis, Sputum production, Shortness of breath Cardiovascular: DENIES: Chest pain, Palpitations, Syncope, Dyspnea on Exertion , PND, Lower Extremity Edema, Orthopnea, Claudication Gastrointestinal: DENIES: Abdominal pain, Black stools, Bloody stools, Constipation, Diarrhea, Nausea, Vomiting, Difficulty Swallowing, Anorexia Genitourinary: DENIES: Sexual dysfunction, Urinary frequency, Urinary incontinence, Urgency, Hematuria, Dysuria, Nocturia, Penile Discharge, Testicular Pain, Testicular Swelling Musculoskeletal: DENIES: Joint pain, Muscle aches, Stiffness, Joint Swelling, Back pain, Neck pain Integumentary: DENIES: Abnormal pigmentation, Nail changes, Pruritus, Rash Hematologic/lymphatic: DENIES: Bruising, Lymphadenopathy Immunologic/allergic: DENIES: Eczema, Urticaria Neurologic: DENIES: Abnormal gait, Headache, Localized weakness, Paresthesias, Seizures, Speech Problems, Tremor, Poor Balance Psychiatric: COMPLAINS OF: Confusion, DENIES: Anxiety, Mood changes, Depression , Hallucinations, Agitation, Suicidal Ideation, Homicidal Ideation, Delusions Past Family Social History Coded Allergies: No Known Allergies (Unverified Allergy, Unknown, 06/19/17) Active Scripts Thiamine HCl (Gnp Vitamin B-1) 100 Mg Tab, 100 MG PO DAILY for Alcohol Detox, # 30 TAB Prov:Jeffery Perez MD 06/16/17 Reported Medications Levetiracetam (Keppra) 250 Mg Tab, 1000 MG PO BID for Control Seizures, #60 TAB 0 Refills 07/13/16 Current Medications Medications (Trade) Dose Ordered Sig/Yao Route Start Time Stop Time Status Last Admin (Romazicon Inj) 0.2 mg Q1M PRN IV PUSH 06/15/17 16:30 (Ativan) 1 mg Q4H PRN PO 06/15/17 16:30 06/15/17 17:05 (Ativan Inj) 1 mg Q4H PRN IV PUSH 06/15/17 16:30 06/19/17 17:21 (Ativan) 2 mg Q2H PRN PO 06/15/17 16:30 (Ativan Inj) 2 mg Q2H PRN IV PUSH 06/15/17 16:30 06/19/17 14:49 (Ativan Inj) 2 mg Q1H PRN IV PUSH 06/15/17 16:30 (Ativan Inj) 2 mg Q15M PRN IV PUSH 06/15/17 16:30 (Vitamin B1) 100 mg DAILY PO 06/16/17 09:00 06/21/17 09:42 (NS Flush) 2 ml UNSCH PRN IV FLUSH 06/15/17 21:00 (NS Flush) 2 ml BID IV FLUSH 06/15/17 21:00 06/21/17 09:42 (Zofran Inj) 4 mg Q6H PRN IVP 06/15/17 21:00 (Tylenol) 650 mg Q6H PRN PO 06/15/17 21:00 (Anamaria-Colace) 1 tab BID PO 06/15/17 21:00 06/20/17 23:01 (Milk Of Magnesia Liq) 30 ml Q12H PRN PO 06/15/17 21:00 (Senokot) 17.2 mg Q12H PRN PO 06/15/17 21:00 (Dulcolax Supp) 10 mg DAILY PRN RECTAL 06/15/17 21:00 (Lactulose Liq) 30 ml DAILY PRN PO 06/15/17 21:00 (KCl) 20 meq Q12HR PO 06/16/17 09:00 06/21/17 09:48 (Ativan Inj) 1 mg Q6H PRN IV PUSH 06/16/17 08:30 (Keppra) 1,000 mg BID PO 06/16/17 14:00 06/21/17 09:42 (Cardizem) 30 mg QID PO 06/17/17 18:00 5/3/18 09:42 (Librium) 10 mg TID PRN PO 06/19/17 17:15 (Eliquis) 5 mg BID PO 06/20/17 21:00 UNV Family Psych History No family psychiatric history Social History Patient was born and raised in [place], he lives in [facility], he is , has 1 daughter, unemployed, supported by [facility], has 1 year of college Patient's Strengths (min. 2) Motivation, contemplation stage of alcoholism Physical Exam No tremors, no EPS at the moment Vital Signs Vital Signs Date Time Temp Pulse Resp B/P (MAP) Pulse Ox O2 Delivery O2 Flow Rate FiO2 06/21/17 08:15 Room Air 06/21/17 08:08 98.8 98 17 125/69 (87) 91 I/O 06/21/17 06/21/17 06/22/17 08:00 16:00 00:00 Intake Total 240 ml Balance 240 ml Lab Results Date/Time Source Procedure Growth Status 06/15/17 17:50 Blood Peripheral Aerobic Blood Culture - Final NO GROWTH IN 5 DAYS Complete 06/15/17 17:50 Blood Peripheral Anaerobic Blood Culture - Final NO GROWTH IN 5 DAYS Complete Mental Status Examination Appearance: Appropriate Consciousness: Alert Orientation: x4 Motor Activity: Normal gait Speech: Unremarkable Language: Adequate Fund of Knowledge: Adequate Attention and Concentration: Adequate Memory: Unremarkable Mood: Appropriate Affect: Appropriate Thought Process & Associations: Intact Thought Content: Appropriate Hallucination Type: None Delusion Type: None Suicidal Ideation: No Suicidal Plan: No Suicidal Intention: No Homicidal Ideation: No Homicidal Plan: No Homicidal Intention: No Insight: Adequate Judgment: Adequate Assessment & Plan Problem List: (1) Adjustment disorder with depressed mood ICD Codes: F43.21 - Adjustment disorder with depressed mood Assessment & Plan: The patient denies symptomatology of depression, denies anxiety, denies roly and acute psychosis. Patient does report occasional visual hallucinations of seeing faces and colors, but he is insightful about his perceptual disturbances, he is not anxious or afraid about them. It seems to be chronic. At this moment the patient reports good mood, denies depression , denies anhedonia, denies hopelessness, denies helplessness, denies worthlessness. He seems to be motivated to go to rehabilitation program after hospitalization. Patient denies suicidal enemas ideation, he denies visual and auditory hallucinations. He does have also visible cognitive impairment, is partially oriented in time, but fully oriented in person and place. Unable to remember 3 words in 5 minutes, but good abstraction, good semantic memory, long- term memory, concentration and attention. 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 He does not meet criteria for involuntary psychiatric admission at this moment. Continue taper down of benzodiazepines for alcohol withdrawal. well service derrick worker intervention to connect the patient with rehabilitation program as the patient is a stool [place] acted. Patient is site cleared to go to rehab. Consult appreciated. Assessment & Plan Estimated LOS: Olman Mallory MD June 21, 2017 11:49
--- NOTE | 2017-06-21 13:07 | HHI.GIFU ---
Subjective Remarks Pt resting in bed, sitter at bedside Complaints of some abdominal pain, generalized Some nausea, denies emesis Had 2 BMs over night (Mary Mcrae) Objective Vitals I&O Vital Signs Date Time Temp Pulse Resp B/P (MAP) Pulse Ox O2 Delivery O2 Flow Rate FiO2 06/21/17 12:25 98.7 95 17 121/78 (92) 93 06/21/17 08:15 Room Air 06/21/17 08:08 98.8 98 17 125/69 (87) 91 06/21/17 04:01 97 06/21/17 04:00 Room Air 06/21/17 04:00 98.9 96 18 111/65 (80) 93 06/21/17 00:14 94 06/21/17 00:00 06/21/17 00:00 Room Air 06/21/17 00:00 98.9 100 22 123/78 (93) 94 06/20/17 20:41 Room Air 06/20/17 20:41 98.4 106 22 121/72 (88) 94 06/20/17 20:05 104 06/20/17 16:08 98.1 98 18 120/70 (87) 93 06/20/17 13:00 Room Air I/O 06/20/17 06/20/17 06/20/17 06/21/17 06/21/17 06/21/17 07:00 15:00 23:00 07:00 15:00 23:00 Intake Total 720 ml 600 ml 240 ml Output Total 300 ml 700 ml Balance 420 ml -100 ml 240 ml Intake Oral 720 ml 600 ml 240 ml Output Urine Total 300 ml 700 ml # Voids 2 4 # Bowel Movements 1 2 Laboratory Date/Time Source Procedure Growth Status 06/15/17 17:50 Blood Peripheral Aerobic Blood Culture - Final NO GROWTH IN 5 DAYS Complete 06/15/17 17:50 Blood Peripheral Anaerobic Blood Culture - Final NO GROWTH IN 5 DAYS Complete Imaging Last Impressions Abdomen Ultrasound 06/17/17 0000 Signed Impressions: Service Date/Time: Saturday, June 17, 2017 07:40 - CONCLUSION: The liver is upper limits normal in size, predominantly increased echotexture is noted and heterogeneous overall appearance without focal mass. There is a history of hepatic steatosis. Suggestion of slightly nodular contour may represent underlying cirrhosis. Splenomegaly and moderate ascites also noted. Gallbladder sludge. Sj A. Hu, MD Chest X-Ray 06/15/17 6578 Signed Impressions: Service Date/Time: Thursday, June 15, 2017 17:52 - CONCLUSION: Trace atelectasis/scarring of the left base. Similar findings were seen in February. Agapito Alvarez MD Physical Exam HEENT: Normocephalic; atraumatic; (+) icterus CHEST: Even/unlabored CARDIAC: RRR ABDOMEN: Distended, firm, mild diffuse tenderness, bowel sounds active SKIN: (+) mild jaundice. 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 DF-37 Labs: AST-216 ALT-61 T bili-4.1 Thrombocytopenia (platelets-128) Coagulopathy (INR 1.9) Hypoalbuminemia ( albumin-2.2) Abdomen US (06/17) --> The liver is upper limits normal in size, predominantly increased echotexture is noted and heterogeneous overall appearance without focal mass. There is a history of hepatic steatosis. Suggestion of slightly nodular contour may represent underlying cirrhosis. Splenomegaly and moderate ascites also noted. Gallbladder sludge. Liver Work up: Hepatitis B core IgM Ab indeterminate H Hepatitis A and C negative CAROLYN and ASMA negative. [id number] Iron- 148 TIBC-164 %sat-90.4 Ferritin-192 Ammonia-24 AFP- 3.6 AMA and ceruloplasmin pending - Leukocytosis- secondary to CLL. Afebrile Diagnosed with SIRS on arrival, was on broad spectrum abx, blood cultures negative - Anemia, normocytic- multifactorial - A-fib- Eliquis and Cardizem- per attending Plan: Liver work up pending- likely secondary to ETOH Monitor for DTs and treat appropriately Thiamine May benefit from steroids (DF-37) if bili does not continue to trend down Continue with current supportive care Further recommendations based on clinical course Pt has been seen and examined by myself and Dr. Bunch and this note is written on his behalf (Mary Mcrae) Plan Patient was seen and examined, agree with above note, we will start patient on to pentoxifylline tomorrow if still continue to have high discriminating factor and high liver function test (Jes Bunch MD) Mary Mcrae June 21, 2017 13:07 Jes Bunch MD June 21, 2017 20:24
--- NOTE | 2017-06-21 13:39 | HHI.PR ---
Subjective Remarks Resting in bed sleeping woke up to voice Reported no complaint Afebrile no chest pain or short of breath Objective Vitals Vital Signs Date Time Temp Pulse Resp B/P (MAP) Pulse Ox O2 Delivery O2 Flow Rate FiO2 06/21/17 12:25 98.7 95 17 121/78 (92) 93 06/21/17 08:15 Room Air 06/21/17 08:08 98.8 98 17 125/69 (87) 91 06/21/17 04:01 97 06/21/17 04:00 Room Air 06/21/17 04:00 98.9 96 18 111/65 (80) 93 06/21/17 00:14 94 06/21/17 00:00 06/21/17 00:00 Room Air 06/21/17 00:00 98.9 100 22 123/78 (93) 94 06/20/17 20:41 Room Air 06/20/17 20:41 98.4 106 22 121/72 (88) 94 06/20/17 20:05 104 06/20/17 16:08 98.1 98 18 120/70 (87) 93 I/O 06/20/17 06/20/17 06/20/17 06/21/17 06/21/17 06/21/17 06:59 14:59 22:59 06:59 14:59 22:59 Intake Total 720 ml 600 ml 240 ml Output Total 300 ml 700 ml Balance 420 ml -100 ml 240 ml Intake Oral 720 ml 600 ml 240 ml Output Urine Total 300 ml 700 ml # Voids 2 4 # Bowel Movements 1 2 Result Diagram: 06/19/17 0345 06/19/17 0345 Objective Remarks GENERAL: This is a well-nourished, well-developed patient, in no apparent distress. CARDIOVASCULAR: RRR, no gallops, or rubs. RESPIRATORY: Fair air entry bilaterally. No W, R, or R GASTROINTESTINAL: Abdomen soft, non-tender, nondistended. Positive bowel sounds MUSCULOSKELETAL: Extremities without clubbing, cyanosis, or edema. Pedal pulses appreciated NEUROLOGICAL: Awake and alert. Moves all extremity. Normal speech.no focal neurological deficit PSYCH: Positive for suicide ideation Procedures none A/P Problem List: (1) SIRS (systemic inflammatory response syndrome) ICD Code: R65.10 - Systemic inflammatory response syndrome (SIRS) of non- infectious origin without acute organ dysfunction (2) Alcohol abuse ICD Code: F10.10 - Alcohol abuse, uncomplicated (3) CLL (chronic lymphocytic leukemia) ICD Code: C91.90 - Lymphoid leukemia, unspecified not having achieved remission (4) Coagulopathy ICD Code: D68.9 - Coagulation defect, unspecified Assessment and Plan 62-year-old man with 5/3: Appreciate GI and hematology consultation, noticed increased AST, follow labs, monitor clinical improvement 1. Atrial fibrillation with RVR Currently rate controlled s/p Esmolol drip and continue Cardizem 30 mg 4 times daily On Lovenox subcuQ, however secondary to patient's known history of alcohol abuse oral anticoagulation may be contraindicated, switch Lovenox to Eliquis 2. SIRS Resolved 3. Alcohol Abuse high risk for withdrawal, Seizure Precautions, CIWA, MVT/Thiamine/Folate replacement. Op f/u 4. CLL Appreciate input from hematology, pt is poor candidate for intervention/ treatment in light of heavy alcohol abuse and non-compliance. Follow-up flow cytometry 5. Anemia Monitor H&H 6. Thrombocytopenia Monitor CBC 7. Sz DO. Continue Keppra. Sz precautions 8. Suicidal ideations-on restraints, sitter as needed, consult psychiatry. Discharge Planning Pending improvement. Rajwinder Chapman MD June 21, 2017 13:39
[2017-06-21] MEDS: APIXABAN 5 MG TABLET PO SCH (17:56)
[2017-06-21] MEDS ORDERED: APIX5TAB PO (18:15)
[2017-06-21 19:56] LABS: HEPATITIS B CORE TOTAL AB NONREACTIVE (NON-REACTVE); HEPATITIS BE AG NONREACTIVE (NON-REACTVE)
[2017-06-22] VITALS (8 sets, daily range): BP systolic 92–139; BP diastolic 54–77; PULSE 90–102; RESP 18–20; TEMP 98.1–99.9; O2SAT 92–96
[2017-06-22 03:50] LABS: MITOCHONDRIAL ABS LESS THAN 20.0 U (<=20.0)
[2017-06-22] MEDS: hydrOXYzine HCL 50 MG TAB PO PRN ×2 (04:09→21:28)
[2017-06-22] MEDS: APIXABAN 5 MG TABLET PO SCH ×2 (06:38→17:50)
[2017-06-22 07:44] LABS: BASOPHIL # 0.1 TH/MM3 (0-0.2); BASOPHIL % 0.4 % (0.0-2.0); EOSINOPHIL # 0.1 TH/MM3 (0-0.4); EOSINOPHIL % 0.3 % (0.0-4.0); HEMATOCRIT 29.8 % (39.0-51.0); HEMOGLOBIN 10.3 GM/DL (13.0-17.0); LYMPH % 69.4 % (9.0-44.0); LYMPHOCYTE # 14.8 TH/MM3 (1.0-4.8); MEAN CELL VOLUME 97.7 FL (80.0-100.0); MEAN CORPUSCULAR HEMOGLOBIN 33.7 PG (27.0-34.0); MEAN CORPUSCULAR HGB CONC 34.5 % (32.0-36.0); MEAN PLATELET VOLUME 8.8 FL (7.0-11.0); MONO % 6.6 % (0.0-8.0); MONOCYTE # 1.4 TH/MM3 (0-0.9); NEUT % 23.3 % (16.0-70.0); PLATELET COUNT 115 TH/MM3 (150-450); RED BLOOD COUNT 3.06 MIL/MM3 (4.50-5.90); RED CELL DISTRIBUTION WIDTH 20.1 % (11.6-17.2); WHITE BLOOD COUNT 21.4 TH/MM3 (4.0-11.0)
[2017-06-22 08:07] LABS: ALBUMIN 1.8 GM/DL (3.4-5.0); ALT (GPT) 36 U/L (12-78); AST (GOT) 116 U/L (15-37); BICARBONATE 25.6 MEQ/L (21.0-32.0); BLOOD UREA NITROGEN 5 MG/DL (7-18); CALCIUM 7.7 MG/DL (8.5-10.1); CHLORIDE 106 MEQ/L (98-107); CREATININE 0.69 MG/DL (0.60-1.30); GLOMERULAR FILTRATION RATE 117 ML/MIN (>89); GLUCOSE,RANDOM 88 MG/DL (74-106); SODIUM (NA) 139 MEQ/L (136-145)
[2017-06-22 08:09] LABS: ALKALINE PHOSPHATASE 69 U/L (45-117); TOTAL BILIRUBIN ADULT 4.2 MG/DL (0.2-1.0); TOTAL PROTEIN 6.4 GM/DL (6.4-8.2)
[2017-06-22 08:44] LABS: LYMPHOCYTES 48 % (9-44); MONOCYTES 2 % (0-8); NEUTROPHIL # MANUAL DIFF 10.7 TH/MM3 (1.8-7.7); OVALOCYTES 1+ (NORMAL); POLYS (SEG NEUTROPHILS) 50 % (16-70)
[2017-06-22] MEDS: DOCUSATE SODIUM 50 MG/SENNA 8.6 MG TAB PO SCH ×2 (09:00→21:00)
[2017-06-22] MEDS: levETIRAcetam 500 MG TAB PO SCH ×2 (09:31→21:28)
[2017-06-22] MEDS: DILTIAZEM HCL 30 MG TAB PO SCH ×4 (09:31→21:28)
[2017-06-22] MEDS: POTASSIUM CHLORIDE 20 MEQ CONTROLLED RELEASE TAB PO SCH ×2 (09:31→21:28)
[2017-06-22] MEDS: THIAMINE HCL 100 MG TAB PO SCH (09:31)
[2017-06-22] MEDS: SODIUM CHLORIDE 0.9% FLUSH 10 ML FLUSH IV FLUSH SCH ×2 (09:31→21:29)
--- NOTE | 2017-06-22 14:46 | HHI.GIFU ---
Subjective Remarks Patient is dozing in the bed but arouses to verbal stimuli Sitter currently in room with patient, states he ate 100% of his breakfast and 50% of his lunch Trace of lower extremity edema, abdomen taut, generalized abdominal pain right upper quadrant and mid abdomen Afebrile (Hawa Marie) Objective Vitals I&O Vital Signs Date Time Temp Pulse Resp B/P (MAP) Pulse Ox O2 Delivery O2 Flow Rate FiO2 06/22/17 12:36 98.6 94 18 108/58 (75) 94 06/22/17 08:00 Room Air 06/22/17 08:00 99.7 100 18 128/66 (86) 92 06/22/17 07:49 90 06/22/17 04:00 96 06/22/17 04:00 99.9 93 19 119/67 (84) 95 06/22/17 00:00 98.9 90 19 92/54 (67) 96 06/22/17 00:00 96 06/21/17 20:00 96 06/21/17 20:00 Room Air 06/21/17 20:00 97.9 95 18 112/66 (81) 94 06/21/17 16:08 98.4 95 18 119/71 (87) 94 I/O 06/21/17 06/21/17 06/21/17 06/22/17 06/22/17 06/22/17 07:00 15:00 23:00 07:00 15:00 23:00 Intake Total 240 ml 960 ml 800 ml Output Total 400 ml Balance 240 ml 560 ml 800 ml Intake Oral 240 ml 960 ml 800 ml Output Urine Total 400 ml # Voids 4 4 13 # Bowel Movements 2 0 4 Laboratory Laboratory Tests Test 06/22/17 07:03 White Blood Count 21.4 Red Blood Count 3.06 Hemoglobin 10.3 Hematocrit 29.8 Mean Corpuscular Volume 97.7 Mean Corpuscular Hemoglobin 33.7 Mean Corpuscular Hemoglobin Concent 34.5 Red Cell Distribution Width 20.1 Platelet Count 115 Mean Platelet Volume 8.8 Neutrophils (%) (Auto) 23.3 Lymphocytes (%) (Auto) 69.4 Monocytes (%) (Auto) 6.6 Eosinophils (%) (Auto) 0.3 Basophils (%) (Auto) 0.4 Neutrophils # (Auto) 5.0 Lymphocytes # (Auto) 14.8 Monocytes # (Auto) 1.4 Eosinophils # (Auto) 0.1 Basophils # (Auto) 0.1 CBC Comment AUTO DIFF Differential Total Cells Counted 100 Neutrophils % (Manual) 50 Lymphocytes % 48 Monocytes % 2 Neutrophils # (Manual) 10.7 Differential Comment FINAL DIFF MANUAL Platelet Estimate LOW Platelet Morphology Comment NORMAL Ovalocytes 1+ Blood Urea Nitrogen 5 Creatinine 0.69 Random Glucose 88 Total Protein 6.4 Albumin 1.8 Calcium Level 7.7 Alkaline Phosphatase 69 Aspartate Amino Transf (AST/SGOT) 116 Alanine Aminotransferase (ALT/SGPT) 36 Total Bilirubin 4.2 Sodium Level 139 Potassium Level 4.1 Chloride Level 106 Carbon Dioxide Level 25.6 Anion Gap 7 Estimat Glomerular Filtration Rate 117 Date/Time Source Procedure Growth Status 06/15/17 17:50 Blood Peripheral Aerobic Blood Culture - Final NO GROWTH IN 5 DAYS Complete 06/15/17 17:50 Blood Peripheral Anaerobic Blood Culture - Final NO GROWTH IN 5 DAYS Complete Imaging Last Impressions Abdomen Ultrasound 06/17/17 0000 Signed Impressions: Service Date/Time: Saturday, June 17, 2017 07:40 - CONCLUSION: The liver is upper limits normal in size, predominantly increased echotexture is noted and heterogeneous overall appearance without focal mass. There is a history of hepatic steatosis. Suggestion of slightly nodular contour may represent underlying cirrhosis. Splenomegaly and moderate ascites also noted. Gallbladder sludge. Sj Lui MD Chest X-Ray 06/15/17 1742 Signed Impressions: Service Date/Time: Thursday, June 15, 2017 17:52 - CONCLUSION: Trace atelectasis/scarring of the left base. Similar findings were seen in February. Agapito Alvarez MD Physical Exam HEENT: Normocephalic; atraumatic; (+) icterus, flip complexion CHEST: Even/unlabored , no shortness of breath at rest but does have some diminished breath sounds in his bases CARDIAC: Irregular rate controlled, 94- 100 ABDOMEN: Abdomen taut, round with moderate distention, mid and right upper quadrant tenderness to light palpation bowel sounds active SKIN: (+) mild jaundice. CLINICAL EDUCATION COORDINATOR: Awake, answers questions appropriately (Hawa Marie) Assessment and Plan Assessment: (1) Alcohol dependence ICD Codes: F10.20 - Alcohol dependence, uncomplicated Status: Acute (2) Thrombocytopenia ICD Codes: D69.6 - Thrombocytopenia, unspecified (3) Normocytic anemia ICD Codes: D64.9 - Anemia, unspecified Plan Assessment: History - Cirrhosis with ETOH hepatitis. DF-37 Labs: AST-216 ALT-61 T bili-4.1 Thrombocytopenia (platelets-128) Coagulopathy (INR 1.9) Hypoalbuminemia ( albumin-2.2) Abdomen US (06/17) --> The liver is upper limits normal in size, predominantly increased echotexture is noted and heterogeneous overall appearance without focal mass. There is a history of hepatic steatosis. Suggestion of slightly nodular contour may represent underlying cirrhosis. Splenomegaly and moderate ascites also noted. Gallbladder sludge. Liver Work up: Hepatitis B core IgM Ab indeterminate H Hepatitis A and C negative CAROLYN and ASMA negative. O0P-021 Iron- 148 TIBC-164 %sat-90.4 Ferritin-192 Alpha I antitrypsin 158 Ammonia-24 AFP- 3.6 AMA and ceruloplasmin still pending - Leukocytosis- secondary to CLL. Afebrile Diagnosed with SIRS on arrival, was on broad spectrum abx, blood cultures negative - Anemia, normocytic- multifactorial Liver work up pending- likely secondary to ETOH - A-fib- Eliquis and Cardizem- per attending , Alcoholic hepatitis, slow but gradual improvement noted 06/22/2017, patient is sleeping and currently appears calm. States his appetite is fair and able to eat now without any nausea or vomiting. Current labs reviewed mild decreased bilirubin 4.2, mild decreased AST to 116, ALT normal, PT /INR 1.9 coagulopathy probably secondary to his liver disease, hemoglobin currently 10.3, no obvious bleeding No obvious bleeding, history of alcohol abuse, discussed with him the need for alcohol abstinence if he wants to feel better. Alcoholic hepatitis slow to gradual improvement Plan: Diet, regular, fair to good appetite Started Pentoxifylline 400mg. daily Monitor labs As long as patient is calm encourage some activity and angle on side of the bed Thiamine Continue with current supportive care Further recommendations based on symptoms and patient's plan of care Patient was seen per myself and Dr. Bunch, note was written on his behalf (Hawa Marie) Plan Patient was alcohol liver disease most likely, continue supportive care, no alcohol (Jes Bunch MD) Problem Qualifiers (1) Alcohol dependence: Qualified Codes: F10.20 - Alcohol dependence, uncomplicated Hawa Marie June 22, 2017 14:45 Jes Bunch MD June 22, 2017 23:12
[2017-06-22] MEDS: PENTOXIFYLLINE 400 MG CONTROLLED RELEASE TAB PO SCH (17:50)
[2017-06-22 17:51] LABS: CERULOPLASMIN 21 mg/dL (18-36)
--- NOTE | 2017-06-22 20:20 | HHI.PR ---
Subjective Remarks Resting comfortably in bed No event overnight Denied chest and or short of breath No fever or chills Objective Vitals Vital Signs Date Time Temp Pulse Resp B/P (MAP) Pulse Ox O2 Delivery O2 Flow Rate FiO2 06/22/17 16:09 90 06/22/17 16:00 Room Air 06/22/17 16:00 98.6 99 18 107/66 (80) 92 06/22/17 12:36 98.6 94 18 108/58 (75) 94 06/22/17 12:00 Room Air 06/22/17 08:00 Room Air 06/22/17 08:00 99.7 100 18 128/66 (86) 92 06/22/17 07:49 90 06/22/17 04:00 96 06/22/17 04:00 99.9 93 19 119/67 (84) 95 06/22/17 00:00 98.9 90 19 92/54 (67) 96 06/22/17 00:00 96 I/O 06/21/17 06/21/17 06/21/17 06/22/17 06/22/17 06/22/17 07:00 15:00 23:00 07:00 15:00 23:00 Intake Total 240 ml 960 ml 800 ml 480 ml Output Total 400 ml 600 ml Balance 240 ml 560 ml 800 ml -120 ml Intake Oral 240 ml 960 ml 800 ml 480 ml Output Urine Total 400 ml 600 ml # Voids 4 4 13 # Bowel Movements 2 0 4 0 Result Diagram: 06/22/17 0703 06/22/17 0703 Objective Remarks GENERAL: This is a well-nourished, well-developed patient, in no apparent distress. CARDIOVASCULAR: RRR, no gallops, or rubs. RESPIRATORY: Fair air entry bilaterally. No W, R, or R GASTROINTESTINAL: Abdomen soft, non-tender, nondistended. Positive bowel sounds MUSCULOSKELETAL: Extremities without clubbing, cyanosis, or edema. Pedal pulses appreciated NEUROLOGICAL: Awake and alert. Moves all extremity. Normal speech.no focal neurological deficit PSYCH: Positive for suicide ideation Procedures none A/P Problem List: (1) SIRS (systemic inflammatory response syndrome) ICD Code: R65.10 - Systemic inflammatory response syndrome (SIRS) of non- infectious origin without acute organ dysfunction (2) Alcohol abuse ICD Code: F10.10 - Alcohol abuse, uncomplicated (3) CLL (chronic lymphocytic leukemia) ICD Code: C91.90 - Lymphoid leukemia, unspecified not having achieved remission (4) Coagulopathy ICD Code: D68.9 - Coagulation defect, unspecified Assessment and Plan 62-year-old man with 5/3: Appreciate GI and hematology consultation, noticed increased AST, follow labs, monitor clinical improvement 5/4: Appreciate GI consultation, started on pentoxifylline by GI, monitor improvement, no further recommendation by hematology, psychiatry recommendation also appreciated recommending [facility] transfer 1. Atrial fibrillation with RVR Currently rate controlled s/p Esmolol drip and continue Cardizem 30 mg 4 times daily On Lovenox subcuQ, however secondary to patient's known history of alcohol abuse oral anticoagulation may be contraindicated, switch Lovenox to Eliquis 2. SIRS Resolved 3. Alcohol Abuse/liver cirrhosis/alcoholic hepatitis high risk for withdrawal, Seizure Precautions, CIWA, MVT/Thiamine/Folate replacement. Op f/u Appreciate GI follow-up, started on pentoxifylline 4. CLL Appreciate input from hematology, pt is poor candidate for intervention/ treatment in light of heavy alcohol abuse and non-compliance. Follow-up flow cytometry 5. Anemia Monitor H&H 6. Thrombocytopenia Monitor CBC 7. Sz DO. Continue Keppra. Sz precautions 8. Suicidal ideations-on restraints, sitter as needed, consult psychiatry. Discharge Planning Pending improvement. Rajwinder Chapman MD June 22, 2017 20:20
[2017-06-23] VITALS (9 sets, daily range): BP systolic 106–142; BP diastolic 61–86; PULSE 89–110; RESP 17–20; TEMP 98.1–99.1; O2SAT 91–96
[2017-06-23] MEDS: LORazepam 2 MG/ML VIAL IV PUSH PRN (01:31)
[2017-06-23] MEDS ORDERED: ALUMINUM/MAGNESIUM/SIMETH 30 ML CUP PO ONE (02:00)
[2017-06-23] MEDS ORDERED: diphenhydrAMINE HCL 50 MG CAP PO ONE (02:00)
[2017-06-23] MEDS: APIXABAN 5 MG TABLET PO SCH ×2 (05:15→18:28)
[2017-06-23] MEDS: SODIUM CHLORIDE 0.9% FLUSH 10 ML FLUSH IV FLUSH SCH ×2 (07:29→21:02)
[2017-06-23] MEDS: THIAMINE HCL 100 MG TAB PO SCH (08:13)
[2017-06-23] MEDS: levETIRAcetam 500 MG TAB PO SCH ×2 (08:13→21:02)
[2017-06-23] MEDS: DILTIAZEM HCL 30 MG TAB PO SCH ×4 (08:14→21:01)
[2017-06-23] MEDS: PENTOXIFYLLINE 400 MG CONTROLLED RELEASE TAB PO SCH (08:14)
[2017-06-23] MEDS: POTASSIUM CHLORIDE 20 MEQ CONTROLLED RELEASE TAB PO SCH ×2 (08:14→21:01)
[2017-06-23] MEDS: DOCUSATE SODIUM 50 MG/SENNA 8.6 MG TAB PO SCH ×2 (08:14→21:00)
--- NOTE | 2017-06-23 13:48 | HHI.GIFU ---
Subjective Remarks Pt eating lunch No GI complaints at this time Per sitter pt has had 2 BMs today Now moved closer to the nursing station Currently alert and able to answer questions appropriately (Mary Mcrae) Objective Vitals I&O Vital Signs Date Time Temp Pulse Resp B/P (MAP) Pulse Ox O2 Delivery O2 Flow Rate FiO2 06/23/17 13:15 92 21 06/23/17 13:03 106/61 (76) 94 06/23/17 08:00 98.6 97 20 119/68 (85) 93 06/23/17 04:00 99 06/23/17 04:00 98.1 99 17 115/62 (79) 95 06/23/17 00:00 110 06/23/17 00:00 98.8 107 19 142/80 (100) 93 06/22/17 20:00 Room Air 06/22/17 20:00 98.1 102 20 139/77 (97) 94 06/22/17 20:00 100 06/22/17 16:09 90 06/22/17 16:00 Room Air 06/22/17 16:00 98.6 99 18 107/66 (80) 92 I/O 06/22/17 06/22/17 06/22/17 06/23/17 06/23/17 06/23/17 07:00 15:00 23:00 07:00 15:00 23:00 Intake Total 800 ml 480 ml 240 ml Output Total 600 ml 200 ml Balance 800 ml -120 ml 40 ml Intake Oral 800 ml 480 ml 240 ml Output Urine Total 600 ml 200 ml # Voids 13 5 # Bowel Movements 4 0 3 Laboratory Date/Time Source Procedure Growth Status 06/15/17 17:50 Blood Peripheral Aerobic Blood Culture - Final NO GROWTH IN 5 DAYS Complete 06/15/17 17:50 Blood Peripheral Anaerobic Blood Culture - Final NO GROWTH IN 5 DAYS Complete Imaging Last Impressions Abdomen Ultrasound 06/17/17 0000 Signed Impressions: Service Date/Time: Saturday, June 17, 2017 07:40 - CONCLUSION: The liver is upper limits normal in size, predominantly increased echotexture is noted and heterogeneous overall appearance without focal mass. There is a history of hepatic steatosis. Suggestion of slightly nodular contour may represent underlying cirrhosis. Splenomegaly and moderate ascites also noted. Gallbladder sludge. Sj Lui MD Chest X-Ray 06/15/17 1742 Signed Impressions: Service Date/Time: Thursday, June 15, 2017 17:52 - CONCLUSION: Trace atelectasis/scarring of the left base. Similar findings were seen in February. Agapito Alvarez MD Physical Exam HEENT: Normocephalic; atraumatic; (+) icterus CHEST: Even/unlabored CARDIAC: Irregularly irregular ABDOMEN: Distended, semi-firm, nontender, bowel sounds active SKIN: (+) jaundice. 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 DF-37 Labs: AST-216 ALT-61 T bili-4.1 Thrombocytopenia (platelets-128) Coagulopathy (INR 1.9) Hypoalbuminemia ( albumin-2.2) Abdomen US (06/17) --> The liver is upper limits normal in size, predominantly increased echotexture is noted and heterogeneous overall appearance without focal mass. There is a history of hepatic steatosis. Suggestion of slightly nodular contour may represent underlying cirrhosis. Splenomegaly and moderate ascites also noted. Gallbladder sludge. Liver Work up: Hepatitis B core IgM Ab indeterminate H, antigen negative Hepatitis A and C negative CAROLYN, AMA, and ASMA negative. W3S-353 Iron- 148 TIBC-164 %sat-90.4 Ferritin-192 Ammonia-24 AFP- 3.6 Ceruloplasmin-21 Y9O-079 - Leukocytosis- secondary to CLL. Afebrile Diagnosed with SIRS on arrival, was on broad spectrum abx, blood cultures negative - Anemia, normocytic- multifactorial - A-fib- Eliquis and Cardizem- per attending (06/23) No repeat labs from today. However, LFTs have been trending down. Pt currently on Pentoxifylline Plan: Pentoxifylline Monitor for DTs and treat appropriately Thiamine Continue with current supportive care Further recommendations based on clinical course Pt has been seen and examined by myself and Dr. Bran and this note is written on her behalf (Mary Mcrae) Physician Comments seen, examined agree with above abdominal discomfort, distension -ct abdomen/pelvis direct and indirect bilirubin ldh, repeat haptoglobin hep b viral load pt/inr ammonia (Lyssa Bran MD) Mary Mcrae June 23, 2017 13:48 Lyssa Bran MD June 23, 2017 17:34
[2017-06-23] MEDS ORDERED: DIATRIZOATE MEGLUM/DIATRIZOATE SOD 9 ML CUP PO ONE (18:30)
[2017-06-23 20:16] LABS: INTERNATIONAL NORMALIZED RATIO 1.5 RATIO; PROTHROMBIN TIME - PATIENT 14.8 SEC (9.8-11.6)
[2017-06-23 20:19] LABS: DIRECT BILIRUBIN ADULT 3.1 MG/DL (0.0-0.2)
--- NOTE | 2017-06-23 20:29 | HHI.PR ---
Subjective Remarks Patient sleeping in bed, woke up to voice The center told me that he has been confused the whole time, Otherwise no acute issue Objective Vitals Vital Signs Date Time Temp Pulse Resp B/P (MAP) Pulse Ox O2 Delivery O2 Flow Rate FiO2 06/23/17 16:00 Room Air 06/23/17 16:00 98.2 97 18 112/67 (82) 94 06/23/17 13:15 92 21 06/23/17 13:03 106/61 (76) 94 06/23/17 12:00 Room Air 06/23/17 12:00 98.7 94 20 106/61 (76) 91 06/23/17 08:00 98.6 97 20 119/68 (85) 93 06/23/17 04:00 99 06/23/17 04:00 98.1 99 17 115/62 (79) 95 06/23/17 00:00 110 06/23/17 00:00 98.8 107 19 142/80 (100) 93 I/O 06/22/17 06/22/17 06/22/17 06/23/17 06/23/17 06/23/17 07:00 15:00 23:00 07:00 15:00 23:00 Intake Total 800 ml 480 ml 240 ml Output Total 600 ml 200 ml Balance 800 ml -120 ml 40 ml Intake Oral 800 ml 480 ml 240 ml Output Urine Total 600 ml 200 ml # Voids 13 5 3 # Bowel Movements 4 0 3 3 Result Diagram: 06/22/17 0703 06/22/17 0703 Objective Remarks GENERAL: This is a well-nourished, well-developed patient, in no apparent distress. CARDIOVASCULAR: RRR, no gallops, or rubs. RESPIRATORY: Fair air entry bilaterally. No W, R, or R GASTROINTESTINAL: Abdomen soft, non-tender, nondistended. Positive bowel sounds MUSCULOSKELETAL: Extremities without clubbing, cyanosis, or edema. Pedal pulses appreciated NEUROLOGICAL: Awake and alert. Moves all extremity. Normal speech.no focal neurological deficit PSYCH: Positive for suicide ideation Procedures none A/P Problem List: (1) SIRS (systemic inflammatory response syndrome) ICD Code: R65.10 - Systemic inflammatory response syndrome (SIRS) of non- infectious origin without acute organ dysfunction (2) Alcohol abuse ICD Code: F10.10 - Alcohol abuse, uncomplicated (3) CLL (chronic lymphocytic leukemia) ICD Code: C91.90 - Lymphoid leukemia, unspecified not having achieved remission (4) Coagulopathy ICD Code: D68.9 - Coagulation defect, unspecified Assessment and Plan 62-year-old man with 5/: Appreciate GI and hematology consultation, noticed increased AST, follow labs, monitor clinical improvement 06/22: Appreciate GI consultation, started on pentoxifylline by GI, monitor improvement, no further recommendation by hematology, psychiatry recommendation also appreciated recommending [facility] transfer 06/23: Continue pentoxifylline, follow with GI, discussed with case management social worker, awaiting placement at [facility] 1. Atrial fibrillation with RVR Currently rate controlled s/p Esmolol drip and continue Cardizem 30 mg 4 times daily On Lovenox subcuQ, however secondary to patient's known history of alcohol abuse oral anticoagulation may be contraindicated, switch Lovenox to Eliquis 2. SIRS Resolved 3. Alcohol Abuse/liver cirrhosis/alcoholic hepatitis high risk for withdrawal, Seizure Precautions, CIWA, MVT/Thiamine/Folate replacement. Op f/u Appreciate GI follow-up, started on pentoxifylline 4. CLL Appreciate input from hematology, pt is poor candidate for intervention/ treatment in light of heavy alcohol abuse and non-compliance. Follow-up flow cytometry 5. Anemia Monitor H&H 6. Thrombocytopenia Monitor CBC 7. Sz DO. Continue Keppra. Sz precautions 8. Suicidal ideations-on restraints, sitter as needed, consult psychiatry. Discharge Planning Pending improvement. Rajwinder Chapman MD June 23, 2017 20:29
[2017-06-23] MEDS ORDERED: IOHEXOL 350 MG/ML 10 ML VIAL (for RAD DIAG) IVCONTRAST ONE (20:46)
--- NOTE | 2017-06-23 21:41 | RADRPT ---
EXAM DATE/TIME: 06/23/2017 20:38 [facility] COMPARISON: CT ABDOMEN & PELVIS W CONTRAST, March 04, 2016, 18:58. INDICATIONS : Abdominal pain and distention. IV CONTRAST: 96 cc Omnipaque 350 (iohexol) IV ORAL CONTRAST: Prescribed oral contrast ingested. RADIATION DOSE: 14.04 CTDIvol (mGy) MEDICAL HISTORY : Cardiovascular disease. Hypertension. Cirrhosis.ETOH abuse SURGICAL HISTORY : Inguinal hernia repair. Brain aneurysm repair ENCOUNTER: Initial ACUITY: 2 days PAIN SCALE: 6/10 LOCATION: abdomen TECHNIQUE: Volumetric scanning of the abdomen and pelvis was performed. Using automated exposure control and ad justment of the mA and/or kV according to patient size, radiation dose was kept as low as reasonably achievable to obtain optimal diagnostic quality images. DICOM format image data is available electro nically for review and comparison. FINDINGS: LOWER LUNGS: Posterior atelectatic changes are noted bilaterally. LIVER: The liver is somewhat nodular in contour and heterogeneous in echotexture suggesting possible cirrhos is. Recanalization of the umbilical vein is noted. Scattered low-density lesions are noted throughout the liver but are nonspecific. The largest lesion is located within the left lobe and measures 16 mm . Outpatient MRI of the abdomen with contrast may be helpful for further assessment of these liver le sions if clinically indicated. There is no dilation of the biliary tree. No calcified gallstones. Ex tensive ascites is noted. SPLEEN: Mild splenomegaly. PANCREAS: Within normal limits. KIDNEYS: Normal in size and shape. There is no mass, stone or hydronephrosis. There is a tiny subcentimeter l ower pole left renal cyst which is stable. ADRENAL GLANDS: Within normal limits. VASCULAR: There is no aortic aneurysm. BOWEL/MESENTERY: Uncomplicated colonic diverticulosis is noted. No acute diverticulitis is noted. ABDOMINAL WALL: Within normal limits. RETROPERITONEUM: Scattered minimally prominent retroperitoneal lymph nodes are noted but are nonspecific. BLADDER: No wall thickening or mass. REPRODUCTIVE: Within normal limits. INGUINAL: There is no lymphadenopathy or hernia. MUSCULOSKELETAL: Within normal limits for patient age. CONCLUSION: 1. Extensive ascites. 2. Nodular heterogeneous liver suggesting cirrhosis with recanalization of the umbilical vein. 3. Mild splenomegaly. 4. Multiple low-density lesions scattered throughout the liver which are indeterminate. 5. Uncomplicated colonic diverticulosis. 6. Posterior bibasilar atelectasis. 7. Scattered minimally prominent retroperitoneal lymph nodes which are nonspecific. Delfino Renee MD on June 23, 2017 at 21:29 Board Certified Radiologist. This report was verified electronically.
[2017-06-24] VITALS (11 sets, daily range): BP systolic 105–125; BP diastolic 54–86; PULSE 84–96; RESP 20–24; TEMP 98.2–99.1; O2SAT 91–94
[2017-06-24] MEDS: APIXABAN 5 MG TABLET PO SCH ×2 (05:12→17:53)
[2017-06-24] MEDS: DOCUSATE SODIUM 50 MG/SENNA 8.6 MG TAB PO SCH ×2 (09:00→21:00)
[2017-06-24] MEDS: levETIRAcetam 500 MG TAB PO SCH ×2 (09:13→22:40)
[2017-06-24] MEDS: POTASSIUM CHLORIDE 20 MEQ CONTROLLED RELEASE TAB PO SCH ×2 (09:13→22:41)
[2017-06-24] MEDS: THIAMINE HCL 100 MG TAB PO SCH (09:13)
[2017-06-24] MEDS: SODIUM CHLORIDE 0.9% FLUSH 10 ML FLUSH IV FLUSH SCH ×2 (09:14→22:50)
[2017-06-24] MEDS: DILTIAZEM HCL 30 MG TAB PO SCH ×4 (09:14→22:48)
[2017-06-24] MEDS: PENTOXIFYLLINE 400 MG CONTROLLED RELEASE TAB PO SCH (09:14)
--- NOTE | 2017-06-24 15:09 | HHI.GIFU ---
Subjective Remarks Pt resting in bed States abdomen feels distended today Did not eat much of his lunch Reports some nausea this morning, denies emesis Also having some diffuse abdominal pain (Mary Mcrae) Objective Vitals I&O Vital Signs Date Time Temp Pulse Resp B/P (MAP) Pulse Ox O2 Delivery O2 Flow Rate FiO2 06/24/17 08:34 91 Nasal Cannula 21 06/24/17 08:00 98.9 93 24 125/73 (90) 93 06/24/17 04:00 98.9 90 20 107/67 (80) 93 06/24/17 04:00 90 06/24/17 00:00 93 06/24/17 00:00 99.1 96 20 123/65 (84) 94 06/23/17 21:00 95 137/86 (103) 95 06/23/17 20:33 21 06/23/17 20:00 99.1 90 20 96 06/23/17 20:00 89 06/23/17 20:00 Room Air 06/23/17 16:00 Room Air 06/23/17 16:00 98.2 97 18 112/67 (82) 94 I/O 06/23/17 06/23/17 06/23/17 06/24/17 06/24/17 06/24/17 07:00 15:00 23:00 07:00 15:00 23:00 Intake Total 240 ml 400 ml Output Total 200 ml Balance 40 ml 400 ml Intake Oral 240 ml 400 ml Output Urine Total 200 ml # Voids 5 3 5 # Bowel Movements 3 3 2 Laboratory Laboratory Tests Test 06/23/17 19:38 Haptoglobin 32 Prothrombin Time 14.8 Prothromb Time International Ratio 1.5 Direct Bilirubin 3.1 Lactate Dehydrogenase 195 Date/Time Source Procedure Growth Status 06/15/17 17:50 Blood Peripheral Aerobic Blood Culture - Final NO GROWTH IN 5 DAYS Complete 06/15/17 17:50 Blood Peripheral Anaerobic Blood Culture - Final NO GROWTH IN 5 DAYS Complete Imaging Last Impressions Abdomen/Pelvis CT 06/23/17 0000 Signed Impressions: Service Date/Time: Friday, June 23, 2017 20:38 - CONCLUSION: 1. Extensive ascites. 2. Nodular heterogeneous liver suggesting cirrhosis with recanalization of the umbilical vein. 3. Mild splenomegaly. 4. Multiple low-density lesions scattered throughout the liver which are indeterminate. 5. Uncomplicated colonic diverticulosis. 6. Posterior bibasilar atelectasis. 7. Scattered minimally prominent retroperitoneal lymph nodes which are nonspecific. Delfino Renee MD Abdomen Ultrasound 06/17/17 0000 Signed Impressions: Service Date/Time: Saturday, June 17, 2017 07:40 - CONCLUSION: The liver is upper limits normal in size, predominantly increased echotexture is noted and heterogeneous overall appearance without focal mass. There is a history of hepatic steatosis. Suggestion of slightly nodular contour may represent underlying cirrhosis. Splenomegaly and moderate ascites also noted. Gallbladder sludge. Sj Lui MD Chest X-Ray 06/15/17 1742 Signed Impressions: Service Date/Time: Thursday, June 15, 2017 17:52 - CONCLUSION: Trace atelectasis/scarring of the left base. Similar findings were seen in February. Agapito Alvarez MD Physical Exam HEENT: Normocephalic; atraumatic; (+) icterus CHEST: Even/unlabored CARDIAC: Irregularly irregular ABDOMEN: Distended, semi-firm, nontender, bowel sounds active SKIN: (+) jaundice. COSMETICS PRESSER: Awake, answers questions appropriately (Mary Mcrae) Assessment and Plan Assessment: (1) Alcohol dependence ICD Codes: F10.20 - Alcohol dependence, uncomplicated Status: Acute (2) Thrombocytopenia ICD Codes: D69.6 - Thrombocytopenia, unspecified (3) Normocytic anemia ICD Codes: D64.9 - Anemia, unspecified Plan Assessment: - Cirrhosis with ETOH hepatitis. DF-37 Labs: AST-216 ALT-61 T bili-4.1 Thrombocytopenia (platelets-128) Coagulopathy (INR 1.9) Hypoalbuminemia ( albumin-2.2) Abdomen US (06/17) --> The liver is upper limits normal in size, predominantly increased echotexture is noted and heterogeneous overall appearance without focal mass. There is a history of hepatic steatosis. Suggestion of slightly nodular contour may represent underlying cirrhosis. Splenomegaly and moderate ascites also noted. Gallbladder sludge. Liver Work up: Hepatitis B core IgM Ab indeterminate H, antigen negative Hepatitis A and C negative CAROLYN, AMA, and ASMA negative. [id number] Iron- 148 TIBC-164 %sat-90.4 Ferritin-192 Ammonia-24 AFP- 3.6 Ceruloplasmin-21 [id number] - Leukocytosis- secondary to CLL. Afebrile Diagnosed with SIRS on arrival, was on broad spectrum abx, blood cultures negative - Anemia, normocytic- multifactorial - A-fib- Eliquis and Cardizem- per attending (06/24) Pt complaining of abdominal discomfort and distention. CT abdomen and pelvis W IV contrast (06/23) --> . Extensive ascites. Nodular heterogeneous liver suggesting cirrhosis with recanalization of the umbilical vein. Mild splenomegaly. Multiple low-density lesions scattered throughout the liver which are indeterminate. Uncomplicated colonic diverticulosis. Posterior bibasilar atelectasis. Scattered minimally prominent retroperitoneal lymph nodes which are nonspecific. Leukocytosis- will start Rocephin for possible SBP Plan: Add Lasix Rocephin Diagnostic and therapeutic paracentesis MRI abdomen W and W/O contrast Hep B DNA pending Fractionate bilirubin LDK and repeat haptoglobin Pentoxifylline Hydroxyzine for itching Alcohol withdraw Further recommendations based on clinical course Pt has been seen and examined by myself and Dr. Bran and this note is written on her behalf (Mary Mcrae) Physician Comments seen , examined agree with above mri cannot be done due to presence of clips tumor markers (Lyssa Bran MD) Problem Qualifiers (1) Alcohol dependence: Qualified Codes: F10.20 - Alcohol dependence, uncomplicated Mary Mcrae June 24, 2017 15:09 Lyssa Bran MD June 24, 2017 17:23
[2017-06-24] MEDS: cefTRIAXone INJ 1,000 MG in SODIUM CHLORIDE 0.9% INJ 100 ML IV SCH (17:30)
[2017-06-24 18:00] LABS: HEMATOCRIT 30.2 % (39.0-51.0); HEMOGLOBIN 10.3 GM/DL (13.0-17.0); MEAN CELL VOLUME 98.5 FL (80.0-100.0); MEAN CORPUSCULAR HEMOGLOBIN 33.5 PG (27.0-34.0); MEAN PLATELET VOLUME 8.8 FL (7.0-11.0); PLATELET COUNT 113 TH/MM3 (150-450); RED BLOOD COUNT 3.07 MIL/MM3 (4.50-5.90); RED CELL DISTRIBUTION WIDTH 19.4 % (11.6-17.2); WHITE BLOOD COUNT 19.1 TH/MM3 (4.0-11.0)
--- NOTE | 2017-06-24 18:11 | HHI.PR ---
Subjective Remarks Patient sleeping but woke up to voice Complaining of some abdominal discomfort and nausea Objective Vitals Vital Signs Date Time Temp Pulse Resp B/P (MAP) Pulse Ox O2 Delivery O2 Flow Rate FiO2 06/24/17 16:00 86 06/24/17 13:20 98.6 93 22 118/86 (97) 93 06/24/17 12:00 98.6 84 24 106/54 (71) 93 06/24/17 12:00 94 06/24/17 08:34 91 Nasal Cannula 21 06/24/17 08:00 90 06/24/17 08:00 98.9 93 24 125/73 (90) 93 06/24/17 04:00 98.9 90 20 107/67 (80) 93 06/24/17 04:00 90 06/24/17 00:00 93 06/24/17 00:00 99.1 96 20 123/65 (84) 94 06/23/17 21:00 95 137/86 (103) 95 06/23/17 20:33 21 06/23/17 20:00 99.1 90 20 96 06/23/17 20:00 89 06/23/17 20:00 Room Air I/O 06/23/17 06/23/17 06/23/17 06/24/17 06/24/17 06/24/17 07:00 15:00 23:00 07:00 15:00 23:00 Intake Total 240 ml 400 ml Output Total 200 ml Balance 40 ml 400 ml Intake Oral 240 ml 400 ml Output Urine Total 200 ml # Voids 5 3 5 2 # Bowel Movements 3 3 2 1 Result Diagram: 06/24/17 1729 06/22/17 0703 Imaging Last Impressions Abdomen/Pelvis CT 06/23/17 0000 Signed Impressions: Service Date/Time: Friday, June 23, 2017 20:38 - CONCLUSION: 1. Extensive ascites. 2. Nodular heterogeneous liver suggesting cirrhosis with recanalization of the umbilical vein. 3. Mild splenomegaly. 4. Multiple low-density lesions scattered throughout the liver which are indeterminate. 5. Uncomplicated colonic diverticulosis. 6. Posterior bibasilar atelectasis. 7. Scattered minimally prominent retroperitoneal lymph nodes which are nonspecific. Delfino Renee MD Abdomen Ultrasound 06/17/17 0000 Signed Impressions: Service Date/Time: Saturday, June 17, 2017 07:40 - CONCLUSION: The liver is upper limits normal in size, predominantly increased echotexture is noted and heterogeneous overall appearance without focal mass. There is a history of hepatic steatosis. Suggestion of slightly nodular contour may represent underlying cirrhosis. Splenomegaly and moderate ascites also noted. Gallbladder sludge. Sj Lui MD Chest X-Ray 06/15/17 9606 Signed Impressions: Service Date/Time: Thursday, June 15, 2017 17:52 - CONCLUSION: Trace atelectasis/scarring of the left base. Similar findings were seen in February. Agapito Alvarez MD Objective Remarks GENERAL: This is a well-nourished, well-developed patient, in no apparent distress. CARDIOVASCULAR: RRR, no gallops, or rubs. RESPIRATORY: Fair air entry bilaterally. No W, R, or R GASTROINTESTINAL: Abdomen soft, mildly tender to palpation, nondistended. Positive bowel sounds MUSCULOSKELETAL: Extremities without clubbing, cyanosis, or edema. Pedal pulses appreciated NEUROLOGICAL: Awake and alert. Moves all extremity. Normal speech.no focal neurological deficit PSYCH: Positive for suicide ideation Procedures none A/P Problem List: (1) SIRS (systemic inflammatory response syndrome) ICD Code: R65.10 - Systemic inflammatory response syndrome (SIRS) of non- infectious origin without acute organ dysfunction (2) Alcohol abuse ICD Code: F10.10 - Alcohol abuse, uncomplicated (3) CLL (chronic lymphocytic leukemia) ICD Code: C91.90 - Lymphoid leukemia, unspecified not having achieved remission (4) Coagulopathy ICD Code: D68.9 - Coagulation defect, unspecified Assessment and Plan 62-year-old man with 5/6: Today worsening abdominal discomfort/distention, in light of leukocytosis, abdominal CT as above: Ascites with diverticulosis and liver lesion, GI decided on starting antibiotic, plan for paracentesis, appreciate GI consultation, patient already started on pentoxifylline by GI, monitor improvement, no further recommendation by hematology, psychiatry recommendation also appreciated recommending [facility] transfer 1. Atrial fibrillation with RVR Currently rate controlled s/p Esmolol drip and continue Cardizem 30 mg 4 times daily On Lovenox subcuQ, however secondary to patient's known history of alcohol abuse oral anticoagulation may be contraindicated, switch Lovenox to Eliquis 2. SIRS Resolved 3. Alcohol Abuse/liver cirrhosis/alcoholic hepatitis high risk for withdrawal, Seizure Precautions, CIWA, MVT/Thiamine/Folate replacement. Op f/u Appreciate GI follow-up, started on pentoxifylline 4. CLL Appreciate input from hematology, pt is poor candidate for intervention/ treatment in light of heavy alcohol abuse and non-compliance. Follow-up flow cytometry 5. Anemia Monitor H&H 6. Thrombocytopenia Monitor CBC 7. Sz DO. Continue Keppra. Sz precautions 8. Suicidal ideations-on restraints, sitter as needed, consult psychiatry. Discharge Planning Pending improvement. Rajwinder Chapman MD June 24, 2017 18:11
[2017-06-24 18:25] LABS: INTERNATIONAL NORMALIZED RATIO 1.5 RATIO; PROTHROMBIN TIME - PATIENT 15.2 SEC (9.8-11.6)
[2017-06-24 18:27] LABS: DIRECT BILIRUBIN ADULT 3.1 MG/DL (0.0-0.2); INDIRECT BILIRUBIN 1.2 MG/DL (0.0-0.8); TOTAL BILIRUBIN ADULT 4.3 MG/DL (0.2-1.0); TOTAL PROTEIN 6.8 GM/DL (6.4-8.2)
[2017-06-24 20:35] LABS: CARCINOEMBRYONIC ANTIGEN 4.8 NG/ML (0.2-5.0)
[2017-06-24] MEDS: FUROSEMIDE 20 MG TAB PO SCH (22:40)
[2017-06-25] VITALS (8 sets, daily range): BP systolic 100–126; BP diastolic 55–86; PULSE 81–96; RESP 16–20; TEMP 97.9–99.3; O2SAT 93–95
[2017-06-25] MEDS: cefTRIAXone INJ 1,000 MG in SODIUM CHLORIDE 0.9% INJ 100 ML IV SCH ×2 (05:03→17:01)
[2017-06-25] MEDS: levETIRAcetam 500 MG TAB PO SCH ×2 (08:07→21:13)
[2017-06-25] MEDS: DOCUSATE SODIUM 50 MG/SENNA 8.6 MG TAB PO SCH ×2 (08:07→21:00)
[2017-06-25] MEDS: THIAMINE HCL 100 MG TAB PO SCH (08:07)
[2017-06-25] MEDS: FUROSEMIDE 20 MG TAB PO SCH ×2 (08:07→21:17)
[2017-06-25] MEDS: POTASSIUM CHLORIDE 20 MEQ CONTROLLED RELEASE TAB PO SCH ×2 (08:08→21:13)
[2017-06-25] MEDS: SODIUM CHLORIDE 0.9% FLUSH 10 ML FLUSH IV FLUSH SCH ×2 (08:08→21:19)
[2017-06-25] MEDS: DILTIAZEM HCL 30 MG TAB PO SCH ×4 (08:08→21:18)
[2017-06-25] MEDS: PENTOXIFYLLINE 400 MG CONTROLLED RELEASE TAB PO SCH (08:17)
[2017-06-25] MEDS ORDERED: ALBUMIN 25% INJ 0 ML IV ONE (11:30)
[2017-06-25] MEDS ORDERED: LIDOCAINE HCL 1% 20 ML VIAL ONE (12:31)
--- NOTE | 2017-06-25 13:25 | RADRPT ---
EXAM DATE/TIME: 06/25/2017 11:02 [facility] COMPARISON: No previous studies available for comparison. INDICATIONS : Ascites. MEDICAL HISTORY : Hypertension. Chronic obstructive pulmonary disease. Cirrhosis. Inguinal hernia. Dizziness. Numbness. Confusion. SURGICAL HISTORY : Brain aneurysm surgery. Left groin hernia repair. ENCOUNTER: Initial ACUITY: 1 day PAIN SCORE: 0/10 LOCATION: Right lower quadrant FLUID: Total volume of 4,000 cc of clear, yellow fluid was removed. Fluid was sent to lab for ordered studies. Post procedure scanning reveals no hematoma or other complication. TECHNIQUE: 1. Ultrasound guidance for abdominal paracentesis. 2. Paracentesis. The risks, benefits, and alternatives to ultrasound guided paracentesis were explained to the patient in detail including the risk of bleeding and infection. Written and verbal informed consent was obt ained. With the patient on the ultrasound table, ultrasound imaging was used to select the most appropriate approach for paracentesis. Overlying skin was prepped and draped in the usual sterile fashion and wi th a local anesthetic, a dermatotomy was made with an 11 blade scalpel. A 6 [place] [id number] ca theter was introduced into the peritoneal cavity and fluid was collected. The patient tolerated the procedure well and left the ultrasound suite in stable condition. CONCLUSION: Uncomplicated ultrasound guided paracentesis. Patient received albumin per protocol. Ernie Hubbard MD FACR on June 25, 2017 at 13:23 Board Certified Radiologist. This report was verified electronically.
[2017-06-25 14:08] LABS: PERITONEAL RBC 75 /MM3 (0-0)
[2017-06-25 14:11] LABS: PERITONEAL HISTIOCYTES 6 %; PERITONEAL LYMPHS 51 %; PERITONEAL MESOTHELIAL 7 %; PERITONEAL MONOS 32 %; PERITONEAL POLYS(SEGS) 4 %
--- NOTE | 2017-06-25 14:28 | HHI.PR ---
Subjective Remarks Abdomen is less tense today after paracentesis, no pain no nausea or vomiting Objective Vitals Vital Signs Date Time Temp Pulse Resp B/P (MAP) Pulse Ox O2 Delivery O2 Flow Rate FiO2 06/25/17 12:47 98.0 88 16 118/70 (86) 95 06/25/17 08:00 98.3 92 16 115/79 (91) 93 06/25/17 04:00 97.9 93 20 126/86 (99) 94 06/25/17 03:44 96 06/25/17 00:00 Room Air 06/25/17 00:00 99.3 91 20 95 06/24/17 23:43 86 06/24/17 22:48 89 123/81 (95) 06/24/17 20:00 Room Air 06/24/17 20:00 98.9 89 22 105/68 (80) 94 06/24/17 19:48 92 06/24/17 16:00 86 06/24/17 16:00 98.2 85 24 113/59 (77) 93 I/O 06/24/17 06/24/17 06/24/17 06/25/17 06/25/17 06/25/17 06:59 14:59 22:59 06:59 14:59 22:59 Intake Total 400 ml 480 ml 800 ml 3 ml Output Total 2000 ml Balance 400 ml 480 ml -1200 ml 3 ml Intake Oral 400 ml 480 ml 800 ml IV Total 3 ml Output Urine Total 2000 ml # Voids 5 2 # Bowel Movements 2 1 2 Result Diagram: 06/24/17 1729 06/22/17 0703 Objective Remarks GENERAL: This is a well-nourished, well-developed patient, in no apparent distress. CARDIOVASCULAR: RRR, no gallops, or rubs. RESPIRATORY: Fair air entry bilaterally. No W, R, or R GASTROINTESTINAL: Abdomen soft, no tenderness, nondistended. Positive bowel sounds MUSCULOSKELETAL: Extremities without clubbing, cyanosis, or edema. Pedal pulses appreciated NEUROLOGICAL: Awake and alert. Moves all extremity. Normal speech.no focal neurological deficit Procedures none A/P Problem List: (1) SIRS (systemic inflammatory response syndrome) ICD Code: R65.10 - Systemic inflammatory response syndrome (SIRS) of non- infectious origin without acute organ dysfunction (2) Alcohol abuse ICD Code: F10.10 - Alcohol abuse, uncomplicated (3) CLL (chronic lymphocytic leukemia) ICD Code: C91.90 - Lymphoid leukemia, unspecified not having achieved remission (4) Coagulopathy ICD Code: D68.9 - Coagulation defect, unspecified Assessment and Plan 62-year-old man with 5/6: Today worsening abdominal discomfort/distention, in light of leukocytosis, abdominal CT as above: Ascites with diverticulosis and liver lesion, GI decided on starting antibiotic, plan for paracentesis, appreciate GI consultation, patient already started on pentoxifylline by GI, monitor improvement, no further recommendation by hematology, psychiatry recommendation also appreciated recommending [facility] transfer 06/25: Status post paracentesis feeling much better and the abdomen, appreciate GI follow-up started Rocephin for possible SBP awaiting analysis, planning on MRI of the abdomen rule out thrombosis, continue monitoring closely A/P: 1. Atrial fibrillation with RVR Currently rate controlled s/p Esmolol drip and continue Cardizem 30 mg 4 times daily On Lovenox subcuQ, however secondary to patient's known history of alcohol abuse oral anticoagulation may be contraindicated, switch Lovenox to Eliquis 2. SIRS Resolved 3. Alcohol Abuse/liver cirrhosis/alcoholic hepatitis high risk for withdrawal, Seizure Precautions, CIWA, MVT/Thiamine/Folate replacement. Op f/u Appreciate GI follow-up, started on pentoxifylline 4. CLL Appreciate input from hematology, pt is poor candidate for intervention/ treatment in light of heavy alcohol abuse and non-compliance. Follow-up flow cytometry 5. Anemia Monitor H&H 6. Thrombocytopenia Monitor CBC 7. Sz DO. Continue Keppra. Sz precautions 8. Suicidal ideations-on restraints, sitter as needed, consult psychiatry. Discharge Planning Pending improvement. Rajwinder Chapman MD June 25, 2017 14:28
--- NOTE | 2017-06-25 14:57 | HHI.GIFU ---
Subjective Remarks Pt resting in bed. Feeling better after paracentesis this morning. (Estrellita Weeks) Objective Vitals I&O Vital Signs Date Time Temp Pulse Resp B/P (MAP) Pulse Ox O2 Delivery O2 Flow Rate FiO2 06/25/17 12:47 98.0 88 16 118/70 (86) 95 06/25/17 08:00 98.3 92 16 115/79 (91) 93 06/25/17 04:00 97.9 93 20 126/86 (99) 94 06/25/17 03:44 96 06/25/17 00:00 Room Air 06/25/17 00:00 99.3 91 20 95 06/24/17 23:43 86 06/24/17 22:48 89 123/81 (95) 06/24/17 20:00 Room Air 06/24/17 20:00 98.9 89 22 105/68 (80) 94 06/24/17 19:48 92 06/24/17 16:00 86 06/24/17 16:00 98.2 85 24 113/59 (77) 93 I/O 06/24/17 06/24/17 06/24/17 06/25/17 06/25/17 06/25/17 07:00 15:00 23:00 07:00 15:00 23:00 Intake Total 400 ml 480 ml 800 ml 3 ml Output Total 2000 ml Balance 400 ml 480 ml -1200 ml 3 ml Intake Oral 400 ml 480 ml 800 ml IV Total 3 ml Output Urine Total 2000 ml # Voids 5 2 # Bowel Movements 2 1 2 Laboratory Laboratory Tests Test 06/24/17 17:29 06/24/17 18:45 06/24/17 19:29 06/25/17 11:40 White Blood Count 19.1 Red Blood Count 3.07 Hemoglobin 10.3 Hematocrit 30.2 Mean Corpuscular Volume 98.5 Mean Corpuscular Hemoglobin 33.5 Mean Corpuscular Hemoglobin Concent 34.0 Red Cell Distribution Width 19.4 Platelet Count 113 Mean Platelet Volume 8.8 Haptoglobin 34 Prothrombin Time 15.2 Prothromb Time International Ratio 1.5 Activated Partial Thromboplast Time 31.6 Total Bilirubin 4.3 Direct Bilirubin 3.1 Indirect Bilirubin 1.2 Lactate Dehydrogenase 188 Total Protein 6.8 Lactic Acid Level 1.5 Tumor Marker Alpha Fetoprotein 4.1 Carcinoembryonic Antigen 4.8 CA 19-9 Antigen 63.0 Peritoneal Fluid WBC 130 Peritoneal Fluid RBC 75 Peritoneal Fluid Neutrophils 4 Peritoneal Fluid Lymphocytes 51 Peritoneal Fluid Monocytes 32 Peritoneal Fluid Histiocytes 6 Peritoneal Fluid Mesothelial Cells 7 Date/Time Source Procedure Growth Status 06/15/17 17:50 Blood Peripheral Aerobic Blood Culture - Final NO GROWTH IN 5 DAYS Complete 06/15/17 17:50 Blood Peripheral Anaerobic Blood Culture - Final NO GROWTH IN 5 DAYS Complete 06/25/17 11:40 Fluid Peritoneal Fluid Gram Stain Pending Received 06/25/17 11:40 Fluid Peritoneal Fluid Body Fluid Culture Pending Received Imaging Last Impressions Cyst Biopsy Asp-Paracentesis US 06/25/17 0000 Signed Impressions: Service Date/Time: Sunday, June 25, 2017 11:02 - CONCLUSION: Uncomplicated ultrasound guided paracentesis. Patient received albumin per protocol. Ernie Hubbard MD FACR Abdomen/Pelvis CT 06/23/17 0000 Signed Impressions: Service Date/Time: Friday, June 23, 2017 20:38 - CONCLUSION: 1. Extensive ascites. 2. Nodular heterogeneous liver suggesting cirrhosis with recanalization of the umbilical vein. 3. Mild splenomegaly. 4. Multiple low-density lesions scattered throughout the liver which are indeterminate. 5. Uncomplicated colonic diverticulosis. 6. Posterior bibasilar atelectasis. 7. Scattered minimally prominent retroperitoneal lymph nodes which are nonspecific. Delfino Renee MD Abdomen Ultrasound 06/17/17 0000 Signed Impressions: Service Date/Time: Saturday, June 17, 2017 07:40 - CONCLUSION: The liver is upper limits normal in size, predominantly increased echotexture is noted and heterogeneous overall appearance without focal mass. There is a history of hepatic steatosis. Suggestion of slightly nodular contour may represent underlying cirrhosis. Splenomegaly and moderate ascites also noted. Gallbladder sludge. Sj Lui MD Chest X-Ray 06/15/17 0192 Signed Impressions: Service Date/Time: Thursday, June 15, 2017 17:52 - CONCLUSION: Trace atelectasis/scarring of the left base. Similar findings were seen in February. Agapito Alvarez MD Physical Exam HEENT: Normocephalic; atraumatic; (+) icterus CHEST: Even/unlabored CARDIAC: Irregularly irregular ABDOMEN: Distended,soft, nontender, bowel sounds active SKIN: (+) jaundice. 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 DF-37 Labs: AST-216 ALT-61 T bili-4.1 Thrombocytopenia (platelets-128) Coagulopathy (INR 1.9) Hypoalbuminemia ( albumin-2.2) Abdomen US (06/17) --> The liver is upper limits normal in size, predominantly increased echotexture is noted and heterogeneous overall appearance without focal mass. There is a history of hepatic steatosis. Suggestion of slightly nodular contour may represent underlying cirrhosis. Splenomegaly and moderate ascites also noted. Gallbladder sludge. Liver Work up: Hepatitis B core IgM Ab indeterminate H, antigen negative Hepatitis A and C negative CAROLYN, AMA, and ASMA negative. B5X-650 Iron- 148 TIBC-164 %sat-90.4 Ferritin-192 Ammonia-24 AFP- 3.6 Ceruloplasmin-21 [id number] - Leukocytosis- secondary to CLL. Afebrile Diagnosed with SIRS on arrival, was on broad spectrum abx, blood cultures negative - Anemia, normocytic- multifactorial - A-fib- Eliquis and Cardizem- per attending (06/24) Pt complaining of abdominal discomfort and distention. CT abdomen and pelvis W IV contrast (06/23) --> . Extensive ascites. Nodular heterogeneous liver suggesting cirrhosis with recanalization of the umbilical vein. Mild splenomegaly. Multiple low-density lesions scattered throughout the liver which are indeterminate. Uncomplicated colonic diverticulosis. Posterior bibasilar atelectasis. Scattered minimally prominent retroperitoneal lymph nodes which are nonspecific. Leukocytosis- will start Rocephin for possible SBP 06/25/17 feeling better after paracentesis, 4L removed. CA 19-9 elevated 63. WBC remains elevated. pt offers no GI complaints. can't have MRI Plan: consider outpt PET scan cont Lasix cont Rocephin await peritoneal fluid cytology Hep B DNA pending Pentoxifylline etoh cessation supportive care Pt has been seen and examined by myself and Dr Mcgill and this note is on his behalf (Estrellita Weeks) Physician Comments Seen and examined with ADAM, doing well. CT guided liver biopsy ordered if possible due to abnormal CT scan, elevated tumor markers, possible hep B and Increased iron saturation. Risks discussed with pt. (Alfonso Mcgill MD) Problem Qualifiers (1) Alcohol dependence: Qualified Codes: F10.20 - Alcohol dependence, uncomplicated Estrellita Weeks June 25, 2017 14:57 Alfonso Mcgill MD June 25, 2017 16:00
[2017-06-25] MEDS: APIXABAN 5 MG TABLET PO SCH (17:00)
[2017-06-25 20:18] LABS: TOTAL PROTEIN,PERITONEAL FLUID 0.9 GM/DL
[2017-06-26] VITALS (9 sets, daily range): BP systolic 109–116; BP diastolic 57–64; PULSE 79–88; RESP 18–19; TEMP 97.8–98.9; O2SAT 92–96
--- NOTE | 2017-06-26 00:07 | PD.ONC.PN ---
Subjective Subjective Remarks Resting comfortably in bed. Patient seen at bedside at approximately 8 pm on 06/25/2017. Objective Data Date Time Temp Pulse Resp B/P (MAP) Pulse Ox O2 Delivery O2 Flow Rate FiO2 06/25/17 21:33 98.0 90 18 112/65 (81) 95 06/25/17 16:00 81 06/25/17 16:00 98.2 88 16 100/55 (70) 95 06/25/17 12:47 98.0 88 16 118/70 (86) 95 06/25/17 08:00 98.3 92 16 115/79 (91) 93 06/25/17 07:00 Room Air 06/25/17 04:00 97.9 93 20 126/86 (99) 94 06/25/17 03:44 96 06/26/17 06/26/17 06/26/17 07:00 15:00 23:00 Output Total 200 ml Balance -200 ml Result Diagram: 06/24/17 1729 06/22/17 0703 Laboratory Results Laboratory Tests Test 06/25/17 11:40 Peritoneal Fluid WBC 130 /MM3 Peritoneal Fluid RBC 75 /MM3 Peritoneal Fluid Neutrophils 4 % Peritoneal Fluid Lymphocytes 51 % Peritoneal Fluid Monocytes 32 % Peritoneal Fluid Histiocytes 6 % Peritoneal Fluid Mesothelial Cells 7 % Peritoneal Fluid Total Protein 0.9 GM/DL Peritoneal Fluid Albumin 0.3 G/DL Peritoneal Fluid LDH 27 U/L Peritoneal Fluid Glucose 113 MG/DL Culture Results Microbiology Date/Time Source Procedure Growth Status 06/25/17 11:40 Fluid Peritoneal Fluid Gram Stain Pending Received 06/25/17 11:40 Fluid Peritoneal Fluid Body Fluid Culture Pending Received Administered Medications Medications (Trade) Dose Ordered Sig/Yao Route PRN Reason Start Time Stop Time Status Last Admin Dose Admin Lorazepam (Ativan) 1 mg Q4H PRN PO CIWA 8 - 10 06/15/17 16:30 06/15/17 17:05 Lorazepam (Ativan Inj) 1 mg Q4H PRN IV PUSH CIWA 8 - 10 06/15/17 16:30 06/19/17 17:21 Lorazepam (Ativan) 2 mg Q2H PRN PO CIWA 11-14 06/15/17 16:30 06/22/17 23:12 Lorazepam (Ativan Inj) 2 mg Q2H PRN IV PUSH CIWA 11-14 06/15/17 16:30 06/23/17 01:31 Thiamine HCl (Vitamin B1) 100 mg DAILY PO 06/16/17 09:00 06/25/17 08:07 Sodium Chloride (NS Flush) 2 ml UNSCH PRN IV FLUSH FLUSH AFTER USING IV ACCESS 06/15/17 21:00 06/23/17 01:32 Sodium Chloride (NS Flush) 2 ml BID IV FLUSH 06/15/17 21:00 06/25/17 21:19 Senna/Docusate Sodium (Anamaria-Colace) 1 tab BID PO 06/15/17 21:00 06/25/17 08:07 Potassium Chloride (KCl) 20 meq Q12HR PO 06/16/17 09:00 06/25/17 21:13 Levetriacetam (Keppra) 1,000 mg BID PO 06/16/17 14:00 06/25/17 21:13 Diltiazem HCl (Cardizem) 30 mg QID PO 06/17/17 18:00 06/25/17 21:18 Hydroxyzine HCl (Atarax) 50 mg Q6H PRN PO pruritis 06/22/17 03:15 06/22/17 21:28 Pentoxifylline (TRENtal SR) 400 mg DAILY PO 06/22/17 15:30 06/25/17 08:17 Furosemide (Lasix) 20 mg BID PO 06/24/17 21:00 06/25/17 21:17 Ceftriaxone Sodium 1000 mg/ Sodium Chloride 100 ml @ 200 mls/hr Q12H IV 06/24/17 17:00 06/25/17 17:01 Apixaban (Eliquis) 5 mg Q12H PO 06/25/17 18:00 06/25/17 17:00 Objective Remarks GENERAL: Well-nourished, well-developed patient. SKIN: Warm and dry. HEAD: Normocephalic. EYES: No scleral icterus. No injection or drainage. NECK: Supple, trachea midline. No JVD or lymphadenopathy. LYMPHATIC: No adenopathy. CARDIOVASCULAR: Regular rate and rhythm without murmurs. RESPIRATORY: Breath sounds equal bilaterally. No accessory muscle use. GASTROINTESTINAL: Abdomen soft, non-tender, nondistended. EXTREMITIES: No cyanosis, or edema. MUSCULOSKELETAL: Adequate muscle tone. NEUROLOGICAL: No obvious focal deficit. Awake, alert, and oriented x3. PSYCHIATRIC: Appropriate mood and affect; insight and judgment normal. Assessment/Plan Problem List: (1) CLL (chronic lymphocytic leukemia) ICD Codes: C91.90 - Lymphoid leukemia, unspecified not having achieved remission Plan: --diagnosed in 2016, has not required treatment in the past. --flow cytometry shows good prognostic factors (2) Normocytic anemia ICD Codes: D64.9 - Anemia, unspecified Plan: --haptoglobin low (?d/t poor synthetic liver function?), LDH WNL --B12 WNL --no evidence of iron deficiency (3) Thrombocytopenia ICD Codes: D69.6 - Thrombocytopenia, unspecified Plan: --U/S Abdomen shows enlarged liver and spleen. (4) Atrial fibrillation ICD Codes: I48.91 - Unspecified atrial fibrillation Plan: --Cleared for full intensity anticoagulation provided platelet count remains greater than 50K. -on Lovenox Assessment 62y/o male admitted under [facility] for intoxication History of chronic lymphocytic leukemia. Anemia. Thrombocytopenia. Alcohol abuse. History of arteriovenous malformation. Plan 1. CLL: elevated ANC. Per patient report diagnosed in 2016. Flow cytometry with CLL with good prognosic features. 2. Atrial fibrillation with RVR: followed by cardiology: currently on apixaban. Risks vs benefits of apixaban in the setting of etoh hepatitis/ cirrhosis, Child-Tolentino C (elevated bili, low albumin, ascites) use is not recommended. Metabolized in liver cyp system. 3. History of alcohol abuse, etoh cirrhosis: evidence of nodular contour on ultrasound, ascites, abnormal LFTs. Will consult hepatology team to eval for cirrhosis. 4. TCP: multiple factors contributing including CLL, splenomegaly, toxic effect of etoh on bone marrow. B12, folate replete (after MVI replacement at hospital). LDH normal, haptoglobin low. Do not supect TMA, ITP. Haptoglobin can be low in liver disease. Janine Ruth MD June 26, 2017 00:07
[2017-06-26] MEDS: cefTRIAXone INJ 1,000 MG in SODIUM CHLORIDE 0.9% INJ 100 ML IV SCH ×2 (05:15→17:01)
[2017-06-26] MEDS: APIXABAN 5 MG TABLET PO SCH (06:00)
[2017-06-26] MEDS: POTASSIUM CHLORIDE 20 MEQ CONTROLLED RELEASE TAB PO SCH ×2 (07:38→21:48)
[2017-06-26] MEDS: THIAMINE HCL 100 MG TAB PO SCH (07:38)
[2017-06-26] MEDS: PENTOXIFYLLINE 400 MG CONTROLLED RELEASE TAB PO SCH (07:38)
[2017-06-26] MEDS: DOCUSATE SODIUM 50 MG/SENNA 8.6 MG TAB PO SCH ×2 (07:39→21:48)
[2017-06-26] MEDS: SODIUM CHLORIDE 0.9% FLUSH 10 ML FLUSH IV FLUSH SCH ×2 (07:39→21:48)
[2017-06-26] MEDS: levETIRAcetam 500 MG TAB PO SCH ×2 (07:39→21:48)
[2017-06-26] MEDS: FUROSEMIDE 20 MG TAB PO SCH ×2 (07:39→21:48)
[2017-06-26] MEDS: DILTIAZEM HCL 30 MG TAB PO SCH ×4 (07:39→21:48)
[2017-06-26 07:44] LABS: AUTOMATED NEUTROPHIL # 4.2 TH/MM3 (1.8-7.7); BASOPHIL # 0.1 TH/MM3 (0-0.2); BASOPHIL % 0.8 % (0.0-2.0); EOSINOPHIL # 0.1 TH/MM3 (0-0.4); EOSINOPHIL % 0.6 % (0.0-4.0); HEMATOCRIT 30.1 % (39.0-51.0); HEMOGLOBIN 10.2 GM/DL (13.0-17.0); LYMPH % 66.6 % (9.0-44.0); LYMPHOCYTE # 11.6 TH/MM3 (1.0-4.8); MEAN CELL VOLUME 98.5 FL (80.0-100.0); MEAN CORPUSCULAR HEMOGLOBIN 33.2 PG (27.0-34.0); MEAN CORPUSCULAR HGB CONC 33.8 % (32.0-36.0); MEAN PLATELET VOLUME 9.3 FL (7.0-11.0); MONO % 7.7 % (0.0-8.0); MONOCYTE # 1.3 TH/MM3 (0-0.9); NEUT % 24.3 % (16.0-70.0); PLATELET COUNT 107 TH/MM3 (150-450); RED BLOOD COUNT 3.06 MIL/MM3 (4.50-5.90); RED CELL DISTRIBUTION WIDTH 18.9 % (11.6-17.2); WHITE BLOOD COUNT 17.5 TH/MM3 (4.0-11.0)
[2017-06-26 07:59] LABS: INTERNATIONAL NORMALIZED RATIO 1.4 RATIO; PROTHROMBIN TIME - PATIENT 14.3 SEC (9.8-11.6)
[2017-06-26 09:44] LABS: BASOPHILS 1 % (0-2); MONOCYTES 4 % (0-8); NEUTROPHIL # MANUAL DIFF 4.2 TH/MM3 (1.8-7.7); POLYS (SEG NEUTROPHILS) 24 % (16-70)
[2017-06-26 09:46] LABS: LYMPHOCYTES 71 % (9-44)
[2017-06-26 09:47] LABS: SMUDGE CELLS PRESENT PRESENT
[2017-06-26 12:12] LABS: AMYLASE BODY FLUID 49 U/L; AMYLASE BODY FLUID TYPE PERITONEAL
--- NOTE | 2017-06-26 15:02 | HHI.GIFU ---
Subjective Remarks Pt resting in bed. Really wants a popsicle. (Estrellita Weeks) Objective Vitals I&O Vital Signs Date Time Temp Pulse Resp B/P (MAP) Pulse Ox O2 Delivery O2 Flow Rate FiO2 06/26/17 12:05 98.0 84 19 112/62 (79) 93 06/26/17 12:00 79 06/26/17 08:05 98.0 85 19 111/61 (78) 92 06/26/17 08:00 85 06/26/17 07:00 Room Air 06/26/17 04:00 97.8 87 18 109/64 (79) 06/26/17 04:00 87 06/26/17 00:00 98.9 88 19 116/60 (78) 94 06/26/17 00:00 87 06/25/17 21:33 98.0 90 18 112/65 (81) 95 06/25/17 20:00 Room Air 06/25/17 20:00 87 06/25/17 16:00 81 06/25/17 16:00 98.2 88 16 100/55 (70) 95 I/O 06/25/17 06/25/17 06/25/17 06/26/17 06/26/17 06/26/17 07:00 15:00 23:00 07:00 15:00 23:00 Intake Total 800 ml 3 ml 600 ml 550 ml Output Total 2000 ml 300 ml 1400 ml Balance -1200 ml 3 ml 300 ml -850 ml Intake Oral 800 ml 600 ml 450 ml IV Total 3 ml 100 ml Output Urine Total 2000 ml 300 ml 1400 ml # Voids 2 # Bowel Movements 2 1 Laboratory Laboratory Tests Test 06/26/17 06:30 06/26/17 06:33 White Blood Count 17.5 Red Blood Count 3.06 Hemoglobin 10.2 Hematocrit 30.1 Mean Corpuscular Volume 98.5 Mean Corpuscular Hemoglobin 33.2 Mean Corpuscular Hemoglobin Concent 33.8 Red Cell Distribution Width 18.9 Platelet Count 107 Mean Platelet Volume 9.3 Neutrophils (%) (Auto) 24.3 Lymphocytes (%) (Auto) 66.6 Monocytes (%) (Auto) 7.7 Eosinophils (%) (Auto) 0.6 Basophils (%) (Auto) 0.8 Neutrophils # (Auto) 4.2 Lymphocytes # (Auto) 11.6 Monocytes # (Auto) 1.3 Eosinophils # (Auto) 0.1 Basophils # (Auto) 0.1 CBC Comment AUTO DIFF Differential Total Cells Counted 100 Neutrophils % (Manual) 24 Lymphocytes % 71 Monocytes % 4 Basophils % 1 Neutrophils # (Manual) 4.2 Differential Comment FINAL DIFF MANUAL Smudge Cells PRESENT Platelet Estimate LOW Platelet Morphology Comment NORMAL Prothrombin Time 14.3 Prothromb Time International Ratio 1.4 Activated Partial Thromboplast Time 30.7 Date/Time Source Procedure Growth Status 06/15/17 17:50 Blood Peripheral Aerobic Blood Culture - Final NO GROWTH IN 5 DAYS Complete 06/15/17 17:50 Blood Peripheral Anaerobic Blood Culture - Final NO GROWTH IN 5 DAYS Complete 06/25/17 11:40 Fluid Peritoneal Fluid Gram Stain - Final Resulted 06/25/17 11:40 Fluid Peritoneal Fluid Body Fluid Culture - Preliminary NO GROWTH IN 24 HOURS. Resulted Imaging Last Impressions Cyst Biopsy Asp-Paracentesis US 06/25/17 0000 Signed Impressions: Service Date/Time: Sunday, June 25, 2017 11:02 - CONCLUSION: Uncomplicated ultrasound guided paracentesis. Patient received albumin per protocol. Ernie Hubbard MD FACR Abdomen/Pelvis CT 06/23/17 0000 Signed Impressions: Service Date/Time: Friday, June 23, 2017 20:38 - CONCLUSION: 1. Extensive ascites. 2. Nodular heterogeneous liver suggesting cirrhosis with recanalization of the umbilical vein. 3. Mild splenomegaly. 4. Multiple low-density lesions scattered throughout the liver which are indeterminate. 5. Uncomplicated colonic diverticulosis. 6. Posterior bibasilar atelectasis. 7. Scattered minimally prominent retroperitoneal lymph nodes which are nonspecific. Delfino Renee MD Abdomen Ultrasound 06/17/17 0000 Signed Impressions: Service Date/Time: Saturday, June 17, 2017 07:40 - CONCLUSION: The liver is upper limits normal in size, predominantly increased echotexture is noted and heterogeneous overall appearance without focal mass. There is a history of hepatic steatosis. Suggestion of slightly nodular contour may represent underlying cirrhosis. Splenomegaly and moderate ascites also noted. Gallbladder sludge. Sj Lui MD Chest X-Ray 06/15/17 5822 Signed Impressions: Service Date/Time: Thursday, June 15, 2017 17:52 - CONCLUSION: Trace atelectasis/scarring of the left base. Similar findings were seen in February. Agapito Alvarez MD Physical Exam HEENT: Normocephalic; atraumatic; (+) icterus CHEST: Even/unlabored CARDIAC: irr HR ABDOMEN: Distended,soft, nontender, bowel sounds active SKIN: (+) jaundice. 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 DF-37 Labs: AST-216 ALT-61 T bili-4.1 Thrombocytopenia (platelets-128) Coagulopathy (INR 1.9) Hypoalbuminemia ( albumin-2.2) Abdomen US (06/17) --> The liver is upper limits normal in size, predominantly increased echotexture is noted and heterogeneous overall appearance without focal mass. There is a history of hepatic steatosis. Suggestion of slightly nodular contour may represent underlying cirrhosis. Splenomegaly and moderate ascites also noted. Gallbladder sludge. Liver Work up: Hepatitis B core IgM Ab indeterminate H, antigen negative Hepatitis A and C negative CAROLYN, AMA, and ASMA negative. [id number] Iron- 148 TIBC-164 %sat-90.4 Ferritin-192 Ammonia-24 AFP- 3.6 Ceruloplasmin-21 [id number] - Leukocytosis- secondary to CLL. Afebrile Diagnosed with SIRS on arrival, was on broad spectrum abx, blood cultures negative - Anemia, normocytic- multifactorial - A-fib- Eliquis and Cardizem- per attending (06/24) Pt complaining of abdominal discomfort and distention. CT abdomen and pelvis W IV contrast (06/23) --> . Extensive ascites. Nodular heterogeneous liver suggesting cirrhosis with recanalization of the umbilical vein. Mild splenomegaly. Multiple low-density lesions scattered throughout the liver which are indeterminate. Uncomplicated colonic diverticulosis. Posterior bibasilar atelectasis. Scattered minimally prominent retroperitoneal lymph nodes which are nonspecific. Leukocytosis- will start Rocephin for possible SBP 06/25/17 feeling better after paracentesis, 4L removed. CA 19-9 elevated 63. WBC remains elevated. pt offers no GI complaints. can't have MRI 06/26/17 liver bx not done today b/c eliquis not held. will feed pt. Plan: pt can eat today NPO after midnight await liver bx (tomorrow) cont Lasix cont Rocephin await peritoneal fluid cx await peritoneal fluid cytology await Hep B DNA Pentoxifylline etoh cessation supportive care Pt has been seen and examined by myself and Dr Mcgill and this note is on his behalf (Estrellita Weeks) Physician Comments Seen and examined with ADAM, anticoagulation on hold for liver biopsy tomorrow. liquid diet (Alfonso Mcgill MD) Problem Qualifiers (1) Alcohol dependence: Qualified Codes: F10.20 - Alcohol dependence, uncomplicated Estrellita Weeks June 26, 2017 15:02 Alfonso Mcgill MD June 26, 2017 16:26
--- NOTE | 2017-06-26 16:31 | HHI.PR ---
Subjective Remarks Resting in bed denied pain going for liver biopsy tomorrow Holding Eliquis today Objective Vitals Vital Signs Date Time Temp Pulse Resp B/P (MAP) Pulse Ox O2 Delivery O2 Flow Rate FiO2 06/26/17 12:05 98.0 84 19 112/62 (79) 93 06/26/17 12:00 79 06/26/17 08:05 98.0 85 19 111/61 (78) 92 06/26/17 08:00 85 06/26/17 07:00 Room Air 06/26/17 04:00 97.8 87 18 109/64 (79) 06/26/17 04:00 87 06/26/17 00:00 98.9 88 19 116/60 (78) 94 06/26/17 00:00 87 06/25/17 21:33 98.0 90 18 112/65 (81) 95 06/25/17 20:00 Room Air 06/25/17 20:00 87 I/O 06/25/17 06/25/17 06/25/17 06/26/17 06/26/17 06/26/17 07:00 15:00 23:00 07:00 15:00 23:00 Intake Total 800 ml 3 ml 600 ml 550 ml Output Total 2000 ml 300 ml 1400 ml Balance -1200 ml 3 ml 300 ml -850 ml Intake Oral 800 ml 600 ml 450 ml IV Total 3 ml 100 ml Output Urine Total 2000 ml 300 ml 1400 ml # Voids 2 # Bowel Movements 2 1 Result Diagram: 06/26/17 0630 06/22/17 0703 Objective Remarks GENERAL: This is a well-nourished, well-developed patient, in no apparent distress. CARDIOVASCULAR: RRR, no gallops, or rubs. RESPIRATORY: Fair air entry bilaterally. No W, R, or R GASTROINTESTINAL: Abdomen soft, no tenderness, nondistended. Positive bowel sounds MUSCULOSKELETAL: Extremities without clubbing, cyanosis, or edema. Pedal pulses appreciated NEUROLOGICAL: Awake and alert. Moves all extremity. Normal speech.no focal neurological deficit Procedures none A/P Problem List: (1) SIRS (systemic inflammatory response syndrome) ICD Code: R65.10 - Systemic inflammatory response syndrome (SIRS) of non- infectious origin without acute organ dysfunction (2) Alcohol abuse ICD Code: F10.10 - Alcohol abuse, uncomplicated (3) CLL (chronic lymphocytic leukemia) ICD Code: C91.90 - Lymphoid leukemia, unspecified not having achieved remission (4) Coagulopathy ICD Code: D68.9 - Coagulation defect, unspecified Assessment and Plan 62-year-old man with 5/6: Today worsening abdominal discomfort/distention, in light of leukocytosis, abdominal CT as above: Ascites with diverticulosis and liver lesion, GI decided on starting antibiotic, plan for paracentesis, appreciate GI consultation, patient already started on pentoxifylline by GI, monitor improvement, no further recommendation by hematology, psychiatry recommendation also appreciated recommending [facility] transfer 06/25: Status post paracentesis feeling much better and the abdomen, appreciate GI follow-up started Rocephin for possible SBP awaiting analysis, planning on MRI of the abdomen rule out thrombosis, continue monitoring closely 06/26: Going for liver biopsy tomorrow, hold Eliquis today, n.p.o. after midnight , appreciate GI follow-up, monitor closely A/P: 1. Atrial fibrillation with RVR Currently rate controlled s/p Esmolol drip and continue Cardizem 30 mg 4 times daily On Lovenox subcuQ, however secondary to patient's known history of alcohol abuse oral anticoagulation may be contraindicated, switch Lovenox to Eliquis 2. SIRS Resolved 3. Alcohol Abuse/liver cirrhosis/alcoholic hepatitis high risk for withdrawal, Seizure Precautions, CIWA, MVT/Thiamine/Folate replacement. Op f/u Appreciate GI follow-up, started on pentoxifylline 4. CLL Appreciate input from hematology, pt is poor candidate for intervention/ treatment in light of heavy alcohol abuse and non-compliance. Follow-up flow cytometry 5. Anemia Monitor H&H 6. Thrombocytopenia Monitor CBC 7. Sz DO. Continue Keppra. Sz precautions 8. Suicidal ideations-on restraints, sitter as needed, consult psychiatry. Discharge Planning Pending improvement. Rajwinder Chapman MD June 26, 2017 16:31
[2017-06-26] MEDS: hydrOXYzine HCL 50 MG TAB PO PRN (21:48)
[2017-06-27] VITALS: BP 106/58; PULSE 85; PULSE 89; RESP 18; TEMP 98.9; O2SAT 95
[2017-06-27 04:00] VITALS: BP 119/74; PULSE 87; PULSE 96; RESP 17; TEMP 98.4; O2SAT 94
[2017-06-27] MEDS: cefTRIAXone INJ 1,000 MG in SODIUM CHLORIDE 0.9% INJ 100 ML IV SCH (05:44)
== END 2017-06-27 09:13 | disposition left against medical advice (07) | DRG 894 ==
LOC: NEPD 15:54 → NEDA 20:55 → N04B 21:48 → HIME 06-17 15:00 → N04B 06-19 18:26 → N04A 06-23 13:26
PROVIDERS: ADMIT Hospitalist; ATTEND Hospitalist
PROC: 0W9G3ZX Drainage of Peritoneal Cavity, Percutaneous Approach, Diagnostic (ICD-10-PCS; principal; 2017-06-25)
DX: F10.129 Alcohol abuse with intoxication, unspecified (principal); D68.9 Coagulation defect, unspecified; C91.10 Chronic lymphocytic leukemia of B-cell type not having achieved remission; R65.10 Systemic inflammatory response syndrome (SIRS) of non-infectious origin without acute organ dysfunction; E87.2 Acidosis; D69.6 Thrombocytopenia, unspecified; Y90.8 Blood alcohol level of 240 mg/100 ml or more; Z91.19 Patient's noncompliance with other medical treatment and regimen; K76.0 Fatty (change of) liver, not elsewhere classified; K70.11 Alcoholic hepatitis with ascites; K70.31 Alcoholic cirrhosis of liver with ascites; D64.9 Anemia, unspecified; I48.91 Unspecified atrial fibrillation; R56.9 Unspecified convulsions; F43.21 Adjustment disorder with depressed mood; Z87.74 Personal history of (corrected) congenital malformations of heart and circulatory system; Z78.1 Physical restraint status; Z86.010 Personal history of colon polyps
CPT/HCPCS: 49083; 71045; 74177; 76700; 80053; 80074; 80202; 80307; 81001; 82042; 82103; 82105; 82140; 82150; 82247; 82248; 82378; 82390; 82550; 82552; 82607; 82728; 82746; 82945; 82948; 83010; 83520; 83540; 83550; 83605; 83615; 83735; 84155; 84157; 84443; 84484; 85007; 85027; 85384; 85610; 85730; 86038; 86255; 86301; 86317; 86703; 86704; 87040; 87070; 87205; 87350; 87517; 87641; 88112; 89051; 93005; 93306; 96365; 96366; 96367; 96368; 96375; C1729; J0696; J1650; J2060; J2405; J2543; J3370; J3411; J3475; J3480; J7030; J7040; J7050; P9047; Q0163; Q9963; Q9967

== ENCOUNTER 2017-07-30 16:16 | Observation (INO) | payer MEDICAID, OTHER ==
[~2017-07-30] VITALS: Ht 177.8 cm; Wt 100.0 kg
[~2017-07-30 16:16] MED LIST changes: +APIX5TAB PO; +THIA100 PO
[2017-07-30 16:56] VITALS: BP 104/61; PULSE 89; RESP 18; TEMP 98.6; O2SAT 94
[2017-07-30 17:57] LABS: AUTOMATED NEUTROPHIL # 4.5 TH/MM3 (1.8-7.7); BASOPHIL # 0.1 TH/MM3 (0-0.2); BASOPHIL % 0.4 % (0.0-2.0); EOSINOPHIL % 0.1 % (0.0-4.0); HEMATOCRIT 32.3 % (39.0-51.0); HEMOGLOBIN 10.9 GM/DL (13.0-17.0); LYMPH % 67.3 % (9.0-44.0); LYMPHOCYTE # 11.2 TH/MM3 (1.0-4.8); MEAN CELL VOLUME 97.5 FL (80.0-100.0); MEAN CORPUSCULAR HEMOGLOBIN 32.9 PG (27.0-34.0); MEAN CORPUSCULAR HGB CONC 33.7 % (32.0-36.0); MEAN PLATELET VOLUME 8.4 FL (7.0-11.0); MONO % 4.9 % (0.0-8.0); MONOCYTE # 0.8 TH/MM3 (0-0.9); NEUT % 27.3 % (16.0-70.0); PLATELET COUNT 126 TH/MM3 (150-450); RED BLOOD COUNT 3.31 MIL/MM3 (4.50-5.90); RED CELL DISTRIBUTION WIDTH 16.3 % (11.6-17.2); WHITE BLOOD COUNT 16.6 TH/MM3 (4.0-11.0)
[2017-07-30 18:21] LABS: BICARBONATE 21.1 MEQ/L (21.0-32.0); CALCIUM 7.2 MG/DL (8.5-10.1); CREATININE 0.78 MG/DL (0.60-1.30); TOTAL BILIRUBIN ADULT 4.7 MG/DL (0.2-1.0); TOTAL PROTEIN 7.3 GM/DL (6.4-8.2)
[2017-07-30 18:36] VITALS: BP 101/63; PULSE 94; RESP 18; O2SAT 94
--- NOTE | 2017-07-30 18:36 | RADRPT ---
EXAM DATE: 07/30/2017 6:18 PM EDT AGE/SEX: 62 years / Male INDICATIONS: Altered mental status. CLINICAL DATA: This is the patient's initial encounter. Patient reports that signs and symptoms have been present for 1 day and indicates a pain score of 0/10. MEDICAL/SURGICAL HISTORY: Hypertension. Aneurysm, intracranial. Leukemia. . Aneurysm clips, coils . RADIATION DOSE: 36.09 CTDI (mGy) COMPARISON: [facility], CT BRAIN W/O CONTRAST, 09/18/2016. . TECHNIQUE: CT of the head without contrast. Using automated exposure control and adjustment of the mA and/or kV according to patient size, radiation dose was kept as low as reasonably achievable to ob tain optimal diagnostic quality images. FINDINGS: The left maxillary sinus is completely opacified. Again noted is evidence for aneurysm clipping and p ostcraniotomy changes and cortical as well. There is no evidence for intracranial hemorrhage, mass ef fect, mass lesions, or edema. The visualized bony structures appear intact. Slight degree of brain atrophy is seen. Slight periventricular white matter changes are seen nonspecific mostly consistent w ith chronic small vessel ischemic changes. There are no signs of acute infarction for technique. CONCLUSION: Slight chronic small vessel ischemic and atrophic changes, stable postsurgical changes. Electronically signed by: Laney Serna MD 07/30/2017 6:35 PM EDT
--- NOTE | 2017-07-30 18:37 | PD ---
HPI Chief Complaint: General Weakness Time Seen by Provider: 17:14 Travel History International Travel<30 days: No Contact w/Intl Traveler<30days: No Traveled to known affect area: No History of Present Illness HPI This is a 62-year-old male with a history of alcohol abuse, CLL, atrial fibrillation, adjustment disorder with depressed mood, seizure disorder, presents via EMS after he was reportedly found in the streets confused. The patient denies any acute injury. The patient states that he has been in the heat and when he is out in the heat for long periods of time he gets confused. There is no reported fevers, chills. There is no reported nausea vomiting diarrhea. The patient states that he is no longer taking his Keppra. He denies taking blood thinners although Eliquis is listed on his mar. There are no other complaints at the time of my evaluation. PFSH Past Medical History Anxiety: Yes Depression: Yes Cancer: No Cardiovascular Problems: Yes COPD: Yes Diabetes: No Diminished Hearing: No Endocrine: No Gastrointestinal Disorders: Yes Headaches: Yes Hypertension: Yes (no meds) Immune Disorder: No Inguinal Hernia: Yes (left side repaired) Musculoskeletal: Yes Psychiatric: Yes Respiratory: Yes Immunizations Current: Yes Seizures: Yes Tetanus Vaccination: < 5 Years Influenza Vaccination: Yes Past Surgical History Abdominal Surgery: Yes (left groin-hernia repair) Neurologic Surgery: Yes (MULTIPLE BRAIN ANYEURISM SX) Other Surgery: Yes Social History Alcohol Use: Yes (DAILY) Tobacco Use: No Substance Use: Yes (ETOH 8-10 BEERS DAILY) Allergies-Medications (Allergen,Severity, Reaction): Coded Allergies: No Known Allergies (Unverified Allergy, Unknown, 06/19/17) MRI PRECAUTION (Verified Adverse Reaction, Severe, ANEURYSM CLIPS, 06/24/17) DML, 06/24/17, Reported Meds & Prescriptions Reported Meds & Active Scripts Active Eliquis (Apixaban) 5 Mg Tab 5 Mg PO BID Gnp Vitamin B-1 (Thiamine HCl) 100 Mg Tab 100 Mg PO DAILY Reported Keppra (Levetiracetam) 250 Mg Tab 1,000 Mg PO BID Review of Systems ROS Limitations: Altered Mental Status (Slight confusion) Except as stated in HPI: all other systems reviewed are Neg General / Constitutional: No: Fever, Chills HENT: No: Headaches, Lightheadedness, Neck Pain Cardiovascular: No: Chest Pain or Discomfort, Palpitations Respiratory: No: Cough, Shortness of Breath Gastrointestinal: No: Nausea, Vomiting, Diarrhea, Abdominal Pain Genitourinary: No: Dysuria, Decreased Urinary Output Musculoskeletal: No: Weakness, Pain Neurologic: Positive: Change in Mentation, No: Weakness, Dizziness (Mildly confused), Syncope Psychiatric: Positive: Substance Abuse (History of alcohol abuse) Physical Exam Narrative GENERAL: Well-developed well-nourished male in no acute respiratory distress. SKIN: Focused skin assessment warm/dry. HEAD: Atraumatic. Normocephalic. EYES: Pupils equal and round. No scleral icterus. No injection or drainage. ENT: No nasal bleeding or discharge. Mucous membranes pink and moist. NECK: Trachea midline. Supple. CARDIOVASCULAR: Regular rate and rhythm. No murmur appreciated. RESPIRATORY: No accessory muscle use. Clear to auscultation. Breath sounds equal bilaterally. GASTROINTESTINAL: Abdomen soft, non-tender, nondistended. Hepatic and splenic margins not palpable. MUSCULOSKELETAL: No obvious deformities. No clubbing. No cyanosis. No edema. NEUROLOGICAL: Awake and mildly confused. No obvious cranial nerve deficits. Motor grossly within normal limits. Normal speech. Data Data Last Documented VS Vital Signs Date Time Temp Pulse Resp B/P (MAP) Pulse Ox O2 Delivery O2 Flow Rate FiO2 07/30/17 18:36 94 18 101/63 (76) 94 Room Air 07/30/17 16:56 98.6 Orders Orders Electrocardiogram (07/30/17 ) Complete Blood Count With Diff (07/30/17 17:27) Comprehensive Metabolic Panel (07/30/17 17:27) Urinalysis - C+S If Indicated (07/30/17 17:27) Chest, Single Ap (07/30/17 17:27) Ct Brain W/O Iv Contrast(Rout) (07/30/17 17:27) Iv Access Insert/Monitor (07/30/17 17:27) Ecg Monitoring (07/30/17 17:27) Oximetry (07/30/17 17:27) Drug Screen, Random Urine (07/30/17 17:27) Alcohol (Ethanol) (07/30/17 17:27) Sodium Chlor 0.9% 1000 Ml Inj (Ns 1000 M (07/30/17 19:00) Labs Laboratory Tests Test 07/30/17 17:30 White Blood Count 16.6 TH/MM3 Red Blood Count 3.31 MIL/MM3 Hemoglobin 10.9 GM/DL Hematocrit 32.3 % Mean Corpuscular Volume 97.5 FL Mean Corpuscular Hemoglobin 32.9 PG Mean Corpuscular Hemoglobin Concent 33.7 % Red Cell Distribution Width 16.3 % Platelet Count 126 TH/MM3 Mean Platelet Volume 8.4 FL Neutrophils (%) (Auto) 27.3 % Lymphocytes (%) (Auto) 67.3 % Monocytes (%) (Auto) 4.9 % Eosinophils (%) (Auto) 0.1 % Basophils (%) (Auto) 0.4 % Neutrophils # (Auto) 4.5 TH/MM3 Lymphocytes # (Auto) 11.2 TH/MM3 Monocytes # (Auto) 0.8 TH/MM3 Eosinophils # (Auto) 0.0 TH/MM3 Basophils # (Auto) 0.1 TH/MM3 CBC Comment AUTO DIFF Differential Total Cells Counted 100 Neutrophils % (Manual) 27 % Lymphocytes % 68 % Monocytes % 5 % Neutrophils # (Manual) 4.5 TH/MM3 Differential Comment FINAL DIFF MANUAL Smudge Cells PRESENT Platelet Estimate LOW Platelet Morphology Comment NORMAL Blood Urea Nitrogen 8 MG/DL Creatinine 0.78 MG/DL Random Glucose 95 MG/DL Total Protein 7.3 GM/DL Albumin 2.0 GM/DL Calcium Level 7.2 MG/DL Alkaline Phosphatase 71 U/L Aspartate Amino Transf (AST/SGOT) 195 U/L Alanine Aminotransferase (ALT/SGPT) 43 U/L Total Bilirubin 4.7 MG/DL Sodium Level 136 MEQ/L Potassium Level 4.0 MEQ/L Chloride Level 103 MEQ/L Carbon Dioxide Level 21.1 MEQ/L Anion Gap 12 MEQ/L Estimat Glomerular Filtration Rate 101 ML/MIN Protein Corrected Calcium 7.2 MG/DL Ethyl Alcohol Level 232 MG/DL [facility] Medical Decision Making Medical Screen Exam Complete: Yes Emergency Medical Condition: Yes Differential Diagnosis Metabolic derangement versus sepsis versus postictal state from seizure versus heat related illness Narrative Course 62-year-old male history of CLL, presents here with altered sensorium. Patient is noted to have a calcium of 7.2. The patient will be admitted for this. The patient will likely need a consult with case management. Diagnosis Primary Impression: Hypocalcemia Additional Impressions: CLL (chronic lymphocytic leukemia) Chronic alcohol abuse History of atrial fibrillation Reported history of seizure disorder Admitting Information Admitting Physician Requests: Observation Keith Govea MD Jul 30, 2017 18:37
--- NOTE | 2017-07-30 18:44 | RADRPT ---
EXAM DATE: 07/30/2017 6:12 PM EDT AGE/SEX: 62 years / Male INDICATIONS: Altered mental status. CLINICAL DATA: This is the patient's initial encounter. Patient reports that signs and symptoms have been present for 1 day and indicates a pain score of Nonresponsive. MEDICAL/SURGICAL HISTORY: . Hypertension. Chronic obstructive pulmonary disease. None. COMPARISON: [facility] [place], CHEST SINGLE AP, 06/15/2017. . FINDINGS: There is slight atelectasis left lung base. Heart and mediastinum are unremarkable. CONCLUSION: Lung base atelectasis. Electronically signed by: Laney Serna MD 07/30/2017 6:43 PM EDT
[2017-07-30] MEDS ORDERED: SODIUM CHLOR 0.9% 1000 ML INJ 1,000 ML IV ONE (19:00)
[2017-07-30 19:05] LABS: CALCIUM-PROTEIN CORRECTED 7.2 MG/DL (8.5-10.1)
[2017-07-30 19:08] LABS: LYMPHOCYTES 68 % (9-44); MONOCYTES 5 % (0-8); NEUTROPHIL # MANUAL DIFF 4.5 TH/MM3 (1.8-7.7); POLYS (SEG NEUTROPHILS) 27 % (16-70)
[2017-07-30 19:11] LABS: SMUDGE CELLS PRESENT PRESENT
[2017-07-30] MEDS ORDERED: PROCHLORPERAZINE 25 MG SUPP RECTAL PRN (19:45)
[2017-07-30] MEDS ORDERED: LORazepam 1 MG TAB PO PRN (19:45)
[2017-07-30] MEDS ORDERED: RESP: ALBUTEROL 2.5 MG/IPRATROPIUM 0.5 MG NEB (PRN) NEB (19:45)
[2017-07-30] MEDS ORDERED: LORazepam 2 MG TAB PO PRN (19:45)
[2017-07-30] MEDS ORDERED: ACETAMINOPHEN 325 MG TAB PO PRN (19:45)
[2017-07-30] MEDS ORDERED: NALOXONE HCL 0.4 MG/ML AMP IV PUSH PRN (19:45)
[2017-07-30] MEDS ORDERED: FLUMAZENIL 0.5 MG/5 ML VIAL IV PUSH PRN (19:45)
[2017-07-30] MEDS ORDERED: LORazepam 2 MG/ML VIAL IV PUSH PRN ×5 (19:45)
[2017-07-30] MEDS ORDERED: SODIUM CHLORIDE 0.9% FLUSH 10 ML FLUSH IV FLUSH PRN (19:45)
[2017-07-30] MEDS ORDERED: CALCIUM GLUCONATE INJ 1 GM in DEXTROSE 5% IN WATER 100ML INJ 100 ML IV ONE ×2 (20:00)
--- NOTE | 2017-07-30 20:04 | HHI.HP ---
[facility] Primary [facility]ician No Primary Care Physician Admission Diagnosis hypocalcemia, CLL, afib, seizure disorder. Diagnoses: Travel History International Travel<30 Days: No Contact w/Intl Traveler <30 Da: No Traveled to Known Affected Are: No History of Present Illness 62-year-old male with past medical history significant for atrial fibrillation ( noncompliant with anti-coagulation), CLL, alcohol abuse and seizure disorder presents to the emergency department via EMS after he was reportedly found in the streets confused. The patient has no memory of the preceding events and cannot tell me why he is here. He denies any chest pain or shortness of breath. No abdominal pain. No nausea/vomiting/diarrhea. No fever/chills. No lateralizing signs/symptoms. The patient reports that he is noncompliant with his seizure medications because they "do not do what they are supposed to do." He states he has not been taking any medications recently. Review of Systems Except as stated in HPI: all other systems reviewed are Neg Past Family Social History Past Medical History Atrial fibrillation CLL Alcohol abuse Seizure disorder Past Surgical History Brain aneurysm repair 7 Reported Medications Reported Meds & Active Scripts Active Eliquis (Apixaban) 5 Mg Tab 5 Mg PO BID Gnp Vitamin B-1 (Thiamine HCl) 100 Mg Tab 100 Mg PO DAILY Reported Keppra (Levetiracetam) 250 Mg Tab 1,000 Mg PO BID Allergies: Coded Allergies: No Known Allergies (Unverified Allergy, Unknown, 06/19/17) MRI PRECAUTION (Verified Adverse Reaction, Severe, ANEURYSM CLIPS, 06/24/17) DML, 06/24/17, Family History Father with CAD Social History Drinks approximately 6-8 beers daily. Denies tobacco and illicit drugs. Physical Exam Vital Signs Vital Signs Date Time Temp Pulse Resp B/P (MAP) Pulse Ox O2 Delivery O2 Flow Rate FiO2 07/30/17 18:36 94 18 101/63 (76) 94 Room Air 07/30/17 17:02 84 16 94 Aerosol Mask 07/30/17 16:56 98.6 89 18 104/61 (75) 94 Physical Exam GENERAL: male sitting up in bed SKIN: No rashes, ecchymoses or lesions. Cool and dry. HEAD: Atraumatic. Normocephalic. No temporal or scalp tenderness. EYES: Pupils equal round and reactive. Extraocular motions intact. No scleral icterus. No injection or drainage. ENT: Nose without bleeding, purulent drainage or septal hematoma. Throat without erythema, tonsillar hypertrophy or exudate. Uvula midline. Airway patent. NECK: Trachea midline. No JVD or lymphadenopathy. Supple, nontender, no meningeal signs. CARDIOVASCULAR: Regular rate and rhythm without murmurs, gallops, or rubs. RESPIRATORY: Clear to auscultation. Breath sounds equal bilaterally. No wheezes , rales, or rhonchi. GASTROINTESTINAL: Abdomen soft, non-tender, nondistended. No hepato-splenomegaly , or palpable masses. No guarding. MUSCULOSKELETAL: Extremities without clubbing, cyanosis, or edema. No joint tenderness, effusion, or edema noted. No calf tenderness. NEUROLOGICAL: Awake and alert. Cranial nerves II through XII intact. Motor and sensory grossly within normal limits. Normal speech. Laboratory Laboratory Tests Test 07/30/17 17:30 White Blood Count 16.6 Red Blood Count 3.31 Hemoglobin 10.9 Hematocrit 32.3 Mean Corpuscular Volume 97.5 Mean Corpuscular Hemoglobin 32.9 Mean Corpuscular Hemoglobin Concent 33.7 Red Cell Distribution Width 16.3 Platelet Count 126 Mean Platelet Volume 8.4 Neutrophils (%) (Auto) 27.3 Lymphocytes (%) (Auto) 67.3 Monocytes (%) (Auto) 4.9 Eosinophils (%) (Auto) 0.1 Basophils (%) (Auto) 0.4 Neutrophils # (Auto) 4.5 Lymphocytes # (Auto) 11.2 Monocytes # (Auto) 0.8 Eosinophils # (Auto) 0.0 Basophils # (Auto) 0.1 CBC Comment AUTO DIFF Differential Total Cells Counted 100 Neutrophils % (Manual) 27 Lymphocytes % 68 Monocytes % 5 Neutrophils # (Manual) 4.5 Differential Comment FINAL DIFF MANUAL Smudge Cells PRESENT Platelet Estimate LOW Platelet Morphology Comment NORMAL Blood Urea Nitrogen 8 Creatinine 0.78 Random Glucose 95 Total Protein 7.3 Albumin 2.0 Calcium Level 7.2 Alkaline Phosphatase 71 Aspartate Amino Transf (AST/SGOT) 195 Alanine Aminotransferase (ALT/SGPT) 43 Total Bilirubin 4.7 Sodium Level 136 Potassium Level 4.0 Chloride Level 103 Carbon Dioxide Level 21.1 Anion Gap 12 Estimat Glomerular Filtration Rate 101 Protein Corrected Calcium 7.2 Ethyl Alcohol Level 232 Result Diagram: 07/30/17172907/30/171729 Caprin[place]ayito VTE Risk Assessment Caprini VTE Risk Assessment: Mod/High Risk (score >= 2) Caprini Risk Assessment Model Point Value = 1 Point Value = 2 Point Value = 3 Point Value = 5 Age 41-60 Minor surgery BMI > 25 kg/m2 Swollen legs Varicose veins or History of unexplained or recurrent spontaneous Oral contraceptives or hormone replacement Sepsis (< 1 month) Serious lung disease, including pneumonia (< 1 month) Abnormal pulmonary function Acute myocardial infarction Congestive heart failure (< 1 month) History of inflammatory bowel disease Medical patient at bed rest Age 61-74 Arthroscopic surgery Major open surgery (> 45 min) Laparoscopic surgery (> 45 min) Malignancy Confined to bed (> 72 hours) Immobilizing plaster cast Central venous access Age >= 75 History of VTE Family history of VTE Factor V Leiden Prothrombin [id number] Lupus anticoagulant Anticardiolipin antibodies Elevated serum homocysteine Heparin-induced thrombocytopenia Other congenital or acquired thrombophilia Stroke (< 1 month) Elective arthroplasty Hip, pelvis, or leg fracture Acute spinal cord injury (< 1 month) Prophylaxis Regimen Total Risk Factor Score Risk Level Prophylaxis Regimen 0-1 Low Early ambulation 2 Moderate Order ONE of the following: *Sequential Compression Device (SCD) *Heparin 5000 units SQ BID 3-4 Higher Order ONE of the following medications: *Heparin 5000 units SQ TID *Enoxaparin/Lovenox 40 mg SQ daily (WT < 150 kg, CrCl > 30 mL/min) *Enoxaparin/Lovenox 30 mg SQ daily (WT < 150 kg, CrCl > 10-29 mL/min) *Enoxaparin/Lovenox 30 mg SQ BID (WT < 150 kg, CrCl > 30 mL/min) AND/OR *Sequential Compression Device (SCD) 5 or more Highest Order ONE of the following medications: *Heparin 5000 units SQ TID (Preferred with Epidurals) *Enoxaparin/Lovenox 40 mg SQ daily (WT < 150 kg, CrCl > 30 mL/min) *Enoxaparin/Lovenox 30 mg SQ daily (WT < 150 kg, CrCl > 10-29 mL/min) *Enoxaparin/Lovenox 30 mg SQ BID (WT < 150 kg, CrCl > 30 mL/min) AND *Sequential Compression Device (SCD) Assessment and Plan Assessment and Plan Assessment/plan: 1. Hypocalcemia Calcium gluconate IV Calcium carbonate Repeat BMP in a.m. 2. CLL Patient reports he does not follow with any physician including oncology Case management consulted to assist with follow-up 3. Atrial fibrillation Resume home [place] Currently rate controlled Case management consulted to assist in medication 4. Seizure disorder Resume [place] 5. Alcohol abuse Thiamine/folate/multivitamins [facility] protocol Monitor for signs of withdrawal FEN Regular diet Electrolytes: As above Claritza Dimas MD Jul 30, 2017 20:04
[2017-07-30] MEDS: FAMOTIDINE 20 MG TAB PO SCH (20:33)
[2017-07-30] MEDS: levETIRAcetam 500 MG TAB PO SCH (20:33)
[2017-07-30] MEDS: APIXABAN 5 MG TABLET PO SCH (20:33)
[2017-07-30] MEDS: SODIUM CHLORIDE 0.9% FLUSH 10 ML FLUSH IV FLUSH SCH (20:34)
[2017-07-30 21:15] VITALS: BP 117/68; PULSE 106; RESP 16; TEMP 98.1; O2SAT 96
[2017-07-30 21:16] LABS: BILIRUBIN, URINE SMALL (NEG); BLOOD, URINE NEG (NEG); GLUCOSE,URINE NEG (NEG); KETONE, URINE TRACE mg/dL (NEG); MUCUS URINE MANY /lpf (OCC); NITRITE,URINE NEG (NEG); PH, URINE 5.5 (5.0-8.5); SQUAMOUS EPITHELIAL CELL URINE 3 /hpf (0-5); URINE LEUKOCYTE ESTERASE TRACE (NEG)
[2017-07-30 21:20] LABS: URINE COLOR LIGHT-BROWN (YELLW/STRAW)
[2017-07-30] MEDS: CALCIUM CARBONATE 1.25 GM (CA 500 MG) TAB PO SCH (21:43)
--- NOTE | 2017-07-30 21:44 | EKG ---
Date Performed: 07/30/2017 Time Performed: 17:12:37 PTAGE: 62 years EKG: Sinus rhythm NORMAL ECG No significant change from prior electrocardiogram. PREVIOUS TRACING : 06/18/2017 09.44 DOCTOR: Marky Coreas Interpretating Date/Time 07/30/2017 21:42:28
[2017-07-30 23:38] VITALS: BP 123/65; PULSE 100; RESP 15; TEMP 98.8; O2SAT 95
[2017-07-31] VITALS (7 sets, daily range): BP systolic 108–129; BP diastolic 58–70; PULSE 93–106; RESP 17–24; TEMP 98.2–98.6; O2SAT 93–97
[2017-07-31 06:46] LABS: BASOPHIL # 0.1 TH/MM3 (0-0.2); BASOPHIL % 0.7 % (0.0-2.0); EOSINOPHIL # 0.1 TH/MM3 (0-0.4); EOSINOPHIL % 0.8 % (0.0-4.0); HEMATOCRIT 29.1 % (39.0-51.0); HEMOGLOBIN 10.1 GM/DL (13.0-17.0); LYMPH % 64.6 % (9.0-44.0); MEAN CELL VOLUME 95.6 FL (80.0-100.0); MEAN CORPUSCULAR HEMOGLOBIN 33.2 PG (27.0-34.0); MEAN CORPUSCULAR HGB CONC 34.7 % (32.0-36.0); MEAN PLATELET VOLUME 8.2 FL (7.0-11.0); MONO % 6.5 % (0.0-8.0); MONOCYTE # 0.7 TH/MM3 (0-0.9); NEUT % 27.4 % (16.0-70.0); PLATELET COUNT 96 TH/MM3 (150-450); RED BLOOD COUNT 3.04 MIL/MM3 (4.50-5.90); RED CELL DISTRIBUTION WIDTH 16.6 % (11.6-17.2); WHITE BLOOD COUNT 10.8 TH/MM3 (4.0-11.0)
[2017-07-31 06:53] LABS: BICARBONATE 21.2 MEQ/L (21.0-32.0); CALCIUM 7.5 MG/DL (8.5-10.1); CREATININE 0.61 MG/DL (0.60-1.30)
[2017-07-31 08:56] LABS: ALBUMIN 1.8 GM/DL (3.4-5.0); DIRECT BILIRUBIN ADULT 2.3 MG/DL (0.0-0.2)
[2017-07-31 08:58] LABS: INDIRECT BILIRUBIN 1.4 MG/DL (0.0-0.8); TOTAL BILIRUBIN ADULT 3.7 MG/DL (0.2-1.0); TOTAL PROTEIN 6.7 GM/DL (6.4-8.2)
[2017-07-31] MEDS: FOLIC ACID 1 MG TAB PO SCH (08:58)
[2017-07-31] MEDS: levETIRAcetam 500 MG TAB PO SCH ×2 (08:59→20:06)
[2017-07-31] MEDS: THIAMINE HCL 100 MG TAB PO SCH (08:59)
[2017-07-31] MEDS: APIXABAN 5 MG TABLET PO SCH ×2 (08:59→20:06)
[2017-07-31] MEDS: FAMOTIDINE 20 MG TAB PO SCH ×2 (08:59→20:06)
[2017-07-31] MEDS: SODIUM CHLORIDE 0.9% FLUSH 10 ML FLUSH IV FLUSH SCH ×2 (08:59→20:06)
[2017-07-31] MEDS: MULTIVITAMINS/MINERALS THERAPEUTIC TAB PO SCH (08:59)
[2017-07-31] MEDS: CALCIUM CARBONATE 1.25 GM (CA 500 MG) TAB PO SCH ×2 (08:59→20:06)
[2017-07-31 10:21] LABS: BANDS 1 % (0-6); BASOPHILS 1 % (0-2); MONOCYTES 2 % (0-8); NEUTROPHIL # MANUAL DIFF 3.7 TH/MM3 (1.8-7.7); POLYS (SEG NEUTROPHILS) 33 % (16-70); SMUDGE CELLS PRESENT PRESENT
[2017-07-31 10:22] LABS: LYMPHOCYTES 62 % (9-44)
--- NOTE | 2017-07-31 12:14 | HHI.PR ---
Subjective Remarks Follow-up for AMS, confusion, alcohol intoxication, hypocalcemia. Patient is currently awake, alert, oriented 4. He remembers drinking 7-8 beers yesterday. He states he was feeling dehydrated like he was going to pass out, so he laid down on the street. The next thing he recalls is waking up in the hospital. He admits that he has been out of his medications including Keppra and Eliquis for at least 2 weeks now. He states he does not have a PCP to follow-up with. He also has not followed up with an oncologist for his CLL. He states he drinks beer almost daily. He states when he goes a couple days without drinking, he gets the shakes, and has had seizures in the past. He denies any other medical complaints including no fever/chills, headache, lightheadedness, chest pain, palpitations, shortness of breath, nausea/vomiting , or diarrhea. He states he always has some diffuse lower abdominal discomfort , but no worse than usual. He is tolerating oral intake. Objective Vitals Vital Signs Date Time Temp Pulse Resp B/P (MAP) Pulse Ox O2 Delivery O2 Flow Rate FiO2 07/31/17 12:06 98.2 106 24 108/66 (80) 95 07/31/17 08:17 98.6 94 20 129/61 (83) 95 07/31/17 04:14 98.4 93 17 109/68 (82) 93 07/31/17 00:21 93 07/30/17 23:38 98.8 100 15 123/65 (84) 95 07/30/17 21:15 98.1 106 16 117/68 (84) 96 07/30/17 20:44 07/30/17 18:36 94 18 101/63 (76) 94 Room Air 07/30/17 17:02 84 16 94 Aerosol Mask 07/30/17 16:56 98.6 89 18 104/61 (75) 94 I/O 07/30/17 07/30/17 07/30/17 07/31/17 07/31/17 07/31/17 06:59 14:59 22:59 06:59 14:59 22:59 Intake Total 1000 ml Balance 1000 ml Intake IV Total 1000 ml Result Diagram: 07/31/17 0607 07/31/17 0607 Imaging Last Impressions Head CT 07/30/171726 Signed Impressions: CONCLUSION: Slight chronic small vessel ischemic and atrophic changes, stable postsurgical changes. Chest X-Ray 07/30/171726 Signed Impressions: CONCLUSION: Lung base atelectasis. Objective Remarks GENERAL: Well-nourished, well-developed male patient in [employer]. SKIN: Warm and dry. No rash. Multiple superficial abrasions on elbows and knees in various stages of healing. HEENT: Normocephalic. Atraumatic. Pupils equal and round. Mucous membranes pink and moist. CARDIOVASCULAR: Regular rate and rhythm. No murmur appreciated. RESPIRATORY: No accessory muscle use. Clear to auscultation. Breath sounds equal bilaterally. GASTROINTESTINAL: Abdomen soft, non-tender, nondistended. Normoactive bowel sounds x4. MUSCULOSKELETAL: No obvious deformities. Extremities without clubbing, cyanosis , or edema. NEUROLOGICAL: Awake and alert. No obvious cranial nerve deficits. Motor grossly within normal limits. Moving all extremities spontaneously. Normal speech. PSYCHIATRIC: Appropriate mood and affect; insight and judgment normal. Medications and IVs Current Medications Medications (Trade) Dose Ordered Sig/Yao Route Start Time Stop Time Status Last Admin (NS Flush) 2 ml UNSCH PRN IV FLUSH 07/30/17 19:45 (NS Flush) 2 ml BID IV FLUSH 07/30/17 21:00 07/31/17 08:59 (Tylenol) 650 mg Q4H PRN PO 07/30/17 19:45 (Compazine Supp) 25 mg Q12H PRN RECTAL 07/30/17 19:45 (Narcan Inj) 0.4 mg UNSCH PRN IV PUSH 07/30/17 19:45 (Ativan Inj) 2 mg Q10M PRN IV PUSH 07/30/17 19:45 (Duoneb Neb) 1 ampule Q4HR NEB PRN NEB 07/30/17 19:45 (Folate) 1 mg DAILY PO 07/31/17 09:00 08/05/17 08:59 07/31/17 08:58 (Vitamin B1) 100 mg DAILY PO 07/31/17 09:00 07/31/17 08:59 (Theragran M Tab) 1 tab DAILY PO 07/31/17 09:00 08/05/17 08:59 07/31/17 08:59 (Pepcid) 20 mg BID PO 07/30/17 21:00 07/31/17 08:59 (Romazicon Inj) 0.2 mg Q1M PRN IV PUSH 07/30/17 19:45 (Ativan) 1 mg Q4H PRN PO 07/30/17 19:45 (Ativan Inj) 1 mg Q4H PRN IV PUSH 07/30/17 19:45 (Ativan) 2 mg Q2H PRN PO 07/30/17 19:45 (Ativan Inj) 2 mg Q2H PRN IV PUSH 07/30/17 19:45 (Ativan Inj) 2 mg Q1H PRN IV PUSH 07/30/17 19:45 (Ativan Inj) 2 mg Q15M PRN IV PUSH 07/30/17 19:45 (Keppra) 1,000 mg BID PO 07/30/17 21:00 07/31/17 08:59 (Eliquis) 5 mg BID PO 07/30/17 21:00 07/31/17 08:59 (Oscal) 500 mg Q12HR PO 07/30/17 21:00 07/31/17 08:59 A/P Assessment and Plan 62-year-old male with past medical history significant for atrial fibrillation ( noncompliant with anti-coagulation), CLL, alcohol abuse, and seizure disorder ( noncompliant with Keppra) presents to the emergency department via EMS after he was reportedly found in the streets confused. Acute encephalopathy: Suspect secondary to alcohol intoxication with EtOH level 232 upon arrival. -Head CT reviewed, no acute findings -Monitor neuro checks -Given IV fluid hydration -Patient now AAO 4, resolved Hypocalcemia: Calcium 7.2 upon arrival -Given IV calcium gluconate -Repeat calcium improved, 7.5 -Continue on calcium supplement Alcohol abuse: Patient reports drinking 6+ beers daily -Continue thiamine/folate/multivitamin -CIWA protocol -Seizure precautions Seizure disorder: Patient noncompliant with Keppra -Restart patient's Keppra 1000 mg bid -Discussed importance of compliance with medications -Case management consulted to assist with obtaining medications and follow- up with PCP Paroxysmal atrial fibrillation: Noncompliant with anticoagulation. Currently in NSR. -Restart patient's Eliquis -Outpatient follow-up Abdominal Pain/Transaminitis: LFTs elevated, consistent with baseline compared to previous admissions. -EMR reviewed, patient with thorough gastroenterology workup on previous admission in June 2017 - hepatitis negative, tumor markers wnl, peritoneal fluid negative for malignancy -Patient with mild abdominal pain, will check abdominal ultrasound, consider paracentesis if enough fluid -Outpatient follow-up with gastroenterology CLL: chronic -needs to follow up with oncology as outpatient, mandatory referral ordered Noncompliance: chronic, with ongoing alcohol abuse -patient thoroughly counseled on importance of compliance with medications and f/up with physicians -case management consulted to assist with discharge planning DVT Prophylaxis: on Eliquis Discharge Planning Discharge pending abdominal U/S. Case management to assist with discharge planning. Evelyn Wang PA-C Jul 31, 2017 12:14 pm
[2017-07-31] MEDS ORDERED: THIA100 PO (12:23)
[2017-07-31] MEDS ORDERED: LEVE250 PO (12:23)
[2017-07-31] MEDS ORDERED: APIX5TAB PO (12:23)
--- NOTE | 2017-07-31 17:31 | RADRPT ---
EXAM DATE: 07/31/2017 4:55 PM EDT AGE/SEX: 62 years / Male INDICATIONS: Abdominal pain. CLINICAL DATA: This is the patient's initial encounter. Patient reports that signs and symptoms have been present for 1 day and indicates a pain score of 7/10. MEDICAL/SURGICAL HISTORY: . Hypertension. Chronic obstructive pulmonary disease. Cirrhosis. Ing uinal hernia. Dizziness. Numbness. Confusion. . Brain aneurysm surgery. Left groin hernia repair. COMPARISON: [facility] [place], 06/17/2017. . MEASUREMENTS: Liver:__ 18.6 cm. Common Bile Duct:___ Nonvisualized. Right Kidney:___13.2 x 6.7 x 6.6 cm . Left Kidney:___13.1 x 5.5 x 1.6 cm . Spleen:___14.9 . Aorta: The proximal portion measures Not visualized. cm maximal. FINDINGS: Liver: Coarse echotexture suggesting fatty change or diffuse hepatocellular process. Portal Vein: Portal vein flow not visualized. Common Duct: The visualized Gallbladder: Sludge is identified within the gallbladder. Gallbladder Wall: >10 mm Pancreas: Not well visualized. Right Kidney: No mass or hydronephrosis Left Kidney: No mass or hydronephrosis. Ascites: Moderate amount of free fluid is identified in the abdomen. Pleural Effusion: None Spleen: No focal lesion. Aorta: Not visualized due to overlying gas. IVC: Visualized due to overlying gas. CONCLUSION: 1. Hepatosplenomegaly with abnormal hepatic echotexture characteristic of diffuse fatty infiltration or hepatocellular disease. 2. Portal venous flow could not be documented. 3. Distended gallbladder containing sludge and thickened wall 4. Non-visualization of the pancreas, abdominal aorta or inferior vena cava 5. Moderate ascites Electronically signed by: Larry Best MD 07/31/2017 5:30 PM EDT
[2017-07-31 18:17] LABS: INTERNATIONAL NORMALIZED RATIO 1.6 RATIO; PROTHROMBIN TIME - PATIENT 16.1 SEC (9.8-11.6)
[2017-08-01] VITALS (8 sets, daily range): BP systolic 116–129; BP diastolic 59–87; PULSE 83–98; RESP 17–20; TEMP 97.8–98.7; O2SAT 94–98
--- NOTE | 2017-08-01 08:22 | HHI.PR ---
Subjective Remarks Follow up for abdominal pain, ascites. The patient reports continued diffuse abdominal pain throughout RUQ and across lower quadrants. Paracentesis unable to be done until tomorrow due to receiving Eliquis. Denies any nausea or vomiting. He was able to tolerate dinner last night. Denies fevers/chills. Denies any other medical complaints at this time. Objective Vitals Vital Signs Date Time Temp Pulse Resp B/P (MAP) Pulse Ox O2 Delivery O2 Flow Rate FiO2 08/01/17 07:36 98.3 86 18 121/70 (87) 97 08/01/17 03:19 98.4 87 17 121/59 (79) 94 08/01/17 02:25 83 07/31/17 23:38 98.2 93 17 119/58 (78) 94 07/31/17 20:34 93 07/31/17 19:26 98.5 105 17 117/70 (86) 97 07/31/17 12:06 98.2 106 24 108/66 (80) 95 07/31/17 08:17 98.6 94 20 129/61 (83) 95 Result Diagram: 07/31/17 0607 07/31/17 0607 Imaging Last Impressions Abdomen Ultrasound 07/31/17 0000 Signed Impressions: CONCLUSION: 1. Hepatosplenomegaly with abnormal hepatic echotexture characteristic of diff use fatty infiltration or hepatocellular disease. 2. Portal venous flow could not be documented. 3. Distended gallbladder containing sludge and thickened wall 4. Non-visualization of the pancreas, abdominal aorta or inferior vena cava 5. Moderate ascites Head CT 07/30/177 Signed Impressions: CONCLUSION: Slight chronic small vessel ischemic and atrophic changes, stable postsurgical changes. Chest X-Ray 07/30/171726 Signed Impressions: CONCLUSION: Lung base atelectasis. Objective Remarks GENERAL: Well-nourished, well-developed male patient in [place]. SKIN: Warm and dry. No rash. Multiple superficial abrasions on elbows and knees in various stages of healing. HEENT: Normocephalic. Atraumatic. Pupils equal and round. Mucous membranes pink and moist. CARDIOVASCULAR: Regular rate and rhythm. No murmur appreciated. RESPIRATORY: No accessory muscle use. Clear to auscultation. Breath sounds equal bilaterally. GASTROINTESTINAL: Abdomen soft, mildly distended with fluid wave, mild TTP at RUQ and across bilateral lower quadrants. Normoactive bowel sounds x4. MUSCULOSKELETAL: No obvious deformities. Extremities without clubbing, cyanosis , or edema. NEUROLOGICAL: Awake and alert. No obvious cranial nerve deficits. Motor grossly within normal limits. Moving all extremities spontaneously. Normal speech. PSYCHIATRIC: Appropriate mood and affect; insight and judgment normal. Medications and IVs Current Medications Medications (Trade) Dose Ordered Sig/Yao Route Start Time Stop Time Status Last Admin (NS Flush) 2 ml UNSCH PRN IV FLUSH 07/30/17 19:45 (NS Flush) 2 ml BID IV FLUSH 07/30/17 21:00 07/31/17 20:06 (Tylenol) 650 mg Q4H PRN PO 07/30/17 19:45 (Compazine Supp) 25 mg Q12H PRN RECTAL 07/30/17 19:45 (Narcan Inj) 0.4 mg UNSCH PRN IV PUSH 07/30/17 19:45 (Ativan Inj) 2 mg Q10M PRN IV PUSH 07/30/17 19:45 (Duoneb Neb) 1 ampule Q4HR NEB PRN NEB 07/30/17 19:45 (Folate) 1 mg DAILY PO 07/31/17 09:00 08/05/17 08:59 07/31/17 08:58 (Vitamin B1) 100 mg DAILY PO 07/31/17 09:00 07/31/17 08:59 (Theragran M Tab) 1 tab DAILY PO 07/31/17 09:00 08/05/17 08:59 07/31/17 08:59 (Pepcid) 20 mg BID PO 07/30/17 21:00 07/31/17 20:06 (Romazicon Inj) 0.2 mg Q1M PRN IV PUSH 07/30/17 19:45 (Ativan) 1 mg Q4H PRN PO 07/30/17 19:45 (Ativan Inj) 1 mg Q4H PRN IV PUSH 07/30/17 19:45 (Ativan) 2 mg Q2H PRN PO 07/30/17 19:45 (Ativan Inj) 2 mg Q2H PRN IV PUSH 07/30/17 19:45 (Ativan Inj) 2 mg Q1H PRN IV PUSH 07/30/17 19:45 (Ativan Inj) 2 mg Q15M PRN IV PUSH 07/30/17 19:45 (Keppra) 1,000 mg BID PO 07/30/17 21:00 07/31/17 20:06 (Eliquis) 5 mg BID PO 07/30/17 21:00 07/31/17 20:06 (Oscal) 500 mg Q12HR PO 07/30/17 21:00 07/31/17 20:06 A/P Assessment and Plan 62-year-old male with past medical history significant for atrial fibrillation ( noncompliant with anti-coagulation), CLL, alcohol abuse, and seizure disorder ( noncompliant with Keppra) presents to the emergency department via EMS after he was reportedly found in the streets confused. Acute encephalopathy: Suspect secondary to alcohol intoxication with EtOH level 232 upon arrival. -Head CT reviewed, no acute findings -Monitor neuro checks -Given IV fluid hydration -Patient now AAO 4, resolved Abdominal Pain/Transaminitis: Suspect Alcoholic Cirrhosis. LFTs elevated, consistent with baseline compared to previous admissions. Patient with continue diffuse RUQ and lower abdominal pain. -EMR reviewed, patient with thorough gastroenterology workup on previous admission in June 2017 - hepatitis negative, tumor markers wnl, peritoneal fluid negative for malignancy -Abdominal U/S showed hepatosplenomegaly with abnormal hepatic echotexture characteristic of diffuse fatty infiltration or hepatocellular disease; distended gallbladder containing sludge and thickened wall, moderate ascites -Will perform paracentesis on 08/02 (delayed due to patient receiving Eliquis) -Started on lasix and spironolactone -Check ammonia level -Consult gastroenterology Hypocalcemia: Calcium 7.2 upon arrival -Given IV calcium gluconate -Repeat calcium improved, 7.5 -Continue on calcium supplement Alcohol abuse: Patient reports drinking 6+ beers daily -Continue thiamine/folate/multivitamin -CIWA protocol -Seizure precautions Seizure disorder: Patient noncompliant with Keppra -Restart patient's Keppra 1000 mg bid -Discussed importance of compliance with medications -Case management consulted to assist with obtaining medications and follow- up with PCP Paroxysmal atrial fibrillation: Noncompliant with anticoagulation. Currently in NSR. -Restart patient's Eliquis (now on hold for paracentesis) -Outpatient follow-up CLL: chronic -needs to follow up with oncology as outpatient, mandatory referral ordered Noncompliance: chronic, with ongoing alcohol abuse -patient thoroughly counseled on importance of compliance with medications and f/up with physicians -case management consulted to assist with discharge planning DVT Prophylaxis: on Eliquis (on hold for procedure) Discharge Planning Discharge pending gastroenterology evaluation and paracentesis to be done on . Case management to assist with discharge planning. Evelyn Wang PA-C Aug 01, 2017 08:22
[2017-08-01] MEDS: THIAMINE HCL 100 MG TAB PO SCH (09:18)
[2017-08-01] MEDS: MULTIVITAMINS/MINERALS THERAPEUTIC TAB PO SCH (09:18)
[2017-08-01] MEDS: CALCIUM CARBONATE 1.25 GM (CA 500 MG) TAB PO SCH ×2 (09:18→21:05)
[2017-08-01] MEDS: FAMOTIDINE 20 MG TAB PO SCH ×2 (09:18→21:05)
[2017-08-01] MEDS: FOLIC ACID 1 MG TAB PO SCH (09:18)
[2017-08-01] MEDS: SODIUM CHLORIDE 0.9% FLUSH 10 ML FLUSH IV FLUSH SCH ×2 (09:19→21:05)
[2017-08-01] MEDS: levETIRAcetam 500 MG TAB PO SCH ×2 (09:19→21:05)
[2017-08-01 09:52] LABS: AUTOMATED NEUTROPHIL # 2.6 TH/MM3 (1.8-7.7); BASOPHIL % 0.6 % (0.0-2.0); EOSINOPHIL # 0.1 TH/MM3 (0-0.4); EOSINOPHIL % 1.1 % (0.0-4.0); HEMATOCRIT 31.3 % (39.0-51.0); HEMOGLOBIN 10.8 GM/DL (13.0-17.0); LYMPH % 53.6 % (9.0-44.0); LYMPHOCYTE # 3.7 TH/MM3 (1.0-4.8); MEAN CELL VOLUME 96.8 FL (80.0-100.0); MEAN CORPUSCULAR HEMOGLOBIN 33.4 PG (27.0-34.0); MEAN CORPUSCULAR HGB CONC 34.5 % (32.0-36.0); MEAN PLATELET VOLUME 8.7 FL (7.0-11.0); MONO % 6.8 % (0.0-8.0); MONOCYTE # 0.5 TH/MM3 (0-0.9); NEUT % 37.9 % (16.0-70.0); PLATELET COUNT 85 TH/MM3 (150-450); RED BLOOD COUNT 3.23 MIL/MM3 (4.50-5.90); RED CELL DISTRIBUTION WIDTH 16.8 % (11.6-17.2)
--- NOTE | 2017-08-01 09:57 | PD.CONS ---
HPI History of Present Illness This is a 62 year old M with PMH significant for seizure disorder, atrial fibrillation, CLL, and ETOH abuse who was brought to the hospital after being found confused in the streets two days ago. Pt is unable to provide any history about his admission, states he remembers being on the streets but does not remember being brought to the hospital. Alcohol level on admission was 232 , he is currently oriented x 3. Pt is known to our service from previous admission in June in which he was worked up for elevated LFTs which came back negative and was noted that elevation was secondary to ETOH. Of note, Hepatitis B IgM antibody was positive, however quant was undetectable. Pt continues to drink alcohol daily, states 8-10 beers a day, as previously stated was drinking on day of admission. Pt also had previous paracentesis in June in which 4000 mL of fluid was removed, culture came back negative and cytology negative for malignant cells. Pt denies any nausea, vomiting, abdominal pain at this time. Does report abdominal swelling. Also complaining of acid reflux. Pt reports he has been unable to afford all of his medication therefore has not been on any medicine since previous discharge from hospital in early June. Has not followed up with GI. (Mary Mcrae) PFSH Past Medical History Atrial fibrillation CLL Alcohol abuse Seizure disorder Past Surgical History Brain aneurysm repair 7 (Mary Mcrae) Coded Allergies: No Known Allergies (Unverified Allergy, Unknown, 06/19/17) MRI PRECAUTION (Verified Adverse Reaction, Severe, ANEURYSM CLIPS, 06/24/17) DML, 06/24/17, Family History Father with CAD Social History Drinks approximately 8-10 beers daily. Denies tobacco and illicit drugs. (Mary Mcrae) Review of Systems Gastrointestinal: COMPLAINS OF: Swelling of Abdomen, Heartburn, DENIES: Abdominal pain, Black stools, Bloody stools, Constipation, Diarrhea, Nausea, Vomiting, Difficulty Swallowing, Anorexia, Odynophagia, Hematemesis (Mary Mcrae) GI Exam Vitals I&O Vital Signs Date Time Temp Pulse Resp B/P (MAP) Pulse Ox O2 Delivery O2 Flow Rate FiO2 08/01/17 07:36 98.3 86 18 121/70 (87) 97 08/01/17 03:19 98.4 87 17 121/59 (79) 94 08/01/17 02:25 83 07/31/17 23:38 98.2 93 17 119/58 (78) 94 07/31/17 20:34 93 07/31/17 19:26 98.5 105 17 117/70 (86) 97 07/31/17 12:06 98.2 106 24 108/66 (80) 95 Imaging Last Impressions Abdomen Ultrasound 07/31/17 0000 Signed Impressions: CONCLUSION: 1. Hepatosplenomegaly with abnormal hepatic echotexture characteristic of diff use fatty infiltration or hepatocellular disease. 2. Portal venous flow could not be documented. 3. Distended gallbladder containing sludge and thickened wall 4. Non-visualization of the pancreas, abdominal aorta or inferior vena cava 5. Moderate ascites Head CT 07/30/17 1727 Signed Impressions: CONCLUSION: Slight chronic small vessel ischemic and atrophic changes, stable postsurgical changes. Chest X-Ray 07/30/17 1727 Signed Impressions: CONCLUSION: Lung base atelectasis. Laboratory Test 07/31/17 15:15 08/01/17 09:11 Prothrombin Time 16.1 SEC Prothromb Time International Ratio 1.6 RATIO Activated Partial Thromboplast Time 34.4 SEC Physical Examination HEENT: Normocephalic; atraumatic; (+) icterus CHEST: Even/unlabored CARDIAC: Irregular rate and rhythm ABDOMEN: Distended, firm, nontender, bowel sounds active SKIN: Normal; no rash; no jaundice. 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 (Mary Mcrae) Assessment and Plan Plan Assessment: - Elevated LFTs with ETOH abuse Labs consistent with ETOH- AST-168 ALT-40 T bili-3.7 Alk phos-67 DF-23 Steroids not indicated at this time. Pt previously seen by our service in June and had full liver work up, which came back negative except a positive Hepatitis B IgM antibody but negative quant, elevated LFTs noted to be secondary to ETOH. Pt continues to drink daily, states 8-10 beers a day, alcohol level was 232 on admission Labs indicative of cirrhosis: MELD-17 Hypoalbuminemia- albumin 1.8 Coagulopathy INR-1.6 Thrombocytopenia platelets 96 US abdomen (07/31) Hepatosplenomegaly with abnormal hepatic echotexture characteristic of diffuse fatty infiltration or hepatocellular disease. Portal venous flow could not be documented. Distended gallbladder containing sludge and thickened wall. Non-visualization of the pancreas, abdominal aorta or inferior vena cava. Moderate ascites Previous work up: CAROLYN, ASMA negative. AMA < 20. Hepatitis A and C negative. Hepatitis B core IgM antibody positive, negative quant. Iron-148 TIBC-164 %sat-90.4 Ferritin-192 AAT-158 Ceruloplasmin-21 AFP-4.1 Plan: Lipase Ammonia level Hepatitis panel Paracentesis Spironolactone Lasix Thiamine and folic acid Alcohol withdraw protocol Further recommendations based on clinical course Pt has been seen and examined by myself and Dr. Rivera and this note is written on his behalf (Mary Mcrae) Physician Comments Seen and examined, plan as above. Will follow up with you. (Eric Rivera MD) Mary Mcrae Aug 01, 2017 09:57 Eric Rivera MD Aug 01, 2017 13:46
[2017-08-01 10:03] LABS: BICARBONATE 21.3 MEQ/L (21.0-32.0); BLOOD UREA NITROGEN 5 MG/DL (7-18); CALCIUM 7.8 MG/DL (8.5-10.1); CHLORIDE 101 MEQ/L (98-107); CREATININE 0.61 MG/DL (0.60-1.30); GLOMERULAR FILTRATION RATE 134 ML/MIN (>89); GLUCOSE,RANDOM 83 MG/DL (74-106); SODIUM (NA) 134 MEQ/L (136-145)
[2017-08-01 10:05] LABS: AST (GOT) 149 U/L (15-37)
[2017-08-01 10:09] LABS: ALKALINE PHOSPHATASE 68 U/L (45-117); ALT (GPT) 38 U/L (12-78); TOTAL PROTEIN 7.2 GM/DL (6.4-8.2)
[2017-08-01 12:07] LABS: SMUDGE CELLS PRESENT PRESENT
[2017-08-01] MEDS ORDERED: LACTULOSE SYRUP 20 GM/30 ML CUP PO ONE (13:30)
[2017-08-01] MEDS ORDERED: POTASSIUM CHLORIDE 20 MEQ CONTROLLED RELEASE TAB PO ONE (13:30)
[2017-08-01] MEDS: FUROSEMIDE 20 MG TAB PO SCH (17:35)
[2017-08-01] MEDS: LACTULOSE SYRUP 20 GM/30 ML CUP PO SCH ×2 (17:35→21:04)
[2017-08-01] MEDS: RIFAXIMIN 550 MG TAB PO SCH (21:05)
[2017-08-02] VITALS (11 sets, daily range): BP systolic 102–132; BP diastolic 58–84; PULSE 86–102; RESP 16–20; TEMP 97.9–98.5; O2SAT 95–100
--- NOTE | 2017-08-02 08:40 | HHI.PR ---
Subjective Remarks Follow-up for abdominal pain, cirrhosis, ascites. The patient is seen prior to going for paracentesis today. Reports continued diffuse lower abdominal pain, consistent with his baseline. He denies any right upper quadrant or epigastric pain today. Denies any nausea or vomiting. He tolerated oral intake. Denies any fevers or chills. He is oriented to self, [facility] in [place] , initially states the date is August 2017 and then corrects himself to July. He states he lives by himself in [place]. He wants to go home today. We thoroughly discussed the importance of adhering to his medication regimen when discharged from the hospital, patient verbalized understanding. He has no other medical complaints at this time. Objective Vitals Vital Signs Date Time Temp Pulse Resp B/P (MAP) Pulse Ox O2 Delivery O2 Flow Rate FiO2 08/02/17 08:19 98.4 102 16 121/73 (89) 95 08/02/17 06:31 98.4 96 18 132/84 (100) 96 08/01/17 23:45 97.8 98 17 129/87 (101) 97 08/01/17 19:23 98.4 97 17 116/72 (87) 94 08/01/17 16:49 92 08/01/17 16:00 98.3 92 18 120/64 (82) 98 08/01/17 12:00 98.7 93 20 118/71 (87) 95 Result Diagram: 08/01/17 0911 08/01/17 0911 Imaging Last Impressions Abdomen Ultrasound 07/31/17 0000 Signed Impressions: CONCLUSION: 1. Hepatosplenomegaly with abnormal hepatic echotexture characteristic of diff use fatty infiltration or hepatocellular disease. 2. Portal venous flow could not be documented. 3. Distended gallbladder containing sludge and thickened wall 4. Non-visualization of the pancreas, abdominal aorta or inferior vena cava 5. Moderate ascites Head CT 07/30/171726 Signed Impressions: CONCLUSION: Slight chronic small vessel ischemic and atrophic changes, stable postsurgical changes. Chest X-Ray 07/30/171726 Signed Impressions: CONCLUSION: Lung base atelectasis. Objective Remarks GENERAL: Well-nourished, well-developed male patient in [facility]. SKIN: Warm and dry. No rash. Multiple superficial abrasions on elbows and knees in various stages of healing. HEENT: Normocephalic. Atraumatic. Pupils equal and round. Mucous membranes pink and moist. CARDIOVASCULAR: Regular rate and rhythm. No murmur appreciated. RESPIRATORY: No accessory muscle use. Clear to auscultation. Breath sounds equal bilaterally. GASTROINTESTINAL: Abdomen soft, mildly distended with +fluid wave, mild TTP bilateral lower quadrants. Normoactive bowel sounds x4. MUSCULOSKELETAL: No obvious deformities. Extremities without clubbing, cyanosis , or edema. NEUROLOGICAL: Awake and alert. No obvious cranial nerve deficits. Motor grossly within normal limits. Moving all extremities spontaneously. Normal speech. Medications and IVs Current Medications Medications (Trade) Dose Ordered Sig/Yao Route Start Time Stop Time Status Last Admin (NS Flush) 2 ml UNSCH PRN IV FLUSH 07/30/17 19:45 (NS Flush) 2 ml BID IV FLUSH 07/30/17 21:00 08/01/17 21:05 (Tylenol) 650 mg Q4H PRN PO 07/30/17 19:45 (Compazine Supp) 25 mg Q12H PRN RECTAL 07/30/17 19:45 (Narcan Inj) 0.4 mg UNSCH PRN IV PUSH 07/30/17 19:45 (Ativan Inj) 2 mg Q10M PRN IV PUSH 07/30/17 19:45 (Duoneb Neb) 1 ampule Q4HR NEB PRN NEB 07/30/17 19:45 (Folate) 1 mg DAILY PO 07/31/17 09:00 08/05/17 08:59 08/01/17 09:18 (Vitamin B1) 100 mg DAILY PO 07/31/17 09:00 08/01/17 09:18 (Theragran M Tab) 1 tab DAILY PO 07/31/17 09:00 08/05/17 08:59 08/01/17 09:18 (Pepcid) 20 mg BID PO 07/30/17 21:00 08/01/17 21:05 (Romazicon Inj) 0.2 mg Q1M PRN IV PUSH 07/30/17 19:45 (Ativan) 1 mg Q4H PRN PO 07/30/17 19:45 (Ativan Inj) 1 mg Q4H PRN IV PUSH 07/30/17 19:45 (Ativan) 2 mg Q2H PRN PO 07/30/17 19:45 (Ativan Inj) 2 mg Q2H PRN IV PUSH 07/30/17 19:45 (Ativan Inj) 2 mg Q1H PRN IV PUSH 07/30/17 19:45 (Ativan Inj) 2 mg Q15M PRN IV PUSH 07/30/17 19:45 (Keppra) 1,000 mg BID PO 07/30/17 21:00 08/01/17 21:05 (Eliquis) 5 mg BID PO 07/30/17 21:00 Future Hold 07/31/17 20:06 (Oscal) 500 mg Q12HR PO 07/30/17 21:00 08/01/17 21:05 (Aldactone) 50 mg DAILY PO 08/02/17 09:00 (Lasix) 20 mg BID@0900,1800 PO 08/01/17 18:00 08/01/17 17:35 (Lactulose Liq) 30 ml QID PO 08/01/17 18:00 08/01/17 21:04 (Xifaxan) 550 mg BID PO 08/01/17 21:00 08/01/17 21:05 Albumin Human 0 ml @ 60 mls/hr ONCE ONCE IV 08/02/17 09:30 08/02/17 09:31 UNV A/P Assessment and Plan 62-year-old male with past medical history significant for atrial fibrillation ( noncompliant with anti-coagulation), CLL, alcohol abuse, and seizure disorder ( noncompliant with Keppra) presents to the emergency department via EMS after he was reportedly found in the streets confused. Acute encephalopathy: Suspect secondary to alcohol intoxication with EtOH level 232 upon arrival. -Head CT reviewed, no acute findings -Monitor neuro checks -Given IV fluid hydration -Patient now AAO 4, resolved Abdominal Pain/Transaminitis/Cirrhosis: Suspect Alcoholic Cirrhosis. LFTs elevated, consistent with baseline compared to previous admissions. Patient with continue diffuse RUQ and lower abdominal pain. -EMR reviewed, patient with thorough gastroenterology workup on previous admission in June 2017 - hepatitis negative, tumor markers wnl, peritoneal fluid negative for malignancy -Abdominal U/S showed hepatosplenomegaly with abnormal hepatic echotexture characteristic of diffuse fatty infiltration or hepatocellular disease; distended gallbladder containing sludge and thickened wall, moderate ascites -Plan for paracentesis today -Started on Lasix, spironolactone, and rifaximin -Ammonia level elevated at 101, started on lactulose 30 mLs qid -Consult gastroenterology, appreciate assistance Alcohol abuse: Patient reports drinking 6+ beers daily -Continue thiamine/folate/multivitamin -CIWA protocol -Seizure precautions Seizure disorder: Patient noncompliant with Keppra -Restart patient's Keppra 1000 mg bid -Discussed importance of compliance with medications -Case management consulted to assist with obtaining medications and follow- up with PCP Paroxysmal atrial fibrillation: Noncompliant with anticoagulation. Currently in NSR. -Restart patient's Eliquis (now on hold for paracentesis) -Outpatient follow-up CLL: chronic -needs to follow up with oncology as outpatient, mandatory referral ordered Noncompliance: chronic, with ongoing alcohol abuse -patient thoroughly counseled on importance of compliance with medications and f/up with physicians -case management consulted to assist with discharge planning DVT Prophylaxis: on Eliquis (on hold for procedure) Discharge Planning Discharge pending paracentesis and gastroenterology clearance. Case management to assist with discharge planning. Evelyn Wang PA-C Aug 02, 2017 8:40 am
[2017-08-02] MEDS ORDERED: LIDOCAINE HCL 1% PF 30 ML VIAL ONE (09:24)
[2017-08-02] MEDS ORDERED: ALBUMIN 25% INJ 0 ML IV ONE (09:30)
[2017-08-02] MEDS: SODIUM CHLORIDE 0.9% FLUSH 10 ML FLUSH IV FLUSH SCH ×2 (10:52→21:00)
[2017-08-02] MEDS: LACTULOSE SYRUP 20 GM/30 ML CUP PO SCH ×4 (10:53→20:55)
[2017-08-02] MEDS: FAMOTIDINE 20 MG TAB PO SCH ×2 (10:54→20:55)
[2017-08-02] MEDS: SPIRONOLACTONE 50 MG TAB PO SCH (10:54)
[2017-08-02] MEDS: CALCIUM CARBONATE 1.25 GM (CA 500 MG) TAB PO SCH ×2 (10:54→20:55)
[2017-08-02] MEDS: THIAMINE HCL 100 MG TAB PO SCH (10:54)
[2017-08-02] MEDS: FOLIC ACID 1 MG TAB PO SCH (10:54)
[2017-08-02] MEDS: MULTIVITAMINS/MINERALS THERAPEUTIC TAB PO SCH (10:54)
[2017-08-02] MEDS: RIFAXIMIN 550 MG TAB PO SCH ×2 (10:54→20:55)
[2017-08-02] MEDS: levETIRAcetam 500 MG TAB PO SCH ×2 (10:57→20:55)
[2017-08-02] MEDS: FUROSEMIDE 20 MG TAB PO SCH ×2 (10:59→18:26)
[2017-08-02 12:16] LABS: PERITONEAL EOS 1 %; PERITONEAL HISTIOCYTES 5 %; PERITONEAL LYMPHS 68 %; PERITONEAL MESOTHELIAL 9 %; PERITONEAL MONOS 11 %; PERITONEAL POLYS(SEGS) 6 %
[2017-08-02 12:17] LABS: PERITONEAL RBC 392 /MM3 (0-0)
--- NOTE | 2017-08-02 13:11 | RADRPT ---
EXAM DATE: 08/02/2017 9:44 AM EDT AGE/SEX: 62 years / Male INDICATIONS: Ascites. CLINICAL DATA: This is the patient's subsequent encounter. Patient reports that signs and symptoms h ave been present for 1 day and indicates a pain score of 0/10. MEDICAL/SURGICAL HISTORY: Chronic obstructive pulmonary disease. Cirrhosis. Hypertension. Se izures. Head trauma. Headaches. Dizziness. Depression. Anxiety. Substance abuse. Leukemia. Measles. Inguinal hernia repair. Brain aneurysm repair. COMPARISON: [facility] [place], [place] GUIDED ABD PARACENTESIS, 06/25/2017. . FLUID: Total volume of 4600 cc of clear, yellow fluid was removed. Fluid was sent to lab for ordered studies . . . TECHNIQUE: Ultrasound guidance for abdominal paracentesis. Paracentesis. The risks, benefits, and alternatives to ultrasound guided paracentesis were explained to the patient in detail including the risk of bleeding and infection. Written and verbal informed consent was obt ained. With the patient on the ultrasound table, ultrasound imaging was used to select the most appropriate approach for paracentesis. Overlying skin was prepped and draped in the usual sterile fashion and wi th a local anesthetic, a dermatotomy was made with an 11 blade scalpel. A 6 Divehi [id number] ca theter was introduced into the peritoneal cavity and fluid was collected. The patient tolerated the procedure well and left the ultrasound suite in stable condition. FINDINGS: Ultrasound-guided paracentesis was performed as described above. CONCLUSION: 1. Ultrasound-guided paracentesis was performed. Electronically signed by: Delfino Renee MD 08/02/2017 1:09 PM EDT
[2017-08-02 14:53] LABS: ALBUMIN 1.8 GM/DL (3.4-5.0); AST (GOT) 113 U/L (15-37); BICARBONATE 23.1 MEQ/L (21.0-32.0); BLOOD UREA NITROGEN 4 MG/DL (7-18); CHLORIDE 101 MEQ/L (98-107); GLOMERULAR FILTRATION RATE 115 ML/MIN (>89); GLUCOSE,RANDOM 86 MG/DL (74-106); SODIUM (NA) 136 MEQ/L (136-145)
[2017-08-02 14:55] LABS: ALT (GPT) 32 U/L (12-78)
[2017-08-02 14:56] LABS: ALKALINE PHOSPHATASE 64 U/L (45-117); TOTAL BILIRUBIN ADULT 3.8 MG/DL (0.2-1.0); TOTAL PROTEIN 6.7 GM/DL (6.4-8.2)
--- NOTE | 2017-08-02 15:47 | HHI.GIFU ---
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) Objective Vitals I&O Vital Signs Date Time Temp Pulse Resp B/P (MAP) Pulse Ox O2 Delivery O2 Flow Rate FiO2 08/02/17 12:36 98.2 97 18 122/69 (86) 98 08/02/17 10:02 98.5 87 16 121/73 (89) 08/02/17 09:44 86 16 125/72 (89) 95 08/02/17 08:19 98.4 102 16 121/73 (89) 95 08/02/17 06:31 98.4 96 18 132/84 (100) 96 08/01/17 23:45 97.8 98 17 129/87 (101) 97 08/01/17 19:23 98.4 97 17 116/72 (87) 94 08/01/17 16:49 92 08/01/17 16:00 98.3 92 18 120/64 (82) 98 Laboratory Laboratory Tests Test 08/02/17 09:08 08/02/17 14:14 Peritoneal Fluid WBC 155 Peritoneal Fluid RBC 392 Peritoneal Fluid Neutrophils 6 Peritoneal Fluid Lymphocytes 68 Peritoneal Fluid Monocytes 11 Peritoneal Fluid Eosinophils 1 Peritoneal Fluid Histiocytes 5 Peritoneal Fluid Mesothelial Cells 9 Blood Urea Nitrogen 4 Creatinine 0.70 Random Glucose 86 Total Protein 6.7 Albumin 1.8 Calcium Level 8.0 Alkaline Phosphatase 64 Aspartate Amino Transf (AST/SGOT) 113 Alanine Aminotransferase (ALT/SGPT) 32 Total Bilirubin 3.8 Sodium Level 136 Potassium Level 3.5 Chloride Level 101 Carbon Dioxide Level 23.1 Anion Gap 12 Estimat Glomerular Filtration Rate 115 Ammonia 25 Date/Time Source Procedure Growth Status 08/02/17 09:08 Fluid Peritoneal Fluid Gram Stain - Final Resulted 08/02/17 09:08 Fluid Peritoneal Fluid Body Fluid Culture Pending Resulted Imaging Last Impressions Cyst Biopsy Asp-Paracentesis US 08/02/17 0000 Signed Impressions: CONCLUSION: 1. Ultrasound-guided paracentesis was performed. Abdomen Ultrasound 07/31/17 0000 Signed Impressions: CONCLUSION: 1. Hepatosplenomegaly with abnormal hepatic echotexture characteristic of diff use fatty infiltration or hepatocellular disease. 2. Portal venous flow could not be documented. 3. Distended gallbladder containing sludge and thickened wall 4. Non-visualization of the pancreas, abdominal aorta or inferior vena cava 5. Moderate ascites Head CT 6/11/18 1727 Signed Impressions: CONCLUSION: Slight chronic small vessel ischemic and atrophic changes, stable postsurgical changes. Chest X-Ray 07/30/171726 Signed Impressions: CONCLUSION: Lung base atelectasis. Physical Exam HEENT: Normocephalic; atraumatic CHEST: Even/unlabored CARDIAC: RRR ABDOMEN: Distended, soft, nontender, bowel sounds active SKIN: Normal; no rash; no jaundice. 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 (Mary Mcrae) Assessment and Plan Plan Assessment: - Elevated LFTs with ETOH abuse Labs consistent with ETOH- AST-168 ALT-40 T bili-3.7 Alk phos-67 DF-23 Steroids not indicated at this time. Pt previously seen by our service in June and had full liver work up, which came back negative except a positive Hepatitis B IgM antibody but negative quant, elevated LFTs noted to be secondary to ETOH. Pt continues to drink daily, states 8-10 beers a day, alcohol level was 232 on admission Labs indicative of cirrhosis: MELD-17 Hypoalbuminemia- albumin 1.8 Coagulopathy INR-1.6 Thrombocytopenia platelets 96 US abdomen (07/31) Hepatosplenomegaly with abnormal hepatic echotexture characteristic of diffuse fatty infiltration or hepatocellular disease. Portal venous flow could not be documented. Distended gallbladder containing sludge and thickened wall. Non-visualization of the pancreas, abdominal aorta or inferior vena cava. Moderate ascites Previous work up: CAROLYN, ASMA negative. AMA < 20. Hepatitis A and C negative. Hepatitis B core IgM antibody positive, negative quant. Iron-148 TIBC-164 %sat-90.4 Ferritin-192 AAT-158 Ceruloplasmin-21 AFP-4.1 (08/02) Pt with no nausea, vomiting, abdominal pain today. LFTs trending down. Ammonia now WNL. S/P paracentesis with 4600 mL of clear, yellow fluid was removed. Plan: Spironolactone Lasix Thiamine and folic acid ETOH cessation Continue with current supportive care, needs to be compliant with medication, needs to stop drinking alcohol GI will sign off, please reconsult as needed Have pt follow up with GI after DC Pt has been seen and examined by myself and Dr. Rivera and this note is written on his behalf (Mary Mcrae) Physician Comments Agree with above assessment and plan. Supportive care for now. Nothing to add to his care, please notify us if needed again. (Eric Rivera MD) Mary Mcrae Aug 02, 2017 15:47 Eric Rivera MD Aug 03, 2017 10:57
[2017-08-02] MEDS ORDERED: Lactulose Liq PO (17:08)
[2017-08-02] MEDS ORDERED: XIFA550T4 PO (17:08)
[2017-08-02] MEDS ORDERED: ALDA50TA2 PO (17:08)
[2017-08-02] MEDS ORDERED: FURO20TA PO (17:08)
--- NOTE | 2017-08-02 17:10 | HHI.DCPOC ---
Discharge Care Plan Diagnosis: (1) Cirrhosis of liver with ascites (2) Chronic alcohol abuse (3) CLL (chronic lymphocytic leukemia) (4) Paroxysmal atrial fibrillation Goals to Promote Your Health * To prevent worsening of your condition and complications * To maintain your health at the optimal level Directions to Meet Your Goals Take your medications as prescribed Follow your dietary instruction Follow activity as directed Keep your appointments as scheduled Take your immunizations and boosters as scheduled If your symptoms worsen call your PCP, if no PCP go to Urgent Care Center or Emergency Room Smoking is Dangerous to Your Health. Avoid second hand smoke Call the 24-hour hour crisis hotline for domestic abuse at Evelyn Wang PA-C Aug 02, 2017 17:10
[2017-08-02] MEDS: APIXABAN 5 MG TABLET PO SCH (20:56)
[2017-08-03 03:26] VITALS: BP 103/58; PULSE 95; RESP 20; TEMP 98.5; O2SAT 98
[2017-08-03 07:26] VITALS: PULSE 93
[2017-08-03 08:00] VITALS: BP 106/64; PULSE 103; RESP 18; TEMP 97.8; O2SAT 95
[2017-08-03] MEDS: LACTULOSE SYRUP 20 GM/30 ML CUP PO SCH (08:20)
[2017-08-03] MEDS: CALCIUM CARBONATE 1.25 GM (CA 500 MG) TAB PO SCH (08:20)
[2017-08-03] MEDS: MULTIVITAMINS/MINERALS THERAPEUTIC TAB PO SCH (08:21)
[2017-08-03] MEDS: levETIRAcetam 500 MG TAB PO SCH (08:21)
[2017-08-03] MEDS: FAMOTIDINE 20 MG TAB PO SCH (08:21)
[2017-08-03] MEDS: THIAMINE HCL 100 MG TAB PO SCH (08:21)
[2017-08-03] MEDS: FOLIC ACID 1 MG TAB PO SCH (08:21)
[2017-08-03] MEDS: FUROSEMIDE 20 MG TAB PO SCH (08:21)
[2017-08-03] MEDS: APIXABAN 5 MG TABLET PO SCH (08:21)
[2017-08-03] MEDS: RIFAXIMIN 550 MG TAB PO SCH (08:23)
[2017-08-03] MEDS: SODIUM CHLORIDE 0.9% FLUSH 10 ML FLUSH IV FLUSH SCH (08:24)
[2017-08-03] MEDS: SPIRONOLACTONE 50 MG TAB PO SCH (08:24)
--- NOTE | 2017-08-03 09:29 | HHI.DS ---
Discharge Summary Admission Date Jul 30, 2017 at 7:26 pm Discharge Date: Aug 03, 2017 Admitting Diagnosis hypocalcemia, CLL, afib, seizure disorder. (1) Cirrhosis of liver with ascites ICD Code: K74.60 - Unspecified cirrhosis of liver; R18.8 - Other ascites Diagnosis: Principal (2) Alcohol abuse ICD Code: F10.10 - Alcohol abuse Diagnosis: Principal Status: Acute (3) Paroxysmal atrial fibrillation ICD Code: I48.0 - Paroxysmal atrial fibrillation Diagnosis: Secondary (4) CLL (chronic lymphocytic leukemia) ICD Code: C91.90 - Lymphoid leukemia, unspecified not having achieved remission Diagnosis: Secondary (5) Seizure disorder ICD Code: G40.909 - Epilepsy, unspecified, not intractable, without status epilepticus Diagnosis: Secondary Status: Chronic Procedures 08/02/1774-[id number] paracentesis, removed 4600 cc of clear yellow fluid Brief History - From Admission From admission H&P: 62-year-old male with past medical history significant for atrial fibrillation ( noncompliant with anti-coagulation), CLL, alcohol abuse and seizure disorder presents to the emergency department via EMS after he was reportedly found in the streets confused. The patient has no memory of the preceding events and cannot tell me why he is here. He denies any chest pain or shortness of breath. No abdominal pain. No nausea/vomiting/diarrhea. No fever/chills. No lateralizing signs/symptoms. The patient reports that he is noncompliant with his seizure medications because they "do not do what they are supposed to do." He states he has not been taking any medications recently. CBC/BMP: 08/01/17 0911 08/02/17 1414 Significant Findings Laboratory Tests Test 07/31/17 15:15 08/01/17 09:11 08/01/17 11:25 08/02/17 09:08 Prothrombin Time 16.1 SEC (9.8-11.6) Activated Partial Thromboplast Time 34.4 SEC (24.3-30.1) Red Blood Count 3.23 MIL/MM3 (4.50-5.90) Hemoglobin 10.8 GM/DL (13.0-17.0) Hematocrit 31.3 % (39.0-51.0) Platelet Count 85 TH/MM3 (150-450) Lymphocytes (%) (Auto) 53.6 % (9.0-44.0) Platelet Estimate LOW (NORMAL) Blood Urea Nitrogen 5 MG/DL (7-18) Albumin 2.0 GM/DL (3.4-5.0) Calcium Level 7.8 MG/DL (8.5-10.1) Aspartate Amino Transf (AST/SGOT) 149 U/L (15-37) Total Bilirubin 5.0 MG/DL (0.2-1.0) Sodium Level 134 MEQ/L (136-145) Potassium Level 3.2 MEQ/L (3.5-5.1) Ammonia 101 MCMOL/L (11-32) Peritoneal Fluid WBC 155 /MM3 (0-10) Peritoneal Fluid RBC 392 /MM3 (0-0) Test 08/02/17 14:14 Blood Urea Nitrogen 4 MG/DL (7-18) Albumin 1.8 GM/DL (3.4-5.0) Calcium Level 8.0 MG/DL (8.5-10.1) Aspartate Amino Transf (AST/SGOT) 113 U/L (15-37) Total Bilirubin 3.8 MG/DL (0.2-1.0) Imaging Last Impressions Cyst Biopsy Asp-Paracentesis US 08/02/17 0000 Signed Impressions: CONCLUSION: 1. Ultrasound-guided paracentesis was performed. Abdomen Ultrasound 07/31/17 0000 Signed Impressions: CONCLUSION: 1. Hepatosplenomegaly with abnormal hepatic echotexture characteristic of diff use fatty infiltration or hepatocellular disease. 2. Portal venous flow could not be documented. 3. Distended gallbladder containing sludge and thickened wall 4. Non-visualization of the pancreas, abdominal aorta or inferior vena cava 5. Moderate ascites Head CT 07/30/171726 Signed Impressions: CONCLUSION: Slight chronic small vessel ischemic and atrophic changes, stable postsurgical changes. Chest X-Ray 07/30/171726 Signed Impressions: CONCLUSION: Lung base atelectasis. PE at Discharge GENERAL: Well-nourished, well-developed male patient in NAD. SKIN: Warm and dry. No rash. Multiple superficial abrasions on elbows and knees in various stages of healing. HEENT: Normocephalic. Atraumatic. Pupils equal and round. Mucous membranes pink and moist. CARDIOVASCULAR: Regular rate and rhythm. No murmur appreciated. RESPIRATORY: No accessory muscle use. Clear to auscultation. Breath sounds equal bilaterally. GASTROINTESTINAL: Abdomen soft, nondistended, nontender today. Normoactive bowel sounds x4. MUSCULOSKELETAL: No obvious deformities. Extremities without clubbing, cyanosis , or edema. NEUROLOGICAL: Awake and alert, oriented to person, place, month/year. No obvious cranial nerve deficits. Motor grossly within normal limits. Moving all extremities spontaneously. Normal speech. Pt update on day of discharge Follow-up for cirrhosis, ascites, abdominal pain. The patient reports feeling better today after receiving his paracentesis yesterday. He denies any abdominal pain. He is tolerating oral intake. Denies any nausea/vomiting or fever/chills. He feels ready to go home. He is requesting assistance with medications. Hospital Course 62-year-old male with past medical history significant for atrial fibrillation ( noncompliant with anti-coagulation), CLL, alcohol abuse, and seizure disorder ( noncompliant with Keppra) presents to the emergency department via EMS after he was reportedly found in the streets confused. Acute encephalopathy: Suspect secondary to alcohol intoxication with EtOH level [address] reviewed, no acute findings. Monitor neuro checks. Given IV fluid hydration. Patient now AAO 4, resolved. Abdominal Pain/Transaminitis/Cirrhosis: Suspect Alcoholic Cirrhosis. LFTs elevated, consistent with baseline compared to previous admissions. Patient reporting diffuse RUQ and lower abdominal pain. EMR reviewed, patient with thorough gastroenterology workup on previous admission in June 2017 - hepatitis negative, tumor markers wnl, peritoneal fluid negative for malignancy. Abdominal U/S showed hepatosplenomegaly with abnormal hepatic echotexture characteristic of diffuse fatty infiltration or hepatocellular disease; distended gallbladder containing sludge and thickened wall, moderate ascites. S/ p U/S guided paracentesis, removed 4600cc clear yellow fluid. Started on Lasix, spironolactone, and rifaximin. Ammonia level elevated at 101, started on lactulose 30 mLs qid, repeat ammonia level 25. Consulted gastroenterology, signed off. Symptoms improved s/p paracentesis. Tolerating oral intake. Stable for discharge. Alcohol abuse: Patient reports drinking 6+ beers daily. Continue thiamine/folate /multivitamin. CIWA protocol. Seizure precautions. No signs of alcohol withdrawal at discharge. Seizure disorder: Patient noncompliant with Keppra. Restart patient's Keppra 1000 mg bid. Discussed importance of compliance with medications. Case management consulted to assist with obtaining medications and follow-up with PCP. Paroxysmal atrial fibrillation: Noncompliant with anticoagulation. Currently in NSR. Restart patient's Eliquis. Outpatient follow-up. CLL: chronic. Needs to follow up with oncology as outpatient, mandatory referral ordered Noncompliance: chronic, with ongoing alcohol abuse. Patient thoroughly counseled on importance of compliance with medications and f/up with physicians. Case management consulted to assist with discharge planning. DVT Prophylaxis: on Eliquis Pt Condition on Discharge: Stable Discharge Disposition: Discharge Home Discharge Time: > 30 minutes Discharge Instructions DIET: Follow Instructions for: Liver Disease Diet Additional Diet Instructions: Stop drinking alcohol. Activities you can perform: Regular-No Restrictions Follow up Referrals: Gastroenterology - 1 Week @ [facility] - 1 Week with Janine Ruth MD PCP Follow-up - 2-3 Days with Orashaina Oliveros New Medications: Furosemide (Furosemide) 20 Mg Tab 20 MG PO BID@0900,1800 for cirrhosis for 30 Days, #60 TAB Rifaximin (Xifaxan) 550 Mg Tab 550 MG PO BID for cirrhosis for 30 Days, #60 TAB Spironolactone (Aldactone) 50 Mg Tab 50 MG PO DAILY for cirrhosis for 30 Days, #30 TAB [Lactulose Liq] () 30 ML SYRP 30 ML PO TID for cirrhosis for 30 Days, #2700 ML Continued Medications: Apixaban (Eliquis) 5 Mg Tab 5 MG PO BID for Blood Clot Prevention, #60 TAB 0 Refills (This prescription has been renewed) Levetiracetam (Keppra) 250 Mg Tab 1000 MG PO BID for Control Seizures, #60 TAB 0 Refills (This prescription has been renewed) Thiamine HCl (Gnp Vitamin B-1) 100 Mg Tab 100 MG PO DAILY for Alcohol Detox, #30 TAB (This prescription has been renewed) Evelyn Wang PA-C Aug 03, 2017 9:29 am
[2017-08-03] MEDS ORDERED: IBUPROFEN 400 MG TAB PO PRN (09:30)
== END 2017-08-03 11:32 | disposition home or self-care (01) ==
LOC: NEPC 16:16 → NEDA 19:26 → NEPFCDU 20:39
PROVIDERS: ADMIT Internal Medicine; ATTEND Internal Medicine
DX: E83.51 Hypocalcemia (principal); C91.10 Chronic lymphocytic leukemia of B-cell type not having achieved remission; F10.129 Alcohol abuse with intoxication, unspecified; I48.0 Paroxysmal atrial fibrillation; G40.909 Epilepsy, unspecified, not intractable, without status epilepticus; Y90.7 Blood alcohol level of 200-239 mg/100 ml; F43.21 Adjustment disorder with depressed mood; F41.9 Anxiety disorder, unspecified; F32.9 Major depressive disorder, single episode, unspecified; J44.9 Chronic obstructive pulmonary disease, unspecified; I10 Essential (primary) hypertension; Z79.899 Other long term (current) drug therapy; Z79.01 Long term (current) use of anticoagulants; Z91.14 Patient's other noncompliance with medication regimen; Z82.49 Family history of ischemic heart disease and other diseases of the circulatory system; K21.9 Gastro-esophageal reflux disease without esophagitis; R16.2 Hepatomegaly with splenomegaly, not elsewhere classified; K82.8 Other specified diseases of gallbladder; R18.8 Other ascites; R79.89 Other specified abnormal findings of blood chemistry; E88.09 Other disorders of plasma-protein metabolism, not elsewhere classified; D69.6 Thrombocytopenia, unspecified; D68.9 Coagulation defect, unspecified; K74.60 Unspecified cirrhosis of liver; Z91.19 Patient's noncompliance with other medical treatment and regimen; G93.40 Encephalopathy, unspecified; B19.10 Unspecified viral hepatitis B without hepatic coma
CPT/HCPCS: 49083; 70450; 71045; 76700; 80048; 80053; 80074; 80076; 80307; 81001; 82140; 82550; 83690; 85007; 85025; 85027; 85610; 85730; 87070; 87205; 89051; 93005; 96361; 96365; 97110; 97162; 97530; 99285; C1729; G0378; G8987; G8988; J0610; J7030

== ENCOUNTER 2017-08-16 00:12 | Inpatient (IN) | END 2017-08-18 18:19 | disposition home health service (06) | LOC: PH3 11:02 | PROVIDERS: ADMIT Hospitalist; ATTEND Hospitalist ==

== ENCOUNTER 2017-08-27 13:40 | Inpatient (IN) ==
--- NOTE | 2017-08-27 14:28 | ED ---
HPI General Chief complaint: Weakness Stated complaint: General Weakness Time Seen by Provider: 08/27/17 13:54 Source: patient and EMS Mode of arrival: EMS Limitations: no limitations History of Present Illness HPI narrative: Patient is a 62-year-old male brought in by EMS due to distention of his abdomen with nausea and vomiting. Patient was just discharged a little over a week ago after being admitted. He has history of alcoholic cirrhosis, CLL. Per EMS, a visiting nurse called, but they are not sure why. The patient says his abdomen is distended, but it is difficult to tell what is new and what is chronic. He says he has had some vomiting. He does complain of occasional pain to his abdomen. History is limited as patient is a very poor historian. Related Data Home Medications Medication Instructions Recorded Confirmed apixaban [Eliquis] 5 mg PO BID 08/18/17 08/27/17 furosemide [Lasix] 20 mg PO BID 08/18/17 08/27/17 lactulose 2 g PO TID 08/18/17 08/27/17 levetiracetam [Keppra] 1,000 mg PO Q12H 08/18/17 08/27/17 rifaximin [Xifaxan] 550 mg PO BID 08/18/17 08/27/17 spironolactone [Aldactone] 50 mg PO DAILY 08/18/17 08/27/17 thiamine HCl (vitamin B1) 100 mg PO DAILY 08/18/17 08/27/17 Allergies Allergy/AdvReac Type Severity Reaction Status Date / Time No Known Drug Allergies Allergy Unknown UNKNOWN Verified 08/27/17 14:14 MRI PRECAUTION AdvReac Severe ANEURYSM Uncoded 06/24/17 16:30 CLIPS Review of Systems ROS Unobtainable other (Poor historian) [facility] Medical History Medical History Brain aneurysm (Acute) Cirrhosis (Acute) Seizure (Acute) Surgical History Surgical History History of craniotomy (Acute) Social History Social History Substance History: No History of Abuse Second Hand Smoke Exposure: No Smoking Status: Former smoker Tobacco Type: Cigarettes How Often Do You Have a Drink Containing Alcohol: 4 or more times a week Recent Travel in [facility] within the Last 8 Weeks: No Recent Out of Country Travel within the Last 8 Weeks: No Exam Narrative Exam Narrative: GENERAL: Awake and alert, no acute distress. Patient is unkept , has feces on his legs. SKIN: Focused skin assessment warm/dry. No wounds or signs of infection. Mild jaundice. HEAD: Atraumatic. Normocephalic. EYES: Pupils equal and round. Extraocular movements intact. ENT: Mucous membranes pink and moist. NECK: Trachea midline. No JVD. CARDIOVASCULAR: Regular rate and rhythm. No murmur appreciated. RESPIRATORY: No accessory muscle use. Clear to auscultation. Breath sounds equal bilaterally. GASTROINTESTINAL: Abdomen distended. Nontender to palpation. MUSCULOSKELETAL: No obvious deformities. No clubbing. No cyanosis. Bilateral edema of the lower extremities. NEUROLOGICAL: Awake and alert. No obvious cranial nerve deficits. Motor grossly within normal limits. Normal speech. PSYCHIATRIC: Appropriate mood and affect; insight and judgment normal. Course Reevaluation(s) Reevaluation #1: I discussed the patient with Dr. Peterson who agrees with admission. Time: 15:30 Initial Documented Vital Signs Temperature 97.8 F 08/27/17 14:17 Pulse Rate 91 H 08/27/17 14:17 Respiratory Rate 18 08/27/17 14:17 Blood Pressure 106/67 08/27/17 14:17 Pulse Oximetry 95 08/27/17 14:17 Last Documented Vital Signs Temperature 97.8 F 08/27/17 14:23 Pulse Rate 91 H 08/27/17 14:23 Respiratory Rate 18 08/27/17 14:23 Blood Pressure 106/67 08/27/17 14:23 Pulse Oximetry 95 08/27/17 14:23 Sign Out Sign Out Data: Patient Sign Out occurred on 08/27/17 at 14:58. Patient's care was discussed, and care was transferred from Rosemarie Hairston MD to Onur Castro MD. Sign Out Comment: Follow up labs and CXR Last updated by Rosemarie Hairston MD at 08/27/17 14:51 Post-Handoff Eval: The patient was signed out at 3 PM with laboratory evaluation a chest x-ray pending for probable ascites. Per the previous physicians report if the workup is negative the patient can be scheduled for an outpatient paracentesis for ascites. The patient's protein corrected calcium is low at 7.2, this was reviewed, the patient has a history of low protein corrected calcium. The patient's alcohol level is elevated at 216. The patient apparently was covered in feces, nursing staff had to clean the patient. The patient's home health care nurse called and spoke with case management, they state the patient is unable to go home, they are unable to take care of the patient. They state the patient will need a higher level of care. The home health care agency stated the patient has not been eating over the last several days, continues to drink alcohol, and is unable to take care of himself. Therefore, I discussed the patient with [facility] case management in regards to placement. Medical Decision Making Lab Data Lab results narrative: The patient's protein corrected calcium is low at 7.2, review the EMR, he has a history of low protein corrected calcium. Alcohol level was elevated at 216. Result diagrams: 08/27/17 14:45 08/27/17 14:45 Lab Results 08/27/17 08/27/17 08/27/17 Range/Units 14:45 14:45 14:45 CBC w Diff Slide review pending WBC 13.3 H (4.0-11.0) th/mm3 RBC 2.89 L (4.50-5.90) mil/mm3 Hgb 9.7 L (13.0-17.0) gm/dL Hct 27.9 L (39.0-51.0) % MCV 96.4 (80.0-100.0) fL MCH 33.6 (27.0-34.0) pg MCHC 34.9 (32.0-36.0) % RDW 16.4 (11.6-17.2) % Plt Count 123 L (150-450) th/mm3 MPV 7.6 (7.0-11.0) fL Neut % (Auto) 20.0 (16.0-70.0) % Lymph % (Auto) 68.7 H (9.0-44.0) % [place] % (Auto) 8.7 H (0.0-8.0) % Eos % (Auto) 0.9 (0.0-4.0) % Baso % (Auto) 1.7 (0.0-2.0) % Neut # (Auto) 2.7 (1.8-7.7) th/mm3 Lymph # (Auto) 9.1 H (1.0-4.8) th/mm3 Montgomery # (Auto) 1.2 H (0.0-0.9) th/mm3 Eos # (Auto) 0.1 (0.0-0.4) th/mm3 Baso # (Auto) 0.2 (0.0-0.2) th/mm3 WBC Differential Manual diff final Seg Neuts % (Manual) 49 (16-70) % Lymphocytes % (Manual) 37 (9-44) % Monocytes % (Manual) 9 H (0-8) % Eosinophils % (Manual) 3 (0-4) % Basophils % (Manual) 2 (0-2) % Abs Neuts (Manual) 6.5 (1.8-7.7) th/mm3 Nucleated RBCs/100 WBC 1 H (0-0) /100 WBC Differential Comment . Smudge Cells Present H (None) RBC Morphology Normal (Normal) PT 14.5 H (9.8-11.6) sec INR 1.4 Ratio APTT 31.2 H (24.3-30.1) sec Sodium 143 (136-145) meq/L Potassium 4.2 (3.5-5.1) meq/L Chloride 110 H (98-107) meq/L Carbon Dioxide 24.0 (21.0-32.0) meq/L Anion Gap 9 (5-15) meq/L BUN 6 L (7-18) mg/dL Creatinine 0.74 (0.60-1.30) mg/dL Estimated GFR Greater than 89 (>89) mL/min Random Glucose 92 (74-106) mg/dL Calcium 7.2 L* (8.5-10.1) mg/dL Prot Corrected Calcium 7.2 L* (8.5-10.1) mg/dL Total Bilirubin 2.8 H (0.2-1.0) mg/dL AST 82 H (15-37) U/L ALT 20 (12-78) U/L Alkaline Phosphatase 63 (45-117) U/L Total Protein 7.3 (6.4-8.2) g/dL Albumin 2.1 L (3.4-5.0) g/dL Serum Alcohol (0-5) mg/dL 08/27/17 Range/Units 14:45 CBC w Diff WBC (4.0-11.0) th/mm3 RBC (4.50-5.90) mil/mm3 Hgb (13.0-17.0) gm/dL Hct (39.0-51.0) % MCV (80.0-100.0) fL MCH (27.0-34.0) pg MCHC (32.0-36.0) % RDW (11.6-17.2) % Plt Count (150-450) th/mm3 MPV (7.0-11.0) fL Neut % (Auto) (16.0-70.0) % Lymph % (Auto) (9.0-44.0) % Montgomery % (Auto) (0.0-8.0) % Eos % (Auto) (0.0-4.0) % Baso % (Auto) (0.0-2.0) % Neut # (Auto) (1.8-7.7) th/mm3 Lymph # (Auto) (1.0-4.8) th/mm3 Montgomery # (Auto) (0.0-0.9) th/mm3 Eos # (Auto) (0.0-0.4) th/mm3 Baso # (Auto) (0.0-0.2) th/mm3 WBC Differential Seg Neuts % (Manual) (16-70) % Lymphocytes % (Manual) (9-44) % Monocytes % (Manual) (0-8) % Eosinophils % (Manual) (0-4) % Basophils % (Manual) (0-2) % Abs Neuts (Manual) (1.8-7.7) th/mm3 Nucleated RBCs/100 WBC (0-0) /100 WBC Differential Comment Smudge Cells (None) RBC Morphology (Normal) PT (9.8-11.6) sec INR Ratio APTT (24.3-30.1) sec Sodium (136-145) meq/L Potassium (3.5-5.1) meq/L Chloride (98-107) meq/L Carbon Dioxide (21.0-32.0) meq/L Anion Gap (5-15) meq/L BUN (7-18) mg/dL Creatinine (0.60-1.30) mg/dL Estimated GFR (>89) mL/min Random Glucose (74-106) mg/dL Calcium (8.5-10.1) mg/dL Prot Corrected Calcium (8.5-10.1) mg/dL Total Bilirubin (0.2-1.0) mg/dL AST (15-37) U/L ALT (12-78) U/L Alkaline Phosphatase (45-117) U/L Total Protein (6.4-8.2) g/dL Albumin (3.4-5.0) g/dL Serum Alcohol 216 H (0-5) mg/dL Imaging Data Radiologist's impression: ITS Impressions Chest X-Ray 08/27/17 14:05 CONCLUSION: No acute cardiopulmonary disease. Discharge Plan Discharge Disposition Patient Disposition: 30 Still Patient Discharge Condition Condition: Stable Discharge Details Discharge Problem: Hypocalcemia, Alcohol intoxication, Ascites, Cirrhosis, Debility, unspecified Physicians Team ED Provider: Onur Castro Primary Care Provider: Primary Care Lian Franz Rxs /Orders / Referrals /Forms Prescriptions: No Action thiamine HCl (vitamin B1) 100 mg Tablet 100 mg PO DAILY RF: 0 levetiracetam [Keppra] 250 mg Tablet 1,000 mg PO Q12H RF: 0 furosemide [Lasix] 20 mg Tablet 20 mg PO BID RF: 0 spironolactone [Aldactone] 50 mg Tablet 50 mg PO DAILY RF: 0 rifaximin [Xifaxan] 550 mg Tablet 550 mg PO BID RF: 0 lactulose 10 gram/15 mL (15 mL) Solution 2 g PO TID RF: 0 apixaban [Eliquis] 5 mg Tablet 5 mg PO BID RF: 0 Status ED Status: With Doctor
[2017-08-27 14:51] LABS: Baso # (Auto) 0.2 th/mm3 (0.0-0.2); Baso % (Auto) 1.7 % (0.0-2.0); Eos # (Auto) 0.1 th/mm3 (0.0-0.4); Eos % (Auto) 0.9 % (0.0-4.0); Hematocrit 27.9 % (39.0-51.0); Hemoglobin 9.7 gm/dL (13.0-17.0); Lymph # (Auto) 9.1 th/mm3 (1.0-4.8); Lymph % (Auto) 68.7 % (9.0-44.0); Mean Corpuscular HGB Conc 34.9 % (32.0-36.0); Mean Corpuscular Hemoglobin 33.6 pg (27.0-34.0); Mean Corpuscular Volume 96.4 fL (80.0-100.0); Mean Platelet Volume 7.6 fL (7.0-11.0); Mono # (Auto) 1.2 th/mm3 (0.0-0.9); Mono % (Auto) 8.7 % (0.0-8.0); Neut # (Auto) 2.7 th/mm3 (1.8-7.7); Platelet Count 123 th/mm3 (150-450); Red Blood Count 2.89 mil/mm3 (4.50-5.90); Red Cell Distribution Width 16.4 % (11.6-17.2); White Blood Count 13.3 th/mm3 (4.0-11.0)
[2017-08-27 15:01] LABS: Chloride 110 meq/L (98-107); Sodium 143 meq/L (136-145)
[2017-08-27 15:03] LABS: Potassium 4.2 meq/L (3.5-5.1)
[2017-08-27 15:08] LABS: Activated Partial Thrombo Time 31.2 sec (24.3-30.1); INR 1.4 Ratio; Prothrombin Time 14.5 sec (9.8-11.6)
[2017-08-27 15:11] LABS: Alanine Aminotransferase 20 U/L (12-78); Albumin 2.1 g/dL (3.4-5.0); Anion Gap 9 meq/L (5-15); Aspartate Aminotransferase 82 U/L (15-37); Blood Urea Nitrogen 6 mg/dL (7-18); Calcium 7.2 mg/dL (8.5-10.1); Glomerular Filtration Rate Greater Than 89 mL/min (>89); Glucose,Random 92 mg/dL (74-106); Total Protein 7.3 g/dL (6.4-8.2)
[2017-08-27 15:15] LABS: Alkaline Phosphatase 63 U/L (45-117)
[2017-08-27 15:17] LABS: Eosinophils 3 % (0-4); Lymphocytes 37 % (9-44); Monocytes 9 % (0-8); Smudge Cells Present; Tallied Nucleated RBC 1 (0-0)
[2017-08-27 15:18] LABS: RBC Morphology Normal (Normal)
--- NOTE | 2017-08-27 15:20 | XR ---
EXAM DATE: 08/27/2017 3:08 PM EDT AGE/SEX: 62 years / Male INDICATIONS: Short of breath. CLINICAL DATA: This is the patient's initial encounter. Patient reports that signs and symptoms have been present for 1 day and indicates a pain score of 0/10. MEDICAL/SURGICAL HISTORY: Hypertension. None. COMPARISON: [facility] – [place], CHEST SINGLE AP, 07/30/2017. . FINDINGS: A single AP view of the chest demonstrates the lungs to be symmetrically aerated without evidence of mass, infiltrate or effusion. The cardiomediastinal contours are unremarkable. Osseous structures a re intact. CONCLUSION: No acute cardiopulmonary disease. Electronically signed by: Conrad Cook MD 08/27/2017 3:19 PM EDT
--- NOTE | 2017-08-27 16:38 | P.HPIM ---
History of Present Illness Primary Care Physician: No Primary Care Physician Chief Complaint: fall History of Present Illness: patient is a 62 y/o male with history of alcohol abuse, cirrhosis, CLL who was brought to ER after he fell at home last night. he says that he drinks eight to ten beers a day and taking his medications from time to time. he says that the last drink was last night. he denies any abdominal pain, nausea or vomiting. he denies any chest pain, sob or fever. he says that he fell last night and that was what made him to come to ER. - Diagnosis (1) Debility, unspecified (2) Alcohol intoxication (3) Ascites (4) Cirrhosis (5) Hypocalcemia (6) Seizure Inpatient Certification: I certify that the inpatient services were ordered in accordance with Medicare regulations governing the order. This includes certification that hospital inpatient services are reasonable and necessary and in the case of services not specified as inpatient-only under 42 CFR 419.22(n), that they are appropriately provided as inpatient services in accordance to with the 2-midnight benchmark under 43 CFR 412.3(e) Review of Systems All other systems reviewed negative except as stated in HPI PMFSH - History History Provided By: Patient - Medical History Medical History: Medical History (Last Updated 08/27/17 @ 14:25 by Jeannie Bennett) Brain aneurysm Cirrhosis Seizure - Surgical History Surgical History: Surgical History (Last Updated 08/27/17 @ 14:25 by Jeannie Bennett) History of craniotomy - Tobacco History Second Hand Smoke Exposure: No Tobacco Use In Past 30 Days: No Smoking Status: Former smoker Tobacco Type: Cigarettes - Alcohol History How Often Do You Have a Drink Containing Alcohol: 4 or more times a week - Substance Use History Substance History: No History of Abuse - Travel History Recent Travel in the [place] Within the Last 8 Weeks: No Recent Travel Out of the Country Within the Last 8 Weeks: No - Immunization History Tetanus Immunization: Unsure Hx Influenza Vaccine This Season: Yes Medications and Allergies Allergies Allergy/AdvReac Type Severity Reaction Status Date / Time No Known Drug Allergies Allergy Unknown UNKNOWN Verified 08/27/17 14:14 MRI PRECAUTION AdvReac Severe ANEURYSM Uncoded 06/24/17 16:30 CLIPS Home Medications Medication Instructions Recorded Confirmed Type apixaban [Eliquis] 5 mg PO BID 08/18/17 08/27/17 History furosemide [Lasix] 20 mg PO BID 08/18/17 08/27/17 History lactulose 2 g PO TID 08/18/17 08/27/17 History levetiracetam [Keppra] 1,000 mg PO Q12H 08/18/17 08/27/17 History rifaximin [Xifaxan] 550 mg PO BID 08/18/17 08/27/17 History spironolactone [Aldactone] 50 mg PO DAILY 08/18/17 08/27/17 History thiamine HCl (vitamin B1) 100 mg PO DAILY 08/18/17 08/27/17 History Exam Vital signs: Vital Signs 08/27/17 14:17 08/27/17 14:23 Temperature 97.8 F 97.8 F Pulse Rate 91 H 91 H Respiratory Rate 18 18 Blood Pressure 106/67 106/67 Pulse Oximetry 95 95 Intake & Output 08/26/17 08/27/17 08/27/17 18:59 06:59 18:59 Weight 83.915 kg Other: Date of Last Bowel Movement 08/27/17 - Constitutional no acute distress - Routine HEENT Exam Eye: Present: PERRL - Routine Neck Exam Present: supple, full ROM - Routine Respiratory Exam Present: CTA bilaterally - Routine Cardiovascular Exam Present: RRR - Routine Abdominal Exam Present: soft, distended - Routine Extremities Exam Comments: bilateral pedal edema. - Routine Neurological Exam Present: alert, oriented X3 Results - Labs CBC & Chem 7: 08/27/17 14:45 08/27/17 14:45 Labs: Short CBC 08/27/17 Range/Units 14:45 WBC 13.3 H (4.0-11.0) th/mm3 Hgb 9.7 L (13.0-17.0) gm/dL Hct 27.9 L (39.0-51.0) % Plt Count 123 L (150-450) th/mm3 BMP 08/27/17 14:45 Sodium 143 Potassium 4.2 Chloride 110 H Carbon Dioxide 24.0 BUN 6 L Creatinine 0.74 Calcium 7.2 L* Liver Function 08/27/17 Range/Units 14:45 Total Bilirubin 2.8 H (0.2-1.0) mg/dL AST 82 H (15-37) U/L ALT 20 (12-78) U/L Alkaline Phosphatase 63 (45-117) U/L Albumin 2.1 L (3.4-5.0) g/dL - Imaging Impressions Chest X-Ray 08/27/17 14:05 CONCLUSION: No acute cardiopulmonary disease. Caprini VTE Risk Assessment Caprini VTE Risk Assessment: Moderate/High Risk (score >= 2) VTE Pharmacological Exception Reason: High risk for bleeding Caprini Risk Assessment Model: Point Value = 1 Point Value = 2 Point Value = 3 Point Value = 5 Age 41-60 Minor surgery BMI > 25 kg/m2 Swollen legs Varicose veins or History of unexplained or recurrent spontaneous Oral contraceptives or hormone replacement Sepsis (< 1 month) Serious lung disease, including pneumonia (< 1 month) Abnormal pulmonary function Acute myocardial infarction Congestive heart failure (< 1 month) History of inflammatory bowel disease Medical patient at bed rest Age 61-74 Arthroscopic surgery Major open surgery (> 45 min) Laparoscopic surgery (> 45 min) Malignancy Confined to bed (> 72 hours) Immobilizing plaster cast Central venous access Age >= 75 History of VTE Family history of VTE Factor V Leiden Prothrombin [id number] Lupus anticoagulant Anticardiolipin antibodies Elevated serum homocysteine Heparin-induced thrombocytopenia Other congenital or acquired thrombophilia Stroke (< 1 month) Elective arthroplasty Hip, pelvis, or leg fracture Acute spinal cord injury (< 1 month) Prophylaxis Regimen: Total Risk Factor Score Risk Level Prophylaxis Regimen 0-1 Low Early ambulation 2 Moderate Order ONE of the following: *Sequential Compression Device (SCD) *Heparin 5000 units SQ BID 3-4 Higher Order ONE of the following medications: *Heparin 5000 units SQ TID *Enoxaparin/Lovenox 40 mg SQ daily (WT < 150 kg, CrCl > 30 mL/min) *Enoxaparin/Lovenox 30 mg SQ daily (WT < 150 kg, CrCl > 10-29 mL/min) *Enoxaparin/Lovenox 30 mg SQ BID (WT < 150 kg, CrCl > 30 mL/min) AND/OR *Sequential Compression Device (SCD) 5 or more Highest Order ONE of the following medications: *Heparin 5000 units SQ TID (Preferred with Epidurals) *Enoxaparin/Lovenox 40 mg SQ daily (WT < 150 kg, CrCl > 30 mL/min) *Enoxaparin/Lovenox 30 mg SQ daily (WT < 150 kg, CrCl > 10-29 mL/min) *Enoxaparin/Lovenox 30 mg SQ BID (WT < 150 kg, CrCl > 30 mL/min) AND *Sequential Compression Device (SCD) Assessment and Plan - Assessment (1) Debility, unspecified Code(s): R53.81 - Other malaise Status: Acute Plan: due to alcohol abuse- consult PT and case management. (2) Alcohol intoxication Code(s): F10.929 - Alcohol use, unspecified with intoxication, unspecified Status: Acute Plan: continue thiamine- CIWA protocol- advised on drinking cessation. (3) Ascites Code(s): R18.8 - Other ascites Status: Chronic Plan: alcohol induced- continue lasix and aldactone- although the patient is not compliant. f/u with GI as outpatient. will consult IR for therapeutic paracentesis. (4) Cirrhosis Code(s): K74.60 - Unspecified cirrhosis of liver Status: Acute Plan: alcohol-induced- continue Lasix and Aldactone- noncompliant with the meds- f/u; GI as outpatient. (5) Hypocalcemia Code(s): E83.51 - Hypocalcemia Status: Acute Plan: will replace and monitor. (6) Seizure Code(s): R56.9 - Unspecified convulsions Status: Acute Plan: continue home meds. - Plan Discussed Condition With: ER physician, the patient and ER case management. Discharge Planning: possible tomorrow- after paracentesis and PT evaluation. (2) Alcohol intoxication Qualifiers: Complication of substance-induced condition: uncomplicated Qualified Code(s) : F10.920 - Alcohol use, unspecified with intoxication, uncomplicated (3) Ascites Qualifiers: Ascites type: due to alcoholic cirrhosis Qualified Code(s): K70.31 - Alcoholic cirrhosis of liver with ascites (4) Cirrhosis Qualifiers: Hepatic cirrhosis type: alcoholic cirrhosis Ascites presence: with ascites Qualified Code(s): K70.31 - Alcoholic cirrhosis of liver with ascites
[2017-08-27] MEDS ORDERED: Haloperidol Inj 5 MG/ML Ampul IV.PUSH PRN (16:39)
[2017-08-27] MEDS ORDERED: LORazepam 1 MG Tablet PO PRN (16:39)
[2017-08-27] MEDS ORDERED: Calcium Gluconate Inj 1 GM in Dextrose 5% in Water Inj 100 ML IV.SIG ONE ×2 (16:39)
[2017-08-27] MEDS: levETIRAcetam 500 MG Tablet PO SCH (18:34)
[2017-08-27] MEDS: rifAXIMin 550 MG Tablet PO SCH (22:29)
[2017-08-27] MEDS: Furosemide 20 MG Tablet PO SCH (22:29)
[2017-08-28] MEDS ORDERED: Calcium Gluconate Inj 1 GM in Dextrose 5% in Water Inj 100 ML IV.SIG ONE ×2 (02:00)
[2017-08-28] MEDS: levETIRAcetam 500 MG Tablet PO SCH ×2 (05:41→17:12)
[2017-08-28 05:57] LABS: Hematocrit 30.5 % (39.0-51.0); Hemoglobin 10.2 gm/dL (13.0-17.0); Mean Corpuscular HGB Conc 33.5 % (32.0-36.0); Mean Corpuscular Hemoglobin 32.4 pg (27.0-34.0); Mean Corpuscular Volume 96.7 fL (80.0-100.0); Mean Platelet Volume 7.6 fL (7.0-11.0); Platelet Count 91 th/mm3 (150-450); Red Blood Count 3.15 mil/mm3 (4.50-5.90); Red Cell Distribution Width 15.8 % (11.6-17.2); White Blood Count 8.6 th/mm3 (4.0-11.0)
[2017-08-28 06:22] LABS: Anion Gap 9 meq/L (5-15); Blood Urea Nitrogen 7 mg/dL (7-18); Calcium 7.4 mg/dL (8.5-10.1); Carbon Dioxide 23.2 meq/L (21.0-32.0); Chloride 108 meq/L (98-107); Glomerular Filtration Rate Greater Than 89 mL/min (>89); Glucose,Random 94 mg/dL (74-106); Potassium 3.4 meq/L (3.5-5.1); Sodium 140 meq/L (136-145)
[2017-08-28 06:35] LABS: Total Protein 6.7 g/dL (6.4-8.2)
[2017-08-28] MEDS: rifAXIMin 550 MG Tablet PO SCH ×2 (08:46→22:03)
[2017-08-28] MEDS: Furosemide 20 MG Tablet PO SCH ×2 (08:46→22:02)
[2017-08-28] MEDS: Spironolactone 50 MG Tablet PO SCH (08:47)
--- NOTE | 2017-08-28 09:15 | P.PN ---
Subjective Interval history: in no distress. no sob or abdominal pain. awaiting paracentesis today. Physical Exam Vital signs: Vital Signs 08/27/17 14:17 08/27/17 14:23 08/27/17 16:27 Temperature 97.8 F 97.8 F Pulse Rate 91 H 91 H 90 Respiratory Rate 18 18 18 Blood Pressure 106/67 106/67 110/70 Pulse Oximetry 95 95 95 08/27/17 16:40 08/27/17 20:00 08/27/17 20:47 Temperature 98 F Pulse Rate 92 H 95 H Respiratory Rate 18 16 Blood Pressure 99/71 L 91/63 L Pulse Oximetry 96 98 08/28/17 00:00 Temperature 98.7 F Pulse Rate 95 H Respiratory Rate 20 Blood Pressure 115/73 Pulse Oximetry 100 Intake & Output 08/27/17 08/28/17 08/28/17 18:59 06:59 18:59 Intake Total 240 / 240 110 / 110 Output Total 0 / 0 Balance 240 / 240 110 / 110 Weight 83.915 kg 91.7 kg Intake: IV 110 / 110 Calcium Gluconate Inj 1 GM In 110 / 110 D5W Inj 100 ML @ 110 mls/hr IV. SIG ONCE ONE Rx#:[id number] Oral 240 / 240 Output: Urine 0 / 0 Other: # Voids 2 Date of Last Bowel Movement 08/27/17 # Bowel Movements 0 - Constitutional no acute distress - Routine Respiratory Exam Present: CTA bilaterally - Routine Cardiovascular Exam Present: RRR - Routine Abdominal Exam Present: soft, distended - Routine Extremities Exam Comments: mild bilateral pedal edema. - Routine Neurological Exam Present: alert, oriented X3 Results - Labs CBC & Chem 7: 08/28/17 05:12 08/28/17 05:12 Laboratory Results - last 24 hr 08/27/17 08/27/17 08/27/17 14:45 14:45 14:45 CBC w Diff Slide review pending WBC 13.3 H RBC 2.89 L Hgb 9.7 L Hct 27.9 L MCV 96.4 MCH 33.6 MCHC 34.9 RDW 16.4 Plt Count 123 L MPV 7.6 Neut % (Auto) 20.0 Lymph % (Auto) 68.7 H Power % (Auto) 8.7 H Eos % (Auto) 0.9 Baso % (Auto) 1.7 Neut # (Auto) 2.7 Lymph # (Auto) 9.1 H Power # (Auto) 1.2 H Eos # (Auto) 0.1 Baso # (Auto) 0.2 WBC Differential Manual diff final Seg Neuts % (Manual) 49 Lymphocytes % (Manual) 37 Monocytes % (Manual) 9 H Eosinophils % (Manual) 3 Basophils % (Manual) 2 Abs Neuts (Manual) 6.5 Nucleated RBCs/100 WBC 1 H Differential Comment . Smudge Cells Present H RBC Morphology Normal PT 14.5 H INR 1.4 APTT 31.2 H Sodium 143 Potassium 4.2 Chloride 110 H Carbon Dioxide 24.0 Anion Gap 9 BUN 6 L Creatinine 0.74 Estimated GFR Greater than 89 Random Glucose 92 Calcium 7.2 L* Prot Corrected Calcium 7.2 L* Total Bilirubin 2.8 H AST 82 H ALT 20 Alkaline Phosphatase 63 Total Protein 7.3 Albumin 2.1 L Serum Alcohol 08/27/17 08/28/17 08/28/17 14:45 05:12 05:12 CBC w Diff WBC 8.6 RBC 3.15 L Hgb 10.2 L Hct 30.5 L MCV 96.7 MCH 32.4 MCHC 33.5 RDW 15.8 Plt Count 91 L MPV 7.6 Neut % (Auto) Lymph % (Auto) Power % (Auto) Eos % (Auto) Baso % (Auto) Neut # (Auto) Lymph # (Auto) Power # (Auto) Eos # (Auto) Baso # (Auto) WBC Differential Seg Neuts % (Manual) Lymphocytes % (Manual) Monocytes % (Manual) Eosinophils % (Manual) Basophils % (Manual) Abs Neuts (Manual) Nucleated RBCs/100 WBC Differential Comment Smudge Cells RBC Morphology PT INR APTT Sodium 140 Potassium 3.4 L D Chloride 108 H Carbon Dioxide 23.2 Anion Gap 9 BUN 7 Creatinine 0.62 Estimated GFR Greater than 89 Random Glucose 94 Calcium 7.4 L* Prot Corrected Calcium 7.6 L Total Bilirubin AST ALT Alkaline Phosphatase Total Protein 6.7 D Albumin Serum Alcohol 216 H - Imaging Impressions Chest X-Ray 08/27/17 14:05 CONCLUSION: No acute cardiopulmonary disease. Assessment and Plan - Assessment (1) Debility, unspecified Code(s): R53.81 - Other malaise Status: Acute Plan: due to alcohol abuse- consulted PT and case management. (2) Alcohol intoxication Code(s): F10.929 - Alcohol use, unspecified with intoxication, unspecified Status: Acute Plan: continue thiamine- CIWA protocol- advised on drinking cessation. (3) Ascites Code(s): R18.8 - Other ascites Status: Chronic Plan: alcohol induced- continue lasix and aldactone- although the patient is not compliant. f/u with GI as outpatient. consulted IR for therapeutic paracentesis. (4) Cirrhosis Code(s): K74.60 - Unspecified cirrhosis of liver Status: Acute Plan: alcohol-induced- continue Lasix and Aldactone- noncompliant with the meds- f/u; GI as outpatient. (5) Hypocalcemia Code(s): E83.51 - Hypocalcemia Status: Acute Plan: improved. (6) Seizure Code(s): R56.9 - Unspecified convulsions Status: Acute Plan: continue home meds. - Plan Discharge Planning: rehab later this week. (2) Alcohol intoxication Qualifiers: Complication of substance-induced condition: uncomplicated Qualified Code(s) : F10.920 - Alcohol use, unspecified with intoxication, uncomplicated (3) Ascites Qualifiers: Ascites type: due to alcoholic cirrhosis Qualified Code(s): K70.31 - Alcoholic cirrhosis of liver with ascites (4) Cirrhosis Qualifiers: Hepatic cirrhosis type: alcoholic cirrhosis Ascites presence: with ascites Qualified Code(s): K70.31 - Alcoholic cirrhosis of liver with ascites
[2017-08-28] MEDS ORDERED: Albumin Human 25% Inj 150 ML IV.SIG ONE (14:25)
[2017-08-29] MEDS: levETIRAcetam 500 MG Tablet PO SCH ×2 (06:19→17:19)
[2017-08-29 07:00] LABS: Chloride 105 meq/L (98-107); Potassium 3.4 meq/L (3.5-5.1); Sodium 136 meq/L (136-145)
[2017-08-29 07:04] LABS: Anion Gap 10 meq/L (5-15); Blood Urea Nitrogen 5 mg/dL (7-18); Calcium 7.4 mg/dL (8.5-10.1); Carbon Dioxide 20.9 meq/L (21.0-32.0); Glucose,Random 117 mg/dL (74-106)
[2017-08-29 07:22] LABS: Glomerular Filtration Rate Greater Than 89 mL/min (>89)
[2017-08-29 07:36] LABS: Total Protein 6.8 g/dL (6.4-8.2)
[2017-08-29] MEDS: rifAXIMin 550 MG Tablet PO SCH ×2 (09:25→21:13)
[2017-08-29] MEDS: Furosemide 20 MG Tablet PO SCH ×2 (09:25→21:13)
[2017-08-29] MEDS: Spironolactone 50 MG Tablet PO SCH (09:25)
--- NOTE | 2017-08-29 09:51 | US ---
EXAM DATE: 08/28/2017 2:21 PM EDT AGE/SEX: 62 years / Male INDICATIONS: Ascites. CLINICAL DATA: This is the patient's subsequent encounter. Patient reports that signs and symptoms h ave been present for 4 - 6 months and indicates a pain score of 0/10. MEDICAL/SURGICAL HISTORY: . Chronic obstructive pulmonary disease. Cirrhosis. Hypertension. Sei zures. Head trauma. Headaches. Dizziness. Depression. Anxiety. Substance abuse. Leukemia. Measles. . Inguinal hernia repair. Brain aneurysm repair. COMPARISON: No prior exams available for comparison. FLUID: Total volume of 6900 cc of clear, yellow fluid was removed. Fluid was discarded. Paracentesis was the rapeutic only. TECHNIQUE: Ultrasound guidance for abdominal paracentesis. Paracentesis. The risks, benefits, and alternatives to ultrasound guided paracentesis were explained to the patient in detail including the risk of bleeding and infection. Written and verbal informed consent was obt ained. With the patient on the ultrasound table, ultrasound imaging was used to select the most appropriate approach for paracentesis. Overlying skin was prepped and draped in the usual sterile fashion and wi th a local anesthetic, a dermatotomy was made with an 11 blade scalpel. A 6 [place] [id number] ca theter was introduced into the peritoneal cavity and fluid was collected. Post procedure scanning reveals no hematoma or other complication. The patient tolerated the procedu re well and left the ultrasound suite in stable condition. FINDINGS: Successful ultrasound-guided paracentesis yielding 6900 cc of clear yellow ascites was performed as d escribed above. CONCLUSION: 1. Successful ultrasound-guided paracentesis yielding 6900 cc of clear yellow ascites. Electronically signed by: Delfino Renee MD 08/29/2017 9:49 AM EDT
--- NOTE | 2017-08-29 11:50 | P.PN ---
Subjective Interval history: resting comfortably with no acute distress. has minimal abdominal pain. no sob. afebrile. Physical Exam Vital signs: Vital Signs 08/28/17 12:00 08/28/17 13:05 08/28/17 13:59 Temperature 97.3 F L 98.2 F 98.6 F Pulse Rate 80 82 76 Respiratory Rate 16 16 15 Blood Pressure 105/54 L 128/69 122/66 Pulse Oximetry 98 95 96 08/28/17 14:15 08/28/17 16:11 08/28/17 17:48 Temperature 98 F 98.6 F Pulse Rate 84 Respiratory Rate 18 20 18 Blood Pressure 114/59 L 120/61 Pulse Oximetry 96 96 08/28/17 20:00 08/29/17 00:00 08/29/17 08:00 Temperature 97.8 F 98.6 F 98.2 F Pulse Rate 71 83 92 H Respiratory Rate 16 16 20 Blood Pressure 152/70 H 121/66 131/75 Pulse Oximetry 95 94 L 97 Intake & Output 08/28/17 08/29/17 08/29/17 18:59 06:59 18:59 Intake Total 350 / 350 270 / 270 Output Total 300 / 300 600 / 600 Balance 50 / 50 -330 / -330 Weight 83.3 kg Intake: IV 150 / 150 Flexbumin 25% Inj 150 ML @ 60 150 / 150 mls/hr IV.SIG ONCE ONE Rx#: [id number] Oral 350 / 350 120 / 120 Output: Urine 300 / 300 600 / 600 Other: # Voids 5 Date of Last Bowel Movement 08/27/17 - Routine Respiratory Exam Present: CTA bilaterally - Routine Cardiovascular Exam Present: RRR - Routine Abdominal Exam Present: soft (less distended.), distended - Routine Extremities Exam Comments: with mild bilateral pedal edema. - Routine Neurological Exam Present: alert, oriented X3 Results - Labs CBC & Chem 7: 08/28/17 05:12 08/29/17 06:00 Laboratory Results - last 24 hr 08/28/17 08/29/17 05:12 06:00 Sodium 136 Potassium 3.4 L Chloride 105 Carbon Dioxide 20.9 L Anion Gap 10 BUN 5 L Creatinine 0.67 Estimated GFR Greater than 89 Random Glucose 117 H Calcium 7.4 L* Prot Corrected Calcium 7.6 L Magnesium 2.0 Total Protein 6.8 - Imaging Impressions Paracentesis Ultrasound 08/28/17 00:00 CONCLUSION: 1. Successful ultrasound-guided paracentesis yielding 6900 cc of clear yellow ascites. Assessment and Plan - Assessment (1) Debility, unspecified Code(s): R53.81 - Other malaise Status: Acute Plan: due to alcohol abuse- consulted PT and case management. (2) Alcohol intoxication Code(s): F10.929 - Alcohol use, unspecified with intoxication, unspecified Status: Acute Plan: continue thiamine- [place] protocol- advised on drinking cessation. (3) Ascites Code(s): R18.8 - Other ascites Status: Chronic Plan: alcohol induced- continue lasix and aldactone- although the patient is not compliant. f/u with GI as outpatient. s/p paracentesis with removal of about 6900 ml of fluid. (4) Cirrhosis Code(s): K74.60 - Unspecified cirrhosis of liver Status: Acute Plan: alcohol-induced- continue Lasix and Aldactone- noncompliant with the meds- f/u; GI as outpatient. (5) Hypocalcemia Code(s): E83.51 - Hypocalcemia Status: Acute Plan: improved.will monitor. (6) Seizure Code(s): R56.9 - Unspecified convulsions Status: Acute Plan: continue home meds. - Plan Discharge Planning: rehab later this week. (2) Alcohol intoxication Qualifiers: Complication of substance-induced condition: uncomplicated Qualified Code(s) : F10.920 - Alcohol use, unspecified with intoxication, uncomplicated (3) Ascites Qualifiers: Ascites type: due to alcoholic cirrhosis Qualified Code(s): K70.31 - Alcoholic cirrhosis of liver with ascites (4) Cirrhosis Qualifiers: Hepatic cirrhosis type: alcoholic cirrhosis Ascites presence: with ascites Qualified Code(s): K70.31 - Alcoholic cirrhosis of liver with ascites
[2017-08-30] MEDS: levETIRAcetam 500 MG Tablet PO SCH ×2 (05:47→18:04)
[2017-08-30] MEDS: Furosemide 20 MG Tablet PO SCH ×2 (09:01→21:46)
[2017-08-30] MEDS: Spironolactone 50 MG Tablet PO SCH (09:01)
[2017-08-30] MEDS: rifAXIMin 550 MG Tablet PO SCH ×2 (09:01→21:46)
--- NOTE | 2017-08-30 14:22 | P.PNIM ---
Subjective Interval history: Patient seen in follow-up for weakness and falls. Patient reports no new complaints Physical Exam Vital signs: Vital Signs 08/29/17 16:00 08/29/17 23:39 08/30/17 00:00 Temperature 98.4 F 97.7 F 99.6 F Pulse Rate 91 H 90 87 Respiratory Rate 18 18 18 Blood Pressure 126/70 104/64 91/53 L Pulse Oximetry 96 96 94 L 08/30/17 07:34 08/30/17 11:20 Temperature 99 F 97.8 F Pulse Rate 92 H 97 H Respiratory Rate 20 20 Blood Pressure 110/55 L 116/59 L Pulse Oximetry 93 L 98 Intake & Output 08/29/17 08/30/17 08/30/17 18:59 06:59 18:59 Intake Total 900 / 900 Output Total 1949 / 1949 Balance -1050 / -1050 Weight 83.3 kg Intake: Oral 100 / 100 Oral Supplement 800 / 800 Output: Urine 1949 Other: # Voids 4 # Bowel Movements 2 Narrative: GENERAL: Patient calm resting and without complaints SKIN: Warm and dry. No rashes or ecchymotic injuries EYES: Pupils equal and round. No scleral icterus. No injection or drainage. ENT: External ear exam normal. No acute nasal bleeding or discharge. Mucous membranes pink and moist. CARDIOVASCULAR: Regular rate and rhythm. No murmurs gallops or rubs appreciated RESPIRATORY: Good air flow and effort without accessory muscle use. Clear to auscultation. Breath sounds equal bilaterally. GASTROINTESTINAL: Abdomen soft, non-tender, nondistended. Hepatic and splenic margins not palpable. MUSCULOSKELETAL: Extremities without clubbing, cyanosis, or edema. No obvious deformities. NEUROLOGICAL: Awake and alert. No obvious cranial nerve deficits. Motor grossly within normal limits. Five out of 5 muscle strength in the arms and legs. Normal speech. Results - Labs CBC & Chem 7: 08/28/17 05:12 08/29/17 06:00 Assessment and Plan - Assessment (1) Debility, unspecified Code(s): R53.81 - Other malaise Status: Acute Plan: Secondary to chronic alcohol dependency Continue with rehab measures (2) Alcohol intoxication Code(s): F10.929 - Alcohol use, unspecified with intoxication, unspecified Status: Acute Plan: Continue vitamin support, CIWA protocol. (3) Ascites Code(s): R18.8 - Other ascites Status: Chronic Plan: Alcohol-related, continue Lasix and Aldactone. Status post paracentesis with 6.9 L of fluid removed (4) Cirrhosis Code(s): K74.60 - Unspecified cirrhosis of liver Status: Acute Plan: No acute inpatient workup to the patient's chronic alcohol dependency (5) Hypocalcemia Code(s): E83.51 - Hypocalcemia Status: Acute Plan: improved. (6) Seizure Code(s): R56.9 - Unspecified convulsions Status: Acute Plan: No acute seizure stable on home - Plan Discharge Planning: Likely discharge to nursing home facility (2) Alcohol intoxication Qualifiers: Complication of substance-induced condition: uncomplicated Qualified Code(s) : F10.920 - Alcohol use, unspecified with intoxication, uncomplicated (3) Ascites Qualifiers: Ascites type: due to alcoholic cirrhosis Qualified Code(s): K70.31 - Alcoholic cirrhosis of liver with ascites (4) Cirrhosis Qualifiers: Hepatic cirrhosis type: alcoholic cirrhosis Ascites presence: with ascites Qualified Code(s): K70.31 - Alcoholic cirrhosis of liver with ascites
[2017-08-31] MEDS: levETIRAcetam 500 MG Tablet PO SCH (06:15)
--- NOTE | 2017-08-31 08:40 | P.DS ---
Date of admission: 08/27/17 15:44 Primary care physician: No Primary Care Physician Brief History from admission: patient is a 62 y/o male with history of alcohol abuse, cirrhosis, CLL who was brought to ER after he fell at home last night. he says that he drinks eight to ten beers a day and taking his medications from time to time. he says that the last drink was last night. he denies any abdominal pain, nausea or vomiting. he denies any chest pain, sob or fever. he says that he fell last night and that was what made him to come to ER. DS: Diagnosis - Discharge Diagnosis (1) Alcohol intoxication Status: Acute (2) Cirrhosis Status: Acute (3) Debility, unspecified Status: Acute (4) Hypocalcemia Status: Acute (5) Hypocalcemia Status: Acute (6) Seizure Status: Acute (7) Ascites Status: Chronic DS: Summary Hospital Course: 62-year-old male patient presented with alcohol intoxication and debility secondary to chronic alcohol dependency. Vitamin support was in place as well as CIWA protocol. There were no signs of withdrawal during hospitalization. Patient also has ascites this is likely alcohol related, was continued on Lasix and Aldactone. Patient underwent a paracentesis with removal of 6.9 L of fluid. Patient does have a chronic alcohol dependence C with cirrhosis this was stable without any need for inpatient workup. Hypoglycemia was also noted, this improved during hospitalization. Patient has history of seizures no acute seizures were seen during hospitalization. Patient presented with leukocytosis which improved. PT saw patient during hospitalization, wheeled walker from home recommendations for rehab. He was stabilized prior to discharge. Follow up [facility]. Encourage alcohol cessation. - Time Spent with Patient Total time spent providing and/or coordinating discharge services: Greater than 30 minutes - Quality: VTE Deep Vein Thrombosis/Pulmonary Embolism Present on Admission: Yes Exam Vital signs: Vital Signs 08/30/17 11:20 08/30/17 15:06 08/30/17 21:37 Temperature 97.8 F 97.8 F 99.0 F Pulse Rate 97 H 93 H 90 Respiratory Rate 20 20 Blood Pressure 116/59 L 118/58 L 113/61 Pulse Oximetry 98 98 97 08/31/17 01:33 Temperature 98.1 F Pulse Rate 88 Respiratory Rate 18 Blood Pressure 116/61 Pulse Oximetry 97 Intake & Output 08/30/17 08/31/17 08/31/17 18:59 06:59 18:59 Intake Total 1020 / 1020 1000 / 1000 Output Total 350 / 350 800 / 800 Balance 670 / 670 200 / 200 Weight 83.3 kg Intake: Oral 820 / 820 Oral Supplement 200 / 200 1000 / 1000 Output: Urine 350 / 350 800 / 800 Other: # Voids 4 4 Date of Last Bowel Movement 08/27/17 08/27/17 # Bowel Movements 2 0 Narrative: GENERAL: Well-developed, well-nourished patient in NAD. SKIN: Warm and dry. No rash. HEAD: Normocephalic. Atraumatic. EYES: Pupils equal and round. No scleral icterus. No injection or drainage. ENT: No nasal bleeding or discharge. Mucous membranes pink and moist. NECK: Supple. Trachea midline. CARDIOVASCULAR: Regular rate and rhythm. S1, S2 noted. No murmur appreciated. RESPIRATORY: No accessory muscle use. Clear to auscultation. Breath sounds equal bilaterally. GASTROINTESTINAL: Abdomen soft, non-tender, nondistended. Normoactive bowel sounds x4. MUSCULOSKELETAL: No obvious deformities. Extremities without clubbing, cyanosis , or edema. NEUROLOGICAL: Awake and alert. No obvious cranial nerve deficits. Motor grossly within normal limits. 5/5 muscle strength in bilateral upper and lower extremities. Normal speech. PSYCHIATRIC: Appropriate mood and affect; insight and judgment normal. Results Procedures completed during hospitalization: Paracentesis - Impressions ITS Impressions Chest X-Ray 08/27/17 14:05 CONCLUSION: No acute cardiopulmonary disease. Paracentesis Ultrasound 08/28/17 00:00 CONCLUSION: 1. Successful ultrasound-guided paracentesis yielding 6900 cc of clear yellow ascites. Discharge Plan - Discharge Disposition Patient Disposition: Discharge to SNF - Discharge Condition Condition: Fair - Discharge Order Discharge Orders: Discharge Order (Routine); Ordered 08/31/17 Ordered By: Rosemarie Vo - Physicians Team Primary Care Provider: Primary Care Physici,No Attending Provider: Kimi Hale
[2017-08-31] MEDS: Furosemide 20 MG Tablet PO SCH (08:54)
[2017-08-31] MEDS: Spironolactone 50 MG Tablet PO SCH (08:54)
[2017-08-31] MEDS: rifAXIMin 550 MG Tablet PO SCH (08:54)
== END 2017-08-31 12:10 ==
LOC: PHED 13:40 → PHEDA 15:44 → PH3 17:30
PROVIDERS: ADMIT Hospitalist; ATTEND Hospitalist